=== PATIENT | male | born 1965 | race Caucasian/White ===

== ENCOUNTER 2016-08-04 16:59 | Inpatient (IN) | payer BC ==
[~2016-08-04] VITALS: Ht 188 cm; Wt 65.0 kg
[~2016-08-04 16:59] MED LIST: HYDR-3580 PO; MAGN30S PO; RANI150 TUBE
[2016-08-04 17:02] VITALS: BP 121/66; PULSE 84; RESP 16; TEMP 98; O2SAT 96
[2016-08-04] MEDS ORDERED: SODIUM CHLORIDE 0.9% FLUSH 5 ML FLUSH IVF PRN (22:15)
[2016-08-04 22:22] VITALS: BP 128/72; PULSE 74; RESP 18; O2SAT 95
[2016-08-04 23:06] LABS: AUTOMATED NEUTROPHIL # 4.4 TH/MM3 (1.8-7.7); BASOPHIL # 0.1 TH/MM3 (0-0.2); EOSINOPHIL # 0.1 TH/MM3 (0-0.4); EOSINOPHIL % 1.6 % (0.0-4.0); HEMATOCRIT 47.5 % (39.0-51.0); LYMPH % 21.1 % (9.0-44.0); LYMPHOCYTE # 1.4 TH/MM3 (1.0-4.8); MEAN CELL VOLUME 89.9 FL (80.0-100.0); MEAN CORPUSCULAR HEMOGLOBIN 30.7 PG (27.0-34.0); MEAN CORPUSCULAR HGB CONC 34.1 % (32.0-36.0); MONO % 8.6 % (0.0-8.0); NEUT % 67.7 % (16.0-70.0); PLATELET COUNT 157 TH/MM3 (150-450); RED BLOOD COUNT 5.28 MIL/MM3 (4.50-5.90); RED CELL DISTRIBUTION WIDTH 15.5 % (11.6-17.2); WHITE BLOOD COUNT 6.5 TH/MM3 (4.0-11.0)
[2016-08-04 23:08] LABS: HEMO FLAGS AUTO DIFF
[2016-08-04 23:11] LABS: BLOOD, URINE NEG (NEG); GLUCOSE,URINE NEG (NEG); HYALINE CAST, URINE 4 /lpf (RARE); KETONE, URINE NEG (NEG); MUCUS URINE MANY /lpf (OCC); NITRITE,URINE NEG (NEG); PH, URINE 5.5 (5.0-8.5); RENAL EPITHELIAL CELLS 1 /hpf; SQUAMOUS EPITHELIAL CELL URINE 1 /hpf (0-5); URINE COLOR DARK-BROWN (YELLW/STRAW)
[2016-08-04 23:12] LABS: COMMENT (UR) CULT NOT INDICATED; CULTURE IF INDICATED CULT NOT INDICATED
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
[2016-08-04 23:14] LABS: PROTHROMBIN TIME - PATIENT 10.9 SEC (9.8-11.6)
[2016-08-04] MEDS ORDERED: IOHEXOL 350 MG/ML 10 ML VIAL (for RAD DIAG) IV ONE (23:18)
[2016-08-04 23:20] VITALS: BP 115/62; PULSE 74; RESP 18; O2SAT 97
[2016-08-04 23:28] LABS: ALKALINE PHOSPHATASE 511 U/L (45-117); ALT (GPT) 539 U/L (12-78); ANION GAP 5 MEQ/L (5-15); AST (GOT) 424 U/L (15-37); BICARBONATE 33.1 MEQ/L (21.0-32.0); BLOOD UREA NITROGEN 11 MG/DL (7-18); CHLORIDE 106 MEQ/L (98-107); GLOMERULAR FILTRATION RATE 142 ML/MIN (>89); SODIUM (NA) 144 MEQ/L (136-145); TOTAL BILIRUBIN ADULT 15.1 MG/DL (0.2-1.0)
--- NOTE | 2016-08-04 23:35 | RADRPT ---
EXAM DATE/TIME: 08/04/2016 23:04 [facility] COMPARISON: CT ABDOMEN & PELVIS W CONTRAST, June 28, 2015, 2:02. INDICATIONS : Abnormal labs and jaundice for a few days. IV CONTRAST: 75 cc Omnipaque 350 (iohexol) IV ORAL CONTRAST: No oral contrast ingested. RADIATION DOSE: 9.40 CTDIvol (mGy) MEDICAL HISTORY : Cirrhosis. SURGICAL HISTORY : Cholecystectomy. ENCOUNTER: Initial ACUITY: 3 days PAIN SCALE: 4/10 LOCATION: abdomen TECHNIQUE: Volumetric scanning of the abdomen and pelvis was performed. Using automated exposure control and ad justment of the mA and/or kV according to patient size, radiation dose was kept as low as reasonably achievable to obtain optimal diagnostic quality images. FINDINGS: LOWER LUNGS: The visualized lower lungs are clear. LIVER: The patient is status post interval cholecystectomy. There is mild prominence of the intrahepatic shanthi iary system now noted as well as prominence of the common bile duct which measures up to approximatel y 11 mm. There is no focal mass. SPLEEN: Normal size without lesion. PANCREAS: Portions of the pancreatic duct are mildly prominent and measure up to 4 mm. The head of the pancreas is at the upper limits of normal in size but is unchanged and mildly inhomogeneous. The body and vilma l are otherwise unremarkable. KIDNEYS: Normal in size and shape. There is no mass, stone or hydronephrosis. ADRENAL GLANDS: Within normal limits. VASCULAR: There is no aortic aneurysm. BOWEL/MESENTERY: The stomach, small bowel, and colon demonstrate no acute abnormality. There is no free intraperitone al air or fluid. ABDOMINAL WALL: Within normal limits. RETROPERITONEUM: There is no lymphadenopathy. BLADDER: No wall thickening or mass. REPRODUCTIVE: Within normal limits. INGUINAL: There is no lymphadenopathy or hernia. MUSCULOSKELETAL: Within normal limits for patient age. CONCLUSION: 1. Status post interval cholecystectomy with no prominence of the central intrahepatic biliary system and common bile duct which measures up to approximately 11 mm. No definite mass or filling defect id entified. 2. Mild prominence of the pancreatic duct is now noted measuring up to 4 mm without distinct mass. Zeke Khanna MD on August 04, 2016 at 23:28 Board Certified Radiologist. This report was verified electronically.
[2016-08-05] VITALS (9 sets, daily range): BP systolic 108–133; BP diastolic 57–69; PULSE 70–86; RESP 16–20; TEMP 96.2–98.7; O2SAT 92–98
[2016-08-05 00:24] LABS: SCAN/DIFF AUTO DIFF CONFIRMED
[2016-08-05] MEDS ORDERED: NALOXONE HCL 0.4 MG/ML AMP IV PRN (01:00)
[2016-08-05] MEDS: SODIUM CHLORIDE 0.9% FLUSH 5 ML FLUSH FLUSH SCH ×2 (09:58→19:57)
[2016-08-05 10:48] LABS: INDIRECT BILIRUBIN 3.4 MG/DL (0.0-0.8); TOTAL BILIRUBIN ADULT 16.1 MG/DL (0.2-1.0)
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
[2016-08-05] MEDS ORDERED: ONDANSETRON HCL 4 MG/2 ML VIAL IV PUSH PRN (13:45)
--- NOTE | 2016-08-05 13:58 | RADRPT ---
EXAM DATE/TIME: 08/05/2016 13:45 [facility] COMPARISON: CT ABDOMEN & PELVIS W CONTRAST, August 04, 2016, 23:04. CHEST PA & LAT, July 01, 2015, 8:56. MRCP W/O CONTRAST, June 28, 2015, 8:31. CHEST SINGLE AP, August 15, 2014, 15:27. INDICATIONS : Cough. MEDICAL HISTORY : Cirrhosis. SURGICAL HISTORY : Cholecystectomy. ENCOUNTER: Initial ACUITY: 1 day PAIN SCORE: 0/10 LOCATION: Bilateral chest FINDINGS: Portable AP view of the chest demonstrates a normal-sized cardiac silhouette. Lungs are underinflated . There is mild bibasilar air space opacity. No pleural effusion or pneumothorax is visualized. The b ones and soft tissues demonstrate no acute finding. CONCLUSION: Stable chest x-ray with chronic bilateral lower lobe airspace consolidation versus atelectasis, left greater than right. Barber Julio MD on August 05, 2016 at 13:55 Board Certified Radiologist. This report was verified electronically.
[2016-08-05] MEDS: AZITHROMYCIN 250 MG TAB PO SCH (17:26)
[2016-08-05] MEDS: SODIUM CHLOR 0.9% 1000 ML INJ 1,000 ML IV SCH (17:27)
--- NOTE | 2016-08-05 17:28 | RADRPT ---
EXAM DATE/TIME: 08/05/2016 16:22 [facility] COMPARISON: CT ABDOMEN & PELVIS W CONTRAST, August 04, 2016, 23:04. MRCP W/O CONTRAST, June 28, 2015, 8:31 . INDICATIONS : Obstruction. MEDICAL HISTORY : None. SURGICAL HISTORY : Cholecystectomy. Rotator cuff repair, trach removal, feeding tube removed. ENCOUNTER: Initial ACUITY: 1 day PAIN SCORE: 4/10 LOCATION: Right upper quadrant TECHNIQUE: Multiplanar, multisequence magnetic resonance imaging of the abdomen was performed. High-resolution 3D dataset was utilized to reconstruct maximum-intensity projection (MIP) images. FINDINGS: There is a 4.6 x 3.8 cm mass involving the head of the pancreas. This results in dilatation of the pa ncreatic duct measures 7 mm. There is dilatation of the common bile duct which measures 13 mm. There is intrahepatic ductal dilatation as well. The gallbladder is surgically absent. The amputated cystic duct is distended. Artifact from T-fasteners relating to a prior gastrostomy tube noted. The spleen is mildly enlarged measuring 12.7 cm in greatest dimension. No splenic lesion. CONCLUSION: Pancreatic head mass measuring 4.6 x 3.8 cm with resulting intrahepatic and extrahepatic delivery obs truction with dilatation. The gallbladder is surgically absent. Philip Ralph Jr., MD on August 05, 2016 at 17:19 Board Certified Radiologist. This report was verified electronically.
[2016-08-06] VITALS (7 sets, daily range): BP systolic 101–118; BP diastolic 59–76; PULSE 70–125; RESP 16–20; TEMP 96.2–100; O2SAT 90–97
[2016-08-06] MEDS: SODIUM CHLOR 0.9% 1000 ML INJ 1,000 ML IV SCH ×3 (01:40→20:29)
[2016-08-06] MEDS ORDERED: INSULIN HUMAN REGULAR 1,000 UNITS/10 ML VIAL SQ PRN (02:00)
[2016-08-06] MEDS: LACTATED RINGER'S 1000 ML IV SCH (02:00)
[2016-08-06] MEDS: SODIUM CHLORID 0.9% 500 ML IV SCH ×2 (02:00→18:40)
[2016-08-06] MEDS ORDERED: METOPROLOL TARTRATE 25 MG TAB PO PRN (02:00)
[2016-08-06 04:31] LABS: AUTOMATED NEUTROPHIL # 2.9 TH/MM3 (1.8-7.7); BASOPHIL % 0.9 % (0.0-2.0); EOSINOPHIL # 0.1 TH/MM3 (0-0.4); EOSINOPHIL % 2.6 % (0.0-4.0); HEMATOCRIT 43.6 % (39.0-51.0); LYMPH % 30.9 % (9.0-44.0); LYMPHOCYTE # 1.6 TH/MM3 (1.0-4.8); MEAN CELL VOLUME 89.8 FL (80.0-100.0); MEAN CORPUSCULAR HEMOGLOBIN 30.1 PG (27.0-34.0); MEAN CORPUSCULAR HGB CONC 33.5 % (32.0-36.0); MONO % 10.5 % (0.0-8.0); NEUT % 55.1 % (16.0-70.0); PLATELET COUNT 94 TH/MM3 (150-450); RED BLOOD COUNT 4.86 MIL/MM3 (4.50-5.90); RED CELL DISTRIBUTION WIDTH 15.6 % (11.6-17.2); WHITE BLOOD COUNT 5.2 TH/MM3 (4.0-11.0)
[2016-08-06 04:52] LABS: ALKALINE PHOSPHATASE 507 U/L (45-117); ALT (GPT) 552 U/L (12-78); ANION GAP 8 MEQ/L (5-15); AST (GOT) 472 U/L (15-37); BICARBONATE 31.5 MEQ/L (21.0-32.0); BLOOD UREA NITROGEN 5 MG/DL (7-18); CHLORIDE 107 MEQ/L (98-107); GLOMERULAR FILTRATION RATE 171 ML/MIN (>89); SODIUM (NA) 146 MEQ/L (136-145); TOTAL BILIRUBIN ADULT 16.2 MG/DL (0.2-1.0)
[2016-08-06 04:55] LABS: POTASSIUM 2.9 MEQ/L (3.5-5.1)
[2016-08-06] MEDS ORDERED: POTASSIUM CHLORIDE 20 MEQ CONTROLLED RELEASE TAB PO ONE (05:15)
[2016-08-06] MEDS: POTASSIUM CHLOR 20 MEQ PREMIX 100 ML IV SCH ×2 (05:40→07:47)
[2016-08-06 06:22] LABS: HEMO FLAGS AUTO DIFF
[2016-08-06 06:23] LABS: PLATELET ESTIMATE SMEAR LOW (NORMAL); PLATELET MORPHOLOGY NORMAL (NORMAL); SCAN/DIFF AUTO DIFF CONFIRMED
[2016-08-06] MEDS: AZITHROMYCIN 250 MG TAB PO SCH (07:47)
[2016-08-06] MEDS: SODIUM CHLORIDE 0.9% FLUSH 5 ML FLUSH FLUSH SCH ×2 (07:48→20:28)
[2016-08-06] MEDS ORDERED: PROPOFOL 200 MG/20 ML AMP IV ONE (11:54)
[2016-08-06] MEDS ORDERED: IOHEXOL 350 MG/ML 100 ML BTL (for RAD DIAG) OTHER ONE (11:56)
[2016-08-06] MEDS ORDERED: *RESP: ALBUTEROL 2.5 MG/3 ML NEB (PRN) PERIprocedural Use ONLY NEB ONE (12:35)
[2016-08-06] MEDS ORDERED: *morphine SULFATE 8 MG/ML PERIprocedure ONLY ONE (12:43)
[2016-08-06] MEDS ORDERED: DO NOT ADM ANY ANTICOAGULANT DRUGS XX PRN (13:00)
--- NOTE | 2016-08-06 13:12 | RADRPT ---
EXAM DATE/TIME: 08/06/2016 11:59 [facility] COMPARISON: No previous studies available for comparison. INDICATIONS : Obstruction. FLUORO TIME: 2.3 minutes IMAGE COUNT: 4 CONTRAST: Instilled by Ordering Physician MEDICAL HISTORY : Cirrhosis. Jaundice. SURGICAL HISTORY : Cholecystectomy. Previous feeding tube. ENCOUNTER: Subsequent ACUITY: 1 week PAIN SCORE: Non-responsive. LOCATION: Abdomen. FINDINGS: An ERCP was performed by the ordering physician. The images demonstrates contrast in the common bile duct which appears to be dilated. At the end of the procedure there appears to be an internal biliary stent in place. CONCLUSION: ERCP as above. Luis Alberto Escamilla MD on August 06, 2016 at 13:10 Board Certified Radiologist. This report was verified electronically.
--- NOTE | 2016-08-06 13:35 | EKG ---
Date Performed: 08/06/2016 Time Performed: 05:45:46 PTAGE: 51 years EKG: Sinus rhythm Left axis deviation Left bundle branch block Compared to previous tracing, left bundle branch block is new. Abnormal ECG PREVIOUS TRACING : 07/01/2015 08.16 DOCTOR: Adryan Ye Interpretating Date/Time 08/06/2016 13:32:09
[2016-08-06 14:49] LABS: BICARBONATE 29.1 MEQ/L (21.0-32.0); MAGNESIUM 2.3 MG/DL (1.5-2.5); POTASSIUM 4.3 MEQ/L (3.5-5.1)
[2016-08-06] MEDS: SODIUM CHLORIDE 0.9% FLUSH 5 ML FLUSH FLUSH PRN (16:03)
[2016-08-06] MEDS: MORPHINE SULFATE 4 MG/ML INJ IV PUSH PRN ×2 (16:03→20:29)
--- NOTE | 2016-08-06 23:47 | HHI.PR ---
Subjective Remarks patient seen today around 2 PM, after procedure. Says he's feeling well. Denies any chest pain. Denies any nausea or vomiting. He is oriented about what GI might have found on ERCP Objective Vital Signs Date Time Temp Pulse Resp B/P Pulse Ox O2 Delivery O2 Flow Rate FiO2 08/06/16 20:00 100.0 125 18 115/68 90 08/06/16 16:08 12 08/06/16 16:00 96.2 72 17 112/73 93 08/06/16 13:40 98.1 77 17 118/66 93 08/06/16 13:14 98.3 68 18 120/75 95 Simple Mask 6 08/06/16 13:00 68 18 120/75 95 Simple Mask 6 08/06/16 12:45 77 18 127/75 95 Simple Mask 6 08/06/16 12:30 98.3 69 18 123/74 92 Simple Mask 6 08/06/16 08:00 97.5 70 16 101/59 94 08/06/16 04:00 98.2 71 20 105/76 95 08/06/16 00:00 97.6 84 18 112/68 97 I/O 08/05/16 08/05/16 08/05/16 08/06/16 08/06/16 08/06/16 07:00 15:00 23:00 07:00 15:00 23:00 Intake Total 1160 ml 0 ml 0 ml 210 ml Output Total 350 ml 675 ml 650 ml 400 ml 400 ml Balance -350 ml 485 ml -650 ml -400 ml -190 ml Intake Oral 960 ml 0 ml 0 ml 210 ml IV Total 200 ml Output Urine Total 350 ml 675 ml 650 ml 400 ml 400 ml # Voids 2 # Bowel Movements 2 0 0 Result Diagram: 08/06/16 0405 08/06/16 1408 Objective Remarks GENERAL: sitting up in bed. Alert and oriented x3. SKIN: Warm and dry. HEAD: Normocephalic. EYES: No scleral icterus. No injection or drainage. NECK: Supple, trachea midline. No JVD or lymphadenopathy. CARDIOVASCULAR: Regular rate and rhythm without murmurs, gallops, or rubs. RESPIRATORY: Breath sounds equal bilaterally. No accessory muscle use. GASTROINTESTINAL: Abdomen soft, non-tender, nondistended. MUSCULOSKELETAL: No cyanosis, or edema. BACK: Nontender without obvious deformity. No CVA tenderness. A/P Assessment and Plan 51 year old male with a past medical history of myotonic dystrophy, GERD, fatty liver disease, asthma who presented with jaundice //Obstructive jaundice: Elevated bilirubin, AST, ALT, alkaline phosphatase. CT abdomen and personally reviewed, pancreatic duct 4 mm, no signs of obstruction, no signs of liver lesions. - Hepatitis panel negative -Status post ERCP by GI on 08/06. Biopsies pending. Appreciate assistance. //Possible community-acquired pneumonia. -Cough, productive: Check chest x-ray. Acapella and incentive spirometry. Nebs as needed for history of asthma. - Azithromycin started 08/05 Myotonic dystrophy: Continue PT while admitted. DVT prophylaxis: Judd Nino MD Aug 06, 2016 23:47
[2016-08-07] VITALS: BP 102/61; PULSE 93; RESP 18; TEMP 98.9; O2SAT 94
[2016-08-07] MEDS: LACTATED RINGER'S 1000 ML IV SCH (02:00)
[2016-08-07 04:00] VITALS: BP 99/62; PULSE 83; RESP 18; TEMP 97.8; O2SAT 93
[2016-08-07] MEDS: MORPHINE SULFATE 4 MG/ML INJ IV PUSH PRN ×6 (04:16→23:50)
[2016-08-07 05:12] LABS: BASOPHIL # 0.1 TH/MM3 (0-0.2); BASOPHIL % 0.5 % (0.0-2.0); EOSINOPHIL % 0.2 % (0.0-4.0); HEMATOCRIT 46.2 % (39.0-51.0); LYMPH % 16.8 % (9.0-44.0); LYMPHOCYTE # 2.2 TH/MM3 (1.0-4.8); MEAN CELL VOLUME 90.8 FL (80.0-100.0); MEAN CORPUSCULAR HEMOGLOBIN 29.9 PG (27.0-34.0); MEAN CORPUSCULAR HGB CONC 32.9 % (32.0-36.0); MONO % 5.6 % (0.0-8.0); NEUT % 76.9 % (16.0-70.0); PLATELET COUNT 94 TH/MM3 (150-450); RED BLOOD COUNT 5.09 MIL/MM3 (4.50-5.90); RED CELL DISTRIBUTION WIDTH 15.8 % (11.6-17.2)
[2016-08-07 05:24] LABS: HEMO FLAGS AUTO DIFF
[2016-08-07 05:41] LABS: ALKALINE PHOSPHATASE 534 U/L (45-117); ALT (GPT) 494 U/L (12-78); ANION GAP 7 MEQ/L (5-15); AST (GOT) 319 U/L (15-37); BICARBONATE 29.2 MEQ/L (21.0-32.0); BLOOD UREA NITROGEN 6 MG/DL (7-18); CHLORIDE 106 MEQ/L (98-107); GLOMERULAR FILTRATION RATE 127 ML/MIN (>89); POTASSIUM 3.7 MEQ/L (3.5-5.1); SODIUM (NA) 142 MEQ/L (136-145); TOTAL BILIRUBIN ADULT 16.7 MG/DL (0.2-1.0)
[2016-08-07] MEDS: SODIUM CHLORIDE 0.9% FLUSH 5 ML FLUSH FLUSH SCH ×2 (07:59→20:34)
[2016-08-07] MEDS: AZITHROMYCIN 250 MG TAB PO SCH ×2 (07:59→16:54)
[2016-08-07] MEDS: SODIUM CHLOR 0.9% 1000 ML INJ 1,000 ML IV SCH (07:59)
[2016-08-07 08:00] VITALS: BP 99/60; PULSE 81; RESP 17; TEMP 98.5; O2SAT 93
[2016-08-07 08:57] LABS: PLATELET ESTIMATE SMEAR LOW (NORMAL); PLATELET MORPHOLOGY NORMAL (NORMAL); SCAN/DIFF AUTO DIFF CONFIRMED
--- NOTE | 2016-08-07 09:38 | HHI.GIFU ---
Subjective Remarks asymptomatic today and feeling well, diet tolerated. Objective Vitals I&O Vital Signs Date Time Temp Pulse Resp B/P Pulse Ox O2 Delivery O2 Flow Rate FiO2 08/07/16 08:00 98.5 81 17 99/60 93 08/07/16 04:22 16 08/07/16 04:00 97.8 83 18 99/62 93 08/07/16 00:00 98.9 93 18 102/61 94 08/06/16 20:30 125 08/06/16 20:00 100.0 125 18 115/68 90 08/06/16 16:08 12 08/06/16 16:00 96.2 72 17 112/73 93 08/06/16 13:40 98.1 77 17 118/66 93 08/06/16 13:14 98.3 68 18 120/75 95 Simple Mask 6 08/06/16 13:00 68 18 120/75 95 Simple Mask 6 08/06/16 12:45 77 18 127/75 95 Simple Mask 6 08/06/16 12:30 98.3 69 18 123/74 92 Simple Mask 6 I/O 08/06/16 08/06/16 08/06/16 08/07/16 08/07/16 08/07/16 07:00 15:00 23:00 07:00 15:00 23:00 Intake Total 0 ml 697 ml 1208 ml 494 ml Output Total 650 ml 400 ml 400 ml 300 ml Balance -650 ml 297 ml 808 ml 194 ml Intake Oral 0 ml 0 ml 210 ml 120 ml IV Total 697 ml 998 ml 374 ml Output Urine Total 650 ml 400 ml 400 ml 300 ml # Bowel Movements 0 0 Laboratory Laboratory Tests Test 08/06/16 08/07/16 14:08 04:28 Sodium Level 142 142 Potassium Level 4.3 3.7 Chloride Level 108 106 Carbon Dioxide Level 29.1 29.2 Anion Gap 5 7 Blood Urea Nitrogen 5 6 Creatinine 0.76 0.66 Estimat Glomerular Filtration 108 127 Rate Random Glucose 122 103 Calcium Level 9.2 9.1 Magnesium Level 2.3 White Blood Count 13.0 Red Blood Count 5.09 Hemoglobin 15.2 Hematocrit 46.2 Mean Corpuscular Volume 90.8 Mean Corpuscular Hemoglobin 29.9 Mean Corpuscular Hemoglobin 32.9 Concent Red Cell Distribution Width 15.8 Platelet Count 94 Mean Platelet Volume 9.6 Neutrophils (%) (Auto) 76.9 Lymphocytes (%) (Auto) 16.8 Monocytes (%) (Auto) 5.6 Eosinophils (%) (Auto) 0.2 Basophils (%) (Auto) 0.5 Neutrophils # (Auto) 10.0 Lymphocytes # (Auto) 2.2 Monocytes # (Auto) 0.7 Eosinophils # (Auto) 0.0 Basophils # (Auto) 0.1 CBC Comment AUTO DIFF Differential Comment AUTO DIFF CONFIRMED Platelet Estimate LOW Platelet Morphology Comment NORMAL Total Bilirubin 16.7 Aspartate Amino Transf 319 (AST/SGOT) Alanine Aminotransferase 494 (ALT/SGPT) Alkaline Phosphatase 534 Total Protein 6.5 Albumin 2.8 Physical Exam HEENT: Pupils round and reactive to light; normocephalic; atraumatic; jaundiced. Throat is clear. NECK: Neck is supple, no JVD, no lymphadenopathy. CHEST: Chest is clear to auscultation and percussion. CARDIAC: Regular rate and rhythm with no murmur gallop or rubs. ABDOMEN: Soft, nondistended, nontender; no hepatosplenomegaly; bowel sounds are present in all four quadrants. EXTREMITIES: No clubbing, cyanosis, or edema. SKIN: Normal; no rash; jaundiced. 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 Patient reports diarrhea for the past 5 days, but that has resolved, reports dark urine, denies fever, chills, nausea or vomiting. He reports mid abd pain for few days but improving, he describes this as discomfort that was constant. Denies alcohol, denies new medications or herbal supplement. Labs revealed elevated LFTs, bilirubin, lipase. Today total bili is 16, direct is 12.7, AST 492, ALT 566, AlP 523, lipase yesterday was 409. CBC wnl. CT (08/05/16) 1. Status post interval cholecystectomy with no prominence of the central intrahepatic biliary system and common bile duct which measures up to approximately 11 mm. No definite mass or filling defect identified. 2. Mild prominence of the pancreatic duct is now noted measuring up to 4 mm without distinct mass. - myotonic dystrophy- per attending Plan: - KATE - Daily LFT's - Tumor markers - IR for percutaneous biopsy of pancreatic mass - Await biopsy results from the duodenum - Supportive care David Archuleta MD Aug 07, 2016 09:38
[2016-08-07] MEDS: SODIUM CHLORIDE 0.9% FLUSH 5 ML FLUSH FLUSH PRN ×2 (11:39→16:13)
[2016-08-07 12:00] VITALS: BP 103/67; PULSE 85; RESP 18; TEMP 97.9; O2SAT 94
--- NOTE | 2016-08-07 14:28 | HHI.PR ---
Subjective Remarks Follow up for obstructive jaundice, possible community acquired pneumonia. The patient reports feeling better today. He denies any nausea/vomiting but does still have a mild intermittent pain he locates to the "middle of his stomach", relieved by morphine. Last BM yesterday. He is requesting cough medication, still with nonproductive cough. Did have low grade fever of 100.0 last night at 8pm, afebrile since. He has no other medical complaints at this time. Objective Vitals Vital Signs Date Time Temp Pulse Resp B/P Pulse Ox O2 Delivery O2 Flow Rate FiO2 08/07/16 12:00 97.9 85 18 103/67 94 08/07/16 08:00 98.5 81 17 99/60 93 08/07/16 04:22 16 08/07/16 04:00 97.8 83 18 99/62 93 08/07/16 00:00 98.9 93 18 102/61 94 08/06/16 20:30 125 08/06/16 20:00 100.0 125 18 115/68 90 08/06/16 16:08 12 08/06/16 16:00 96.2 72 17 112/73 93 I/O 08/06/16 08/06/16 08/06/16 08/07/16 08/07/16 08/07/16 07:00 15:00 23:00 07:00 15:00 23:00 Intake Total 0 ml 697 ml 1208 ml 494 ml 1029 ml Output Total 650 ml 400 ml 400 ml 300 ml 200 ml Balance -650 ml 297 ml 808 ml 194 ml 829 ml Intake Oral 0 ml 0 ml 210 ml 120 ml 120 ml IV Total 697 ml 998 ml 374 ml 909 ml Output Urine Total 650 ml 400 ml 400 ml 300 ml 200 ml # Bowel Movements 0 0 0 Result Diagram: 08/07/16 0428 08/07/16 0428 Imaging Last Impressions GI Procedure 08/06/16 1130 Signed Impressions: Service Date/Time: Saturday, August 06, 2016 11:59 - CONCLUSION: ERCP as above. Luis Alberto Escamilla MD Cholangiopancreatography MRI 08/05/16 0000 Signed Impressions: Service Date/Time: July 16:22 - CONCLUSION: Pancreatic head mass measuring 4.6 x 3.8 cm with resulting intrahepatic and extrahepatic delivery obstruction with dilatation. The gallbladder is surgically absent. Philip Ralph Jr., MD Chest X-Ray 08/05/16 0000 Signed Impressions: Service Date/Time: July 13:45 - CONCLUSION: Stable chest x-ray with chronic bilateral lower lobe airspace consolidation versus atelectasis, left greater than right. Barber Julio MD Abdomen/Pelvis CT 08/04/16 2216 Signed Impressions: Service Date/Time: Thursday, August 04, 2016 23:04 - CONCLUSION: 1. Status post interval cholecystectomy with no prominence of the central intrahepatic biliary system and common bile duct which measures up to approximately 11 mm. No definite mass or filling defect identified. 2. Mild prominence of the pancreatic duct is now noted measuring up to 4 mm without distinct mass. Zeke Khanna MD Objective Remarks GENERAL: Well-nourished, well-developed middle aged male patient in NAD. Sitting upright in bed. SKIN: Warm and dry. No rash. HEAD: Normocephalic. Atraumatic. EYES: Pupils equal and round. No scleral icterus. No injection or drainage. NECK: Supple. Trachea midline. CARDIOVASCULAR: Regular rate and rhythm. S1, S2 noted. No murmur appreciated. RESPIRATORY: No accessory muscle use. Clear to auscultation. Breath sounds equal bilaterally. GASTROINTESTINAL: Abdomen soft, non-tender, nondistended. Normoactive bowel sounds x4. MUSCULOSKELETAL: No obvious deformities. Extremities without clubbing, cyanosis , or edema. NEUROLOGICAL: Awake and alert. No obvious cranial nerve deficits. Motor grossly within normal limits. Normal speech. PSYCHIATRIC: Appropriate mood and affect; insight and judgment normal. Procedures 08/06/16 ERCP Medications and IVs Current Medications Medications (Trade) Dose Ordered Sig/Sahara Route Start Time Stop Time Status Last Admin (NS Flush) 2 ml UNSCH PRN FLUSH 08/05/16 01:00 08/07/16 11:39 (NS Flush) 2 ml BID FLUSH 08/05/16 09:00 08/07/16 07:59 (Narcan Inj) 0.4 mg UNSCH PRN IV 08/05/16 01:00 Ondansetron HCl 4 mg 4 mg Q6HR PRN IV PUSH 08/05/16 13:45 (NS 1000 ml Inj) 1,000 ml @ 84 mls/hr [id number] IV 08/05/16 13:45 08/07/16 07:59 Azithromycin 500 mg 500 mg DAILY PO 08/05/16 16:00 08/07/16 07:59 (Lr 1000 ml Inj) 1,000 ml @ 30 mls/hr Q24H IV 08/06/16 02:00 (Morphine Inj) 2 mg Q3H PRN IV PUSH 08/06/16 15:30 08/07/16 04:16 (Morphine Inj) 4 mg Q3H PRN IV PUSH 08/06/16 15:30 08/07/16 11:38 A/P Problem List: (1) Myotonic dystrophy, 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 CT abdomen and personally reviewed, pancreatic duct 4 mm, no signs of obstruction, no signs of liver lesions. - Hepatitis panel negative - GI consulted -Status post ERCP by GI on 08/06. Biopsies pending. Appreciate assistance from GI. //Possible community-acquired pneumonia. -Cough, productive: Check chest x-ray. Acapella and incentive spirometry. Nebs as needed for history of asthma. - Azithromycin started 08/05, decrease to 250mg daily x3 days (last dose 07/09) Myotonic dystrophy: Continue PT while admitted. DVT prophylaxis: SCDs Written by Kaylan Mcgregor, acting as scribe for Dr. Nielson on 08/07/16 at 12: 40. Attending Statement The documentation accurately reflects the work performed [id number] by nv, Dr. Nielson on 08/07/16 at 12:40. Kaylan Mcgregor PA-C Aug 07, 2016 14:28 Judd Nielson MD Aug 07, 2016 22:49
[2016-08-07] MEDS: BENZONATATE 100 MG CAP PO SCH ×2 (15:17→16:54)
[2016-08-07] MEDS: RESP: ALBUTEROL 2.5 MG/IPRATROPIUM 0.5 MG NEB (PRN) NEB (19:37)
[2016-08-07 19:42] VITALS: O2SAT 93
[2016-08-07 20:00] VITALS: BP 119/70; PULSE 93; RESP 18; TEMP 98.5; O2SAT 88
[2016-08-08] VITALS: BP 107/69; PULSE 93; RESP 18; TEMP 100.2; O2SAT 94
[2016-08-08] MEDS: SODIUM CHLOR 0.9% 1000 ML INJ 1,000 ML IV SCH ×2 (00:22→11:36)
[2016-08-08] MEDS: LACTATED RINGER'S 1000 ML IV SCH (00:22)
[2016-08-08] MEDS: BENZONATATE 100 MG CAP PO PRN (01:32)
[2016-08-08] MEDS: MORPHINE SULFATE 4 MG/ML INJ IV PUSH PRN ×4 (02:42→11:54)
[2016-08-08 08:00] VITALS: BP 101/58; PULSE 78; RESP 20; TEMP 98; O2SAT 92
[2016-08-08] MEDS: BENZONATATE 100 MG CAP PO SCH ×3 (08:06→15:22)
[2016-08-08] MEDS: AZITHROMYCIN 250 MG TAB PO SCH (08:06)
[2016-08-08] MEDS: SODIUM CHLORIDE 0.9% FLUSH 5 ML FLUSH FLUSH SCH ×2 (08:08→19:34)
[2016-08-08] MEDS: RESP: ALBUTEROL 2.5 MG/IPRATROPIUM 0.5 MG NEB (PRN) NEB (09:16)
[2016-08-08 10:39] LABS: AUTOMATED NEUTROPHIL # 3.8 TH/MM3 (1.8-7.7); BASOPHIL % 0.5 % (0.0-2.0); EOSINOPHIL # 0.1 TH/MM3 (0-0.4); EOSINOPHIL % 1.1 % (0.0-4.0); HEMATOCRIT 40.3 % (39.0-51.0); LYMPHOCYTE # 2.3 TH/MM3 (1.0-4.8); MEAN CELL VOLUME 92.5 FL (80.0-100.0); MEAN CORPUSCULAR HEMOGLOBIN 29.7 PG (27.0-34.0); MEAN CORPUSCULAR HGB CONC 32.1 % (32.0-36.0); MONO % 8.3 % (0.0-8.0); NEUT % 56.1 % (16.0-70.0); PLATELET COUNT 75 TH/MM3 (150-450); RED BLOOD COUNT 4.35 MIL/MM3 (4.50-5.90); RED CELL DISTRIBUTION WIDTH 15.8 % (11.6-17.2); WHITE BLOOD COUNT 6.8 TH/MM3 (4.0-11.0)
[2016-08-08 10:40] LABS: HEMO FLAGS AUTO DIFF
--- NOTE | 2016-08-08 10:55 | HHI.GIFU ---
Subjective Remarks Seen and examined, feeling better today, clear urine and tolerating diet well. Objective Vitals I&O Vital Signs Date Time Temp Pulse Resp B/P Pulse Ox O2 Delivery O2 Flow Rate FiO2 08/08/16 09:22 Nasal Cannula 2.00 08/08/16 08:00 98.0 78 20 101/58 92 08/08/16 00:00 100.2 93 18 107/69 94 08/07/16 20:00 98.5 93 18 119/70 88 08/07/16 19:42 93 Nasal Cannula 3.00 08/07/16 16:18 18 08/07/16 12:00 97.9 85 18 103/67 94 I/O 08/07/16 08/07/16 08/07/16 08/08/16 08/08/16 08/08/16 07:00 15:00 23:00 07:00 15:00 23:00 Intake Total 494 ml 1029 ml 912 ml 1392 ml Output Total 300 ml 200 ml 600 ml 725 ml Balance 194 ml 829 ml 312 ml 667 ml Intake Oral 120 ml 120 ml 240 ml 720 ml IV Total 374 ml 909 ml 672 ml 672 ml Output Urine Total 300 ml 200 ml 600 ml 725 ml # Bowel Movements 0 Laboratory Laboratory Tests Test 08/08/16 08/08/16 05:30 10:20 Carcinoembryonic Antigen 1.5 CA 19-9 Antigen 94.9 White Blood Count 6.8 Red Blood Count 4.35 Hemoglobin 13.0 Hematocrit 40.3 Mean Corpuscular Volume 92.5 Mean Corpuscular Hemoglobin 29.7 Mean Corpuscular Hemoglobin 32.1 Concent Red Cell Distribution Width 15.8 Platelet Count 75 Mean Platelet Volume 9.6 Neutrophils (%) (Auto) 56.1 Lymphocytes (%) (Auto) 34.0 Monocytes (%) (Auto) 8.3 Eosinophils (%) (Auto) 1.1 Basophils (%) (Auto) 0.5 Neutrophils # (Auto) 3.8 Lymphocytes # (Auto) 2.3 Monocytes # (Auto) 0.6 Eosinophils # (Auto) 0.1 Basophils # (Auto) 0.0 CBC Comment AUTO DIFF Physical Exam HEENT: Pupils round and reactive to light; normocephalic; atraumatic; jaundiced. Throat is clear. NECK: Neck is supple, no JVD, no lymphadenopathy. CHEST: Chest is clear to auscultation and percussion. CARDIAC: Regular rate and rhythm with no murmur gallop or rubs. ABDOMEN: Soft, nondistended, nontender; no hepatosplenomegaly; bowel sounds are present in all four quadrants. EXTREMITIES: No clubbing, cyanosis, or edema. SKIN: Normal; no rash; jaundiced. 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 Patient reports diarrhea for the past 5 days, but that has resolved, reports dark urine, denies fever, chills, nausea or vomiting. He reports mid abd pain for few days but improving, he describes this as discomfort that was constant. Denies alcohol, denies new medications or herbal supplement. Labs revealed elevated LFTs, bilirubin, lipase. Today total bili is 16, direct is 12.7, AST 492, ALT 566, AlP 523, lipase yesterday was 409. CBC wnl. CT (08/05/16) 1. Status post interval cholecystectomy with no prominence of the central intrahepatic biliary system and common bile duct which measures up to approximately 11 mm. No definite mass or filling defect identified. 2. Mild prominence of the pancreatic duct is now noted measuring up to 4 mm without distinct mass. - myotonic dystrophy- per attending Plan: - KATE - Daily LFT's - IR for percutaneous biopsy of pancreatic mass - Await biopsy results from the duodenum - Supportive care David Archuleta MD Aug 08, 2016 10:55
[2016-08-08 11:08] LABS: ALKALINE PHOSPHATASE 343 U/L (45-117); ALT (GPT) 249 U/L (12-78); ANION GAP 5 MEQ/L (5-15); AST (GOT) 88 U/L (15-37); BICARBONATE 31.1 MEQ/L (21.0-32.0); BLOOD UREA NITROGEN 6 MG/DL (7-18); CHLORIDE 104 MEQ/L (98-107); GLOMERULAR FILTRATION RATE 220 ML/MIN (>89); POTASSIUM 3.5 MEQ/L (3.5-5.1); SODIUM (NA) 140 MEQ/L (136-145); TOTAL BILIRUBIN ADULT 5.9 MG/DL (0.2-1.0)
[2016-08-08 12:00] VITALS: BP 98/54; PULSE 81; RESP 18; TEMP 98.6; O2SAT 94
--- NOTE | 2016-08-08 12:31 | RADRPT ---
EXAM DATE/TIME: 08/08/2016 12:16 [facility] COMPARISON: CHEST PA & LAT, July 01, 2015, 8:56. INDICATIONS : Cough. MEDICAL HISTORY : Cirrhosis. SURGICAL HISTORY : None. ENCOUNTER: Initial ACUITY: 2 days PAIN SCORE: 0/10 LOCATION: Bilateral chest FINDINGS: There is atelectasis and consolidation at both bases. Small effusions are suspected. Osseous structur es are intact. Cardiomegaly. Left midlung airspace disease noted. CONCLUSION: Basilar consolidation and atelectasis with small effusions and left midlung infiltrate. Darius Lai MD on August 08, 2016 at 12:29 Board Certified Radiologist. This report was verified electronically.
--- NOTE | 2016-08-08 13:36 | HHI.PR ---
Subjective Remarks Follow up for obstructive jaundice, pneumonia. The patient reports a continued cough and developed sinus congestion overnight. Tessalon Perles not helping the cough. He had a low grade fever overnight of 100.2. He otherwise denies any other medical complaints today. He agrees to stay in the hospital another day since he does not feel well today. Objective Vitals Vital Signs Date Time Temp Pulse Resp B/P Pulse Ox O2 Delivery O2 Flow Rate FiO2 08/08/16 12:00 98.6 81 18 98/54 94 08/08/16 09:22 Nasal Cannula 2.00 08/08/16 08:00 98.0 78 20 101/58 92 08/08/16 00:00 100.2 93 18 107/69 94 08/07/16 20:00 98.5 93 18 119/70 88 08/07/16 19:42 93 Nasal Cannula 3.00 08/07/16 16:18 18 I/O 08/07/16 08/07/16 08/07/16 08/08/16 08/08/16 08/08/16 07:00 15:00 23:00 07:00 15:00 23:00 Intake Total 494 ml 1029 ml 912 ml 1392 ml Output Total 300 ml 200 ml 600 ml 725 ml Balance 194 ml 829 ml 312 ml 667 ml Intake Oral 120 ml 120 ml 240 ml 720 ml IV Total 374 ml 909 ml 672 ml 672 ml Output Urine Total 300 ml 200 ml 600 ml 725 ml # Bowel Movements 0 Result Diagram: 08/08/16 1020 08/08/16 1020 Imaging Last Impressions Chest X-Ray 08/08/16 0000 Signed Impressions: Service Date/Time: Monday, August 08, 2016 12:16 - CONCLUSION: Basilar consolidation and atelectasis with small effusions and left midlung infiltrate. Darius Lai MD GI Procedure 08/06/16 1130 Signed Impressions: Service Date/Time: Saturday, August 06, 2016 11:59 - CONCLUSION: ERCP as above. Luis Alberto Escamilla MD Cholangiopancreatography MRI 08/05/16 0000 Signed Impressions: Service Date/Time: July 16:22 - CONCLUSION: Pancreatic head mass measuring 4.6 x 3.8 cm with resulting intrahepatic and extrahepatic delivery obstruction with dilatation. The gallbladder is surgically absent. Philip Ralph Jr., MD Abdomen/Pelvis CT 08/04/16 8256 Signed Impressions: Service Date/Time: Thursday, August 04, 2016 23:04 - CONCLUSION: 1. Status post interval cholecystectomy with no prominence of the central intrahepatic biliary system and common bile duct which measures up to approximately 11 mm. No definite mass or filling defect identified. 2. Mild prominence of the pancreatic duct is now noted measuring up to 4 mm without distinct mass. Zeke Khanna MD Objective Remarks GENERAL: Well-nourished, well-developed middle aged male patient in NAD. Sitting upright in bed. SKIN: Warm and dry. No rash. Jaundiced skin. HEAD: Normocephalic. Atraumatic. EYES: Pupils equal and round. No injection or drainage. NECK: Supple. Trachea midline. CARDIOVASCULAR: Regular rate and rhythm. S1, S2 noted. No murmur appreciated. RESPIRATORY: No accessory muscle use. Upper airway congestion noted with coarse breath sounds, otherwise clear to auscultation. Breath sounds equal bilaterally. GASTROINTESTINAL: Abdomen soft, non-tender, nondistended. Normoactive bowel sounds x4. MUSCULOSKELETAL: No obvious deformities. Extremities without clubbing, cyanosis , or edema. NEUROLOGICAL: Awake and alert. No obvious cranial nerve deficits. Motor grossly within normal limits. Normal speech. PSYCHIATRIC: Appropriate mood and affect; insight and judgment normal. Procedures 08/06/16 ERCP Medications and IVs Current Medications Medications (Trade) Dose Ordered Sig/Sahara Route Start Time Stop Time Status Last Admin (NS Flush) 2 ml UNSCH PRN FLUSH 08/05/16 01:00 08/07/16 16:13 (NS Flush) 2 ml BID FLUSH 08/05/16 09:00 08/07/16 07:59 (Narcan Inj) 0.4 mg UNSCH PRN IV 08/05/16 01:00 Ondansetron HCl 4 mg 4 mg Q6HR PRN IV PUSH 08/05/16 13:45 (Lr 1000 ml Inj) 1,000 ml @ 30 mls/hr Q24H IV 08/06/16 02:00 (Tessalon) 100 mg TID PO 08/07/16 14:30 08/08/16 11:53 (Zithromax) 250 mg DAILY PO 08/07/16 16:00 08/10/16 15:59 08/08/16 08:06 (Tessalon) 100 mg TID PRN PO 08/08/16 01:30 08/08/16 01:32 (Roxicodone) 5 mg Q6H PRN PO 08/08/16 13:00 Oxycodone HCl 10 mg 10 mg Q6H PRN PO 08/08/16 13:00 (Zosyn 4.5 Gm Premix) 100 ml @ 200 mls/hr Q6H IV 08/08/16 15:00 Urinary Catheter: No Vascular Central Line Catheter: No A/P Problem List: (1) Myotonic dystrophy, 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 CT abdomen and personally reviewed, pancreatic duct 4 mm, no signs of obstruction, no signs of liver lesions. - Hepatitis panel negative - GI consulted - Status post ERCP by GI on 08/06. Duodenum Biopsies pending. Appreciate assistance from GI. - Monitoring LFTs daily, improved today, trending down - GI recommending percutaneous biopsy of pancreatic mass by IR, however can be done as outpatient //Sepsis with Healthcare Associated Pneumonia: patient initially presented with cough that worsened throughout hospital stay. Now tachycardic, WBC 13K, +fever Tmax 100.2 - Initial CXR 08/05 stable with chronic b/l lower lobe airspace consolidation vs atelectasis, patient started on Azithro po - 08/08 patient still with cough, worsened, d/c fluids, repeat CXR PA/lat showed basilar consolidation with small effusions and left lung infiltrate - added IV Zosyn in addition to po Azithro - Continue Acapella and incentive spirometry. Nebs as needed for history of asthma. - Tessalon sahara for cough - pain control with oxycodone pain scale prn Myotonic dystrophy: Continue PT while admitted. DVT prophylaxis: SCDs Written by Kaylan Mcgregor, acting as scribe for Dr. Nielson on 08/08/16 at 10:50. Discharge Planning Not yet ready for discharge. Attending Statement The documentation accurately reflects the work performed [id number] by me, Dr. Nielson on 08/08/16 at 10:50. Kaylan Mcgregor PA-C Aug 08, 2016 13:36 Judd Nielson MD Aug 08, 2016 23:11
[2016-08-08] MEDS: PIPERACIL-TAZO 4.5 GM PREMIX 100 ML IV SCH ×2 (14:15→19:34)
[2016-08-08 14:54] LABS: PLATELET ESTIMATE SMEAR LOW (NORMAL); PLATELET MORPHOLOGY NORMAL (NORMAL); SCAN/DIFF AUTO DIFF CONFIRMED
[2016-08-08 16:00] VITALS: BP 105/57; PULSE 75; RESP 18; TEMP 98.7; O2SAT 94
[2016-08-08 20:00] VITALS: BP 109/64; PULSE 77; RESP 18; TEMP 97.8; O2SAT 93
[2016-08-09] VITALS: BP 107/60; PULSE 68; RESP 18; TEMP 98.6; O2SAT 93
[2016-08-09] MEDS: LACTATED RINGER'S 1000 ML IV SCH ×2 (01:01→21:43)
[2016-08-09] MEDS: PIPERACIL-TAZO 4.5 GM PREMIX 100 ML IV SCH ×4 (02:37→21:42)
[2016-08-09 05:46] LABS: BASOPHIL # 0.1 TH/MM3 (0-0.2); BASOPHIL % 0.8 % (0.0-2.0); EOSINOPHIL # 0.2 TH/MM3 (0-0.4); EOSINOPHIL % 2.8 % (0.0-4.0); HEMATOCRIT 40.6 % (39.0-51.0); LYMPH % 30.3 % (9.0-44.0); LYMPHOCYTE # 2.2 TH/MM3 (1.0-4.8); MEAN CELL VOLUME 91.3 FL (80.0-100.0); MEAN CORPUSCULAR HEMOGLOBIN 30.3 PG (27.0-34.0); MEAN CORPUSCULAR HGB CONC 33.2 % (32.0-36.0); MONO % 9.8 % (0.0-8.0); NEUT % 56.3 % (16.0-70.0); PLATELET COUNT 92 TH/MM3 (150-450); RED BLOOD COUNT 4.45 MIL/MM3 (4.50-5.90); RED CELL DISTRIBUTION WIDTH 15.1 % (11.6-17.2); WHITE BLOOD COUNT 7.2 TH/MM3 (4.0-11.0)
[2016-08-09 06:00] LABS: HEMO FLAGS AUTO DIFF
[2016-08-09 06:18] LABS: ALKALINE PHOSPHATASE 322 U/L (45-117); ALT (GPT) 220 U/L (12-78); ANION GAP 6 MEQ/L (5-15); AST (GOT) 73 U/L (15-37); BICARBONATE 34.8 MEQ/L (21.0-32.0); BLOOD UREA NITROGEN 7 MG/DL (7-18); CHLORIDE 100 MEQ/L (98-107); GLOMERULAR FILTRATION RATE 154 ML/MIN (>89); POTASSIUM 3.7 MEQ/L (3.5-5.1); SODIUM (NA) 141 MEQ/L (136-145)
[2016-08-09 06:28] LABS: TOTAL BILIRUBIN ADULT 5.2 MG/DL (0.2-1.0)
[2016-08-09 07:10] LABS: PLATELET ESTIMATE SMEAR LOW (NORMAL); PLATELET MORPHOLOGY NORMAL (NORMAL); SCAN/DIFF AUTO DIFF CONFIRMED
[2016-08-09 08:00] VITALS: BP 102/71; PULSE 79; RESP 18; TEMP 97.4; O2SAT 91
[2016-08-09] MEDS: AZITHROMYCIN 250 MG TAB PO SCH (09:27)
[2016-08-09] MEDS: BENZONATATE 100 MG CAP PO SCH ×3 (09:27→17:47)
[2016-08-09] MEDS: SODIUM CHLORIDE 0.9% FLUSH 5 ML FLUSH FLUSH SCH ×2 (09:28→21:43)
--- NOTE | 2016-08-09 10:45 | HHI.GIFU ---
Subjective Remarks Last night events noted, bronchitis vs pneumonia , but asymptomatic from GI point of view. Objective Vitals I&O Vital Signs Date Time Temp Pulse Resp B/P Pulse Ox O2 Delivery O2 Flow Rate FiO2 08/09/16 08:00 97.4 79 18 102/71 91 08/09/16 06:36 20 08/09/16 00:00 98.6 68 18 107/60 93 08/08/16 22:17 18 08/08/16 20:00 97.8 77 18 109/64 93 08/08/16 16:00 98.7 75 18 105/57 94 08/08/16 12:00 98.6 81 18 98/54 94 I/O 08/08/16 08/08/16 08/08/16 08/09/16 08/09/16 08/09/16 06:59 14:59 22:59 06:59 14:59 22:59 Intake Total 1392 ml 240 ml 240 ml 260 ml Output Total 725 ml 1000 ml 150 ml 550 ml Balance 667 ml -760 ml 90 ml -290 ml Intake Oral 720 ml 240 ml 240 ml 60 ml IV Total 672 ml 200 ml Output Urine Total 725 ml 1000 ml 150 ml 550 ml # Voids 1 # Bowel Movements 0 0 Laboratory Laboratory Tests Test 08/09/16 04:49 White Blood Count 7.2 Red Blood Count 4.45 Hemoglobin 13.5 Hematocrit 40.6 Mean Corpuscular Volume 91.3 Mean Corpuscular Hemoglobin 30.3 Mean Corpuscular Hemoglobin 33.2 Concent Red Cell Distribution Width 15.1 Platelet Count 92 Mean Platelet Volume 10.0 Neutrophils (%) (Auto) 56.3 Lymphocytes (%) (Auto) 30.3 Monocytes (%) (Auto) 9.8 Eosinophils (%) (Auto) 2.8 Basophils (%) (Auto) 0.8 Neutrophils # (Auto) 4.0 Lymphocytes # (Auto) 2.2 Monocytes # (Auto) 0.7 Eosinophils # (Auto) 0.2 Basophils # (Auto) 0.1 CBC Comment AUTO DIFF Differential Comment AUTO DIFF CONFIRMED Platelet Estimate LOW Platelet Morphology Comment NORMAL Stomatocytes Sodium Level 141 Potassium Level 3.7 Chloride Level 100 Carbon Dioxide Level 34.8 Anion Gap 6 Blood Urea Nitrogen 7 Creatinine 0.56 Estimat Glomerular Filtration 154 Rate Random Glucose 92 Calcium Level 8.9 Total Bilirubin 5.2 Aspartate Amino Transf 73 (AST/SGOT) Alanine Aminotransferase 220 (ALT/SGPT) Alkaline Phosphatase 322 Total Protein 6.8 Albumin 2.5 Physical Exam HEENT: Pupils round and reactive to light; normocephalic; atraumatic; jaundiced. Throat is clear. NECK: Neck is supple, no JVD, no lymphadenopathy. CHEST: Chest is clear to auscultation and percussion. CARDIAC: Regular rate and rhythm with no murmur gallop or rubs. ABDOMEN: Soft, nondistended, nontender; no hepatosplenomegaly; bowel sounds are present in all four quadrants. EXTREMITIES: No clubbing, cyanosis, or edema. SKIN: Normal; no rash; jaundiced. 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 Patient reports diarrhea for the past 5 days, but that has resolved, reports dark urine, denies fever, chills, nausea or vomiting. He reports mid abd pain for few days but improving, he describes this as discomfort that was constant. Denies alcohol, denies new medications or herbal supplement. - myotonic dystrophy- per attending Plan: - KATE - Daily LFT's - IR for percutaneous biopsy of pancreatic mass - Await biopsy results from the duodenum - Supportive care David Archuleta MD Aug 09, 2016 10:45
[2016-08-09 12:00] VITALS: BP 94/65; PULSE 74; RESP 18; TEMP 97.5; O2SAT 92
[2016-08-09 16:00] VITALS: BP 107/69; PULSE 84; RESP 20; TEMP 97.6; O2SAT 91
--- NOTE | 2016-08-09 16:27 | RADRPT ---
EXAM DATE/TIME: 08/09/2016 15:34 [facility] COMPARISON: CHEST PA & LAT, August 08, 2016, 12:16. INDICATIONS : Cough. MEDICAL HISTORY : pneumonia 8x, muscular dystrophy SURGICAL HISTORY : None. ENCOUNTER: Initial ACUITY: 4 - 6 days PAIN SCORE: 0/10 LOCATION: Bilateral chest FINDINGS: Mild bibasilar consolidation again noted. There is a small left pleural effusion. These findings are unchanged. No pneumothorax. Heart size stable, upper limits of normal. CONCLUSION: Mild bibasilar consolidation and small left pleural effusion not significantly changed. Barber Garcia MD on August 09, 2016 at 16:25 Board Certified Radiologist. This report was verified electronically.
[2016-08-09] MEDS: VANCOMYCIN INJ 1,000 MG in SODIUM CHLOR 0.9% 250 ML INJ 250 ML IV SCH (16:32)
--- NOTE | 2016-08-09 18:12 | HHI.PR ---
Subjective Remarks Patient seen today around noon. He says that he feels all right. Coughing is better today, however he does report that he had an episode of hemoptysis last night, with bright red bloody sputumx1 . He says he flushed this down the toilet, and did not Show the nurse. He is very concerned about this. He denies any nausea or vomiting. Denies any epistaxis. He does report a 2 day history of mild, sharp right lower chest/right upper quadrant pain, worse with deep breathing. He denies any shortness of breath. Off oxygen. Objective Vital Signs Date Time Temp Pulse Resp B/P Pulse Ox O2 Delivery O2 Flow Rate FiO2 08/09/16 16:00 97.6 84 20 107/69 91 08/09/16 12:00 97.5 74 18 94/65 92 08/09/16 08:00 97.4 79 18 102/71 91 08/09/16 06:36 20 08/09/16 00:00 98.6 68 18 107/60 93 08/08/16 22:17 18 08/08/16 20:00 97.8 77 18 109/64 93 I/O 08/08/16 08/08/16 08/08/16 08/09/16 08/09/16 08/09/16 06:59 14:59 22:59 06:59 14:59 22:59 Intake Total 1392 ml 240 ml 240 ml 260 ml 240 ml Output Total 725 ml 1000 ml 150 ml 550 ml 500 ml Balance 667 ml -760 ml 90 ml -290 ml -260 ml Intake Oral 720 ml 240 ml 240 ml 60 ml 240 ml IV Total 672 ml 200 ml Output Urine Total 725 ml 1000 ml 150 ml 550 ml 500 ml # Voids 1 # Bowel Movements 0 0 0 Result Diagram: 08/09/16 0449 08/09/16 0449 Objective Remarks GENERAL: sitting up in bed. Alert and oriented x3. SKIN: Warm and dry. HEAD: Normocephalic. EYES: Patient's scleral icterus which was present on all previous examinations is much improved today, however still present. No injection or drainage. NECK: Supple, trachea midline. No JVD. CARDIOVASCULAR: Regular rate and rhythm without murmurs, gallops, or rubs. RESPIRATORY: Breath sounds equal bilaterally. No accessory muscle use. GASTROINTESTINAL: Abdomen soft, non-tender, nondistended. MUSCULOSKELETAL: No cyanosis, or edema. BACK: Nontender without obvious deformity. No CVA tenderness. A/P Assessment and Plan 51 year old male with a past medical history of myotonic dystrophy, GERD, fatty liver disease, asthma who presented with jaundice //Obstructive jaundice: Elevated bilirubin, AST, ALT, alkaline phosphatase. CT abdomen and personally reviewed, pancreatic duct 4 mm, no signs of obstruction, no signs of liver lesions. - Hepatitis panel negative - GI consulted - Status post ERCP by GI on 08/06. Duodenum Biopsies pending. Appreciate assistance from GI. - Monitoring LFTs daily, improved, stable today., Overall trending down - GI recommending percutaneous biopsy of pancreatic mass by IR, however can be done as outpatient //Postprocedural pain. Following stent placement. Right upper quadrant/right lower chest. Continue narcotics as necessary. //Sepsis with Healthcare Associated Pneumonia: patient initially presented with cough that worsened throughout hospital stay. //Possible aspiration/hospital acquired pneumonia -Consulted by history of myotonic dystrophy -On 08/07 tachycardic, WBC 13K, +fever Tmax 100.2. Most recent low-grade fever 100.2 on 08/08. - Initial CXR 08/05 stable with chronic b/l lower lobe airspace consolidation vs atelectasis, patient started on Azithro po - 08/08 patient still with cough, worsened, d/c fluids, repeat CXR PA/lat showed basilar consolidation with small effusions and left lung infiltrate - 08/08 added IV Zosyn in addition to po Azithro -08/09. Hemoptysis overnight. Patient concerned. Not active. Off oxygen however, breathing comfortably. Due to concern for hospital acquired pneumonia , Add IV vancomycin. Chest x-ray stable. Consult pulmonology. - Continue Acapella and incentive spirometry. Nebs as needed for history of asthma. - Continue Tessalon tiffany for cough Myotonic dystrophy: Continue PT while admitted. DVT prophylaxis: SCDs. We'll hold off on anticoagulation secondary to hemoptysis. Discharge Planning Patient would be ideal candidate for inpatient rehabilitation. History of myotonic dystrophy. Occupational therapy consult ordered. Appreciate case has been assistance. If cough continues to improve, expect discharge to inpatient rehabilitation within 2-3 days. Judd Nielson MD Aug 09, 2016 18:12
[2016-08-09 20:00] VITALS: BP 105/64; PULSE 83; RESP 20; TEMP 98; O2SAT 94
--- NOTE | 2016-08-09 20:31 | RADRPT ---
EXAM DATE/TIME: 08/09/2016 20:08 [facility] COMPARISON: No previous studies available for comparison. INDICATIONS : Substernal pain today. RADIATION DOSE: 9.46 CTDIvol (mGy) MEDICAL HISTORY : Hepatitis C. SURGICAL HISTORY : None. ENCOUNTER: Initial ACUITY: 1 day PAIN SCALE: 3/10 LOCATION: chest TECHNIQUE: Volumetric scanning of the chest was performed. Using automated exposure control and adjustment of t he mA and/or kV according to patient size, radiation dose was kept as low as reasonably achievable to obtain optimal diagnostic quality images. FINDINGS: Consolidation seen of both lungs, densest in the lower lobes, patchy of the left upper lobe, relative ly sparing the right upper and middle lobes. No pleural effusion or pneumothorax seen. Heart size within normal limits. No adenopathy seen. CONCLUSION: Bilateral pneumonia. Barber Garcia MD on August 09, 2016 at 20:28 Board Certified Radiologist. This report was verified electronically.
[2016-08-10] VITALS: BP 100/65; PULSE 77; RESP 20; TEMP 98.5; O2SAT 93
[2016-08-10] MEDS: PIPERACIL-TAZO 4.5 GM PREMIX 100 ML IV SCH ×4 (03:36→20:36)
[2016-08-10] MEDS: VANCOMYCIN INJ 1,000 MG in SODIUM CHLOR 0.9% 250 ML INJ 250 ML IV SCH ×2 (04:47→16:09)
[2016-08-10] MEDS: BENZONATATE 100 MG CAP PO PRN (04:47)
[2016-08-10 08:00] VITALS: BP 96/57; PULSE 68; RESP 16; TEMP 97.8; O2SAT 93
[2016-08-10] MEDS: SODIUM CHLORIDE 0.9% FLUSH 5 ML FLUSH FLUSH SCH ×2 (08:42→20:36)
[2016-08-10] MEDS: BENZONATATE 100 MG CAP PO SCH ×3 (08:42→18:06)
[2016-08-10] MEDS: AZITHROMYCIN 250 MG TAB PO SCH (08:43)
[2016-08-10] MEDS ORDERED: MAGNESIUM HYDROXIDE SUSP 30 ML CUP PO ONE (11:15)
[2016-08-10] MEDS ORDERED: DOCUSATE SODIUM 50 MG/SENNA 8.6 MG TAB PO ONE (11:15)
[2016-08-10 12:00] VITALS: BP 106/62; PULSE 66; RESP 18; TEMP 97.8; O2SAT 93
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
[2016-08-10] MEDS ORDERED: SOD PHOSPHATE/SOD BIPHOSPHATE (ADULT) ENEMA 133ML PR ONE (13:00)
[2016-08-10 16:00] VITALS: BP 99/65; PULSE 73; RESP 20; TEMP 98.5; O2SAT 95
--- NOTE | 2016-08-10 19:53 | HHI.PR ---
Subjective Remarks Has no hemoptysis now . CT chest shows basal pneumonia and Left upper lobe. Coughing still. Objective Vital Signs Date Time Temp Pulse Resp B/P Pulse Ox O2 Delivery O2 Flow Rate FiO2 08/10/16 16:00 98.5 73 20 99/65 95 08/10/16 12:00 97.8 66 18 106/62 93 08/10/16 08:00 97.8 68 16 96/57 93 08/10/16 00:00 98.5 77 20 100/65 93 08/09/16 20:00 98.0 83 20 105/64 94 08/09/16 19:55 18 I/O 08/09/16 08/09/16 08/09/16 08/10/16 08/10/16 08/10/16 07:00 15:00 23:00 07:00 15:00 23:00 Intake Total 260 ml 240 ml 422 ml 470 ml 400 ml Output Total 550 ml 500 ml 150 ml 575 ml 500 ml Balance -290 ml -260 ml 272 ml -105 ml -100 ml Intake Oral 60 ml 240 ml 120 ml 400 ml IV Total 200 ml 422 ml 350 ml Output Urine Total 550 ml 500 ml 150 ml 575 ml 500 ml # Bowel Movements 0 0 0 1 Result Diagram: 08/09/169 08/09/16448 Objective Remarks General: This thinly built middle-aged white male is alert, oriented, mild pallor. No cyanosis or icterus. No lymphadenopathy. HEENT: Head normocephalic. Pupils are reactive. Icterus noted. Throat was clear. Ears - No inflammation. Neck: Supple. No bruits, no thyroid enlargement or lymphadenopathy. Chest: Distant breath sounds with occasional crackles at the lung bases.Wheeze heard. Heart: The heart sounds are regular S1-S2. No murmur. Abdomen: Soft, protuberant, without masses. No organomegaly or tenderness. Bowel sounds are active. Extremities: No lesions. There is muscle wasting of the extremities with some weakness of the right extremities. Skin: No lesions observed. . Assessment and Plan Assessment and Plan IMPRESSION 1. History of hemoptysis and bibasilar atelectasis. Basal pneumonia. 1. History of fatty liver and jaundice. 1. Myotonic dystrophy chronic. 2. Probable obstructive airways disease. Plan : 1. Continue antibiotics.Zosyn ,Vanco. 2. Nebs qid , duoneb. 3. Swallow evaluation. 4. O2 2 l PRN. 5. Cont Solumedrol 40 mg q8h. 6. CBc,BMP in am Eric Gallegos MD Aug 10, 2016 19:52
[2016-08-10 20:00] VITALS: BP 95/60; PULSE 78; RESP 18; TEMP 97.6; O2SAT 94
[2016-08-10] MEDS: LACTATED RINGER'S 1000 ML IV SCH (20:36)
[2016-08-10] MEDS: methylPREDNISolone SOD SUCC 40 MG/1 ML VIAL IV SCH (20:36)
--- NOTE | 2016-08-10 20:54 | HHI.PR ---
Subjective Remarks patient seen today around 11:30 AM patient says he is feeling better. Cough is improved. No more hemoptysis. Concerned about constipation with no bowel movement in 5 days. Denies any nausea or vomiting. He requests an enema for constipation. Objective Vital Signs Date Time Temp Pulse Resp B/P Pulse Ox O2 Delivery O2 Flow Rate FiO2 08/10/16 16:00 98.5 73 20 99/65 95 08/10/16 12:00 97.8 66 18 106/62 93 08/10/16 08:00 97.8 68 16 96/57 93 08/10/16 00:00 98.5 77 20 100/65 93 I/O 08/09/16 08/09/16 08/09/16 08/10/16 08/10/16 08/10/16 07:00 15:00 23:00 07:00 15:00 23:00 Intake Total 260 ml 240 ml 422 ml 470 ml 400 ml Output Total 550 ml 500 ml 150 ml 575 ml 500 ml Balance -290 ml -260 ml 272 ml -105 ml -100 ml Intake Oral 60 ml 240 ml 120 ml 400 ml IV Total 200 ml 422 ml 350 ml Output Urine Total 550 ml 500 ml 150 ml 575 ml 500 ml # Bowel Movements 0 0 0 1 Result Diagram: 08/09/1644808/09/16448 Objective Remarks GENERAL: sitting up in bed. Alert and oriented x3. SKIN: Warm and dry. HEAD: Normocephalic. EYES: mild scleral icterus compared to admission. Still present. Stable from yesterday. No injection or drainage. NECK: Supple, trachea midline. No JVD. CARDIOVASCULAR: Regular rate and rhythm without murmurs, gallops, or rubs. RESPIRATORY: Breath sounds equal bilaterally. No accessory muscle use. GASTROINTESTINAL: Abdomen soft, non-tender, nondistended. MUSCULOSKELETAL: No cyanosis, or edema. BACK: Nontender without obvious deformity. No CVA tenderness. A/P Assessment and Plan 51 year old male with a past medical history of myotonic dystrophy, GERD, fatty liver disease, asthma who presented with jaundice. CT shows pancreatic head mass. He underwent ERCP with stent placement, improvement of bilirubin and jaundice. He will need outpatient IR referral for biopsy of pancreatic head mass. Postprocedural course complicated by cough and hemoptysis with pneumonia. Pulmonology following. //Obstructive jaundice: Elevated bilirubin, AST, ALT, alkaline phosphatase. CT abdomen and personally reviewed, pancreatic duct 4 mm, no signs of obstruction, no signs of liver lesions. - Hepatitis panel negative - GI consulted - Status post ERCP by GI on 08/06. Duodenum Biopsies pending. Appreciate assistance from GI. - Monitoring LFTs daily, improved, stable today., Overall trending down - GI recommending percutaneous biopsy of pancreatic mass by IR, however can be done as outpatient - Pathology report reviewed. This is a mucosal biopsy, and negative for malignancy. = GI has cleared for discharge //Postprocedural pain. Following stent placement. Right upper quadrant/right lower chest. Continue narcotics as necessary. //Sepsis with Healthcare Associated Pneumonia: patient initially presented with cough that worsened throughout hospital stay. //Possible aspiration/hospital acquired pneumonia -Consulted by history of myotonic dystrophy -On 08/07 tachycardic, WBC 13K, +fever Tmax 100.2. Most recent low-grade fever 100.2 on 08/08. - Initial CXR 08/05 stable with chronic b/l lower lobe airspace consolidation vs atelectasis, patient started on Azithro po - 08/08 patient still with cough, worsened, d/c fluids, repeat CXR PA/lat showed basilar consolidation with small effusions and left lung infiltrate - 08/08 added IV Zosyn in addition to po Azithro -08/09. Hemoptysis overnight. Patient concerned. Not active. Off oxygen however, breathing comfortably. Due to concern for hospital acquired pneumonia , Add IV vancomycin. Chest x-ray stable. Consult pulmonology. - Continue Acapella and incentive spirometry. Nebs as needed for history of asthma. - Continue Tessalon tiffany for cough 08/10. Appreciate pulmonology assistance. Hemoptysis has resolved. CT chest with pneumonia as above. Continue vancomycin and Zosyn. Swallow evaluation pending. //Thrombocytopenia. Platelets decreased from 150s on admission to 75 on 08/08. 50% decrease. Increase to 08/09. Did have hemoptysis. Hit panel pending. //Constipation. Enema ordered. Myotonic dystrophy: Continue PT while admitted. DVT prophylaxis: SCDs. We'll hold off on anticoagulation secondary to hemoptysis. Discharge Planning =patient cleared by GI. Will need outpatient encourage cardiology referral for biopsy of pancreatic mass. remains in hospital do to pneumonia, IV antibiotics. Patient would be ideal candidate for inpatient rehabilitation. History of myotonic dystrophy. Occupational therapy consult ordered. Appreciate case has been assistance. If cough continues to improve, expect discharge to inpatient rehabilitation within 2-3 days. Judd Nielson MD Aug 10, 2016 20:54
[2016-08-10 23:47] VITALS: BP 96/61; PULSE 80; RESP 18; TEMP 98.6; O2SAT 94
[2016-08-11] VITALS: BP 100/60; PULSE 66; RESP 18; TEMP 98.4; O2SAT 95
[2016-08-11] MEDS: BENZONATATE 100 MG CAP PO PRN ×2 (00:27→23:49)
[2016-08-11] MEDS: PIPERACIL-TAZO 4.5 GM PREMIX 100 ML IV SCH ×4 (03:49→19:42)
[2016-08-11] MEDS: methylPREDNISolone SOD SUCC 40 MG/1 ML VIAL IV SCH ×3 (04:32→19:42)
[2016-08-11] MEDS: VANCOMYCIN INJ 1,000 MG in SODIUM CHLOR 0.9% 250 ML INJ 250 ML IV SCH ×2 (04:32→16:56)
[2016-08-11 06:35] LABS: AUTOMATED NEUTROPHIL # 4.2 TH/MM3 (1.8-7.7); BASOPHIL % 0.7 % (0.0-2.0); EOSINOPHIL % 0.2 % (0.0-4.0); HEMO FLAGS DIFF FINAL; LYMPH % 15.3 % (9.0-44.0); LYMPHOCYTE # 0.8 TH/MM3 (1.0-4.8); MEAN CORPUSCULAR HEMOGLOBIN 30.4 PG (27.0-34.0); MEAN CORPUSCULAR HGB CONC 33.4 % (32.0-36.0); MONO % 1.8 % (0.0-8.0); PLATELET COUNT 140 TH/MM3 (150-450); RED CELL DISTRIBUTION WIDTH 14.3 % (11.6-17.2); WHITE BLOOD COUNT 5.2 TH/MM3 (4.0-11.0)
[2016-08-11 07:00] LABS: ALT (GPT) 251 U/L (12-78); ANION GAP 8 MEQ/L (5-15); AST (GOT) 140 U/L (15-37); BICARBONATE 28.1 MEQ/L (21.0-32.0); BLOOD UREA NITROGEN 11 MG/DL (7-18); CHLORIDE 105 MEQ/L (98-107); GLOMERULAR FILTRATION RATE 130 ML/MIN (>89); POTASSIUM 4.3 MEQ/L (3.5-5.1); SODIUM (NA) 141 MEQ/L (136-145)
[2016-08-11 07:02] LABS: ALKALINE PHOSPHATASE 263 U/L (45-117); TOTAL BILIRUBIN ADULT 4.6 MG/DL (0.2-1.0)
[2016-08-11 08:00] VITALS: BP 97/56; PULSE 69; RESP 17; TEMP 95.4; O2SAT 93
[2016-08-11] MEDS: BENZONATATE 100 MG CAP PO SCH ×3 (09:21→16:53)
[2016-08-11] MEDS: SODIUM CHLORIDE 0.9% FLUSH 5 ML FLUSH FLUSH SCH ×2 (09:28→19:42)
[2016-08-11 12:00] VITALS: BP 93/58; PULSE 70; RESP 18; TEMP 96.5; O2SAT 94
[2016-08-11] MEDS: SODIUM CHLORIDE 0.9% FLUSH 5 ML FLUSH FLUSH PRN (12:34)
[2016-08-11 16:00] VITALS: BP 105/61; PULSE 68; RESP 17; TEMP 96.9; O2SAT 94
[2016-08-11 17:32] LABS: HEPARIN INDUCED PLATELET AB Weak Positive (NEGATIVE)
[2016-08-11 17:33] LABS: HEPARIN AB OD 0.452 O.D. (0.000-0.300)
--- NOTE | 2016-08-11 19:58 | HHI.PR ---
Subjective Remarks patient seen today around 11 AM. Says he is feeling better.he denies any chest pain or shortness of breath. Cough is better. Abdominal pain improved. Objective Vital Signs Date Time Temp Pulse Resp B/P Pulse Ox O2 Delivery O2 Flow Rate FiO2 08/11/16 16:00 96.9 68 17 105/61 94 08/11/16 12:00 96.5 70 18 93/58 94 08/11/16 08:00 95.4 69 17 97/56 93 08/10/16 23:47 98.6 80 18 96/61 94 08/10/16 20:00 97.6 78 18 95/60 94 I/O 08/10/16 08/10/16 08/10/16 08/11/16 08/11/16 08/11/16 07:00 15:00 23:00 07:00 15:00 23:00 Intake Total 470 ml 400 ml 240 ml 1054 ml 585 ml Output Total 575 ml 500 ml 1150 ml 475 ml Balance -105 ml -100 ml 240 ml -96 ml 110 ml Intake Oral 120 ml 400 ml 240 ml 240 ml 585 ml IV Total 350 ml 814 ml Output Urine Total 575 ml 500 ml 1150 ml 475 ml # Voids 2 # Bowel Movements 0 1 0 0 0 Result Diagram: 08/11/1652808/11/16528 Objective Remarks GENERAL: sitting up in bed. Alert and oriented x3. exam unchanged SKIN: Warm and dry. HEAD: Normocephalic. EYES: mild scleral icterus compared to admission. Still present. slightly improved from yesterday.. No injection or drainage. NECK: Supple, trachea midline. No JVD. CARDIOVASCULAR: Regular rate and rhythm without murmurs, gallops, or rubs. RESPIRATORY: Breath sounds equal bilaterally. No accessory muscle use. GASTROINTESTINAL: Abdomen soft, non-tender, nondistended. MUSCULOSKELETAL: No cyanosis, or edema. BACK: Nontender without obvious deformity. No CVA tenderness. 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 CT shows pancreatic head mass. He underwent ERCP with stent placement, improvement of bilirubin and jaundice. He will need outpatient IR referral for biopsy of pancreatic head mass. Postprocedural course complicated by cough and hemoptysis with pneumonia. Pulmonology following. //Obstructive jaundice: Elevated bilirubin, AST, ALT, alkaline phosphatase. CT abdomen and personally reviewed, pancreatic duct 4 mm, no signs of obstruction, no signs of liver lesions. - Hepatitis panel negative - GI consulted - Status post ERCP by GI on 08/06. Duodenum Biopsies pending. Appreciate assistance from GI. - Monitoring LFTs daily, improved, stable today., Overall trending down - GI recommending percutaneous biopsy of pancreatic mass by IR, however can be done as outpatient - Pathology report reviewed. This is a mucosal biopsy, and negative for malignancy. = GI has cleared for discharge //Postprocedural pain. Following stent placement. Right upper quadrant/right lower chest. improving.Continue narcotics as necessary. //Sepsis with Healthcare Associated Pneumonia: patient initially presented with cough that worsened throughout hospital stay. //Possible aspiration/hospital acquired pneumonia -improving. -complicated by history of myotonic dystrophy -On 08/07 tachycardic, WBC 13K, +fever Tmax 100.2. Most recent low-grade fever 100.2 on 08/08. - Initial CXR 08/05 stable with chronic b/l lower lobe airspace consolidation vs atelectasis, patient started on Azithro po - 08/08 patient still with cough, worsened, d/c fluids, repeat CXR PA/lat showed basilar consolidation with small effusions and left lung infiltrate - 08/08 added IV Zosyn in addition to po Azithro -08/09. Hemoptysis overnight. Patient concerned. Not active. Off oxygen however, breathing comfortably. Due to concern for hospital acquired pneumonia , Add IV vancomycin. Chest x-ray stable. Consult pulmonology. - Continue Acapella and incentive spirometry. Nebs as needed for history of asthma. - Continue Tessalon tiffany for cough 08/10. Appreciate pulmonology assistance. Hemoptysis has resolved. CT chest with pneumonia as above. Continue vancomycin and Zosyn. Swallow evaluation pending. =patient past swallow evaluation. Continues on steroids, IV vancomycin and Zosyn. recommend transition to Augmentin at time of discharge. //Thrombocytopenia. //heparin-induced thrombocytopenia. - Platelets decreased from 150s on admission to 75 on 08/08. 50% decrease. Did have hemoptysis. -Hit panel week positive. Avoid heparin or low molecular weight heparin. =platelets improving off heparin. //Constipation. resolved after enema. Myotonic dystrophy: Continue PT while admitted.Transfer to inpatient rehabilitation. DVT prophylaxis: SCDs. We'll hold off on anticoagulation secondary to hemoptysis. Discharge Planning =patient cleared by GI. -Will need outpatient interventional radiology referral for biopsy of pancreatic mass. -remains in hospital due to pneumonia, IV antibiotics.- can transition to Augmentin at discharge -history of myotonic dystrophy. patient will be accepted [facility]. Discussed with keycase assembler on 08/11. No openings at [facility] at this time. Also awaiting insurance approval. Judd Nielson MD Aug 11, 2016 19:58
[2016-08-11 20:00] VITALS: BP 104/62; PULSE 68; RESP 19; TEMP 97.6; O2SAT 94
--- NOTE | 2016-08-11 20:39 | HHI.PR ---
Subjective Remarks Has no hemoptysis now . CT chest shows basal pneumonia and Left upper lobe. Coughing still. Vomited once . Passed swallow evaluation Objective Vital Signs Date Time Temp Pulse Resp B/P Pulse Ox O2 Delivery O2 Flow Rate FiO2 08/11/16 20:00 97.6 68 19 104/62 94 08/11/16 16:00 96.9 68 17 105/61 94 08/11/16 12:00 96.5 70 18 93/58 94 08/11/16 08:00 95.4 69 17 97/56 93 08/10/16 23:47 98.6 80 18 96/61 94 I/O 08/10/16 08/10/16 08/10/16 08/11/16 08/11/16 08/11/16 07:00 15:00 23:00 07:00 15:00 23:00 Intake Total 470 ml 400 ml 240 ml 1054 ml 585 ml Output Total 575 ml 500 ml 1150 ml 475 ml Balance -105 ml -100 ml 240 ml -96 ml 110 ml Intake Oral 120 ml 400 ml 240 ml 240 ml 585 ml IV Total 350 ml 814 ml Output Urine Total 575 ml 500 ml 1150 ml 475 ml # Voids 2 # Bowel Movements 0 1 0 0 0 Result Diagram: 08/11/1652808/11/16528 Objective Remarks General: This thinly built middle-aged white male is alert, oriented, mild pallor. No cyanosis or icterus. No lymphadenopathy. HEENT: Head normocephalic. Pupils are reactive. Icterus noted. Throat was clear. Ears - No inflammation. Neck: Supple. No bruits, no thyroid enlargement or lymphadenopathy. Chest: Distant breath sounds with occasional crackles at the lung bases.Occ Wheeze heard. Heart: The heart sounds are regular S1-S2. No murmur. Abdomen: Soft, protuberant, without masses. No organomegaly or tenderness. Bowel sounds are active. Extremities: No lesions. There is muscle wasting of the extremities with some weakness of the right extremities. Skin: No lesions observed. . Assessment and Plan Assessment and Plan IMPRESSION 1. History of hemoptysis and bibasilar atelectasis. Basal pneumonia. 1. History of fatty liver and jaundice. 1. Myotonic dystrophy chronic. 2. Probable obstructive airways disease. Plan : 1. Continue antibiotics.Zosyn ,and D/C Vanco. 2. Nebs qid , duoneb. 3. Swallow evaluation. 4. O2 2 l PRN. 5. Cont Solumedrol 40 mg q12h. 6. Add Flagyl 500 mg tid. 7. To rehab soon. Eric Gallegos MD Aug 11, 2016 20:39
[2016-08-11] MEDS: metroNIDAZOLE 500 MG TAB PO SCH (21:17)
[2016-08-11] MEDS: LACTATED RINGER'S 1000 ML IV SCH (23:51)
[2016-08-12] VITALS (7 sets, daily range): BP systolic 85–127; BP diastolic 53–87; PULSE 59–78; RESP 16–19; TEMP 96.1–97.4; O2SAT 91–97
[2016-08-12] MEDS: PIPERACIL-TAZO 4.5 GM PREMIX 100 ML IV SCH ×4 (03:10→19:17)
[2016-08-12] MEDS: BENZONATATE 100 MG CAP PO PRN ×2 (03:46→23:27)
[2016-08-12] MEDS: VANCOMYCIN INJ 1,000 MG in SODIUM CHLOR 0.9% 250 ML INJ 250 ML IV SCH ×2 (04:16→15:40)
[2016-08-12] MEDS: metroNIDAZOLE 500 MG TAB PO SCH ×3 (06:05→21:03)
[2016-08-12] MEDS: methylPREDNISolone SOD SUCC 40 MG/1 ML VIAL IV SCH ×2 (08:01→19:16)
[2016-08-12] MEDS: SODIUM CHLORIDE 0.9% FLUSH 5 ML FLUSH FLUSH SCH ×2 (08:01→19:14)
[2016-08-12] MEDS: BENZONATATE 100 MG CAP PO SCH ×3 (08:02→17:06)
[2016-08-12] MEDS: SODIUM CHLORIDE 0.9% FLUSH 5 ML FLUSH FLUSH PRN (14:25)
--- NOTE | 2016-08-12 17:43 | HHI.PR ---
Subjective Remarks Coughin much better. No complaint of shortness of breath or chest pain. Objective Vitals Vital Signs Date Time Temp Pulse Resp B/P Pulse Ox O2 Delivery O2 Flow Rate FiO2 08/12/16 16:00 96.7 64 17 85/54 95 92/62 08/12/16 13:16 18 08/12/16 12:00 96.3 64 17 90/59 91 08/12/16 08:07 95/62 08/12/16 08:00 96.1 59 16 89/53 95 96/62 08/11/16 20:00 97.6 68 19 104/62 94 I/O 08/11/16 08/11/16 08/11/16 08/12/16 08/12/16 08/12/16 07:00 15:00 23:00 07:00 15:00 23:00 Intake Total 1054 ml 585 ml 240 ml 690 ml 344 ml Output Total 1150 ml 475 ml 400 ml 600 ml 450 ml Balance -96 ml 110 ml -160 ml 90 ml -106 ml Intake Oral 240 ml 585 ml 240 ml 240 ml 240 ml IV Total 814 ml 450 ml 104 ml Output Urine Total 1150 ml 475 ml 400 ml 600 ml 450 ml # Bowel Movements 0 0 0 0 1 Result Diagram: 08/11/1652808/11/16528 Objective Remarks GENERAL: This is a well-nourished, well-developed patient, in no apparent distress. CARDIOVASCULAR: Regular rate and rhythm RESPIRATORY: Bibasilar crackles GASTROINTESTINAL: Abdomen soft, non-tender, nondistended. Normal active bowel sounds MUSCULOSKELETAL: Extremities without clubbing, cyanosis, or edema. NEURO: Alert & Oriented x4 to person, place, time, situation. 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 CT shows pancreatic head mass. He underwent ERCP with stent placement, improvement of bilirubin and jaundice. He will need outpatient IR referral for biopsy of pancreatic head mass. His postprocedural course complicated by cough and hemoptysis with bibasilar likely healthcare acquired pneumonia pneumonia. Pulmonology following. Obstructive jaundice: Elevated bilirubin, AST, ALT, alkaline phosphatase. CT abdomen and personally reviewed, pancreatic duct 4 mm, no signs of obstruction, no signs of liver lesions. Hepatitis panel negative - GI consulted - Status post ERCP by GI on 08/06. Duodenum Biopsies pending. Appreciate assistance from GI. - Monitoring LFTs; last check on 08/11 shows trend is going down. - GI recommending percutaneous biopsy of pancreatic mass by IR, however can be done as outpatient - Pathology report reviewed. This is a mucosal biopsy, and negative for malignancy. GI has cleared for discharge Postprocedural pain. Following stent placement. Right upper quadrant/right lower chest. - Pain has improved. Sepsis with Healthcare Associated Pneumonia: patient initially presented with cough that worsened throughout hospital stay. Likely due to bibasilar healthcare associate pneumonia- clinically improving -complicated by history of myotonic dystrophy Summary of the course includes the following -On 08/07 tachycardic, WBC 13K, +fever Tmax 100.2. Most recent low-grade fever 100.2 on 08/08. - Initial CXR 08/05 stable with chronic lower lobe airspace consolidation vs atelectasis, patient started on Azithro po - on 08/08 patient still with cough, worsened, d/c fluids, repeat CXR PA/lat showed basilar consolidation with small effusions and left lung infiltrate and IV Zosyn was added to by mouth Zithromax and - on 08/09. Hemoptysis overnight. Due to concern for hospital acquired pneumonia, at that time added IV vancomycin. Chest x-ray stable. Consulted pulmonology service. - Continued Acapella and incentive spirometry. Nebs as needed for history of asthma. on 08/10. Appreciate pulmonology assistance. Hemoptysis has resolved. CT chest with pneumonia as above. Continue vancomycin and Zosyn. Swallow evaluation pending. Patient passed swallow evaluation. Continues on steroids, IV vancomycin and Zosyn. Will attempt to transition to Augmentin on discharge to rehabilitation. heparin-induced thrombocytopenia. - Platelets decreased from 150s on admission to 75 on 08/08. 50% decrease. Did have hemoptysis. -Hit panel week positive. Avoid heparin or low molecular weight heparin. Patient has has improved off of heparin. Constipation. resolved after enema. Myotonic dystrophy: Continue PT while admitted.Transfer to inpatient rehabilitation when bed available. DVT prophylaxis: SCDs. No heparin due to HIT Discharge Planning Discharge to inpatient rehabilitation hopefully in the morning await bed and authorization. Annabella Miller MD Aug 12, 2016 17:43
[2016-08-12] MEDS: SODIUM CHLOR 0.9% 1000 ML INJ 1,000 ML IV SCH (17:56)
--- NOTE | 2016-08-12 19:10 | HHI.PR ---
Subjective Remarks Has no hemoptysis now . CT chest shows basal pneumonia and Left upper lobe. Coughing still. Not able to raise sputum.Passed swallow evaluation Objective Vital Signs Date Time Temp Pulse Resp B/P Pulse Ox O2 Delivery O2 Flow Rate FiO2 08/12/16 16:00 96.7 64 17 85/54 95 92/62 08/12/16 13:16 18 08/12/16 12:00 96.3 64 17 90/59 91 08/12/16 08:07 95/62 08/12/16 08:00 96.1 59 16 89/53 95 96/62 08/11/16 20:00 97.6 68 19 104/62 94 I/O 08/11/16 08/11/16 08/11/16 08/12/16 08/12/16 08/12/16 07:00 15:00 23:00 07:00 15:00 23:00 Intake Total 1054 ml 585 ml 240 ml 690 ml 344 ml Output Total 1150 ml 475 ml 400 ml 600 ml 450 ml Balance -96 ml 110 ml -160 ml 90 ml -106 ml Intake Oral 240 ml 585 ml 240 ml 240 ml 240 ml IV Total 814 ml 450 ml 104 ml Output Urine Total 1150 ml 475 ml 400 ml 600 ml 450 ml # Bowel Movements 0 0 0 0 1 Result Diagram: 08/11/1652808/11/16528 Objective Remarks General: This thinly built middle-aged white male is alert, oriented, mild pallor. No cyanosis or icterus. No lymphadenopathy. HEENT: Head normocephalic. Pupils are reactive. Icterus noted. Throat was clear. Ears - No inflammation. Neck: Supple. No bruits, no thyroid enlargement or lymphadenopathy. Chest: Distant breath sounds with occasional crackles at the lung bases.Scattered Wheeze heard. Heart: The heart sounds are regular S1-S2. No murmur. Abdomen: Soft, protuberant, without masses. No organomegaly or tenderness. Bowel sounds are active. Extremities: No lesions. There is muscle wasting of the extremities with some weakness of the right extremities. Skin: No lesions observed. . Assessment and Plan Assessment and Plan IMPRESSION 1. History of hemoptysis and bibasilar atelectasis. Basal pneumonia. 1. History of fatty liver and jaundice. 1. Myotonic dystrophy chronic. 2. Probable obstructive airways disease. Plan : 1. Continue antibiotics.Zosyn, Zithro. 2. Nebs qid , duoneb. 3. Use IPPB qid with nebs. 4. O2 2 l PRN. 5. D/C Solumedrol and add prednisone 20 mg bid 6. CBC in am 7. To rehab soon. Eric Gallegos MD Aug 12, 2016 19:10
[2016-08-13] MEDS: RESP: ALBUTEROL 2.5 MG/IPRATROPIUM 0.5 MG NEB (PRN) NEB ×3 (00:42→16:27)
[2016-08-13] MEDS: LACTATED RINGER'S 1000 ML IV SCH (01:53)
[2016-08-13] MEDS: PIPERACIL-TAZO 4.5 GM PREMIX 100 ML IV SCH ×2 (02:01→07:59)
[2016-08-13] MEDS: SODIUM CHLOR 0.9% 1000 ML INJ 1,000 ML IV SCH ×2 (03:07→13:01)
[2016-08-13] MEDS: VANCOMYCIN INJ 1,000 MG in SODIUM CHLOR 0.9% 250 ML INJ 250 ML IV SCH (03:08)
[2016-08-13] MEDS: metroNIDAZOLE 500 MG TAB PO SCH ×2 (05:03→13:01)
[2016-08-13 08:00] VITALS: BP_SYST 90; BP_SYST 93; BP_DIAS 57; BP_DIAS 60; PULSE 56; RESP 17; TEMP 96.3; O2SAT 95
[2016-08-13] MEDS: SODIUM CHLORIDE 0.9% FLUSH 5 ML FLUSH FLUSH SCH (08:00)
[2016-08-13] MEDS: BENZONATATE 100 MG CAP PO SCH ×2 (08:00→13:01)
[2016-08-13] MEDS: methylPREDNISolone SOD SUCC 40 MG/1 ML VIAL IV SCH (08:00)
[2016-08-13] MEDS: RESP: ACETYLCYSTEINE 10% 30 ML NEB NEB SCH ×3 (09:04→16:27)
[2016-08-13 09:05] VITALS: O2SAT 93
[2016-08-13 11:52] VITALS: BP_SYST 102; BP_SYST 97; BP_DIAS 59; BP_DIAS 66; PULSE 78; RESP 16; TEMP 95.9; O2SAT 95
--- NOTE | 2016-08-13 14:04 | HHI.PR ---
Subjective Remarks Patient doing okay. No shortness of breath or coughing. Wants to go to inpatient rehabilitation today. Objective Vitals Vital Signs Date Time Temp Pulse Resp B/P Pulse Ox O2 Delivery O2 Flow Rate FiO2 08/13/16 11:52 95.9 78 16 97/59 95 102/66 08/13/16 09:05 93 21 08/13/16 08:59 18 08/13/16 08:00 96.3 56 17 93/57 95 90/60 08/12/16 23:53 97.1 69 18 100/60 94 08/12/16 20:00 96.3 68 16 92/59 97 08/12/16 16:00 96.7 64 17 85/54 95 92/62 I/O 08/12/16 08/12/16 08/12/16 08/13/16 08/13/16 08/13/16 07:00 15:00 23:00 07:00 15:00 23:00 Intake Total 690 ml 344 ml 372 ml 1185 ml Output Total 600 ml 450 ml 100 ml 250 ml Balance 90 ml -106 ml 272 ml 935 ml Intake Oral 240 ml 240 ml 240 ml 120 ml IV Total 450 ml 104 ml 132 ml 1065 ml Output Urine Total 600 ml 450 ml 100 ml 250 ml # Bowel Movements 0 1 0 0 Result Diagram: 08/11/1629 08/11/16528 Other Results Microbiology Date/Time Procedure Status Source Growth 08/13/16 01:26 Gram Stain - Final Resulted Sputum Expectorated Sputum 08/13/16 01:26 Sputum Culture Resulted Sputum Expectorated Sputum Pending 08/13/16 01:26 Acid Fast Stain Received Sputum Expectorated Sputum Pending 08/13/16 01:26 Mycobacterial Culture Received Sputum Expectorated Sputum Pending Imaging Objective Remarks GENERAL: This is a well-nourished, well-developed patient, in no apparent distress. CARDIOVASCULAR: Regular rate and rhythm RESPIRATORY: Relatively clear to auscultation bilaterally. GASTROINTESTINAL: Abdomen soft, non-tender, nondistended. Normal active bowel sounds MUSCULOSKELETAL: Extremities without clubbing, cyanosis, or edema. NEURO: Alert & Oriented x4 to person, place, time, situation. 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 CT shows pancreatic head mass. He underwent ERCP with stent placement, improvement of bilirubin and jaundice. He will need outpatient IR referral for biopsy of pancreatic head mass. His postprocedural course complicated by cough and hemoptysis with bibasilar likely healthcare acquired pneumonia pneumonia. Pulmonology following. Obstructive jaundice: Elevated bilirubin, AST, ALT, alkaline phosphatase. CT abdomen showed pancreatic duct 4 mm, no signs of obstruction, no signs of liver lesions. Hepatitis panel negative - GI consulted - Status post ERCP by GI on 08/06. Duodenum Biopsies pending. Appreciate assistance from GI. - Monitoring LFTs; last check on 08/11 shows trend is going down. - GI recommending percutaneous biopsy of pancreatic mass by IR, this can be done as an outpatient. - Pathology report reviewed. This is a mucosal biopsy, and negative for malignancy. GI has cleared for discharge Postprocedural pain. Following stent placement. Right upper quadrant/right lower chest. - Pain has improved. Sepsis with Healthcare Associated/aspiration Pneumonia: patient initially presented with cough that worsened throughout hospital stay. Likely due to bilateral lower lobe healthcare associate pneumonia- clinically improving -complicated by history of myotonic dystrophy Summary of the hospital course includes the following -On 08/07 tachycardic, WBC 13K, +fever Tmax 100.2. Most recent low-grade fever 100.2 on 08/08. - Initial CXR 08/05 stable with chronic lower lobe airspace consolidation vs atelectasis, patient started on Azithro po - on 08/08 patient still with cough, worsened, d/c fluids, repeat CXR PA/lat showed basilar consolidation with small effusions and left lung infiltrate and IV Zosyn was added to by mouth Zithromax and - on 08/09. Hemoptysis overnight. Due to concern for hospital acquired pneumonia, at that time added IV vancomycin. Chest x-ray stable. Consulted pulmonology service. - Continued Acapella and incentive spirometry. Nebs as needed for history of asthma. on 08/10. Appreciate pulmonology assistance. Hemoptysis has resolved. CT chest with pneumonia as above. Continue vancomycin and Zosyn. Swallow evaluation pending. Patient passed swallow evaluation. Continues on steroids, IV vancomycin and Zosyn. Will attempt to transition to Augmentin upon discharge planning to inpatient rehabilitation today. heparin-induced thrombocytopenia. - Platelets decreased from 150s on admission to 75 on 08/08. 50% decrease. Did have hemoptysis. -Hit panel week positive. Avoid heparin or low molecular weight heparin. Patient has has improved off of heparin. Constipation. resolved after enema. Myotonic dystrophy: Continue PT .Transfer to inpatient rehabilitation DVT prophylaxis: SCDs. 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 Problem Qualifiers (1) Aspiration pneumonia: Annabella Miller MD Aug 13, 2016 14:04
[2016-08-13] MEDS ORDERED: BENZ100 PO (14:14)
[2016-08-13] MEDS ORDERED: PRED20 PO (14:14)
[2016-08-13] MEDS ORDERED: OXYC-392 PO (14:14)
--- NOTE | 2016-08-13 14:15 | HHI.DCPOC ---
Discharge Care Plan Diagnosis: (1) Myotonic dystrophy, type 1 (2) Aspiration pneumonia (3) Impaired mobility and activities of daily living Your Health Problems Are: Difficulty with ADL Goals to Promote Your Health * To prevent worsening of your condition and complications * To maintain your health at the optimal level Directions to Meet Your Goals Take your medications as prescribed Follow your dietary instruction Follow activity as directed Keep your appointments as scheduled Take your immunizations and boosters as scheduled If your symptoms worsen call your PCP, if no PCP go to Urgent Care Center or Emergency Room Smoking is Dangerous to Your Health. Avoid second hand smoke Call the 24-hour hour crisis hotline for domestic abuse at Annabella Miller MD Aug 13, 2016 14:15
--- NOTE | 2016-08-13 14:23 | HHI.DS ---
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 51 year old male with a past medical history of myotonic dystrophy, GERD, fatty liver disease, asthma who presented with jaundice. The patient states approximately 7 days ago he had abdominal pain and diarrhea, which has improved some. He states about 5 days ago he noticed that his skin was becoming more yellow. He followed up with his PCP who performed some lab tests and ordered an abdominal CT. Prior to having the outpatient abdominal CT done, the patient was called by his PCP and told to come to the hospital for increased liver values. Patient continues to have intermittent abdominal pain 13 times daily, currently improved, last episode this morning. He denies any nausea or vomiting at this time. He denies any fevers or chills. He denies any dark or bloody stools. He has had a cough, productive with mucus. Denies any chest pain or shortness breath. He does have myotonic dystrophy and chronic weakness from that, worse on the right side. He had a cholecystectomy done 1 year ago. CBC/BMP: 08/11/16 0529 08/11/16 0529 Significant Findings Laboratory Tests Test 08/10/16 08/11/16 21:42 05:29 HIPA Patient Optical Density 0.452 O.D. (0.000-0.300) Platelet Count 140 TH/MM3 (150-450) Neutrophils (%) (Auto) 82.0 % (16.0-70.0) Lymphocytes # (Auto) 0.8 TH/MM3 (1.0-4.8) Random Glucose 159 MG/DL (74-106) Total Bilirubin 4.6 MG/DL (0.2-1.0) Aspartate Amino Transf 140 U/L (15-37) (AST/SGOT) Alanine Aminotransferase 251 U/L (12-78) (ALT/SGPT) Alkaline Phosphatase 263 U/L (45-117) Albumin 2.6 GM/DL (3.4-5.0) Imaging Last Impressions Chest CT 08/09/16 1904 Signed Impressions: Service Date/Time: Tuesday, August 09, 2016 20:08 - CONCLUSION: Bilateral pneumonia. Barber Garcia MD Chest X-Ray 08/09/16 0000 Signed Impressions: Service Date/Time: Tuesday, August 09, 2016 15:34 - CONCLUSION: Mild bibasilar consolidation and small left pleural effusion not significantly changed. Barber Garcia MD GI Procedure 08/06/16 1130 Signed Impressions: Service Date/Time: Saturday, August 06, 2016 11:59 - CONCLUSION: ERCP as above. Luis Alberto Escamilla MD Cholangiopancreatography MRI 08/05/16 0000 Signed Impressions: Service Date/Time: July 16:22 - CONCLUSION: Pancreatic head mass measuring 4.6 x 3.8 cm with resulting intrahepatic and extrahepatic delivery obstruction with dilatation. The gallbladder is surgically absent. Philip Ralph Jr., MD Abdomen/Pelvis CT 08/04/16 2216 Signed Impressions: Service Date/Time: Thursday, August 04, 2016 23:04 - CONCLUSION: 1. Status post interval cholecystectomy with no prominence of the central intrahepatic biliary system and common bile duct which measures up to approximately 11 mm. No definite mass or filling defect identified. 2. Mild prominence of the pancreatic duct is now noted measuring up to 4 mm without distinct mass. Zeke Khanna MD PE at Discharge GENERAL: This is a well-nourished, well-developed patient, in no apparent distress. CARDIOVASCULAR: Regular rate and rhythm RESPIRATORY: Relatively clear to auscultation bilaterally. GASTROINTESTINAL: Abdomen soft, non-tender, nondistended. Normal active bowel sounds MUSCULOSKELETAL: Extremities without clubbing, cyanosis, or edema. NEURO: Alert & Oriented x4 to person, place, time, situation. Hospital Course These are the medical issues addressed during this hospitalization: 51 year old male with a past medical history of myotonic dystrophy, GERD, fatty liver disease, asthma who presented with jaundice. CT shows pancreatic head mass. He underwent ERCP with stent placement, improvement of bilirubin and jaundice. He will need outpatient IR referral for biopsy of pancreatic head mass. His postprocedural course complicated by cough and hemoptysis with bibasilar likely healthcare acquired pneumonia pneumonia. Pulmonary service Dr. Eller was consulted to assist with management of his aspiration pneumonia. Presenting Obstructive jaundice: Elevated bilirubin, AST, ALT, alkaline phosphatase. CT abdomen showed pancreatic duct 4 mm, no signs of obstruction, no signs of liver lesions. Hepatitis panel negative - GI service were consulted during this hospitalization. A ERCP was performed which shows pancreatic mass with recommendations to obtain percutaneous biopsy of the pancreatic mass which will be scheduled as an outpatient with interventional radiology - Status post ERCP by GI on 08/06. Duodenum Biopsies showed duodenitis. - Monitoring adductive function tests revealed levels trending down. - GI recommending percutaneous biopsy of pancreatic mass by IR, this can be done as an outpatient. Follow-up with the GI service as an outpatient. Sepsis with Healthcare Associated/aspiration Pneumonia: patient initially presented with cough that worsened throughout hospital stay. Likely due to bilateral lower lobe healthcare associate pneumonia- clinically improving -complicated by history of myotonic dystrophy Summary of the hospital course includes the following -On 08/07 tachycardic, WBC 13K, +fever Tmax 100.2. Most recent low-grade fever 100.2 on 08/08. - Initial CXR 08/05 stable with chronic lower lobe airspace consolidation vs atelectasis, patient started on Azithro po - on 08/08 patient still with cough, worsened, d/c fluids, repeat CXR PA/lat showed basilar consolidation with small effusions and left lung infiltrate and IV Zosyn was added to by mouth Zithromax and - on 08/09. Hemoptysis overnight. Due to concern for hospital acquired pneumonia, at that time added IV vancomycin. Chest x-ray stable. Consulted pulmonology service. - Continued Acapella and incentive spirometry. Nebs as needed for history of asthma. on 08/10. Appreciate pulmonology assistance. Hemoptysis has resolved. CT chest with pneumonia as above. Continue vancomycin and Zosyn. Swallow evaluation pending. Patient passed swallow evaluation. Continues on steroids, IV vancomycin and Zosyn and Flagyl. Transition to Augmentin upon discharge planning to inpatient rehabilitation today. heparin-induced thrombocytopenia. - Platelets decreased from 150s on admission to 75 on 08/08. 50% decrease. Did have hemoptysis. -Hit panel week positive. Avoid heparin or low molecular weight heparin. Patient's platelets has has improved off of heparin. Constipation. resolved after enema. Pt Condition on Discharge: Good Discharge Disposition: Rehab Inpatient Discharge Time: <= 30 minutes Discharge Instructions DIET: Follow Instructions for: Heart Healthy Diet Activities you can perform: Regular-No Restrictions New Medications: Prednisone (Prednisone) 20 Mg Tab 20 MG PO DIRECTED 20 MG twice a day x 3 days, then 20 MG daily x 3 days, then 10 MG daily x 3 days Inflammation #11 Ref 0 TAB Benzonatate (Tessalon Perles) 100 Mg Cap 100 MG PO TID PRN cough #10 CAP Oxycodone (Oxycodone) 5 Mg Tab 5 MG PO Q6H PRN pain 1-5 #10 TAB Oxycodone (Oxycodone) 5 Mg Tab 10 MG PO Q6H PRN pain 6-10 #10 TAB Annabella Miller MD Aug 13, 2016 14:23
[2016-08-13 16:00] VITALS: BP 107/61; PULSE 66; RESP 17; TEMP 96.6; O2SAT 95
[2016-08-13 16:27] VITALS: O2SAT 95
--- NOTE | 2016-08-13 19:05 | HHI.PR ---
Subjective Remarks Has no hemoptysis . CT chest shows basal pneumonia and Left upper lobe. Breathing better..Passed swallow evaluation. On a diet . Using IPPB with nebs. Objective Vital Signs Date Time Temp Pulse Resp B/P Pulse Ox O2 Delivery O2 Flow Rate FiO2 08/13/16 16:27 95 21 08/13/16 16:00 96.6 66 17 107/61 95 08/13/16 11:52 95.9 78 16 97/59 95 102/66 08/13/16 09:05 93 21 08/13/16 08:59 18 08/13/16 08:00 96.3 56 17 93/57 95 90/60 08/12/16 23:53 97.1 69 18 100/60 94 08/12/16 20:00 96.3 68 16 92/59 97 I/O 08/12/16 08/12/16 08/12/16 08/13/16 08/13/16 08/13/16 07:00 15:00 23:00 07:00 15:00 23:00 Intake Total 690 ml 344 ml 372 ml 1185 ml 1381 ml Output Total 600 ml 450 ml 100 ml 250 ml 475 ml Balance 90 ml -106 ml 272 ml 935 ml 906 ml Intake Oral 240 ml 240 ml 240 ml 120 ml 342 ml IV Total 450 ml 104 ml 132 ml 1065 ml 1039 ml Output Urine Total 600 ml 450 ml 100 ml 250 ml 475 ml # Bowel Movements 0 1 0 0 1 Result Diagram: 08/11/1629 08/11/16528 Objective Remarks General: This thinly built middle-aged white male is alert, oriented, mild pallor. No cyanosis or icterus. No lymphadenopathy. HEENT: Head normocephalic. Pupils are reactive. Throat was clear. Ears - No inflammation. Neck: Supple. No bruits, no thyroid enlargement or lymphadenopathy. Chest: Distant breath sounds with occasional crackles at the lung bases. Heart: The heart sounds are regular S1-S2. No murmur. Abdomen: Soft, protuberant, without masses. No organomegaly or tenderness. Bowel sounds are active. Extremities: No lesions. There is muscle wasting of the extremities with some weakness of the right extremities. Skin: No lesions observed. . Assessment and Plan Assessment and Plan IMPRESSION 1. History of hemoptysis and bibasilar atelectasis. Basal pneumonia. 1. History of fatty liver and jaundice. 1. Myotonic dystrophy chronic. 2. Probable obstructive airways disease. Plan : 1. Continue antibiotics.and switch to PO. 2. Nebs qid , duoneb. 3. Use IPPB qid with nebs. 4. O2 2 l PRN. 5. prednisone 20 mg bid and taper over 3 weeks 6. IS qid 7. To rehab today. Eric Gallegos MD Aug 13, 2016 19:05
[2016-08-13] MEDS ORDERED: AMOXICILLIN/CLAVULANATE K 875 MG TAB PO SCH (21:00)
[2016-08-14] MEDS ORDERED: predniSONE 20 MG TAB PO SCH (09:00)
--- NOTE | 2016-08-17 10:03 | RSPPFT ---
DATE OF PROCEDURE: 08/10/16 COMMENTS: The spirometry demonstrates an FEV1 of 1.0 at 22% of predicted, FVC of 1.2 at 21%, FEF 25-75 at 23% of predicted. The post-bronchodilator study demonstrated no significant change. Flow volume loops are suggestive of a restrictive pattern. Lung volumes were not completed. IMPRESSION: 1. Severe restrictive disease. 2. Additional mild to moderate obstructive disease. 3. No significant change following use of bronchodilator.
[2016-08-19] MEDS ORDERED: MILKSUS PO (10:44)
[2016-08-19] MEDS ORDERED: IPRASOL NEB (10:44)
[2016-08-19] MEDS ORDERED: PRED10 PO (10:44)
[2016-08-19] MEDS ORDERED: BENZ100 PO (10:44)
[2016-08-19] MEDS ORDERED: AMOX875T2 PO (10:44)
[2016-08-19] MEDS ORDERED: OXYC-392 PO (10:44)
[2016-08-19] MEDS ORDERED: DOCU1CAP39 PO (10:44)
== END 2016-08-13 18:12 | DRG 444 ==
LOC: NEPE 16:59 → INTOOBSV 08-05 00:50 → NEDA 08-05 00:50 → NEPHCDU 08-05 02:57 → OBSVTOIN 08-05 13:38 → N07B 08-05 20:10
PROVIDERS: ADMIT Internal Medicine; ATTEND Internal Medicine
PROC: 0DB98ZX Excision of Duodenum, Via Natural or Artificial Opening Endoscopic, Diagnostic (ICD-10-PCS; 2016-08-06)
PROC: 0F798DZ Dilation of Common Bile Duct with Intraluminal Device, Via Natural or Artificial Opening Endoscopic (ICD-10-PCS; principal; 2016-08-06 11:20)
DX: K83.1 Obstruction of bile duct (principal); J18.9 Pneumonia, unspecified organism; J69.0 Pneumonitis due to inhalation of food and vomit; A41.9 Sepsis, unspecified organism; R04.2 Hemoptysis; G71.11 Myotonic muscular dystrophy; K21.9 Gastro-esophageal reflux disease without esophagitis; J45.909 Unspecified asthma, uncomplicated; D75.82 Heparin induced thrombocytopenia (HIT); K59.00 Constipation, unspecified; K29.80 Duodenitis without bleeding; K76.0 Fatty (change of) liver, not elsewhere classified; K86.9 Disease of pancreas, unspecified
CPT/HCPCS: 71010; 71020; 71250; 74177; 74181; 74330; 76377; 80048; 80053; 80074; 80076; 81001; 82378; 83690; 83735; 83880; 85025; 85610; 85730; 86022; 86301; 86403; 87015; 87070; 87116; 87186; 87205; 87206; 88305; 93005; 94060; 94150; 94640; 94664; 94667; 94668; C1769; C2625; G8987-GP; G8988-GP; J2270; J2543; J2920; J3370; J3480; J7030; J7050; J7608; J7613; Q9967

== ENCOUNTER 2016-08-19 10:47 | Inpatient (IN) | payer BC ==
[~2016-08-19] VITALS: Ht 190.5 cm; Wt 64.5 kg
[~2016-08-19 10:47] MED LIST changes: +AMOX875T2 PO; +BENZ100 PO; +DOCU1CAP39 PO; -HYDR-3580 PO; +IPRASOL NEB; -MAGN30S PO; +MILKSUS PO; +OXYC-392 PO; +PRED10 PO; +PRED20 PO; -RANI150 TUBE
[2016-08-19 16:00] VITALS: BP 96/60; PULSE 80; RESP 20; TEMP 97.2; O2SAT 92
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
[2016-08-19] MEDS ORDERED: MAGNESIUM HYDROXIDE SUSP 30 ML CUP PO PRN (16:30)
[2016-08-19] MEDS ORDERED: SODIUM CHLORIDE 0.9% FLUSH 5 ML FLUSH FLUSH PRN (16:30)
[2016-08-19] MEDS ORDERED: RESP: ALBUTEROL 2.5 MG/IPRATROPIUM 0.5 MG NEB (PRN) NEB (16:45)
[2016-08-19] MEDS ORDERED: ACETAMINOPHEN 325 MG TAB PO PRN (17:00)
[2016-08-19 18:00] VITALS: BP 98/58; PULSE 77; RESP 20; TEMP 98.1; O2SAT 96
[2016-08-19 20:00] VITALS: BP 144/79; PULSE 89; RESP 18; TEMP 97.3; O2SAT 93
[2016-08-19] MEDS: BENZONATATE 100 MG CAP PO PRN (20:53)
[2016-08-19] MEDS: AMOXICILLIN/CLAVULANATE K 875 MG TAB PO SCH (20:53)
[2016-08-19] MEDS: SODIUM CHLORIDE 0.9% FLUSH 5 ML FLUSH FLUSH SCH (20:53)
[2016-08-19] MEDS: DOCUSATE SODIUM 100 MG CAP PO SCH (20:54)
--- NOTE | 2016-08-19 23:16 | PD.ONC.PN ---
Subjective Subjective Remarks plans for CT guided biopsy of pancreatic mass case discussed with Dr. Monroe and Transfer to acute care for biopsy patient doing okay. was doing well with rehab discussed with patient's in detail Objective Data Date Time Temp Pulse Resp B/P Pulse Ox O2 Delivery O2 Flow Rate FiO2 08/19/16 18:00 98.1 77 20 98/58 96 08/19/16 16:00 97.2 80 20 96/60 92 Administered Medications Medications (Trade) Dose Ordered Sig/Sahara Route PRN Reason Start Time Stop Time Status Last Admin Dose Admin IV Flush (NS Flush) 2 ml BID FLUSH 08/19/16 21:00 08/19/16 20:53 Amoxicillin/ Clavulanate Potassium (Augmentin) 875 mg Q12HR PO 08/19/16 21:00 08/19/16 20:53 Benzonatate (Tessalon) 100 mg TID PRN PO cough 08/19/16 16:30 08/19/16 20:53 Oxycodone HCl (Roxicodone) 10 mg Q6H PRN PO pain 6-10 08/19/16 16:30 08/19/16 20:54 Objective Remarks GENERAL: thin/nad SKIN: Warm and dry. NECK: Supple, trachea midline. No JVD or lymphadenopathy. LYMPHATIC: No adenopathy. CARDIOVASCULAR: Regular rate and rhythm without murmurs. RESPIRATORY: Breath sounds equal bilaterally. No accessory muscle use. GASTROINTESTINAL: Abdomen soft, non-tender, nondistended. EXTREMITIES: No cyanosis, or edema. Assessment/Plan Problem List: (1) Myotonic dystrophy, type 1 Status: Chronic (2) Pancreatic mass Status: Acute (3) Transaminitis Status: Acute (4) Obstructive jaundice Status: Acute (5) Thrombocytopenia Status: Acute (6) Liver enzyme elevation Status: Acute Assessment 51-year-old male with a past medical history of myotonic dystrophy, history of pancreatitis who presented with jaundice and was found to have a pancreatic mass. 1. Pancreatic mass suspicious for malignancy - discussed case with IR. Patient being transferred to acute care. Biopsy rescheduled for tomorrow AM - Ct guided biopsy in AM - NPO after midnight - Further recommendations will be made after biopsy results are available. 2. History of myotonic dystrophy. 3. Deconditioning. PT 4. 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 - Serotonin release assay pending, since probability of false positive HIT Ab results is high. His platelets have recovered. RUSSELL confirmation will be useful for the future - avoid heparin and heparin products. Long discussion with patient and is . case discussed with GI and Rehab physicians 30 minutes spent in coordination of care and speaking with patient and his . Dipesh Luz MD Aug 19, 2016 23:16
[2016-08-20 00:46] VITALS: BP 119/63; PULSE 76; RESP 16; TEMP 98; O2SAT 93
[2016-08-20 04:32] VITALS: BP 101/67; PULSE 80; RESP 18; TEMP 98.1; O2SAT 96
[2016-08-20 07:13] LABS: AUTOMATED NEUTROPHIL # 5.4 TH/MM3 (1.8-7.7); BASOPHIL % 0.4 % (0.0-2.0); EOSINOPHIL # 0.1 TH/MM3 (0-0.4); EOSINOPHIL % 0.9 % (0.0-4.0); HEMATOCRIT 43.9 % (39.0-51.0); HEMO FLAGS DIFF FINAL; LYMPH % 38.7 % (9.0-44.0); MEAN CORPUSCULAR HEMOGLOBIN 30.7 PG (27.0-34.0); PLATELET COUNT 168 TH/MM3 (150-450); RED BLOOD COUNT 4.88 MIL/MM3 (4.50-5.90); RED CELL DISTRIBUTION WIDTH 14.5 % (11.6-17.2); WHITE BLOOD COUNT 10.3 TH/MM3 (4.0-11.0)
[2016-08-20 07:22] LABS: ALT (GPT) 457 U/L (12-78); ANION GAP 7 MEQ/L (5-15); AST (GOT) 154 U/L (15-37); BICARBONATE 29.6 MEQ/L (21.0-32.0); BLOOD UREA NITROGEN 15 MG/DL (7-18); CHLORIDE 105 MEQ/L (98-107); GLOMERULAR FILTRATION RATE 164 ML/MIN (>89); POTASSIUM 3.8 MEQ/L (3.5-5.1); SODIUM (NA) 142 MEQ/L (136-145)
[2016-08-20 07:24] LABS: ALKALINE PHOSPHATASE 198 U/L (45-117); TOTAL BILIRUBIN ADULT 1.9 MG/DL (0.2-1.0)
[2016-08-20 08:00] VITALS: BP 100/58; PULSE 65; RESP 18; TEMP 97.4; O2SAT 97
[2016-08-20] MEDS: SODIUM CHLORIDE 0.9% FLUSH 5 ML FLUSH FLUSH SCH ×2 (08:25→21:28)
[2016-08-20] MEDS: AMOXICILLIN/CLAVULANATE K 875 MG TAB PO SCH ×2 (08:25→21:27)
[2016-08-20] MEDS: predniSONE 10 MG TAB PO SCH (08:26)
[2016-08-20] MEDS: DOCUSATE SODIUM 100 MG CAP PO SCH ×2 (08:26→21:00)
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
[2016-08-20 12:00] VITALS: BP 99/69; PULSE 72; RESP 18; TEMP 97.1; O2SAT 96
[2016-08-20] MEDS: BENZONATATE 100 MG CAP PO PRN ×2 (14:51→21:27)
[2016-08-20 16:00] VITALS: BP 96/63; PULSE 81; RESP 18; TEMP 97.4; O2SAT 94
[2016-08-20 21:46] VITALS: BP 115/61; PULSE 73; RESP 16; TEMP 97.4; O2SAT 95
--- NOTE | 2016-08-20 22:46 | HHI.PR ---
Subjective Remarks patient seen around 2 PM. Patient says he is feeling much better than last admission. Still has intermittent epigastric abdominal pain, however again this has improved. He says he'll not be able to go home. His will not accept him home. Per discussion with therapeutic case manager, patient will not be accepted at [facility] Objective Vital Signs Date Time Temp Pulse Resp B/P Pulse Ox O2 Delivery O2 Flow Rate FiO2 08/20/16 21:46 97.4 73 16 115/61 95 08/20/16 16:00 97.4 81 18 96/63 94 08/20/16 15:00 16 08/20/16 12:00 97.1 72 18 99/69 96 08/20/16 08:00 97.4 65 18 100/58 97 08/20/16 04:32 98.1 80 18 101/67 96 08/20/16 00:46 98.0 76 16 119/63 93 I/O 08/19/16 08/19/16 08/19/16 08/20/16 08/20/16 08/20/16 07:00 15:00 23:00 07:00 15:00 23:00 Intake Total 240 ml 240 ml Output Total 550 ml 100 ml Balance 240 ml -310 ml -100 ml Intake Oral 240 ml 240 ml Output Urine Total 550 ml 100 ml # Voids 1 4 # Bowel Movements 0 0 Result Diagram: 08/20/1636 08/20/1636 Objective Remarks GENERAL: patient sitting up in bed. Appears comfortable. Alert and oriented 3. SKIN: Warm and dry. HEAD: Normocephalic. EYES: No scleral icterus. No injection or drainage. NECK: Supple, trachea midline. No JVD or lymphadenopathy. CARDIOVASCULAR: Regular rate and rhythm without murmurs, gallops, or rubs. RESPIRATORY: Breath sounds equal bilaterally. No accessory muscle use. GASTROINTESTINAL: Abdomen soft, non-tender, nondistended. no rebound or guarding. Positive bowel sounds. MUSCULOSKELETAL: No cyanosis, or edema. BACK: Nontender without obvious deformity. No CVA tenderness. A/P Assessment and Plan Pancreatic mass. Acute Appreciate gastroenterology and hematology assistance Patient unable to undergo CT-guided biopsy as per radiology. We do not have US here 08/20. Discussed with gastroenterology. Possibility of follow-up EUS as outpatient versus transfer to [facility]. Patient will not be accepted at home by his , and per discussion with therapeutic case manager will not be accepted at [facility] either. Myotonic dystrophy. Continue physical therapy. Appreciate assistance. Transaminitis. Better than baseline. Appreciate gastroenterology assistance. Prophylaxis. 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 Hold off on medical hydration for now. Pending serotonin release assay. Discharge Planning per discussion with therapeutic case manager, patient will not be accepted at [facility]. Apparently is refusing to take patient home as well. Physical therapy recommends rehabilitation. -Per hematology, patient will need endoscopic ultrasound with biopsy of pancreatic mass. This cannot be done at [facility]. May be done at [facility] possibly on Tuesday. Judd Nielson MD Aug 20, 2016 22:46
[2016-08-21 01:12] VITALS: BP 98/63; PULSE 70; RESP 18; TEMP 97.7; O2SAT 94
[2016-08-21 04:00] VITALS: BP 97/58; PULSE 79; RESP 18; TEMP 97.7; O2SAT 96
[2016-08-21] MEDS: BENZONATATE 100 MG CAP PO PRN ×3 (05:40→23:07)
[2016-08-21 08:00] VITALS: BP 103/61; PULSE 69; RESP 16; TEMP 97.6; O2SAT 96
[2016-08-21] MEDS: DOCUSATE SODIUM 100 MG CAP PO SCH ×2 (09:00→21:00)
[2016-08-21] MEDS: predniSONE 10 MG TAB PO SCH (09:04)
[2016-08-21] MEDS: AMOXICILLIN/CLAVULANATE K 875 MG TAB PO SCH ×2 (09:04→21:14)
[2016-08-21] MEDS: SODIUM CHLORIDE 0.9% FLUSH 5 ML FLUSH FLUSH SCH ×2 (09:08→21:14)
[2016-08-21 12:00] VITALS: BP 104/62; PULSE 77; RESP 16; TEMP 97.9; O2SAT 93
--- NOTE | 2016-08-21 13:40 | HHI.GIFU ---
Subjective Remarks Patient is resting in bed denies abdominal pain, nausea, or vomiting. He had a lot of questions in regards to the mass and very anxious about the findings. ( Lam Nolasco) Objective Vitals I&O Vital Signs Date Time Temp Pulse Resp B/P Pulse Ox O2 Delivery O2 Flow Rate FiO2 08/21/16 08:00 97.6 69 16 103/61 96 08/21/16 04:00 97.7 79 18 97/58 96 08/21/16 01:12 97.7 70 18 98/63 94 08/20/16 21:46 97.4 73 16 115/61 95 08/20/16 16:00 97.4 81 18 96/63 94 08/20/16 15:00 16 I/O 08/20/16 08/20/16 08/20/16 08/21/16 08/21/16 08/21/16 07:00 15:00 23:00 07:00 15:00 23:00 Intake Total 240 ml Output Total 550 ml 100 ml Balance -310 ml -100 ml Intake Oral 240 ml Output Urine Total 550 ml 100 ml # Voids 4 # Bowel Movements 0 0 Physical Exam HEENT: normocephalic; atraumatic; no jaundice. Throat is clear. NECK: Neck is supple, no JVD, no lymphadenopathy. CHEST: Chest is clear to auscultation and percussion. CARDIAC: Regular rate and rhythm with no murmur gallop or rubs. ABDOMEN: Soft, nondistended, nontender; no hepatosplenomegaly; bowel sounds are present in all four quadrants. EXTREMITIES: No clubbing, cyanosis, or edema. SKIN: Normal; no rash; no jaundice. FINANCIAL INVESTMENT ADVISER: No focal deficits; alert and oriented times three. Generalized weakness ( Lam Nolasco) Assessment and Plan Plan ASSESSMENT: - Pancreatic head mass, suspicious for malignancy. CEA was 1.5. CA-19-9 was 24.9. Oncology following, spoke to radiology, who recommended CT guided bx of pancreatic head mass. However, according to Dr. Patel in CT, he did not feel that the pancreatic head mass was amenable to CT-guided liver biopsy due to the location of the abnormality and the fact that there is edema and fullness in the pancreatic head causing duct obstruction of the pancreatic and common bile duct and recommended an endoscopic ultrasound and alternatively a pancreas protocol MRI with and without contrast could help better evaluate for pancreatic head mass. GI was consulted for endoscopic ultrasound with FNA Bx. Pt was under the impression that this would be done today and became very agitated once he was told that this facility does not have the equipment to perform EUS. Tried to explain to patient that we would arrange this [facility] as outpatient so that it could be done once he was discharged. Pt still upset and now stating that if it is not done today, then he just won't have it done. - Biliary obstruction secondary to above/Elevated LFTs. S/P ERCP with stent placement (08/06/16)----> ampullary stenosis, duodenal mass. Pathology of the duodenal mass revealed duodenal mucosa with Sheryl's gland hyperplasia and features suggesting peptic duodenitis. LFTs improving. T. Bili 1.9, AST 154, ALFT 457, Alk Phosph 198. - GERD. PPI - Myotonic Dystrophy, Asthma per primary 08/21/16 denies abdominal pain, nausea, or vomiting. He had a lot of questions in regards to the mass and very anxious about the findings. All his questions were answered to his satisfactions. PLAN: - [facility] - Monitor labs - EUS with FNA as outpatient- This facility does not have an EUS machine. - All his questions were answered to his sanctification - Okay to Dc home from GI stand point - Supportive care - Further recommendations to follow based on results of above - Pt seen and examined by Dr. Kerr and myself and this note is written on his behalf (Lam Nolasco) Physician Comments Patient seen and examined Agree with above Continue with current supportive care Monitor labs EUS as outpatient (Rafiq Kerr MD) Lam Nolasco Aug 21, 2016 13:40 Rafiq Kerr MD Aug 21, 2016 20:04
[2016-08-21 16:00] VITALS: BP 102/58; PULSE 81; RESP 16; TEMP 98; O2SAT 94
[2016-08-21 20:00] VITALS: BP 97/67; PULSE 78; RESP 18; TEMP 97.3; O2SAT 94
[2016-08-21] MEDS ORDERED: OXYC-392 PO (21:43)
[2016-08-21] MEDS ORDERED: AMOX875T2 PO (21:43)
--- NOTE | 2016-08-21 21:44 | HHI.FF ---
Face to Face Verification Diagnosis: (1) Myotonic dystrophy, type 1 (2) Impaired mobility and activities of daily living Physical Therapy Order: Evaluate and Treat Occupational Therapy Order: Evaluate and Treat Home Health Nursing Order: Nursing assessment with vital signs I have seen patient Zeke Jones on 08/21/16. My clinical findings support the need for the requested home health care services because: Deconditioned w/ increased weakness I certify that my clinical findings support that this patient is homebound because: Unsafe to leave home unassisted Judd Nielson MD Aug 21, 2016 21:44
--- NOTE | 2016-08-21 21:50 | HHI.PR ---
Subjective Remarks patient seen this afternoon around 4 PM. Patient says he is feeling well. Pain is controlled. Denies any nausea or vomiting. Says he is talked with his , and he feels comfortable going home tomorrow. He will follow-up as outpatient for EUS at [facility] on Tuesday. Objective Vital Signs Date Time Temp Pulse Resp B/P Pulse Ox O2 Delivery O2 Flow Rate FiO2 08/21/16 16:00 98.0 81 16 102/58 94 08/21/16 12:00 97.9 77 16 104/62 93 08/21/16 08:00 97.6 69 16 103/61 96 08/21/16 04:00 97.7 79 18 97/58 96 08/21/16 01:12 97.7 70 18 98/63 94 I/O 08/20/16 08/20/16 08/20/16 08/21/16 08/21/16 08/21/16 07:00 15:00 23:00 07:00 15:00 23:00 Intake Total 240 ml 480 ml Output Total 550 ml 100 ml 400 ml Balance -310 ml -100 ml 80 ml Intake Oral 240 ml 480 ml Output Urine Total 550 ml 100 ml 400 ml # Voids 4 # Bowel Movements 0 0 Result Diagram: 08/20/1636 08/20/16635 Objective Remarks GENERAL: patient sitting up in bed. Appears comfortable. Alert and oriented 3.exam unchanged. SKIN: Warm and dry. HEAD: Normocephalic. EYES: No scleral icterus. No injection or drainage. NECK: Supple, trachea midline. No JVD. CARDIOVASCULAR: Regular rate and rhythm without murmurs, gallops, or rubs. RESPIRATORY: Breath sounds equal bilaterally. No accessory muscle use. GASTROINTESTINAL: Abdomen soft, non-tender, nondistended. no rebound or guarding. Positive bowel sounds. MUSCULOSKELETAL: No cyanosis, or edema. BACK: Nontender without obvious deformity. No CVA tenderness. A/P Assessment and Plan //Pancreatic mass. Acute Appreciate gastroenterology and hematology assistance Patient unable to undergo CT-guided biopsy as per radiology. We do not have EUS here 08/20. Discussed with gastroenterology. Possibility of follow-up EUS as outpatient versus transfer to [facility]. Patient will not be accepted at home by his , and per discussion with case picker will not be accepted at [facility] either. -08/21. Discussed with gastroenterology. Patient will follow-up with gastroenterology at [facility] for EUS with biopsy on Tuesday. Patient has discussed with , and she'll be home to take care of him this week. -Patient will also need to follow up with hematology as outpatient //Myotonic dystrophy. Continue physical therapy. Appreciate assistance. //Transaminitis. Better than baseline. Appreciate gastroenterology assistance. 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 Serotonin release assay for confirmation still pending. We'll need to follow-up with hematology as outpatient. //Prophylaxis. 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 Hold off on medical hydration for now. Pending serotonin release assay. Discharge Planning per discussion with case picker, patient will not be accepted at [facility]. - will take patient home on 08/22. -Patient will follow-up for EUS at [facility] on Tuesday. --follow-up hematology, primary care, gastroenterology as outpatient. Judd Nielson MD Aug 21, 2016 21:50
[2016-08-22] VITALS: BP 95/63; PULSE 69; RESP 18; TEMP 97.7; O2SAT 95
[2016-08-22 04:00] VITALS: BP 105/70; PULSE 65; RESP 17; TEMP 97.4; O2SAT 94
[2016-08-22] MEDS: BENZONATATE 100 MG CAP PO PRN (05:14)
[2016-08-22 08:00] VITALS: BP 96/65; PULSE 66; RESP 18; TEMP 97.3; O2SAT 98
[2016-08-22] MEDS: DOCUSATE SODIUM 100 MG CAP PO SCH ×2 (09:00→09:23)
[2016-08-22] MEDS: SODIUM CHLORIDE 0.9% FLUSH 5 ML FLUSH FLUSH SCH (09:00)
[2016-08-22] MEDS: predniSONE 10 MG TAB PO SCH (09:23)
[2016-08-22] MEDS: AMOXICILLIN/CLAVULANATE K 875 MG TAB PO SCH (09:23)
--- NOTE | 2016-09-01 08:46 | HHI.PR ---
Subjective Remarks date of service 08/22/16. Patient seen the morning of 08/22/16. patient says he feels well. Reports pain is minimal. Denies any chest pain or shortness of breath. Denies any nausea or vomiting. Objective Objective Remarks GENERAL: patient sitting up in bed. Appears comfortable. Alert and oriented 3.exam again unchanged. SKIN: Warm and dry. HEAD: Normocephalic. EYES: No scleral icterus. No injection or drainage. NECK: Supple, trachea midline. No JVD. CARDIOVASCULAR: Regular rate and rhythm without murmurs, gallops, or rubs. RESPIRATORY: Breath sounds equal bilaterally. No accessory muscle use. GASTROINTESTINAL: Abdomen soft, non-tender, nondistended. no rebound or guarding. Positive bowel sounds. MUSCULOSKELETAL: No cyanosis, or edema. BACK: Nontender without obvious deformity. No CVA tenderness. A/P Assessment and Plan //Pancreatic mass. Acute Appreciate gastroenterology and hematology assistance Patient unable to undergo CT-guided biopsy as per radiology. We do not have EUS here 08/20. Discussed with gastroenterology. Possibility of follow-up EUS as outpatient versus transfer to [facility]. Patient will not be accepted at home by his , and per discussion with case specialist will not be accepted at [facility] either. -08/21. Discussed with gastroenterology. Patient will follow-up with gastroenterology at [facility] for EUS with biopsy on Tuesday. Patient has discussed with , and she'll be home to take care of him this week. =Patient will also need to follow up with hematology as outpatient //Myotonic dystrophy. Continue physical therapy. Appreciate assistance. //Transaminitis. Better than baseline. Appreciate gastroenterology assistance. 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 Serotonin release assay for confirmation still pending. We'll need to follow-up with hematology as outpatient. //Prophylaxis. 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 Hold off on medical hydration for now. Pending serotonin release assay. Discharge Planning per discussion with case specialist, patient will not be accepted at [facility]. -discharge home with . -Patient will follow-up for EUS at [facility] on Tuesday. --follow-up hematology, primary care, gastroenterology as outpatient. Judd Nielson MD Sep 01, 2016 08:46
--- NOTE | 2016-09-01 08:49 | HHI.DS ---
Discharge Summary Admission Date Aug 19, 2016 at 10:47 Discharge Date: Aug 22, 2016 Admitting Diagnosis pancreatic mass. 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 The patient underwent several diagnostic studies include an MRCP which showed a headache mass of 4.6 and 3.8 cm with resulting intrahepatic and extrahepatic delivery obstruction with dilatation. The gallbladder is surgically absent area the patient then underwent ERCP with a stent placement and subsequent improvement of bilirubin and jaundice. The patient was then discharged to [facility] for compressive rehabilitation. I was consulted to follow-up with Mr Edge. Given that the patient have the pancreatic mass, oncology was consulted for further recommendations. An IR guided biopsy was ordered, however the pancreatic head was not amenable to image guided percutaneous biopsy due to the location of the abnormality. Additionally, there was edema and fullness in the pancreatic head with this abnormality causing Obstruction of the pancreatic and common bile duct. It was questioned if this was a true mass versus edema by the interventional radiologist. Cardiology recommended endoscopic ultrasound with percutaneous biopsy due to the mass location. Her oncology recommendations the patient was then discharged to this [facility] hospital to obtain a GI consultation and a possible endoscopic ultrasound done his biopsy which would lead to the diagnosis. The patient currently denies any chest pain, shortness of breath, denies abdominal pain, states that his jaundice is going away, denies nausea, denies vomiting. Hospital Course Patient was admitted as per recommendation from hematology for CT-guided biopsy of pancreatic mass. Unfortunately this procedure could not be performed. We are unable to do EUS at [facility]. Gastroneurology was consult. Patient will follow-up on Tuesday at [facility] for EUS. //Pancreatic mass. Acute Appreciate gastroenterology and hematology assistance Patient unable to undergo CT-guided biopsy as per radiology. We do not have EUS here 08/20. Discussed with gastroenterology. Possibility of follow-up EUS as outpatient versus transfer to [facility]. Patient will not be accepted at home by his , and per discussion with pillowcase sewer will not be accepted at [facility] either. -08/21. Discussed with gastroenterology. Patient will follow-up with gastroenterology at [facility] for EUS with biopsy on Tuesday. Patient has discussed with , and she'll be home to take care of him this week. =Patient will also need to follow up with hematology as outpatient //Myotonic dystrophy. Continue physical therapy. Appreciate assistance. //Transaminitis. Better than baseline. Appreciate gastroenterology assistance. 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 Serotonin release assay for confirmation still pending. We'll need to follow-up with hematology as outpatient. //Prophylaxis. 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 Hold off on medical hydration for now. Pending serotonin release assay. Discharge Planning per discussion with pillowcase sewer, patient will not be accepted at [facility]. -discharge home with . -Patient will follow-up for EUS at [facility] on Tuesday. --follow-up hematology, primary care, gastroenterology as outpatient. Pt Condition on Discharge: Good Discharge Disposition: Disch w/ Home Health Serv Discharge Time: <= 30 minutes Discharge Instructions DIET: Follow Instructions for: Heart Healthy Diet Activities you can perform: Regular-No Restrictions Follow up Referrals: Gastroenterology - Next Day with Rafiq Kerr MD Oncology - 1 Week with Dipesh Luz MD PCP Follow-up - 1 Week with Rhoda Valencia MD Changed Medications: Oxycodone (Oxycodone) 5 Mg Tab 1-2 TAB PO Q6H PRN PAIN SCALE 1 TO 10 #20 TAB (Changed from: 5 MG; 10) Additional Information please see patient visit summary for medication list Judd Nielson MD Sep 01, 2016 08:49
== END 2016-08-22 11:48 | disposition home or self-care (01) | DRG 438 ==
LOC: N04A 10:47
PROVIDERS: ADMIT Internal Medicine; ATTEND Internal Medicine
DX: K86.9 Disease of pancreas, unspecified (principal); K83.1 Obstruction of bile duct; D69.6 Thrombocytopenia, unspecified; G71.11 Myotonic muscular dystrophy; K76.0 Fatty (change of) liver, not elsewhere classified; Z87.820 Personal history of traumatic brain injury; J45.909 Unspecified asthma, uncomplicated; K21.9 Gastro-esophageal reflux disease without esophagitis; R19.7 Diarrhea, unspecified; R74.0 Nonspecific elevation of levels of transaminase and lactic acid dehydrogenase [LDH]; D75.9 Disease of blood and blood-forming organs, unspecified; R79.89 Other specified abnormal findings of blood chemistry
CPT/HCPCS: 80053; 85025; J7512

== ENCOUNTER 2016-08-31 17:37 | Emergency (ER) | payer BC ==
[~2016-08-31] VITALS: Ht 188 cm; Wt 68.0 kg
[2016-08-31 17:41] VITALS: BP 100/62; PULSE 77; RESP 12; TEMP 98.4; O2SAT 93
--- NOTE | 2016-08-31 19:17 | PD ---
HPI Chief Complaint: GI Complaint Time Seen by Provider: 19:17 Travel History International Travel<30 days: No Contact w/Intl Traveler<30days: No Traveled to known affect area: No History of Present Illness HPI 51-year-old male with primary medical history of myotonic dystrophy, GERD, fatty liver disease, and asthma presents to emergency department for evaluation of severe abdominal pain. Patient was recently diagnosed with a pancreatic mass. 5 days ago on , he underwent an endoscopic ultrasound and biopsy of the mass by Dr. Kerr at [facility]. He is uncertain of biopsy results. He states the day after that he developed diarrhea. He has developed worsening pain since that procedure. His accompanies with him and states that he has been intermittently febrile. He has had no appetite and has been unable to keep anything down. No chest tightness. No difficulty breathing. No other symptoms to report. PFSH Past Medical History Arthritis: No Asthma: No Autoimmune Disease: No Anxiety: Yes Depression: Yes Heart Rhythm Problems: No Cancer: No Cardiovascular Problems: Yes High Cholesterol: Yes (in the past ) Chemotherapy: No Chest Pain: No Congestive Heart Failure: No COPD: No Cerebrovascular Accident: No Diabetes: No Diminished Hearing: No Endocrine: No Gastrointestinal Disorders: Yes (Hepatic steatosis) GERD: No Genitourinary: No Hepatitis: Yes (FATTY LIVER) Hiatal Hernia: No Immune Disorder: No Kidney Stones: No Musculoskeletal: Yes (MYOTONIC DYSTROPHY) Neurologic: Yes (MYOTONIC DYSTROPHY, tramatic brain injury) Psychiatric: Yes Reproductive: No Respiratory: No Migraines: No Radiation Therapy: No Renal Failure: No Seizures: No Sickle Cell Disease: No Sleep Apnea: No Thyroid Disease: No Ulcer: No Past Surgical History Abdominal Surgery: Yes (Gallbladder 2015, pancratic stent) AICD: No Arteriovenous Shunt: No Cardiac Surgery: No Cholecystectomy: Yes Ear Surgery: No Endocrine Surgery: No Eye Surgery: No Genitourinary Surgery: No Gynecologic Surgery: No Insulin Pump: No Joint Replacement: No Oral Surgery: No Pacemaker: No Thoracic Surgery: No Tonsillectomy: Yes Other Surgery: Yes (FEEDING TUBE PLACEMENT TAKEN OUT 07/21/TRACH TALEN OUT ) Social History Alcohol Use: Yes (occasional ETOH) Tobacco Use: No Substance Use: No Allergies-Medications (Allergen,Severity, Reaction): Coded Allergies: *MDRO Multi-Drug Resistant Organism (Verified Adverse Reaction, Unknown, ) MRSA (sputum)-08/13/16 MRSA (sputum & blood) 07/2014 MRSA PCR Screen positive 07/02/15. MRSA eye culture 07/2015 Reported Meds & Prescriptions Reported Meds & Active Scripts Active Oxycodone (Oxycodone HCl) 5 Mg Tab 10 Mg PO Q6H PRN Oxycodone (Oxycodone HCl) 5 Mg Tab 1-2 Tab PO Q6H PRN Review of Systems Except as stated in HPI: all other systems reviewed are Neg Physical Exam Narrative GENERAL: Thin, chronically ill-appearing male patient, sitting in wheelchair, in no acute distress SKIN: Warm and dry. HEAD: Atraumatic. Normocephalic. EYES: Pupils equal and round. No scleral icterus. No injection or drainage. ENT: No nasal bleeding or discharge. Mucous membranes pink and moist. NECK: Trachea midline. No JVD. CARDIOVASCULAR: Regular rate and rhythm. No murmur appreciated. RESPIRATORY: No accessory muscle use. Clear to auscultation. Breath sounds equal bilaterally. GASTROINTESTINAL: Abdomen soft, nondistended. Tenderness elicited to palpation superior to the umbilicus. MUSCULOSKELETAL: No obvious deformities. No clubbing. No cyanosis. No edema. NEUROLOGICAL: Awake and alert. No obvious cranial nerve deficits. Normal speech. PSYCHIATRIC: Appropriate mood and affect; insight and judgment normal. Data Data Last Documented VS Vital Signs Date Time Temp Pulse Resp B/P Pulse Ox O2 Delivery O2 Flow Rate FiO2 09/01/16 00:48 98.1 82 18 99/68 100 Room Air Orders Complete Blood Count With Diff (08/31/16 19:24) Comprehensive Metabolic Panel (08/31/16 19:24) Lipase (08/31/16 19:24) Lactic Acid (08/31/16 19:24) Prothrombin Time / Inr (Pt) (08/31/16 19:24) Act Partial Throm Time (Ptt) (08/31/16 19:24) Urinalysis - C+S If Indicated (08/31/16 19:24) Abdomen, Flat & Upright (08/31/16 ) Chest, Single Ap (08/31/16 19:24) Oxycodone-Acetamin 5-325 Mg (Percocet (09/01/16 00:30) Labs Laboratory Tests Test 08/31/16 08/31/16 20:05 23:05 White Blood Count 9.5 TH/MM3 Red Blood Count 5.21 MIL/MM3 Hemoglobin 16.0 GM/DL Hematocrit 46.6 % Mean Corpuscular Volume 89.3 FL Mean Corpuscular Hemoglobin 30.7 PG Mean Corpuscular Hemoglobin 34.4 % Concent Red Cell Distribution Width 15.5 % Platelet Count 106 TH/MM3 Mean Platelet Volume 9.5 FL Neutrophils (%) (Auto) 59.5 % Lymphocytes (%) (Auto) 30.5 % Monocytes (%) (Auto) 7.8 % Eosinophils (%) (Auto) 1.4 % Basophils (%) (Auto) 0.8 % Neutrophils # (Auto) 5.7 TH/MM3 Lymphocytes # (Auto) 2.9 TH/MM3 Monocytes # (Auto) 0.7 TH/MM3 Eosinophils # (Auto) 0.1 TH/MM3 Basophils # (Auto) 0.1 TH/MM3 CBC Comment DIFF FINAL Differential Comment Prothrombin Time 10.9 SEC Prothromb Time International 1.0 RATIO Ratio Activated Partial 28.6 SEC Thromboplast Time Sodium Level 146 MEQ/L Potassium Level 3.8 MEQ/L Chloride Level 110 MEQ/L Carbon Dioxide Level 29.7 MEQ/L Anion Gap 6 MEQ/L Blood Urea Nitrogen 10 MG/DL Creatinine 0.44 MG/DL Estimat Glomerular Filtration 203 ML/MIN Rate Random Glucose 75 MG/DL Lactic Acid Level 1.1 mmol/L Calcium Level 9.3 MG/DL Total Bilirubin 1.7 MG/DL Aspartate Amino Transf 52 U/L (AST/SGOT) Alanine Aminotransferase 112 U/L (ALT/SGPT) Alkaline Phosphatase 166 U/L Total Protein 7.0 GM/DL Albumin 3.4 GM/DL Lipase 185 U/L Urine Color YELLOW Urine Turbidity HAZY Urine pH 5.0 Urine Specific [place] 1.023 Urine Protein NEG mg/dL Urine Glucose (UA) NEG mg/dL Urine Ketones TRACE mg/dL Urine Occult Blood NEG Urine Nitrite NEG Urine Bilirubin SMALL Urine Urobilinogen LESS THAN 2.0 MG/DL Urine Leukocyte Esterase NEG Urine RBC 2 /hpf Urine WBC 2 /hpf Urine Squamous Epithelial 1 /hpf Cells Urine Renal Epithelial Cells <1 /hpf Urine Bacteria RARE /hpf Urine Mucus MANY /lpf Microscopic Urinalysis Comment CULT NOT INDICATED MDM Medical Decision Making Medical Screen Exam Complete: Yes Emergency Medical Condition: Yes Medical Record Reviewed: Yes Differential Diagnosis Metastatic disease versus pancreatitis versus gastroenteritis versus postprocedure infection Narrative Course 51-year-old male presents to emergency department for evaluation. Workup was initiated in triage. Once a medical bed becomes available, patient will be transferred and care assumed by the provider. Scripts Oxycodone 5 Mg Tab10 Mg PO Q6H PRN (pain 6-10) #10 TAB Prov:Duy Baxter MD 09/01/16 Condition: Stable Olive Irving Aug 31, 2016 19:17
[2016-08-31 20:41] LABS: AUTOMATED NEUTROPHIL # 5.7 TH/MM3 (1.8-7.7); BASOPHIL # 0.1 TH/MM3 (0-0.2); BASOPHIL % 0.8 % (0.0-2.0); EOSINOPHIL # 0.1 TH/MM3 (0-0.4); EOSINOPHIL % 1.4 % (0.0-4.0); HEMATOCRIT 46.6 % (39.0-51.0); HEMO FLAGS DIFF FINAL; LYMPH % 30.5 % (9.0-44.0); LYMPHOCYTE # 2.9 TH/MM3 (1.0-4.8); MEAN CELL VOLUME 89.3 FL (80.0-100.0); MEAN CORPUSCULAR HEMOGLOBIN 30.7 PG (27.0-34.0); MEAN CORPUSCULAR HGB CONC 34.4 % (32.0-36.0); MONO % 7.8 % (0.0-8.0); NEUT % 59.5 % (16.0-70.0); PLATELET COUNT 106 TH/MM3 (150-450); RED BLOOD COUNT 5.21 MIL/MM3 (4.50-5.90); RED CELL DISTRIBUTION WIDTH 15.5 % (11.6-17.2); WHITE BLOOD COUNT 9.5 TH/MM3 (4.0-11.0)
[2016-08-31 20:58] LABS: APTT (PATIENT) 28.6 SEC (24.3-30.1); PROTHROMBIN TIME - PATIENT 10.9 SEC (9.8-11.6)
[2016-08-31 21:03] LABS: ALT (GPT) 112 U/L (12-78); ANION GAP 6 MEQ/L (5-15); AST (GOT) 52 U/L (15-37); BICARBONATE 29.7 MEQ/L (21.0-32.0); BLOOD UREA NITROGEN 10 MG/DL (7-18); CHLORIDE 110 MEQ/L (98-107); GLOMERULAR FILTRATION RATE 203 ML/MIN (>89); POTASSIUM 3.8 MEQ/L (3.5-5.1); SODIUM (NA) 146 MEQ/L (136-145)
[2016-08-31 21:05] LABS: ALKALINE PHOSPHATASE 166 U/L (45-117); TOTAL BILIRUBIN ADULT 1.7 MG/DL (0.2-1.0)
--- NOTE | 2016-08-31 21:05 | RADRPT ---
EXAM DATE/TIME: 08/31/2016 20:25 [facility] COMPARISON: CHEST SINGLE AP, August 05, 2016, 13:45. INDICATIONS : Shortness of breath. MEDICAL HISTORY : Hypercholesterolemia. Myotonic dystrophy, Traumatic brain injury, Hepatic stenosis, Depression, Anxiety, MRSA SURGICAL HISTORY : Tonsillectomy. Cholecystectomy. Gallbladder stent, Pancreatic stent, Right rotator cuff ENCOUNTER: Initial ACUITY: 1 day PAIN SCORE: 6/10 LOCATION: Bilateral chest FINDINGS: A single view of the chest demonstrates the lungs to be symmetrically aerated without evidence of mas s, infiltrate or effusion. Pleural scarring blunts the left costophrenic angle. This is stable. The cardiomediastinal contours are unremarkable. Osseous structures are intact. CONCLUSION: No acute disease. Pleural scarring blunts the left costophrenic angle. Philip Ralph Jr., MD on August 31, 2016 at 21:03 Board Certified Radiologist. This report was verified electronically.
--- NOTE | 2016-08-31 21:05 | RADRPT ---
EXAM DATE/TIME: 08/31/2016 20:26 [facility] COMPARISON: No previous studies available for comparison. INDICATIONS : Abdominal pain and diarrhea. MEDICAL HISTORY : Hypercholesterolemia. Myotonic dystrophy, Traumatic brain injury, Hepatic stenosis, Depression, Anxiety, MRSA SURGICAL HISTORY : Tonsillectomy. Cholecystectomy. Gallbladder stent, Pancreatic stent, Pancreatic biopsy, Right rotato r cuff surgery ENCOUNTER: Initial ACUITY: 1 day PAIN SCORE: 7/10 LOCATION: Bilateral abdomen FINDINGS: Supine and upright views of the abdomen were performed. The abdominal bowel gas pattern is normal. No air fluid levels are seen. No abnormal masses, calcifications, or organomegaly is seen. A Silasti c stent overlies the common bile duct region. Cholecystectomy clips noted. The visualized lower lungs are clear. No evidence of free intraperitoneal gas. The osseous structures are unremarkable. CONCLUSION: No acute disease. Common bile duct stent. Philip Ralph Jr., MD on August 31, 2016 at 21:03 Board Certified Radiologist. This report was verified electronically.
[2016-08-31 22:58] VITALS: BP 98/71; PULSE 80; RESP 18; O2SAT 98
[2016-08-31 23:42] LABS: BACTERIA, URINE RARE /hpf; BLOOD, URINE NEG (NEG); COMMENT (UR) CULT NOT INDICATED; CULTURE IF INDICATED CULT NOT INDICATED; GLUCOSE,URINE NEG (NEG); KETONE, URINE TRACE mg/dL (NEG); MUCUS URINE MANY /lpf (OCC); NITRITE,URINE NEG (NEG); RENAL EPITHELIAL CELLS <1 /hpf; SQUAMOUS EPITHELIAL CELL URINE 1 /hpf (0-5); URINE COLOR YELLOW (YELLW/STRAW)
[2016-09-01] MEDS ORDERED: OXYC-392 PO (00:04)
--- NOTE | 2016-09-01 00:05 | PD ---
Data Data Last Documented VS Vital Signs Date Time Temp Pulse Resp B/P Pulse Ox O2 Delivery O2 Flow Rate FiO2 09/01/16 00:48 98.1 82 18 99/68 100 Room Air Orders Complete Blood Count With Diff (08/31/16 19:24) Comprehensive Metabolic Panel (08/31/16 19:24) Lipase (08/31/16 19:24) Lactic Acid (08/31/16 19:24) Prothrombin Time / Inr (Pt) (08/31/16 19:24) Act Partial Throm Time (Ptt) (08/31/16 19:24) Urinalysis - C+S If Indicated (08/31/16 19:24) Abdomen, Flat & Upright (08/31/16 ) Electrocardiogram (08/31/16 19:24) Chest, Single Ap (08/31/16 19:24) Oxycodone-Acetamin 5-325 Mg (Percocet (09/01/16 00:30) Labs Laboratory Tests Test 08/31/16 08/31/16 20:05 23:05 White Blood Count 9.5 TH/MM3 Red Blood Count 5.21 MIL/MM3 Hemoglobin 16.0 GM/DL Hematocrit 46.6 % Mean Corpuscular Volume 89.3 FL Mean Corpuscular Hemoglobin 30.7 PG Mean Corpuscular Hemoglobin 34.4 % Concent Red Cell Distribution Width 15.5 % Platelet Count 106 TH/MM3 Mean Platelet Volume 9.5 FL Neutrophils (%) (Auto) 59.5 % Lymphocytes (%) (Auto) 30.5 % Monocytes (%) (Auto) 7.8 % Eosinophils (%) (Auto) 1.4 % Basophils (%) (Auto) 0.8 % Neutrophils # (Auto) 5.7 TH/MM3 Lymphocytes # (Auto) 2.9 TH/MM3 Monocytes # (Auto) 0.7 TH/MM3 Eosinophils # (Auto) 0.1 TH/MM3 Basophils # (Auto) 0.1 TH/MM3 CBC Comment DIFF FINAL Differential Comment Prothrombin Time 10.9 SEC Prothromb Time International 1.0 RATIO Ratio Activated Partial 28.6 SEC Thromboplast Time Sodium Level 146 MEQ/L Potassium Level 3.8 MEQ/L Chloride Level 110 MEQ/L Carbon Dioxide Level 29.7 MEQ/L Anion Gap 6 MEQ/L Blood Urea Nitrogen 10 MG/DL Creatinine 0.44 MG/DL Estimat Glomerular Filtration 203 ML/MIN Rate Random Glucose 75 MG/DL Lactic Acid Level 1.1 mmol/L Calcium Level 9.3 MG/DL Total Bilirubin 1.7 MG/DL Aspartate Amino Transf 52 U/L (AST/SGOT) Alanine Aminotransferase 112 U/L (ALT/SGPT) Alkaline Phosphatase 166 U/L Total Protein 7.0 GM/DL Albumin 3.4 GM/DL Lipase 185 U/L Urine Color YELLOW Urine Turbidity HAZY Urine pH 5.0 Urine Specific [place] 1.023 Urine Protein NEG mg/dL Urine Glucose (UA) NEG mg/dL Urine Ketones TRACE mg/dL Urine Occult Blood NEG Urine Nitrite NEG Urine Bilirubin SMALL Urine Urobilinogen LESS THAN 2.0 MG/DL Urine Leukocyte Esterase NEG Urine RBC 2 /hpf Urine WBC 2 /hpf Urine Squamous Epithelial 1 /hpf Cells Urine Renal Epithelial Cells <1 /hpf Urine Bacteria RARE /hpf Urine Mucus MANY /lpf Microscopic Urinalysis Comment CULT NOT INDICATED MDM Medical Record Reviewed: Yes Supervised Visit with DE: Yes Narrative Course I, Dr. Baxter, have reviewed the advance practice practitioner's documentation and am in agreement, met with the patient face to face, made the diagnosis, and the medical decision making was done by me. *My assessment and Findings: CBC & BMP Diagram 08/31/16 20:05 Total bilirubin 1.7 AST 52 ALT 112 alkaline phosphatase 166 Lipase 25 Lactic acid 1.1 Urinalysis bacteria, no UTI INR 1.0 Last 24 hours Impressions Chest X-Ray 08/31/16 1924 Signed Impressions: Service Date/Time: Wednesday, August 31, 2016 20:25 - CONCLUSION: No acute disease. Pleural scarring blunts the left costophrenic angle. Philip Ralph Jr., MD Abdomen X-Ray 08/31/16 0000 Signed Impressions: Service Date/Time: Wednesday, August 31, 2016 20:26 - CONCLUSION: No acute disease. Common bile duct stent. Philip Ralph Jr., MD Blood work as well as an acceptable range for patient. He has had 2 CTs of the abdomen and pelvis within the last couple months. He's also had an MRCP and gallbladder ultrasound. He also has a pancreas biopsy pending. His blood work today is improved in comparison to that obtained within the last couple weeks. He also complains of severe abdominal pain. Fortunately his lactic acid is 1.1 and we can manage his symptoms here prior to discharge. He also states his had a cough occasionally productive past few days, worse at night. Intermittent fever is also reported. Pneumonia at this time is considered less likely. Pt has good outside follow up. He is ready for discharge. Return precautions discussed. Diagnosis Primary Impression: Abdominal pain Qualified Code: R10.9 - Abdominal pain, unspecified location Additional Impressions: Cough Abnormal liver enzymes Referrals: DR PARADA 2 days Rafiq Kerr MD 2 days Additional Instruction: You have a choice when it comes to health care, and we are glad that you chose [facility]. Hopefully, we have met your expectations on today's visit. You are welcome to return to [facility] at any time, as we are committed to meeting the health care needs of our community. Med/Other Pt SpecificInfo: Prescription(s) given Scripts Oxycodone 5 Mg Tab10 Mg PO Q6H PRN (pain 6-10) #10 TAB Prov:Duy Baxter MD 09/01/16 Disposition: DISCHARGE HOME Condition: Stable Duy Baxter MD Sep 01, 2016 00:05
[2016-09-01] MEDS ORDERED: oxyCODONE/ACETAMINOPHEN 5 MG/325 MG TAB PO ONE (00:30)
[2016-09-01 00:48] VITALS: BP 99/68; PULSE 82; RESP 18; TEMP 98.1; O2SAT 100
== END 2016-09-01 02:08 | disposition home or self-care (01) ==
LOC: NEPC 17:37
DX: R10.9 Unspecified abdominal pain (principal); R05 Cough; R50.9 Fever, unspecified; R74.8 Abnormal levels of other serum enzymes; R19.7 Diarrhea, unspecified; R11.2 Nausea with vomiting, unspecified; Z98.890 Other specified postprocedural states; Z86.59 Personal history of other mental and behavioral disorders; Z86.79 Personal history of other diseases of the circulatory system; Z87.19 Personal history of other diseases of the digestive system; Z87.39 Personal history of other diseases of the musculoskeletal system and connective tissue; Z86.69 Personal history of other diseases of the nervous system and sense organs; Z87.09 Personal history of other diseases of the respiratory system
CPT/HCPCS: 71010; 74020; 80053; 81001; 83605; 83690; 85025; 85610; 85730; 99284

== ENCOUNTER → 2016-12-08 | Outpatient (CLI) | payer MEDICARE, BC ==
[~2016-12-08] VITALS: Ht 185.4 cm; Wt 66.5 kg
[~2016-12-08] MED LIST changes: +ACETAMINOPHEN 1000 MG/100 ML VIAL IV ONE; -AMOX875T2 PO; -BENZ100 PO; +DO NOT ADM ANY ANTICOAGULANT DRUGS PRN; -DOCU1CAP39 PO; +FLUMAZENIL 0.5 MG/5 ML VIAL IV PRN; -IPRASOL NEB; +LACTATED RINGER'S 1000 ML INJ 1,000 ML ONE; -MILKSUS PO; +NALOXONE HCL 0.4 MG/ML AMP IV PRN; -PRED10 PO; -PRED20 PO; +PROPOFOL 200 MG/20 ML AMP IV ONE
[2016-12-08 12:54] VITALS: BP 109/70; PULSE 74; RESP 20; TEMP 97.1; O2SAT 97
--- NOTE | 2016-12-08 16:26 | PD.PROCEDR ---
GI Procedure PROCEDURE PERFORMED EGD with biliary stent removal followed by an attempted ERCP INDICATION FOR PROCEDURE Dilated common bile duct status post prior ERCP and stent placement patient needing stent removal PROCEDURE: The procedure, risks and benefits were discussed with Mr. Jones and informed consent was obtained. Anesthesia sedated him with Diprivan. He was placed in the left lateral decubitus position. EGD: The Pentax videoscope was introduced through the oropharynx and advanced to the second portion of the duodenum under direct visualization. Retroflexion was performed in the stomach. FINDINGS: Esophagus this was normal Stomach there was some antral gastritis but otherwise unremarkable The duodenum there was quite a bit of erythema and some edema in the duodenal sweep of unclear significance I was able to pass the upper scope with some difficulty into the second portion of the duodenum where the ampulla was noted to be normal with a stent sticking through it and so this was removed using a snare ERCP: Patient was placed in a prone position. The Pentax videoscope was introduced through the oropharynx and advanced to the first portion of the duodenum and I was unable to advance it into the second portion of the duodenum done even after multiple attempts and after placing the patient on his side and after passing a wire into the duodenum still I was unable to pass the scope due to an inflammatory stricture in the duodenal sweep and so the procedure was then terminated ESTIMATED BLOOD LOSS: None SPECIMENS REMOVED: None COMPLICATIONS: None IMPRESSION: Biliary stent removed Failed ERCP attempt PLAN: Patient follow-up in clinic in 2 weeks CBC and CMP prior office visit Consider repeat ERCP under general anesthesia with possible duodenal dilation versus repeat MRCP or CT of the abdomen this step will be determined on follow up Rafiq Kerr MD December 08, 2016 16:26
[2016-12-08 17:20] VITALS: BP 95/63; PULSE 76; RESP 20; TEMP 96.9; O2SAT 97
== END ==
LOC: HSDC 11:50
PROVIDERS: ATTEND Internal Medicine Gastroenterology
DX: K83.8 Other specified diseases of biliary tract (principal); K31.5 Obstruction of duodenum; K83.1 Obstruction of bile duct; K83.0 Cholangitis; K29.50 Unspecified chronic gastritis without bleeding; K21.9 Gastro-esophageal reflux disease without esophagitis; D69.59 Other secondary thrombocytopenia; E78.5 Hyperlipidemia, unspecified; J45.909 Unspecified asthma, uncomplicated; G71.11 Myotonic muscular dystrophy; Z87.820 Personal history of traumatic brain injury
CPT/HCPCS: 43247; 43260; 76000; C1769; J0131; J7120

== ENCOUNTER 2016-12-09 15:29 | Inpatient (IN) | payer BC, MEDICARE ==
[2016-12-09] VITALS (7 sets, daily range): BP systolic 100–152; BP diastolic 68–84; PULSE 77–100; RESP 16–20; TEMP 97.9–98.7; O2SAT 95–98
[~2016-12-09] VITALS: Ht 185.4 cm; Wt 67.9 kg
[~2016-12-09 15:29] MED LIST changes: -ACETAMINOPHEN 1000 MG/100 ML VIAL IV ONE; -DO NOT ADM ANY ANTICOAGULANT DRUGS PRN; -FLUMAZENIL 0.5 MG/5 ML VIAL IV PRN; -LACTATED RINGER'S 1000 ML INJ 1,000 ML ONE; -NALOXONE HCL 0.4 MG/ML AMP IV PRN; -PROPOFOL 200 MG/20 ML AMP IV ONE
[2016-12-09] MEDS ORDERED: SODIUM CHLOR 0.9% 1000 ML INJ 1,000 ML IV SCH (15:50)
[2016-12-09] MEDS ORDERED: MORPHINE SULFATE 4 MG/ML INJ IV PUSH ONE ×3 (16:00→18:45)
[2016-12-09] MEDS ORDERED: ONDANSETRON HCL 4 MG/2 ML VIAL IVP ONE (16:00)
--- NOTE | 2016-12-09 16:01 | PD ---
HPI Chief Complaint: Chest Pain Time Seen by Provider: 15:38 Travel History International Travel<30 days: No Contact w/Intl Traveler<30days: No Traveled to known affect area: No History of Present Illness HPI The patient is a 51-year-old male who presents emergency department for epigastric abdominal pain and lower chest pain. The patient states he has a history of pancreatic mass with obstructive symptoms in the past, had a biliary stent that was placed. The patient had a stent removed yesterday by his machine gunner, Dr. Kerr, who also attempted to perform an ERCP afterwards, but was unable to perform an ERCP. The patient was sent home, developed epigastric abdominal pain and lower chest pain last night. The patient also complains of nausea without vomiting. The patient's last bowel movement was yesterday, he denies any difficulty with passing flatus or change in bowel habits. The patient states he has a history of intermittent alcohol use, but denies any history of chronic pancreatitis. The patient states he had a biopsy performed for the mass on the small intestine and pancreas, was advised it was not cancerous. The patient's primary physician is Dr. Yanez. He reports subjective fever at home, was afebrile in the emergency department. He denies any shortness of breath. He does complain of mild pain is worse with inspiration in the epigastrium. 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, tramatic brain injury) Psychiatric: Yes Reproductive: No Respiratory: No Migraines: No Radiation Therapy: No Renal Failure: No Seizures: No Sickle Cell Disease: No Sleep Apnea: No Thyroid Disease: No Ulcer: No Past Surgical History Abdominal Surgery: Yes (Gallbladder 2015, pancratic stent) AICD: No Arteriovenous Shunt: No Cardiac Surgery: No Cholecystectomy: Yes Ear Surgery: No Endocrine Surgery: No Eye Surgery: No Genitourinary Surgery: No Gynecologic Surgery: No Insulin Pump: No Joint Replacement: No Oral Surgery: No Pacemaker: No Thoracic Surgery: No Tonsillectomy: Yes Other Surgery: Yes (FEEDING TUBE PLACEMENT TAKEN OUT 07/21/TRACH TALEN OUT ) Social History Alcohol Use: Yes (occasional ETOH) Tobacco Use: No Substance Use: No Allergies-Medications (Allergen,Severity, Reaction): Coded Allergies: *MDRO Multi-Drug Resistant Organism (Verified Adverse Reaction, Unknown, ) MRSA (sputum)-08/13/16 MRSA (sputum & blood) 07/2014 MRSA PCR Screen positive 07/02/15. MRSA eye culture 07/2015 Reported Meds & Prescriptions Reported Meds & Active Scripts Active No Active Prescriptions or Reported Medications Review of Systems Except as stated in HPI: all other systems reviewed are Neg General / Constitutional: Positive: Fever (subjective fever at home), Weight Loss (weight loss over the last 5 months) HENT: No: Lightheadedness Cardiovascular: Positive: Chest Pain or Discomfort Respiratory: No: Shortness of Breath Gastrointestinal: Positive: Nausea, Abdominal Pain, No: Vomiting, Diarrhea Musculoskeletal: No: Weakness Skin: Positive Other (jaundice) Neurologic: No: Dizziness Physical Exam Narrative GENERAL: Awake, alert, pleasant 51-year-old male appears stated age and is in no acute respiratory distress. Appears mildly cachectic. SKIN: Focused skin assessment warm/dry. HEAD: Atraumatic. Normocephalic. EYES: Pupils equal and round. Mild injection bilateral. Minimal icterus. ENT: No nasal bleeding or discharge. Dry mucous membranes. NECK: Trachea midline. No JVD. CARDIOVASCULAR: Regular rate and rhythm. No murmur appreciated. RESPIRATORY: No accessory muscle use. Clear to auscultation. Breath sounds equal bilaterally. GASTROINTESTINAL: Abdomen soft, tender palpation epigastrium. No rebound tenderness. MUSCULOSKELETAL: Atrophy of the extremities. NEUROLOGICAL: Awake and alert. No obvious cranial nerve deficits. Motor grossly within normal limits. Normal speech. PSYCHIATRIC: Appropriate mood and affect; insight and judgment normal. Data Data Last Documented VS Vital Signs Date Time Temp Pulse Resp B/P Pulse Ox O2 Delivery O2 Flow Rate FiO2 12/09/16 17:00 78 16 Room Air 12/09/16 16:30 136/78 98 12/09/16 15:43 97.9 Orders Complete Blood Count With Diff (12/09/16 15:50) Comprehensive Metabolic Panel (12/09/16 15:50) Lipase (12/09/16 15:50) Lactic Acid (12/09/16 15:50) Prothrombin Time / Inr (Pt) (12/09/16 15:50) Act Partial Throm Time (Ptt) (12/09/16 15:50) Iv Access Insert/Monitor (12/09/16 15:50) Ecg Monitoring (12/09/16 15:50) Oximetry (12/09/16 15:50) Morphine Inj (Morphine Inj) (12/09/16 16:00) Ondansetron Inj (Zofran Inj) (12/09/16 16:00) Sodium Chlor 0.9% 1000 Ml Inj (Ns 1000 M (12/09/16 15:50) Sodium Chloride 0.9% Flush (Ns Flush) (12/09/16 16:00) Creatine Kinase (Cpk) (12/09/16 15:50) Troponin I (12/09/16 15:50) Morphine Inj (Morphine Inj) (12/09/16 16:30) Mri Mrcp W & W/O Contrast (12/09/16 ) Admit To Inpatient (12/09/16 ) Vital Signs (Adult) Q4H (12/09/16 17:02) Activity Oob With Assistance (12/09/16 17:02) Bedside Glucose PRINCE.AC&HS (12/09/16 17:02) Intake + Output PRINCE.QSHIFT (12/09/16 17:02) Diet Npo (12/09/16 Dinner) Sodium Chloride 0.9% Flush (Ns Flush) (12/09/16 17:15) Sodium Chloride 0.9% Flush (Ns Flush) (12/09/16 21:00) Acetaminophen (Tylenol) (12/09/16 17:15) Ondansetron Inj (Zofran Inj) (12/09/16 17:15) Docusate Sodium (Colace) (12/09/16 21:00) Sennosides (Senokot) (12/09/16 17:15) Blood Culture (12/09/16 17:02) Scd Bilateral/Knee High PRINCE.BID (12/09/16 17:02) Omega Bilateral/Knee High PRINCE.QSHIFT (12/09/16 17:02) Acetaminophen (Tylenol) (12/09/16 17:15) Morphine Inj (Morphine Inj) (12/09/16 17:15) Morphine Inj (Morphine Inj) (12/09/16 17:15) Naloxone Inj (Narcan Inj) (12/09/16 17:15) Inpatient Certification (12/09/16 ) Dext 5%-Nacl 0.45% 1000 Ml Inj (D5w-1/2 (12/09/16 17:15) Admit Order (Ed Use Only) (12/09/16 17:05) Consult Gastroenterology (12/09/16 ) Pantoprazole Inj (Protonix Inj) (12/09/16 18:00) Labs Laboratory Tests Test 12/09/16 16:15 White Blood Count 10.2 TH/MM3 Red Blood Count 5.00 MIL/MM3 Hemoglobin 14.9 GM/DL Hematocrit 43.9 % Mean Corpuscular Volume 87.8 FL Mean Corpuscular Hemoglobin 29.9 PG Mean Corpuscular Hemoglobin 34.0 % Concent Red Cell Distribution Width 13.9 % Platelet Count 148 TH/MM3 Mean Platelet Volume 9.5 FL Neutrophils (%) (Auto) 79.0 % Lymphocytes (%) (Auto) 13.7 % Monocytes (%) (Auto) 6.4 % Eosinophils (%) (Auto) 0.3 % Basophils (%) (Auto) 0.6 % Neutrophils # (Auto) 8.0 TH/MM3 Lymphocytes # (Auto) 1.4 TH/MM3 Monocytes # (Auto) 0.7 TH/MM3 Eosinophils # (Auto) 0.0 TH/MM3 Basophils # (Auto) 0.1 TH/MM3 CBC Comment DIFF FINAL Differential Comment Prothrombin Time 11.6 SEC Prothromb Time International 1.0 RATIO Ratio Activated Partial 28.0 SEC Thromboplast Time Sodium Level 143 MEQ/L Potassium Level 3.9 MEQ/L Chloride Level 105 MEQ/L Carbon Dioxide Level 31.9 MEQ/L Anion Gap 6 MEQ/L Blood Urea Nitrogen 7 MG/DL Creatinine 0.51 MG/DL Estimat Glomerular Filtration 171 ML/MIN Rate Random Glucose 99 MG/DL Lactic Acid Level 2.2 mmol/L Calcium Level 9.5 MG/DL Total Bilirubin 11.8 MG/DL Aspartate Amino Transf 223 U/L (AST/SGOT) Alanine Aminotransferase 272 U/L (ALT/SGPT) Alkaline Phosphatase 504 U/L Total Creatine Kinase 105 U/L Troponin I LESS THAN 0.02 NG/ML Total Protein 8.2 GM/DL Albumin 3.1 GM/DL Lipase 304 U/L MDM Medical Decision Making Medical Screen Exam Complete: Yes Emergency Medical Condition: Yes Medical Record Reviewed: Yes Interpretation(s) EKG reveals normal sinus rhythm with a rate 83. Left bundle-branch block. No significant changes compared to EKG performed August 06, 2016. Differential Diagnosis Differential diagnosis includes perforated viscus, cholangitis, pancreatitis, obstructive jaundice, hyperbilirubinemia, pancreatic mass, PUD, gastritis. Narrative Course IV was established, labs are drawn and sent, and the patient was placed on cardiac telemetry monitoring and continuous pulse oximetry monitoring. EKG was ordered and interpreted. The patient was administered morphine, Zofran, and IV fluids. I discussed the patient with his machine gunner, Dr. Kerr, at 3 :55 PM who recommends laboratory evaluation and then a direct call at to assess whether the patient needs a CT of the abdomen and pelvis versus MRCP. The patient was signed out to Dr. Buenrostro at 4 PM laboratory evaluation and repeat conversation with his machine gunner pending. Scripts No Active Prescriptions or Reported Meds Condition: Guero Tang MD December 09, 2016 16:01
[2016-12-09] MEDS: SODIUM CHLORIDE 0.9% FLUSH 10 ML FLUSH IV FLUSH PRN ×2 (16:24→17:13)
[2016-12-09 16:29] LABS: BASOPHIL # 0.1 TH/MM3 (0-0.2); BASOPHIL % 0.6 % (0.0-2.0); EOSINOPHIL % 0.3 % (0.0-4.0); HEMATOCRIT 43.9 % (39.0-51.0); HEMO FLAGS DIFF FINAL; LYMPH % 13.7 % (9.0-44.0); LYMPHOCYTE # 1.4 TH/MM3 (1.0-4.8); MEAN CELL VOLUME 87.8 FL (80.0-100.0); MEAN CORPUSCULAR HEMOGLOBIN 29.9 PG (27.0-34.0); MONO % 6.4 % (0.0-8.0); PLATELET COUNT 148 TH/MM3 (150-450); RED CELL DISTRIBUTION WIDTH 13.9 % (11.6-17.2); WHITE BLOOD COUNT 10.2 TH/MM3 (4.0-11.0)
--- NOTE | 2016-12-09 16:35 | PD ---
Physical Exam Date Seen by Provider: December 09, 2016 Time Seen by Provider: 16:30 Narrative This 51-year-old male had presented with complaint of epigastric pain. He's been evaluated for jaundice for the past few months. He had a biopsy apparently showed duodenitis. He had a stent placed and is jaundiced improved. Recently he has become jaundiced again. He is followed by Dr. Kerr. Yesterday he attempted to remove the stent and replace it but he was unable to get into the duodenum with endoscopy. The patient was released home. He says that today he is having severe epigastric pain which is worse than it has ever been. He has had ongoing epigastric pain. 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 Exam he is a chronically ill-appearing male. He has diffuse weakness. He is intensely jaundiced. Data Data Last Documented VS Vital Signs Date Time Temp Pulse Resp B/P Pulse Ox O2 Delivery O2 Flow Rate FiO2 12/09/16 15:43 97.9 88 16 135/74 98 Orders Complete Blood Count With Diff (12/09/16 15:50) Comprehensive Metabolic Panel (12/09/16 15:50) Lipase (12/09/16 15:50) Lactic Acid (12/09/16 15:50) Prothrombin Time / Inr (Pt) (12/09/16 15:50) Act Partial Throm Time (Ptt) (12/09/16 15:50) Iv Access Insert/Monitor (12/09/16 15:50) Ecg Monitoring (12/09/16 15:50) Oximetry (12/09/16 15:50) Morphine Inj (Morphine Inj) (12/09/16 16:00) Ondansetron Inj (Zofran Inj) (12/09/16 16:00) Sodium Chlor 0.9% 1000 Ml Inj (Ns 1000 M (12/09/16 15:50) Sodium Chloride 0.9% Flush (Ns Flush) (12/09/16 16:00) Creatine Kinase (Cpk) (12/09/16 15:50) Troponin I (12/09/16 15:50) Morphine Inj (Morphine Inj) (12/09/16 16:30) Mri Mrcp W & W/O Contrast (12/09/16 ) Labs Laboratory Tests Test 12/09/16 16:15 White Blood Count 10.2 TH/MM3 Red Blood Count 5.00 MIL/MM3 Hemoglobin 14.9 GM/DL Hematocrit 43.9 % Mean Corpuscular Volume 87.8 FL Mean Corpuscular Hemoglobin 29.9 PG Mean Corpuscular Hemoglobin 34.0 % Concent Red Cell Distribution Width 13.9 % Platelet Count 148 TH/MM3 Mean Platelet Volume 9.5 FL Neutrophils (%) (Auto) 79.0 % Lymphocytes (%) (Auto) 13.7 % Monocytes (%) (Auto) 6.4 % Eosinophils (%) (Auto) 0.3 % Basophils (%) (Auto) 0.6 % Neutrophils # (Auto) 8.0 TH/MM3 Lymphocytes # (Auto) 1.4 TH/MM3 Monocytes # (Auto) 0.7 TH/MM3 Eosinophils # (Auto) 0.0 TH/MM3 Basophils # (Auto) 0.1 TH/MM3 CBC Comment DIFF FINAL Differential Comment Prothrombin Time 11.6 SEC Prothromb Time International 1.0 RATIO Ratio Activated Partial 28.0 SEC Thromboplast Time Sodium Level 143 MEQ/L Potassium Level 3.9 MEQ/L Chloride Level 105 MEQ/L Carbon Dioxide Level 31.9 MEQ/L Anion Gap 6 MEQ/L Blood Urea Nitrogen 7 MG/DL Creatinine 0.51 MG/DL Estimat Glomerular Filtration 171 ML/MIN Rate Random Glucose 99 MG/DL Lactic Acid Level 2.2 mmol/L Calcium Level 9.5 MG/DL Total Bilirubin 11.8 MG/DL Aspartate Amino Transf 223 U/L (AST/SGOT) Alanine Aminotransferase 272 U/L (ALT/SGPT) Alkaline Phosphatase 504 U/L Total Creatine Kinase 105 U/L Troponin I LESS THAN 0.02 NG/ML Total Protein 8.2 GM/DL Albumin 3.1 GM/DL Lipase 304 U/L [facility] Medical Record Reviewed: Yes Supervised Visit with DE: No Differential Diagnosis Differential includes obstructive jaundice, cholangitis, pancreatitis Narrative Course His bilirubin is 11.8 with AST of 223 and lipase of 304. Hemoglobin is 14.9 with a white count of 10.2. Case has been discussed with Dr. Kerr. He recommends MRCP and transferred to [place]. Nothing by mouth. Diagnosis Primary Impression: Obstructive jaundice Admitting Information Admitting Physician Requests: Admit Scripts No Active Prescriptions or Reported Meds Condition: Stable Jeison Ahmadi MD December 09, 2016 16:35
[2016-12-09 16:37] LABS: CHLORIDE 105 MEQ/L (98-107); POTASSIUM 3.9 MEQ/L (3.5-5.1); SODIUM (NA) 143 MEQ/L (136-145)
[2016-12-09 16:41] LABS: ANION GAP 6 MEQ/L (5-15); BICARBONATE 31.9 MEQ/L (21.0-32.0)
[2016-12-09 16:42] LABS: BLOOD UREA NITROGEN 7 MG/DL (7-18)
[2016-12-09 16:43] LABS: PROTHROMBIN TIME - PATIENT 11.6 SEC (9.8-11.6)
[2016-12-09 16:44] LABS: ALT (GPT) 272 U/L (12-78); AST (GOT) 223 U/L (15-37); GLOMERULAR FILTRATION RATE 171 ML/MIN (>89)
[2016-12-09 16:46] LABS: TOTAL BILIRUBIN ADULT 11.8 MG/DL (0.2-1.0)
[2016-12-09 16:47] LABS: ALKALINE PHOSPHATASE 504 U/L (45-117); CREATINE KINASE 105 U/L (39-308)
[2016-12-09] MEDS ORDERED: ONDANSETRON HCL 4 MG/2 ML VIAL IVP PRN (17:15)
[2016-12-09] MEDS ORDERED: NALOXONE HCL 0.4 MG/ML AMP IV PRN (17:15)
[2016-12-09] MEDS ORDERED: DEXT 5%-NACL 0.45% 1000 ML INJ 1,000 ML IV SCH (17:15)
[2016-12-09] MEDS ORDERED: SENNOSIDES 8.6 MG TAB PO PRN (17:15)
[2016-12-09] MEDS ORDERED: SODIUM CHLORIDE 0.9% FLUSH 10 ML FLUSH IV FLUSH PRN (17:15)
[2016-12-09] MEDS: PANTOPRAZOLE SODIUM 40 MG VIAL IV PUSH SCH (19:00)
[2016-12-09] MEDS: DOCUSATE SODIUM 100 MG CAP PO SCH (21:57)
[2016-12-09] MEDS: MORPHINE SULFATE 4 MG/ML INJ IV PRN (21:57)
--- NOTE | 2016-12-09 23:13 | HHI.HP ---
HPI Service [facility] Hospitalists Primary Care Physician Tl Yanez MD Admission Diagnosis OBSTRUCTIVE JAUNDICE Diagnoses: (1) Abdominal pain (2) Obstructive jaundice (3) Lactic acidosis (4) Myotonic dystrophy, type 1 Chief Complaint: At the time of my visit, patient does not know why he's in the hospital; ER records indicate that the patient is here for abdominal pain and lower chest pain. Travel History International Travel<30 Days: No Contact w/Intl Traveler <30 Da: No Traveled to Known Affected Are: No History of Present Illness Patient is a 51-year-old male with primary medical history of myotonic dystrophy , GERD, fatty liver disease, and asthma who presented to the emergency department at [facility] in [place] complaining of epigastric abdominal pain and lower chest pain. Patient has a history of pancreatic mass with obstructive symptoms and placement of biliary stent. Per patient biopsy of mass was done and patient was told it was noncancerous. Apparently, the biliary stent was removed yesterday by chief media officer Dr. Medrano. An ERCP was attempted afterwards but could not be completed. The epigastric pain has been present since 12/08/2016 and is accompanied by nausea. LFTs are elevated with AST 223, ALT 272, and alkaline phosphatase 504. Initial lactic acid was 2.2 but repeat went down to 1.3. Total bilirubin is significantly elevated 11.8. Patient is seen in his hospital room and he recently received morphine 4 mg IV. He tells me the year is 1986. He denies having any abdominal pain and denies that this is the reason that he is in the hospital - no abdominal pain noted upon exam - he is quite jaundiced. He frequently falls asleep during visit and seems confused by why I'm visiting with him even though I explained my role and purpose. I spoke with his nurse after my visit and she indicates that the patient was alert and oriented and had insight into his medical conditions prior to receiving the morphine. I have asked her to let me know if his confusion does not resolve once the morphine wears off. History taken from medical record as a result of what is most likely medication-related confusion. Review of Systems ROS Limitations: Clinical Condition (see HPI) Past Family Social History Past Medical History Unable to obtain from patient due to medication-related confusion, taken from EMR Myotonic dystrophy Anxiety Hyperlipidemia Hepatic stay a ptosis Heparin-induced thrombocytopenia Pancreatic mass with obstructive jaundice Asthma GERD Past Surgical History Unable to obtain from patient due to medication-related confusion, taken from EMR Cholecystectomy 2014 Pancreatic stent 2017 Tonsillectomy Feeding tube and tracheostomy which were removed in July 2014 Reported Medications Patient tells me he takes no medications - he does have medication-related confusion though Reported Meds & Active Scripts Active No Active Prescriptions or Reported Medications . Allergies: Coded Allergies: *MDRO Multi-Drug Resistant Organism (Verified Adverse Reaction, Unknown, ) MRSA (sputum)-08/13/16 MRSA (sputum & blood) 07/2014 MRSA PCR Screen positive 07/02/15. MRSA eye culture 07/2015 Active Ordered Medications Current Medications Morphine Sulfate (Morphine Inj) 4 mg ONCE ONCE IV PUSH Last administered on 16:24; Start 12/09/16 at 16:00; Stop 12/09/16 at 16:01; Status DC Ondansetron HCl 4 mg 4 mg ONCE ONCE IVP Last administered on 12/09/16 16:24; Start 12/09/16 at 16:00; Stop 12/09/16 at 16:01; Status DC Sodium Chloride (NS 1000 ml Inj) 1,000 ml @ 1,000 mls/hr Q1H IV Last administered on 12/09/16 16:24; Start 12/09/16 at 15:50; Stop 12/09/16 at 16:49; Status DC Sodium Chloride (NS Flush) 2 ml UNSCH PRN IV FLUSH FLUSH AFTER USING IV ACCESS Last administered on 12/09/16 17:13; Start 12/09/16 at 16:00; Stop 12/09/16 at 17: 17; Status DC Morphine Sulfate (Morphine Inj) 4 mg ONCE ONCE IV PUSH Last administered on 17:13; Start 12/09/16 at 16:30; Stop 12/09/16 at 16:31; Status DC Sodium Chloride (NS Flush) 2 ml UNSCH PRN IV FLUSH FLUSH AFTER USING IV ACCESS Last administered on 12/09/16 19:00; Start 12/09/16 at 17:15 Sodium Chloride (NS Flush) 2 ml BID IV FLUSH ; Start 12/09/16 at 21:00 Acetaminophen (Tylenol) 650 mg Q4H PRN PO TEMP > 100.4; Start 12/09/16 at 17:15 Ondansetron HCl (Zofran Inj) 4 mg Q6H PRN IVP NAUSEA OR VOMITING; Start at 17:15 Docusate Sodium (Colace) 100 mg Q12HR PO Last administered on 12/09/16 21:57; Start 12/09/16 at 21:00 Sennosides (Senokot) 17.2 mg Q12H PRN PO CONSTIPATION; Start 12/09/16 at 17:15 Acetaminophen (Tylenol) 650 mg Q6H PRN PO PAIN SCALE 1 TO 2; Start 12/09/16 at 17:15 Morphine Sulfate (Morphine Inj) 2 mg Q3H PRN IV Pain 3-5; if unable to take PO ; Start 12/09/16 at 17:15 Morphine Sulfate (Morphine Inj) 4 mg Q3H PRN IV Pain 6-10;if unable to take PO Last administered on 12/09/16 21:57; Start 12/09/16 at 17:15 Naloxone HCl 0.4 mg 0.4 mg UNSCH PRN IV SEE LABEL COMMENTS; Start 12/09/16 at 17 :15 Dextrose/Sodium Chloride (D5W-1/2 NS 1000 ml Inj) 1,000 ml @ 75 mls/hr [id number] IV Last administered on 12/09/16 19:11; Start 12/09/16 at 17:15; Stop 12/11/16 at 09:14 Pantoprazole Sodium (Protonix Inj) 40 mg Q24H IV PUSH Last administered on 19:00; Start 12/09/16 at 18:00 Morphine Sulfate (Morphine Inj) 4 mg ONCE ONCE IV PUSH Last administered on 19:01; Start 12/09/16 at 18:45; Stop 12/09/16 at 18:46; Status DC . Family History Unable to obtain from patient due to medication-related confusion, taken from EMR Father and mother had gallbladders removed Mother from heart disease Family history of myotonic dystrophy . Social History Unable to obtain from patient due to medication-related confusion, taken from EMR Tobacco: denied, quit six years ago Alcohol: occasional Illicit Drugs: denied . Physical Exam Vital Signs Vital Signs Date Time Temp Pulse Resp B/P Pulse Ox O2 Delivery O2 Flow Rate FiO2 12/09/16 20:16 92 16 97 12/09/16 20:15 90 16 97 Room Air 12/09/16 19:24 97 Room Air 12/09/16 19:21 96 16 152/84 97 Room Air 12/09/16 17:45 16 12/09/16 17:30 81 16 140/76 98 Room Air 12/09/16 17:07 16 12/09/16 17:00 78 16 Room Air 12/09/16 16:30 77 16 136/78 98 Room Air 12/09/16 15:50 16 98 Room Air 12/09/16 15:50 85 16 98 Room Air 12/09/16 15:43 97.9 88 16 135/74 98 Physical Exam GENERAL: This is a cachectic and jaundiced male patient, confused but in no apparent distress. SKIN: Jaundiced. Cool and dry. HEAD: Atraumatic. Normocephalic. EYES: +scleral icterus. No injection or drainage. ENT: Nose without bleeding, purulent drainage. NECK: Trachea midline. No JVD or lymphadenopathy. CARDIOVASCULAR: Regular rate and rhythm without murmurs, gallops, or rubs. RESPIRATORY: Clear to auscultation. Breath sounds equal bilaterally. No wheezes , rales, or rhonchi. GASTROINTESTINAL: Abdomen soft, non-tender, nondistended. No guarding. MUSCULOSKELETAL: Extremities without clubbing, cyanosis, or edema. No calf tenderness. NEUROLOGICAL: Asleep and awakened for examination. Confused to time. Unable to provide much history consistent with emergency room report. . Laboratory Laboratory Tests Test 12/09/16 12/09/16 16:15 20:00 White Blood Count 10.2 Red Blood Count 5.00 Hemoglobin 14.9 Hematocrit 43.9 Mean Corpuscular Volume 87.8 Mean Corpuscular Hemoglobin 29.9 Mean Corpuscular Hemoglobin 34.0 Concent Red Cell Distribution Width 13.9 Platelet Count 148 Mean Platelet Volume 9.5 Neutrophils (%) (Auto) 79.0 Lymphocytes (%) (Auto) 13.7 Monocytes (%) (Auto) 6.4 Eosinophils (%) (Auto) 0.3 Basophils (%) (Auto) 0.6 Neutrophils # (Auto) 8.0 Lymphocytes # (Auto) 1.4 Monocytes # (Auto) 0.7 Eosinophils # (Auto) 0.0 Basophils # (Auto) 0.1 CBC Comment DIFF FINAL Differential Comment Prothrombin Time 11.6 Prothromb Time International 1.0 Ratio Activated Partial 28.0 Thromboplast Time Sodium Level 143 Potassium Level 3.9 Chloride Level 105 Carbon Dioxide Level 31.9 Anion Gap 6 Blood Urea Nitrogen 7 Creatinine 0.51 Estimat Glomerular Filtration 171 Rate Random Glucose 99 Lactic Acid Level 2.2 1.3 Calcium Level 9.5 Total Bilirubin 11.8 Aspartate Amino Transf 223 (AST/SGOT) Alanine Aminotransferase 272 (ALT/SGPT) Alkaline Phosphatase 504 Total Creatine Kinase 105 Troponin I LESS THAN 0.02 Total Protein 8.2 Albumin 3.1 Lipase 304 Date/Time Procedure Status Source Growth 12/09/16 18:50 Aerobic Blood Culture Received Blood Peripheral Pending 12/09/16 18:50 Anaerobic Blood Culture Received Blood Peripheral Pending Result Diagram: 12/09/16 1615 12/09/16 1615 Assessment and Plan Problem List: (1) Abdominal pain ICD Code: R10.9 Status: Acute (2) Obstructive jaundice ICD Code: K83.8 Status: Acute (3) Myotonic dystrophy, 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 Kerr consulted and is aware of the patient is here - recommended MRCP - Protonix 40 mg IV every 24 hours - Nothing by mouth Lactic acidosis improved - Initial lactic acid was 2.2, 1.3 on recheck - Awaiting results of blood cultures - Patient is afebrile - CBC was normal though neutrophilia was noted - will recheck CBC in a.m. and follow results Myotonic dystrophy, generalized weakness, deconditioning secondary to hospitalization - Consult physical therapy to prevent further debility. History of Heparin-induced thrombocytopenia - Avoid heparin or low molecular weight heparin use DVT prophylaxis - SCDs Discussed Condition With RN . Physician Certification 2 Midnight Certification Type: Admission for Inpatient Services Order for Inpatient Services The services are ordered in accordance with Medicare regulations or non- Medicare payer requirements, as applicable. In the case of services not specified as inpatient-only, they are appropriately provided as inpatient services in accordance with the 2-midnight benchmark. Estimated LOS (days): 3 days is the estimated time the patient will need to remain in the hospital, assuming treatment plan goals are met and no additional complications. Post-Hospital Plan: Not yet determined Marianna Reese December 09, 2016 23:13
[2016-12-10] VITALS (16 sets, daily range): BP systolic 80–109; BP diastolic 51–79; PULSE 74–111; RESP 10–18; TEMP 95.6–100.2; O2SAT 50–100
[2016-12-10] MEDS ORDERED: ALBUMIN HUMAN 5% 12.5 GM/250 ML BOTTLE IV ONE ×2 (05:00→05:01)
[2016-12-10] MEDS: SODIUM CHLOR 0.9% 1000 ML INJ 1,000 ML IV SCH ×3 (05:00→07:00)
[2016-12-10] MEDS ORDERED: NOREPINEPHRINE-DEXTROSE DRIP 250 ML IV ONE ×2 (05:03→05:42)
[2016-12-10 05:47] LABS: AUTOMATED NEUTROPHIL # 15.8 TH/MM3 (1.8-7.7); BASOPHIL # 0.1 TH/MM3 (0-0.2); BASOPHIL % 0.3 % (0.0-2.0); HEMATOCRIT 33.9 % (39.0-51.0); HEMO FLAGS DIFF FINAL; LYMPHOCYTE # 1.3 TH/MM3 (1.0-4.8); MEAN CELL VOLUME 93.6 FL (80.0-100.0); MONO % 5.5 % (0.0-8.0); NEUT % 87.2 % (16.0-70.0); PLATELET COUNT 125 TH/MM3 (150-450); RED BLOOD COUNT 3.62 MIL/MM3 (4.50-5.90); WHITE BLOOD COUNT 18.2 TH/MM3 (4.0-11.0)
[2016-12-10 06:16] LABS: BICARBONATE 17.7 MEQ/L (21.0-32.0); CALCIUM-PROTEIN CORRECTED 8.1 MG/DL (8.5-10.1); TOTAL BILIRUBIN ADULT 6.8 MG/DL (0.2-1.0)
--- NOTE | 2016-12-10 06:19 | RADRPT ---
EXAM DATE/TIME: 12/10/2016 05:19 [place] COMPARISON: CT THORAX W/O CONTRAST, August 09, 2016, 20:08. CHEST SINGLE AP, August 31, 2016, 20:25. INDICATIONS : Post intubation. MEDICAL HISTORY : Hepatitis C. SURGICAL HISTORY : None. ENCOUNTER: Initial ACUITY: 1 day PAIN SCORE: Non-responsive. LOCATION: Bilateral chest FINDINGS: A single view of the chest demonstrates cardiomegaly bibasilar densities greater left lower lobe. Lef t jugular central line with tip in the right atrium. Nasogastric tube with tip 6.5 cm above the [place] a.. Osseous structures are intact. CONCLUSION: 1. Bibasilar densities greater left lower lobe. 2. Endotracheal tube tip 6.5 cm above jade. Messi Hayden MD on December 10, 2016 at 6:15 Board Certified Radiologist. This report was verified electronically.
--- NOTE | 2016-12-10 06:20 | PD.CONS ---
[facility] Service Critical Care Medicine Consult Requested By [facility] Reason for Consult Septic Shock Primary Care Physician Tl Yanez MD History of Present Illness 51 y/o man had stent removed yesterday following insertion for benign pancreatic mass. Now hypotensive and acts septic. Past Family Social History Allergies: Coded Allergies: *MDRO Multi-Drug Resistant Organism (Verified Adverse Reaction, Unknown, ) MRSA (sputum)-08/13/16 MRSA (sputum & blood) 07/2014 MRSA PCR Screen positive 07/02/15. MRSA eye culture 07/2015 Past Medical History Past Medical History Unable to obtain from patient due to medication-related confusion, taken from EMR Myotonic dystrophy Anxiety Hyperlipidemia Hepatic stay a ptosis Heparin-induced thrombocytopenia Pancreatic mass with obstructive jaundice Asthma GERD Past Surgical History Unable to obtain from patient due to medication-related confusion, taken from EMR Cholecystectomy 2014 Pancreatic stent 2017 Tonsillectomy Feeding tube and tracheostomy which were removed in July 2014 Reported Medications Patient tells me he takes no medications - he does have medication-related confusion though Reported Meds & Active Scripts Active No Active Prescriptions or Reported Medications . Allergies: Coded Allergies: *MDRO Multi-Drug Resistant Organism (Verified Adverse Reaction, Unknown, ) MRSA (sputum)-08/13/16 MRSA (sputum & blood) 07/2014 MRSA PCR Screen positive 07/02/15. MRSA eye culture 07/2015 Active Ordered Medications Physical Exam Vital Signs Vital Signs Date Time Temp Pulse Resp B/P Pulse Ox O2 Delivery O2 Flow Rate FiO2 12/10/16 04:40 15.00 100 12/10/16 04:02 98 100 12/09/16 23:25 98.7 100 20 100/68 95 12/09/16 20:16 92 16 97 12/09/16 20:15 90 16 97 Room Air 12/09/16 19:24 97 Room Air 12/09/16 19:21 96 16 152/84 97 Room Air 12/09/16 17:45 16 12/09/16 17:30 81 16 140/76 98 Room Air 12/09/16 17:07 16 12/09/16 17:00 78 16 Room Air 12/09/16 16:30 77 16 136/78 98 Room Air 12/09/16 15:50 16 98 Room Air 12/09/16 15:50 85 16 98 Room Air 12/09/16 15:43 97.9 88 16 135/74 98 Physical Exam Gen: Ill-apperaing. Neck: Supple, orally intubated. Lungs: Clear, good shanthi air entry. Heart: NL S1S2, tachycardia, no JVD. Abdomen: No involuntary guarding, BS present. ND, NT. Extremities: Tepid, poorly perfused. Neuro: Obtunded, unresponsive. Laboratory Laboratory Tests Test 12/09/16 12/09/16 12/10/16 16:15 20:00 05:35 White Blood Count 10.2 18.2 Red Blood Count 5.00 3.62 Hemoglobin 14.9 10.5 Hematocrit 43.9 33.9 Mean Corpuscular Volume 87.8 93.6 Mean Corpuscular Hemoglobin 29.9 29.0 Mean Corpuscular Hemoglobin 34.0 31.0 Concent Red Cell Distribution Width 13.9 15.0 Platelet Count 148 125 Mean Platelet Volume 9.5 9.8 Neutrophils (%) (Auto) 79.0 87.2 Lymphocytes (%) (Auto) 13.7 7.0 Monocytes (%) (Auto) 6.4 5.5 Eosinophils (%) (Auto) 0.3 0.0 Basophils (%) (Auto) 0.6 0.3 Neutrophils # (Auto) 8.0 15.8 Lymphocytes # (Auto) 1.4 1.3 Monocytes # (Auto) 0.7 1.0 Eosinophils # (Auto) 0.0 0.0 Basophils # (Auto) 0.1 0.1 CBC Comment DIFF FINAL DIFF FINAL Differential Comment Prothrombin Time 11.6 Prothromb Time International 1.0 Ratio Activated Partial 28.0 Thromboplast Time Sodium Level 143 Potassium Level 3.9 Chloride Level 105 Carbon Dioxide Level 31.9 Anion Gap 6 Blood Urea Nitrogen 7 Creatinine 0.51 Estimat Glomerular Filtration 171 Rate Random Glucose 99 Lactic Acid Level 2.2 1.3 Calcium Level 9.5 Total Bilirubin 11.8 Aspartate Amino Transf 223 (AST/SGOT) Alanine Aminotransferase 272 (ALT/SGPT) Alkaline Phosphatase 504 Total Creatine Kinase 105 Troponin I LESS THAN 0.02 Total Protein 8.2 Albumin 3.1 Lipase 304 Ammonia 61 Date/Time Procedure Status Source Growth 12/09/16 18:50 Aerobic Blood Culture Received Blood Peripheral Pending 12/09/16 18:50 Anaerobic Blood Culture Received Blood Peripheral Pending Result Diagram: 12/10/16 0535 12/09/16 1615 Assessment and Plan Assessment and Plan Assessment: 1. Circulatory Shock. 2. Hypoxemic Respiratory Failure. 3. Metabolic Acidosis Plan: 1. PRVC vent mode. 2. Vasopressin and levophed support. 3. Aggressive hydration. 4. Broad ABX coverage. 5. Serial lactic acid. 6. Bicarb GTT. 7. Serial ABG. 8. Culture blood. Overall impression: Circulatory shock, etiology unclear. He is critically ill and deteriorating. Critical Care 43 mins Frank Holt MD December 10, 2016 06:20
[2016-12-10 06:24] LABS: BLOOD GAS BASE EXCESS -13.3 mmol/L (-2-2); BLOOD GAS CARBOXYHEMOGLOBIN 0.9 % (0-4); BLOOD GAS HCO3 13 mmol/L (22-26); BLOOD GAS METHEMOGLOBIN 0.8 % (0-2); BLOOD GAS O2 HGB SATURATION 98 % (90-100); BLOOD GAS OXYGEN CONTENT 17.3 Vol % (12.0-20.0); BLOOD GAS PCO2 32 mmHg (38-42); BLOOD GAS PO2 211 mmHg (61-120); BLOOD GAS TOTAL HGB 12.3 G/DL (12.0-16.0); CRITICAL VALUE YES; OXYGEN DEVICE VENTILATOR; TEMP CORR TO 98.6
[2016-12-10 06:26] LABS: DRAW SITE ART LINE; FIO2 100 %; STAT YES; VENT SETTINGS PRVC/AC
[2016-12-10 06:27] LABS: POTASSIUM 2.8 MEQ/L (3.5-5.1)
[2016-12-10] MEDS ORDERED: VASOPRESSIN INJ 20 UNITS/ML VIAL ONE (06:27)
[2016-12-10] MEDS ORDERED: MISCELLANEOUS NURSING INFORMATION XX SCH (06:30)
[2016-12-10] MEDS ORDERED: SODIUM CHLOR 0.9% 1000 ML INJ 1,000 ML IV ONE (06:30)
[2016-12-10] MEDS ORDERED: ONDANSETRON HCL 4 MG/2 ML VIAL IV PRN (06:30)
[2016-12-10] MEDS ORDERED: CHLORHEXIDINE GLUCONATE 2 % 1 PACK (2 CLOTHS) TOP PRN (06:30)
[2016-12-10] MEDS ORDERED: fentaNYL DRIP 250 ML IV SCH (06:30)
[2016-12-10] MEDS ORDERED: SODIUM BICARBONATE 8.4% INJ 50 MEQ/50 ML SYR IV PUSH ONE (06:30)
[2016-12-10] MEDS: NOREPINEPHRINE 4 MG/D5W 250 ML IV SCH ×3 (07:21→20:53)
[2016-12-10] MEDS: CEFEPIME INJ 2,000 MG in SODIUM CHLORIDE 0.9% INJ 100 ML IV SCH ×2 (07:22→20:53)
[2016-12-10] MEDS: metroNIDAZOLE 500 MG INJ 100 ML IV SCH ×3 (07:23→20:53)
[2016-12-10] MEDS: VASOPRESSIN INJ 40 UNITS in DEXTROSE 5% IN WATER 100ML INJ 98 ML IV SCH ×2 (07:23)
[2016-12-10] MEDS: SODIUM CHLORIDE 0.9% FLUSH 10 ML FLUSH IV FLUSH SCH ×2 (07:30→20:59)
[2016-12-10] MEDS: SODIUM BICARBONATE 8.4% INJ 150 MEQ in WATER STERILE FOR INJ 850 ML IV SCH ×3 (07:32→23:49)
[2016-12-10] MEDS: DOCUSATE SODIUM 100 MG CAP PO SCH ×2 (07:40→20:59)
[2016-12-10] MEDS ORDERED: DOBUTamine PREMIX DRIP 250 ML ONE (08:21)
--- NOTE | 2016-12-10 08:28 | PD.CONS ---
HPI History of Present Illness This is a 51 year old male with a hx of a pancreatic mass. We saw the patient in July of 2016, when he was found to have a pancreatic head mass, measuring 4.63.8 cm with resulting intrahepatic and extrahepatic delivery obstruction with dilatation on MRCP. Tumor markers were unremarkable. He underwent ERCP with stent placement and biopsy (08/06/16) and this revealed ampullary stenosis, duodenal mass. Pathology of the duodenal mass revealed duodenal mucosa with Sheryl's gland hyperplasia and features suggesting peptic duodenitis. He was then admitted to [facility] for intensive rehabilitation. There was some concern that this could be malignant and therefore he was evaluated by oncology. The mass was not amenable to CT guided biopsy and therefore he was discharged with the plan to have EUS as outpatient. EUS with FNA (08/26/16)-----> inhomogenous pancrease with lobularity in the body and mild hypoechogenicity in the head, FNA of the head done, no distinct mass seen, CBD with stent in place, PD mildly dilated to 2.7 mm, no lymphadenopathy, no vascular infiltration. Benign cytology with ductal cells with reactive changes. He then underwent unsuccessful ERCP (12/08/16)-----> biliary stent removed, failed ERCP attempt as outpatient. He came to the ER yesterday for severe abdominal pain and was admitted for further evaluation and treatment. He was admitted to the floor, but a Halicat was called last night after he was found unresponsive and hypotensive. He was intubated and placed on mechanical ventilation. He had a significant rise in his WBC overnight to 18.2. His LFTs are T. Bili 6.8, AST 205, ALT 187, ALk PHopsh 286. He is on Cefepime and Metronidazole. He is unable to provide any history and therefore the history has been obtained from the EMR and nursing staff. He is currently hypotensive, on vasopressin, levophed, and was just started on dobutamine. (Shira Rees) PFSH Past Medical History Myotonic dystrophy Anxiety Hyperlipidemia Heparin-induced thrombocytopenia Pancreatic mass with obstructive jaundice Asthma GERD Fatty liver disease Hx TBI Past Surgical History Cholecystectomy ERCP with stent placement Endoscopic ultrasound with FNA Tonsillectomy Feeding tube and tracheostomy which were removed in July 2014 Rotator cuff surgery. (Shira Rees) Coded Allergies: *MDRO Multi-Drug Resistant Organism (Verified Adverse Reaction, Unknown, ) MRSA (sputum)-08/13/16 MRSA (sputum & blood) 07/2014 MRSA PCR Screen POSITIVE - 07/02/15 & 12/10/16 MRSA (eye culture) - 07/2015 Medications Allergies Coded Allergies Type Severity Reaction Last Updated Verified *MDRO Multi-Drug Resistant Organism Adverse Reaction Unknown 12/10/16 Yes Active Scripts Medications Dose Route/Sig Days Date Category No Active Prescriptions or Reported Medications Rx Family History Father and mother had gallbladder is removed, denies any other family history of liver disease. Mother of heart disease Some family members are known to have myotonic dystrophy. Social History Occasional ETOH use Former tobacco use, quit 6 years ago Denies illicit drug use (Shira Rees) Review of Systems ROS Unable to obtain (Shira Rees) GI Exam Vitals I&O Vital Signs Date Time Temp Pulse Resp B/P Pulse Ox O2 Delivery O2 Flow Rate FiO2 12/10/16 06:00 100 12/10/16 05:05 97.5 111 16 88/51 95 12/10/16 04:40 15.00 100 12/10/16 04:02 98 100 12/09/16 23:25 98.7 100 20 100/68 95 12/09/16 20:16 92 16 97 12/09/16 20:15 90 16 97 Room Air 12/09/16 19:24 97 Room Air 12/09/16 19:21 96 16 152/84 97 Room Air 12/09/16 17:45 16 12/09/16 17:30 81 16 140/76 98 Room Air 12/09/16 17:07 16 12/09/16 17:00 78 16 Room Air 12/09/16 16:30 77 16 136/78 98 Room Air 12/09/16 15:50 16 98 Room Air 12/09/16 15:50 85 16 98 Room Air 12/09/16 15:43 97.9 88 16 135/74 98 I/O 12/09/16 12/09/16 12/09/16 12/10/16 12/10/16 12/10/16 07:00 15:00 23:00 07:00 15:00 23:00 Intake Total 1000 ml 780 ml Balance 1000 ml 780 ml Intake IV Total 1000 ml 780 ml Imaging Last Impressions Chest X-Ray 12/10/16 0000 Signed Impressions: Service Date/Time: Saturday, December 10, 2016 05:19 - CONCLUSION: 1. Bibasilar densities greater left lower lobe. 2. Endotracheal tube tip 6.5 cm above jade. Messi Hayden MD Laboratory Test 12/09/16 12/09/16 12/10/16 12/10/16 16:15 20:00 05:35 06:10 White Blood Count 10.2 TH/MM3 18.2 TH/MM3 Red Blood Count 5.00 MIL/MM3 3.62 MIL/MM3 Hemoglobin 14.9 GM/DL 10.5 GM/DL Hematocrit 43.9 % 33.9 % Mean Corpuscular Volume 87.8 FL 93.6 FL Mean Corpuscular Hemoglobin 29.9 PG 29.0 PG Mean Corpuscular Hemoglobin 34.0 % 31.0 % Concent Red Cell Distribution Width 13.9 % 15.0 % Platelet Count 148 TH/MM3 125 TH/MM3 Mean Platelet Volume 9.5 FL 9.8 FL Neutrophils (%) (Auto) 79.0 % 87.2 % Lymphocytes (%) (Auto) 13.7 % 7.0 % Monocytes (%) (Auto) 6.4 % 5.5 % Eosinophils (%) (Auto) 0.3 % 0.0 % Basophils (%) (Auto) 0.6 % 0.3 % Neutrophils # (Auto) 8.0 TH/MM3 15.8 TH/MM3 Lymphocytes # (Auto) 1.4 TH/MM3 1.3 TH/MM3 Monocytes # (Auto) 0.7 TH/MM3 1.0 TH/MM3 Eosinophils # (Auto) 0.0 TH/MM3 0.0 TH/MM3 Basophils # (Auto) 0.1 TH/MM3 0.1 TH/MM3 CBC Comment DIFF FINAL DIFF FINAL Differential Comment Prothrombin Time 11.6 SEC Prothromb Time International 1.0 RATIO Ratio Activated Partial 28.0 SEC Thromboplast Time Sodium Level 143 MEQ/L 148 MEQ/L Potassium Level 3.9 MEQ/L 2.8 MEQ/L Chloride Level 105 MEQ/L 113 MEQ/L Carbon Dioxide Level 31.9 MEQ/L 17.7 MEQ/L Anion Gap 6 MEQ/L 17 MEQ/L Blood Urea Nitrogen 7 MG/DL 6 MG/DL Creatinine 0.51 MG/DL 1.01 MG/DL Estimat Glomerular Filtration 171 ML/MIN 78 ML/MIN Rate Random Glucose 99 MG/DL 205 MG/DL Lactic Acid Level 2.2 mmol/L 1.3 mmol/L 8.7 mmol/L Calcium Level 9.5 MG/DL 6.8 MG/DL Total Bilirubin 11.8 MG/DL 6.8 MG/DL Aspartate Amino Transf 223 U/L 205 U/L (AST/SGOT) Alanine Aminotransferase 272 U/L 187 U/L (ALT/SGPT) Alkaline Phosphatase 504 U/L 286 U/L Total Creatine Kinase 105 U/L Troponin I LESS THAN 0.02 1.37 NG/ML NG/ML Total Protein 8.2 GM/DL 4.6 GM/DL Albumin 3.1 GM/DL 2.0 GM/DL Lipase 304 U/L 187 U/L Protein Corrected Calcium 8.1 MG/DL Ammonia 61 MCMOL/L Blood Gas Puncture Site ART LINE Blood Gas Patient Temperature 98.6 Blood Gas HCO3 13 mmol/L Blood Gas Base Excess -13.3 mmol/L Blood Gas Oxygen Saturation 98 % Arterial Blood pH 7.23 Arterial Blood Partial 32 mmHg Pressure CO2 Arterial Blood Partial 211 mmHg Pressure O2 Arterial Blood Oxygen Content 17.3 Vol % Arterial Blood 0.9 % Carboxyhemoglobin Arterial Blood Methemoglobin 0.8 % Blood Gas Hemoglobin 12.3 G/DL Oxygen Delivery Device VENTILATOR Blood Gas Ventilator Setting PRVC/AC Blood Gas Inspired Oxygen 100 % Date/Time Procedure Status Source Growth 12/10/16 07:30 Urine Culture Received Urine Catheterized Urine Pending 12/09/16 18:50 Aerobic Blood Culture Received Blood Peripheral Pending 12/09/16 18:50 Anaerobic Blood Culture Received Blood Peripheral Pending Physical Examination HEENT: Normocephalic; atraumatic; + jaundice. CHEST: CTA, OETT to vent. CARDIAC: ST, Hypotensive on multiple vasopressors. ABDOMEN: Soft, nondistended,mild diffuse tenderness; no hepatosplenomegaly; bowel sounds are present in all four quadrants. EXTREMITIES: No clubbing, cyanosis, or edema. SKIN: + jaundice. MANUFACTURER AGENT: Lethargic, somnolent (Shira Rees) Assessment and Plan Plan ASSESSMENT: - Obstructive jaundice secondary to pancreatic head mass. S/P Unsuccessful ERCP (12/08/16)-----> biliary stent removed, failed ERCP attempt as outpatient. Plan is for repeat imaging with ERCP under general anesthesia vs. PTHC. - Pancreatic head mass. Found to have pancreatic head mass, measuring 4.63.8 cm with resulting intrahepatic and extrahepatic delivery obstruction with dilatation on MRCP. Tumor markers were unremarkable. He underwent ERCP with stent placement and biopsy (08/06/16) and this revealed ampullary stenosis, duodenal mass. Pathology of the duodenal mass revealed duodenal mucosa with Sheryl's gland hyperplasia and features suggesting peptic duodenitis. He was then admitted to [facility] for intensive rehabilitation. There was some concern that this could be malignant and therefore he was evaluated by oncology. The mass was not amenable to CT guided biopsy and therefore he was discharged with the plan to have EUS as outpatient. EUS with FNA (08/26/16)-----> inhomogenous pancrease with lobularity in the body and mild hypoechogenicity in the head, FNA of the head done, no distinct mass seen, CBD with stent in place, PD mildly dilated to 2.7 mm, no lymphadenopathy, no vascular infiltration. Benign cytology with ductal cells with reactive changes. - Hepatic encephalopathy. Ammonia 61. Will start Lactulose. - Sepsis with lactic acidosis, hypotension, tachycardia, lethargy. On multiple pressors per [facility], Abx with cefepime and flagyl. Was unable to have stent placed, ? possible cholangitis vs. post procedure pancreatitis, although lipase was only 187. - Leukocytosis. WBC 18.2. Cefepime and Flagyl. - Respiratory failure. On vent per CCM. - Elevated troponin, Troponin I 1.37. - Multiple electrolyte abnormalities with hypokalemia, hypernatremia, hypocalcemia. per ccm - Anemia. 10.5/33.9. - Myotonic dystrophy, Anxiety, Hyperlipidemia, Asthma, Fatty liver disease, Hx HIT per primary PLAN: - NPO - Plan for MRCP as soon as pt is able to leave floor - Await blood cultures - Cont. Abx- Cefepime, Flagyl - Add Lactulose - Cont. PPI - Will likely need repeat ERCP with stent placement under anesthesia vs. PTHC by IR once stable and imaging obtained - Supportive care - Further recommendations to follow based on results of above - Pt seen and examined by Dr. Montilla and myself and this note is written on his behalf (Shira Rees) Physician Comments Seen ansd examined with END USER CONSULTANT, sepsis, cholangitis. Discussed case with DR. Ralph and Dr. Nicolás Moran in IR. Needs urgent decompression of his biliary tract. Recent ERCP unsuccessful. PTC ordered emergently. Broad spectrum antibiotics. Discussed with the nurse at the bedside. Will follow , thank you (Colette Montilla MD) Shira Rees December 10, 2016 08:28 Colette Montilla MD December 10, 2016 13:48
[2016-12-10] MEDS: DOBUTamine 250 MG/D5W 250 ML PREMIX DRIP IV SCH (08:45)
[2016-12-10] MEDS ORDERED: ICU - MAGNESIUM SULFATE 2 GM/NS 100 ML IV PRN ×2 (08:45)
[2016-12-10] MEDS ORDERED: ICU - MAGNESIUM OXIDE 400 MG TAB PO PRN (08:45)
[2016-12-10] MEDS ORDERED: ICU - MAGNESIUM SULFATE 4 GM/NS 100 ML IV PRN ×2 (08:45)
[2016-12-10] MEDS ORDERED: ICU - CALL ORDERING PHYSICIAN PRN (08:45)
[2016-12-10] MEDS ORDERED: ICU - D/C ICU ELECTROLYTE ORDERS PRN (08:45)
[2016-12-10] MEDS: ICU - POTASSIUM CHLORIDE/AQUEOUS SOLN 40 MEQ/100 ML IVPB IV PRN ×2 (09:05→10:31)
[2016-12-10 11:13] LABS: BLOOD GAS CARBOXYHEMOGLOBIN 0.8 % (0-4); BLOOD GAS HCO3 19 mmol/L (22-26); BLOOD GAS METHEMOGLOBIN 0.7 % (0-2); BLOOD GAS O2 HGB SATURATION 98 % (90-100); BLOOD GAS OXYGEN CONTENT 21.8 Vol % (12.0-20.0); BLOOD GAS PCO2 25 mmHg (38-42); BLOOD GAS PO2 126 mmHg (61-120); BLOOD GAS TOTAL HGB 15.8 G/DL (12.0-16.0); CRITICAL VALUE NO; OXYGEN DEVICE VENTILATOR; TEMP CORR TO 98.6
[2016-12-10 11:14] LABS: DRAW SITE ART LINE; FIO2 80 %; STAT NO
[2016-12-10 13:12] LABS: LACTIC ACID GHOST NOT REPORTABLE
[2016-12-10] MEDS ORDERED: GADODIAMIDE PF 287 MG/ML 20 ML VIAL (for RAD MRI) IV ONE (13:15)
[2016-12-10] MEDS ORDERED: IODIXANOL 320 MG/ML 100 ML VIAL (for Cath Lab) OTHER ONE (15:00)
--- NOTE | 2016-12-10 15:17 | PD.RAD ---
Post Procedure Progress Note Pre Procedure Diagnosis: (1) Biliary sepsis Post Procedure Diagnosis: (1) Biliary sepsis Procedure Date: December 10, 2016 Supervising Radiologist: Duy Moran Anesthesia: Local, Other Plan of Activity Patient to Unit: Critical Care Additional Comments: Post PTHD without difficulty 8 Greenlandic internal/external biliary drain placed. Immediate return of bile. No injection preformed due to biliary sepsis See PACS Report for procedural detail/treatment Duy Moran MD December 10, 2016 15:17
--- NOTE | 2016-12-10 15:23 | RADRPT ---
EXAM DATE/TIME: 12/10/2016 12:44 [facility] COMPARISON: MRCP W/O CONTRAST, August 05, 2016, 16:22. INDICATIONS : Obstruction. CONTRAST: 13 cc Omniscan (gadodiamide) IV MEDICAL HISTORY : Myotonic dystrophy. Traumatic brain injury. SURGICAL HISTORY : Cholecystectomy. ENCOUNTER: Subsequent ACUITY: 4-6 days PAIN SCORE: Nonresponsive. LOCATION: abdomen TECHNIQUE: Multiplanar, multisequence magnetic resonance imaging of the abdomen was performed. High-resolution 3D dataset was utilized to reconstruct maximum-intensity projection (MIP) images. FINDINGS: There is pronounced intra-extra hepatic biliary ductal dilatation. The common duct diameter is 2 cm. The duct tapers abruptly in the pancreatic head region where a slightly greater than 3 cm transverse dimension mass is present. The remainder the pancreas is atrophic with mild ductal dilatation. There are consolidative changes and fluid is present in the lung bases bilaterally. There is ascites noted. The spleen, adrenals and kidneys are benign in appearance. Tiny right renal cyst incidentally noted. No evidence of upper bowel lymphadenopathy. CONCLUSION: Pronounced biliary ductal dilatation with distal obstruction of the CBD by pancreatic mass which appe ars grossly stable. Barber Richardson MD on December 10, 2016 at 15:12 Board Certified Radiologist. This report was verified electronically.
--- NOTE | 2016-12-10 15:42 | EKG ---
Date Performed: 12/09/2016 Time Performed: 15:30:26 PTAGE: 51 years EKG: Sinus rhythm Left axis deviation Left bundle branch block Abnormal ECG PREVIOUS TRACING : 08/06/2016 05.45 DOCTOR: Joon Parker Interpretating Date/Time 12/10/2016 15:35:39
[2016-12-10] MEDS ORDERED: MIDAZOLAM HCL 2 MG/2 ML VIAL ONE (15:48)
[2016-12-10] MEDS ORDERED: fentaNYL CITRATE 250 MCG/5 ML AMP ONE (15:48)
--- NOTE | 2016-12-10 15:59 | RADRPT ---
EXAM DATE/TIME: 12/10/2016 15:33 [facility] COMPARISON: CHOLANGIOGRAM, PERCUTANEOUS, December 10, 2016, 0:00. INDICATIONS : Patient with sepsis in need of biliary drain placement. MEDICAL HISTORY : Myotonic dystrophy Anxiety Hyperlipidemia Hepatic stay a ptosis Heparin-induced thrombocytopenia Pancreatic mass with obstructive jaundice Asthma GERD SURGICAL HISTORY : Cholecystectomy 2014 Pancreatic stent 2016 Tonsillectomy Feeding tube and tracheostomy which were removed in July 2014 ENCOUNTER: Initial ACUITY: 2 days PAIN SCORE: 0/10 FLUORO TIME: 4.8 minutes IMAGE SERIES: 1 CONTRAST: 7 cc Visipaque (iodixanol) DEVICE(S): 1.) 8 Somali biliary drain Anesthesia and pain control was provided by the Anesthesia department. PROCEDURE : 1. Ultrasound guided puncture of the biliary tree. 2. Percutaneous antegrade cholangiogram. 3. Biliary stent placement. 4. Conscious sedation with continuous EKG and oximetry monitoring. The patient is a 51-year-old with a biliary stricture and pancreatic mass. The patient's pillar stent was removed. There unable to place another one. The patient is currently hypotensive with biliary se psis. The risks, benefits and alternatives to the procedure were explained to the patient's via teleph one. Verbal consent was obtained. The site was prepped in sterile fashion. Full sterile technique w as used, including cap, mask, sterile gloves and gown and a large sterile sheet. Hand hygiene and 2% chlorhexidine and/or betadine/alcohol prep was utilized per protocol for cutaneous antisepsis. The skin and subcutaneous tissues were infiltrated with local anesthetic solution. A suitable position was selected. The skin of the right midaxillary line was incised with 10 cc 1% li docaine. A 22 gauge needle was advanced to the skin into the hepatic parenchyma. A small injection of contrast demonstrated a biliary duct. A 0.018 wire was advanced through the needle and positioned in the common bile duct. The 0.018 wire was exchanged for a 0.035 wire and the Berenstein catheter. Thi s combination was eventually manipulated across patient's biliary stricture. An 8 Somali internal/external biliary drain was advanced over the wire. There was immediate return of copious amounts of dark green bile. The tube was not injected due to the risk of worsening the patie nt's biliary sepsis. The procedure was performed under general anesthesia. The patient tolerated the procedure well and there were no complications. The patient was sent to pos t anesthesia recovery in stable condition. CONCLUSION: Uncomplicated internal/external biliary drain placement as above. Duy Moran MD on December 10, 2016 at 15:53 Board Certified Radiologist. This report was verified electronically.
[2016-12-10] MEDS: PANTOPRAZOLE SODIUM 40 MG VIAL IV PUSH SCH (17:05)
[2016-12-10] MEDS: PROPOFOL 1000 MG/100 ML INJ 100 ML IV SCH (20:58)
[2016-12-10] MEDS ORDERED: ALBUMIN HUMAN 5% 25 GM/500 ML BOTTLE IV ONE (22:45)
[2016-12-11] VITALS (14 sets, daily range): BP systolic 88–114; BP diastolic 63–78; PULSE 66–111; RESP 12–18; TEMP 98.4–100; O2SAT 98–100
[2016-12-11] MEDS: NOREPINEPHRINE 4 MG/D5W 250 ML IV SCH ×7 (00:24→22:36)
[2016-12-11] MEDS: PROPOFOL 1000 MG/100 ML INJ 100 ML IV SCH ×5 (00:28→20:26)
[2016-12-11] MEDS: metroNIDAZOLE 500 MG INJ 100 ML IV SCH ×4 (00:29→18:32)
[2016-12-11] MEDS: CHLORHEXIDINE GLUCONATE 2 % 1 PACK (2 CLOTHS) TOP SCH (04:00)
[2016-12-11 05:59] LABS: AUTOMATED NEUTROPHIL # 11.7 TH/MM3 (1.8-7.7); BASOPHIL % 0.2 % (0.0-2.0); HEMATOCRIT 38.2 % (39.0-51.0); LYMPH % 12.5 % (9.0-44.0); LYMPHOCYTE # 1.8 TH/MM3 (1.0-4.8); MEAN CELL VOLUME 85.7 FL (80.0-100.0); MEAN CORPUSCULAR HEMOGLOBIN 30.1 PG (27.0-34.0); MEAN CORPUSCULAR HGB CONC 35.1 % (32.0-36.0); MONO % 4.2 % (0.0-8.0); NEUT % 83.1 % (16.0-70.0); PLATELET COUNT 93 TH/MM3 (150-450); RED BLOOD COUNT 4.46 MIL/MM3 (4.50-5.90); RED CELL DISTRIBUTION WIDTH 13.8 % (11.6-17.2)
[2016-12-11 06:16] LABS: BICARBONATE 29.5 MEQ/L (21.0-32.0); CALCIUM-PROTEIN CORRECTED 7.5 MG/DL (8.5-10.1); MAGNESIUM 1.2 MG/DL (1.5-2.5); TOTAL BILIRUBIN ADULT 8.1 MG/DL (0.2-1.0)
[2016-12-11 06:20] LABS: HEMO FLAGS AUTO DIFF
[2016-12-11 06:25] LABS: POTASSIUM 2.7 MEQ/L (3.5-5.1)
[2016-12-11] MEDS: SODIUM BICARBONATE 8.4% INJ 150 MEQ in WATER STERILE FOR INJ 850 ML IV SCH ×3 (06:43→15:50)
[2016-12-11] MEDS: ICU - POTASSIUM CHLORIDE/AQUEOUS SOLN 40 MEQ/100 ML IVPB IV PRN ×2 (06:43→08:24)
[2016-12-11] MEDS: CEFEPIME INJ 2,000 MG in SODIUM CHLORIDE 0.9% INJ 100 ML IV SCH ×2 (06:44→18:32)
[2016-12-11] MEDS: DOBUTamine 250 MG/D5W 250 ML PREMIX DRIP IV SCH (06:45)
[2016-12-11 08:14] LABS: PLATELET ESTIMATE SMEAR LOW (NORMAL); PLATELET MORPHOLOGY ENLARGED (NORMAL)
[2016-12-11 08:15] LABS: SCAN/DIFF AUTO DIFF CONFIRMED
[2016-12-11] MEDS: DOCUSATE SODIUM 100 MG CAP PO SCH ×2 (08:24→21:00)
[2016-12-11] MEDS: SODIUM CHLORIDE 0.9% FLUSH 10 ML FLUSH IV FLUSH SCH ×2 (08:24→22:36)
[2016-12-11] MEDS: ICU - SODIUM PHOSPHATE 30 MMOL/NS 250 ML IV PRN ×2 (08:27)
--- NOTE | 2016-12-11 09:01 | HHI.CCPN ---
Subjective Remarks/Hospital Course 51 y/o man had stent removed yesterday following insertion for benign pancreatic mass. Now hypotensive and acts septic. 12/11: Biliary drain placed 12/10 for drainage of GB and common duct due because of distal CD obstruction from pancreatic mass. Seizure this morning. Objective Vital Signs Date Time Temp Pulse Resp B/P Pulse Ox O2 Delivery O2 Flow Rate FiO2 12/11/16 08:00 99.1 84 18 94/67 100 12/11/16 08:00 50 12/10/16 19:00 Mechanical Ventilator 12/10/16 04:40 15.00 Intake and Output 12/10/16 12/10/16 12/11/16 08:00 16:00 00:00 Intake Total 780 ml 6365 ml 1976 ml Output Total 3300 ml 2255 ml Balance 780 ml 3065 ml -279 ml Result Diagram: 12/11/16 0515 12/11/16 0515 Other Results Laboratory Tests Test 12/10/16 11:00 Blood Gas Puncture Site ART LINE Blood Gas Patient Temperature 98.6 Blood Gas HCO3 19 mmol/L (22-26) Blood Gas Base Excess -4.0 mmol/L (-2-2) Blood Gas Oxygen Saturation 98 % (90-100) Arterial Blood pH 7.49 (7.380-7.420) Arterial Blood Partial 25 mmHg (38-42) Pressure CO2 Arterial Blood Partial 126 mmHg Pressure O2 (61-120) Arterial Blood Oxygen Content 21.8 Vol % (12.0-20.0) Arterial Blood 0.8 % (0-4) Carboxyhemoglobin Arterial Blood Methemoglobin 0.7 % (0-2) Blood Gas Hemoglobin 15.8 G/DL (12.0-16.0) Oxygen Delivery Device VENTILATOR Blood Gas Ventilator Setting Blood Gas Inspired Oxygen 80 % Objective Remarks Gen: Ill-apperaing. Neck: Supple, orally intubated. Lungs: Clear, good shanthi air entry. Heart: NL S1S2, tachycardia, no JVD. Abdomen: No involuntary guarding, BS present. ND, NT. Extremities: Tepid, well perfused. Neuro: Obtunded, unresponsive. Tonic-clonic seizure today. A/P Assessment and Plan Assessment: 1. Circulatory Shock. 2. Hypoxemic Respiratory Failure. 3. Metabolic Acidosis. 4. Tonic-clonic seizure Plan: 1. PRVC vent mode. 2. Vasopressin and levophed support. 3. Aggressive hydration. 4. Broad ABX coverage. 5. Serial lactic acid. 6. Bicarb GTT. 7. Serial ABG. 8. Culture blood. 9. Cerebyx Overall impression: Septic shock persists, etiology unclear. He remains critically ill but will hopefully stabilize now that biliary drainage has been obtained. Critical Care 38 mins Frank Holt MD December 11, 2016 09:01
[2016-12-11] MEDS ORDERED: FOSPHENYTOIN INJ 1,000 MGPE in SODIUM CHLORIDE 0.9% INJ 50 ML IV ONE (09:15)
[2016-12-11] MEDS ORDERED: PHENYLEPHRINE HCL 10 MG/ML VIAL ONE (10:16)
[2016-12-11 10:29] LABS: BLOOD GAS BASE EXCESS 3.1 mmol/L (-2-2); BLOOD GAS HCO3 25 mmol/L (22-26); BLOOD GAS METHEMOGLOBIN 0.7 % (0-2); BLOOD GAS O2 HGB SATURATION 94 % (90-100); BLOOD GAS PCO2 26 mmHg (38-42); BLOOD GAS PO2 66 mmHg (61-120); BLOOD GAS TOTAL HGB 13.6 G/DL (12.0-16.0); CRITICAL VALUE YES; OXYGEN DEVICE VENT; TEMP CORR TO 98.6
[2016-12-11 10:30] LABS: DRAW SITE ALINE; FIO2 50 %; VENT SETTINGS PRVC/12/550/5PEEP/.7
[2016-12-11] MEDS ORDERED: TERBUTALINE INJ 1 MG/ML AMP SQ PRN (10:30)
[2016-12-11] MEDS ORDERED: PHENYLEPHRINE INJ 160 MG in DEXTROSE 5% IN WATE 500 ML INJ 484 ML IV SCH ×2 (10:30)
[2016-12-11] MEDS ORDERED: SODIUM CHLOR 0.9% 1000 ML INJ 1,000 ML IV ONE (10:30)
[2016-12-11 10:31] LABS: STAT NO; ULNAR PULSE PRESENT
[2016-12-11] MEDS ORDERED: CALCIUM CHLORIDE INJ 2 GM in SODIUM CHLORIDE 0.9% INJ 100 ML IV ONE (11:00)
[2016-12-11] MEDS: VASOPRESSIN INJ 40 UNITS in DEXTROSE 5% IN WATER 100ML INJ 98 ML IV SCH ×2 (11:31)
[2016-12-11] MEDS: HYDROCORTISONE SOD SUCCINATE 100 MG VIAL IV PUSH SCH ×3 (11:41→23:43)
--- NOTE | 2016-12-11 16:13 | HHI.GIFU ---
Subjective Remarks patient is sedated on a vent, per nurse he had seizures today, he is s/p clary tube with green drainage (Lam Nolasco) Objective Vitals I&O Vital Signs Date Time Temp Pulse Resp B/P Pulse Ox O2 Delivery O2 Flow Rate FiO2 12/11/16 12:00 98.8 66 15 114/73 100 12/11/16 12:00 66 12/11/16 11:25 100 50 12/11/16 08:00 99.1 84 18 94/67 100 12/11/16 08:00 50 12/11/16 08:00 84 12/11/16 07:49 100 50 12/11/16 06:00 84 12/11/16 04:00 84 12/11/16 04:00 100.0 111 18 102/64 100 12/11/16 04:00 50 12/11/16 03:10 99 50 12/11/16 02:00 84 12/11/16 00:58 100 55 12/11/16 00:00 55 12/11/16 00:00 84 12/11/16 00:00 100.0 84 18 110/78 100 12/10/16 22:00 89 12/10/16 20:00 55 12/10/16 20:00 74 12/10/16 20:00 100.2 74 18 94/70 97 12/10/16 19:51 99 55 12/10/16 19:00 97 Mechanical Ventilator 55 12/10/16 16:25 97 60 12/10/16 16:00 99.3 82 18 109/79 98 12/10/16 16:00 80 I/O 12/10/16 12/10/16 12/10/16 12/11/16 12/11/16 12/11/16 07:00 15:00 23:00 07:00 15:00 23:00 Intake Total 780 ml 6365 ml 1976 ml 2378 ml 3843 ml Output Total 3300 ml 2255 ml 2160 ml 855 ml Balance 780 ml 3065 ml -279 ml 218 ml 2988 ml Intake IV Total 780 ml 6365 ml 1976 ml 2378 ml 3843 ml Output Urine Total 3250 ml 2125 ml 2100 ml 775 ml Gastric Drainage Total 50 ml 90 ml 50 ml 50 ml Drainage Total 40 ml 10 ml 30 ml # Bowel Movements 0 0 0 Laboratory Laboratory Tests Test 12/10/16 12/11/16 12/11/16 18:13 05:15 10:20 Lactic Acid Level 6.0 3.5 White Blood Count 14.0 Red Blood Count 4.46 Hemoglobin 13.4 Hematocrit 38.2 Mean Corpuscular Volume 85.7 Mean Corpuscular Hemoglobin 30.1 Mean Corpuscular Hemoglobin 35.1 Concent Red Cell Distribution Width 13.8 Platelet Count 93 Mean Platelet Volume 11.2 Neutrophils (%) (Auto) 83.1 Lymphocytes (%) (Auto) 12.5 Monocytes (%) (Auto) 4.2 Eosinophils (%) (Auto) 0.0 Basophils (%) (Auto) 0.2 Neutrophils # (Auto) 11.7 Lymphocytes # (Auto) 1.8 Monocytes # (Auto) 0.6 Eosinophils # (Auto) 0.0 Basophils # (Auto) 0.0 CBC Comment AUTO DIFF Differential Comment AUTO DIFF CONFIRMED Platelet Estimate LOW Platelet Morphology Comment ENLARGED Sodium Level 125 Potassium Level 2.7 Chloride Level 85 Carbon Dioxide Level 29.5 Anion Gap 11 Blood Urea Nitrogen 4 Creatinine 0.72 Estimat Glomerular Filtration 115 Rate Random Glucose 184 Calcium Level 6.6 Protein Corrected Calcium 7.5 Phosphorus Level 0.1 Magnesium Level 1.2 Total Bilirubin 8.1 Aspartate Amino Transf 780 (AST/SGOT) Alanine Aminotransferase 826 (ALT/SGPT) Alkaline Phosphatase 222 Total Protein 5.3 Albumin 2.6 Lipase 47 Blood Gas Puncture Site NIKITA Blood Gas Patient Temperature 98.6 Blood Gas HCO3 25 Blood Gas Base Excess 3.1 Blood Gas Oxygen Saturation 94 Arterial Blood pH 7.59 Arterial Blood Partial 26 Pressure CO2 Arterial Blood Partial 66 Pressure O2 Arterial Blood Oxygen Content 18.0 Arterial Blood 1.0 Carboxyhemoglobin Arterial Blood Methemoglobin 0.7 Blood Gas Hemoglobin 13.6 Oxygen Delivery Device VENT Blood Gas Ventilator Setting PRVC/12/550/5PEEP/.7 Blood Gas Inspired Oxygen 50 Date/Time Procedure Status Source Growth 12/10/16 08:35 Aerobic Blood Culture - Preliminary Resulted Blood Peripheral NO GROWTH IN 1 DAY 12/10/16 08:35 Anaerobic Blood Culture - Preliminary Resulted Blood Peripheral NO GROWTH IN 1 DAY 12/10/16 07:30 Urine Culture - Preliminary Resulted Urine Catheterized Urine NO GROWTH IN 24 HOURS. Imaging Last Impressions Cholangiopancreatography MRI 12/10/16 0000 Signed Impressions: Service Date/Time: Saturday, December 10, 2016 12:44 - CONCLUSION: Pronounced biliary ductal dilatation with distal obstruction of the CBD by pancreatic mass which appears grossly stable. Barber Richardson MD Chest X-Ray 12/10/16 0000 Signed Impressions: Service Date/Time: Saturday, December 10, 2016 05:19 - CONCLUSION: 1. Bibasilar densities greater left lower lobe. 2. Endotracheal tube tip 6.5 cm above jade. Messi Hayden MD Bile Duct Drainage 12/10/16 0000 Signed Impressions: Service Date/Time: Saturday, December 10, 2016 15:33 - CONCLUSION: Uncomplicated internal/external biliary drain placement as above. Duy Moran MD Physical Exam HEENT: normocephalic; atraumatic; + jaundice. CHEST: Chest is clear to auscultation and percussion. OETT to vent CARDIAC: tachycardiac ABDOMEN: Soft, nondistended, nontender; no hepatosplenomegaly; bowel sounds are present in all four quadrants. EXTREMITIES: No clubbing, cyanosis, or edema. SKIN: Normal; ,+ jaundice. 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 S/P Unsuccessful ERCP (12/08/16)-----> biliary stent removed, failed ERCP attempt as outpatient. S/P PTHC on (12/10/16) with green drainage - Pancreatic head mass. Found to have pancreatic head mass, measuring 4.63.8 cm with resulting intrahepatic and extrahepatic delivery obstruction with dilatation on MRCP. Tumor markers were unremarkable. He underwent ERCP with stent placement and biopsy (08/06/16) and this revealed ampullary stenosis, duodenal mass. Pathology of the duodenal mass revealed duodenal mucosa with Sheryl's gland hyperplasia and features suggesting peptic duodenitis. He was then admitted to [place] for intensive rehabilitation. There was some concern that this could be malignant and therefore he was evaluated by oncology. The mass was not amenable to CT guided biopsy and therefore he was discharged with the plan to have EUS as outpatient. EUS with FNA (08/26/16)-----> inhomogeneous Pancrease with lobularity in the body and mild hypoechogenicity in the head, FNA of the head done, no distinct mass seen, CBD with stent in place, PD mildly dilated to 2.7 mm, no lymphadenopathy, no vascular infiltration. Benign cytology with ductal cells with reactive changes. - Severe abdomen pain- ? cholangitis vs post ERCP pancreatitis, Lipase normal - Elevated LFTs- secondary to above - Hepatic encephalopathy. Ammonia 61. - Sepsis with lactic acidosis, hypotension, tachycardia, On multiple pressors per CCM, Abx with cefepime and flagyl. blood cx no growth so far - Leukocytosis. WBC improving. Cefepime and Flagyl. - Respiratory failure. On vent per CCM. - Elevated troponin, - Multiple electrolyte abnormalities with hypokalemia, hypernatremia, hypocalcemia. per ccm - Anemia. today hgb is 13.4 - Seizures per CCM - Myotonic dystrophy, Anxiety, Hyperlipidemia, Asthma, Fatty liver disease, Hx HIT per primary PLAN: - NPO - Will likely need an internal stent whether through ERCP or IR - Ct vs MRCP once able to leave the floor - LFTs in am - Cont. Abx- Cefepime, Flagyl - Cont. PPI - Supportive care - Further recommendations to follow based on results of above - Pt seen and examined by Dr. Montilla and myself and this note is written on his behalf (Lam Nolasco) Physician Comments Seen and examined, s/p PTC with drainage. Still sedated and requiring pressors. Leave biliary drain to drainage for now. Seizure this morning, lopez per lettuce trimmer.Discussed with . Repeat labs (Colette Montilla MD) Lam Nolasco December 11, 2016 16:13 Colette Montilla MD December 11, 2016 16:33
[2016-12-11] MEDS: PANTOPRAZOLE SODIUM 40 MG VIAL IV PUSH SCH (18:32)
[2016-12-11] MEDS: MUPIROCIN 2% OINT 1 APPLIC/GM SYR NASAL SCH (20:26)
[2016-12-11 21:15] LABS: BICARBONATE 24.4 MEQ/L (21.0-32.0)
[2016-12-11 22:00] LABS: CALCIUM-PROTEIN CORRECTED 8.3 MG/DL (8.5-10.1)
[2016-12-11] MEDS: FOSPHENYTOIN SODIUM 100 MG PE/2 ML VIAL IV SCH (22:35)
[2016-12-11] MEDS: 3% SALINE INJ 500 ML IV SCH (22:36)
[2016-12-12] VITALS (15 sets, daily range): BP systolic 86–102; BP diastolic 56–68; PULSE 62–86; RESP 12–20; TEMP 96.3–98.2; O2SAT 93–98
[2016-12-12] MEDS: ICU - SODIUM PHOSPHATE 30 MMOL/NS 250 ML IV PRN ×4 (00:04→23:45)
[2016-12-12] MEDS: DOCUSATE SODIUM 100 MG/10 ML UDC OG-TUBE SCH ×3 (00:04→21:08)
[2016-12-12] MEDS: metroNIDAZOLE 500 MG INJ 100 ML IV SCH ×4 (00:05→18:42)
[2016-12-12] MEDS: CHLORHEXIDINE GLUCONATE 2 % 1 PACK (2 CLOTHS) TOP SCH (04:00)
[2016-12-12 04:37] LABS: AUTOMATED NEUTROPHIL # 17.1 TH/MM3 (1.8-7.7); HEMATOCRIT 42.2 % (39.0-51.0); LYMPH % 8.3 % (9.0-44.0); LYMPHOCYTE # 1.6 TH/MM3 (1.0-4.8); MEAN CELL VOLUME 85.1 FL (80.0-100.0); MEAN CORPUSCULAR HEMOGLOBIN 28.9 PG (27.0-34.0); MONO % 5.4 % (0.0-8.0); NEUT % 86.3 % (16.0-70.0); PLATELET COUNT 140 TH/MM3 (150-450); RED BLOOD COUNT 4.96 MIL/MM3 (4.50-5.90); RED CELL DISTRIBUTION WIDTH 13.8 % (11.6-17.2); WHITE BLOOD COUNT 19.8 TH/MM3 (4.0-11.0)
[2016-12-12 04:53] LABS: HEMO FLAGS AUTO DIFF
[2016-12-12 05:15] LABS: BICARBONATE 24.1 MEQ/L (21.0-32.0); CALCIUM-PROTEIN CORRECTED 8.4 MG/DL (8.5-10.1); POTASSIUM 3.4 MEQ/L (3.5-5.1)
[2016-12-12] MEDS: FOSPHENYTOIN SODIUM 100 MG PE/2 ML VIAL IV SCH ×3 (05:31→21:08)
[2016-12-12] MEDS: NOREPINEPHRINE 4 MG/D5W 250 ML IV SCH ×3 (05:31→21:10)
[2016-12-12] MEDS: PROPOFOL 1000 MG/100 ML INJ 100 ML IV SCH ×3 (05:31→21:09)
[2016-12-12] MEDS: HYDROCORTISONE SOD SUCCINATE 100 MG VIAL IV PUSH SCH ×3 (05:31→17:36)
[2016-12-12] MEDS: VASOPRESSIN INJ 40 UNITS in DEXTROSE 5% IN WATER 100ML INJ 98 ML IV SCH ×4 (06:20→09:32)
[2016-12-12] MEDS: CEFEPIME INJ 2,000 MG in SODIUM CHLORIDE 0.9% INJ 100 ML IV SCH ×2 (07:29→18:19)
[2016-12-12 07:49] LABS: BANDS 3 % (0-6); NEUTROPHIL # MANUAL DIFF 18.6 TH/MM3 (1.8-7.7); POLYS (SEG NEUTROPHILS) 91 % (16-70); WBC DIFF SAMPLE 100
[2016-12-12 07:51] LABS: PLATELET ESTIMATE SMEAR LOW (NORMAL); PLATELET MORPHOLOGY ENLARGED (NORMAL); SCAN/DIFF FINAL DIFF MANUAL
--- NOTE | 2016-12-12 08:56 | HHI.CCPN ---
Subjective Remarks/Hospital Course 51 y/o man had stent removed yesterday following insertion for benign pancreatic mass. Now hypotensive and acts septic. 12/11: Biliary drain placed 12/10 for drainage of GB and common duct due because of distal CD obstruction from pancreatic mass. Seizure this morning. 12/12: Remains septic and requiring vasopressor support. Hyponatremia new, likely free water excess. Objective Vital Signs Date Time Temp Pulse Resp B/P Pulse Ox O2 Delivery O2 Flow Rate FiO2 12/12/16 08:00 96.6 62 14 94/56 95 12/12/16 08:00 40 12/11/16 20:00 Mechanical Ventilator 12/10/16 04:40 15.00 Intake and Output 12/11/16 12/11/16 12/12/16 08:00 16:00 00:00 Intake Total 2378 ml 3843 ml 1307 ml Output Total 2160 ml 855 ml 435 ml Balance 218 ml 2988 ml 872 ml Result Diagram: 12/12/16 0405 12/12/16 0405 Other Results Laboratory Tests Test 12/11/16 10:20 Blood Gas Puncture Site NIKITA Blood Gas Patient Temperature 98.6 Blood Gas HCO3 25 mmol/L (22-26) Blood Gas Base Excess 3.1 mmol/L (-2-2) Blood Gas Oxygen Saturation 94 % (90-100) Arterial Blood pH 7.59 (7.380-7.420) Arterial Blood Partial 26 mmHg (38-42) Pressure CO2 Arterial Blood Partial 66 mmHg Pressure O2 (61-120) Arterial Blood Oxygen Content 18.0 Vol % (12.0-20.0) Arterial Blood 1.0 % (0-4) Carboxyhemoglobin Arterial Blood Methemoglobin 0.7 % (0-2) Blood Gas Hemoglobin 13.6 G/DL (12.0-16.0) Oxygen Delivery Device VENT Blood Gas Ventilator Setting PRVC/12/550/5PEEP/.7 Blood Gas Inspired Oxygen 50 % Objective Remarks Gen: Ill-appearing. Neck: Supple, orally intubated. Lungs: Clear, good shanthi air entry. No wheezes. Heart: NL S1S2, tachycardia, no JVD. Abdomen: No involuntary guarding, BS present. ND, NT. Extremities: warm, well perfused. Neuro: Obtunded, unresponsive. Tonic-clonic seizure once 12/11. A/P Assessment and Plan Assessment: 1. Circulatory Shock. 2. Hypoxemic Respiratory Failure. 3. Metabolic Acidosis. 4. Tonic-clonic seizure, new. 5. Hyponatremia. Plan: 1. PRVC vent mode. 2. Vasopressin and levophed support. 3. 3% saline. 4. Broad ABX coverage. 5. Serial lactic acid. 6. Bicarb GTT. 7. Serial ABG. 8. Culture blood. 9. Cerebyx 10. Lasix daily. Overall impression: Septic shock persists, etiology unclear. He remains critically ill but will hopefully stabilize now that biliary drainage has been obtained. Critical Care 39 mins Frank Holt MD December 12, 2016 08:56
[2016-12-12] MEDS: FUROSEMIDE 20 MG/2 ML VIAL IV PUSH SCH (08:59)
[2016-12-12] MEDS: MUPIROCIN 2% OINT 1 APPLIC/GM SYR NASAL SCH ×2 (08:59→21:09)
[2016-12-12] MEDS: SODIUM CHLORIDE 0.9% FLUSH 10 ML FLUSH IV FLUSH SCH ×2 (09:00→21:09)
[2016-12-12] MEDS: ICU - POTASSIUM CHLORIDE/AQUEOUS SOLN 40 MEQ/100 ML IVPB IV PRN ×2 (09:17→15:52)
[2016-12-12] MEDS: POTASSIUM CHLORIDE 25 MEQ EFFERVESCENT TAB PO PRN ×2 (09:17→15:52)
[2016-12-12] MEDS: ICU - POTASSIUM PHOSPHATE MONOBASIC 500 MG TAB PO PRN ×2 (09:37→14:40)
[2016-12-12] MEDS: INSULIN ASPART SUPPLEMENTAL SCALE SQ SCH ×2 (12:15→17:36)
[2016-12-12] MEDS ORDERED: GLUCAGON 1 MG/ML VIAL OTHER PRN (12:15)
[2016-12-12] MEDS: DOBUTamine 250 MG/D5W 250 ML PREMIX DRIP IV SCH (12:38)
--- NOTE | 2016-12-12 15:08 | HHI.GIFU ---
Subjective Remarks Pt ventilated, off sedation. (Zaria Lee) Objective Vitals I&O Vital Signs Date Time Temp Pulse Resp B/P Pulse Ox O2 Delivery O2 Flow Rate FiO2 12/12/16 12:00 97.7 79 16 102/59 96 12/12/16 12:00 79 12/12/16 11:40 95 45 12/12/16 09:30 96.3 12/12/16 08:00 96.6 62 14 94/56 95 12/12/16 08:00 62 12/12/16 08:00 40 12/12/16 07:48 96 50 12/12/16 06:00 64 12/12/16 04:00 67 12/12/16 04:00 50 12/12/16 04:00 97.5 67 12 102/68 97 12/12/16 03:40 96 50 12/12/16 02:00 68 12/12/16 00:00 50 12/12/16 00:00 98.1 71 12 102/68 98 12/12/16 00:00 71 12/11/16 22:00 98 50 12/11/16 22:00 71 12/11/16 20:00 74 12/11/16 20:00 98.4 74 12 98/68 99 12/11/16 20:00 50 12/11/16 20:00 99 Mechanical Ventilator 50 12/11/16 16:08 100 50 12/11/16 16:00 76 12/11/16 16:00 98.8 76 12 88/63 100 I/O 12/11/16 12/11/16 12/11/16 12/12/16 12/12/16 12/12/16 07:00 15:00 23:00 07:00 15:00 23:00 Intake Total 2378 ml 3843 ml 1307 ml 1363 ml 1515 ml Output Total 2160 ml 855 ml 435 ml 470 ml 1690.0 ml Balance 218 ml 2988 ml 872 ml 893 ml -175.0 ml Intake IV Total 2378 ml 3843 ml 1307 ml 1093 ml 1248 ml Tube Feeding 210 ml 267 ml Other 60 ml Output Urine Total 2100 ml 775 ml 400 ml 375 ml 1150 ml Gastric Drainage Total 50 ml 50 ml 0 ml 240 ml Tube Feeding Residual Discard 0 ml 240.0 ml Drainage Total 10 ml 30 ml 35 ml 95 ml 60 ml # Bowel Movements 0 0 0 0 0 Laboratory Laboratory Tests Test 12/11/16 12/11/16 12/12/16 12/12/16 19:45 20:28 04:05 08:19 Sodium Level 121 122 123 Potassium Level 4.0 3.4 Chloride Level 84 85 Carbon Dioxide Level 24.4 24.1 Anion Gap 13 13 Blood Urea Nitrogen 5 4 Creatinine 0.75 0.68 Estimat Glomerular Filtration 110 123 Rate Random Glucose 235 211 Calcium Level 7.2 7.3 Protein Corrected Calcium 8.3 8.4 Total Protein 5.0 5.1 Phosphorus Level 0.9 1.3 White Blood Count 19.8 Red Blood Count 4.96 Hemoglobin 14.4 Hematocrit 42.2 Mean Corpuscular Volume 85.1 Mean Corpuscular Hemoglobin 28.9 Mean Corpuscular Hemoglobin 34.0 Concent Red Cell Distribution Width 13.8 Platelet Count 140 Mean Platelet Volume 11.4 Neutrophils (%) (Auto) 86.3 Lymphocytes (%) (Auto) 8.3 Monocytes (%) (Auto) 5.4 Eosinophils (%) (Auto) 0.0 Basophils (%) (Auto) 0.0 Neutrophils # (Auto) 17.1 Lymphocytes # (Auto) 1.6 Monocytes # (Auto) 1.1 Eosinophils # (Auto) 0.0 Basophils # (Auto) 0.0 CBC Comment AUTO DIFF Differential Total Cells 100 Counted Neutrophils % (Manual) 91 Band Neutrophils % 3 Lymphocytes % 4 Monocytes % 2 Neutrophils # (Manual) 18.6 Differential Comment FINAL DIFF MANUAL Platelet Estimate LOW Platelet Morphology Comment ENLARGED Red Cell Morphology Comment NORMAL Total Bilirubin 8.0 Aspartate Amino Transf 599 (AST/SGOT) Alanine Aminotransferase 1055 (ALT/SGPT) Alkaline Phosphatase 227 Albumin 2.1 Date/Time Procedure Status Source Growth 12/10/16 08:35 Aerobic Blood Culture - Preliminary Resulted Blood Peripheral NO GROWTH IN 2 DAYS 12/10/16 08:35 Anaerobic Blood Culture - Preliminary Resulted Blood Peripheral NO GROWTH IN 2 DAYS 12/10/16 07:30 Urine Culture - Final Complete Urine Catheterized Urine NO GROWTH IN 48 HOURS. Imaging Last Impressions Cholangiopancreatography MRI 12/10/16 0000 Signed Impressions: Service Date/Time: Saturday, December 10, 2016 12:44 - CONCLUSION: Pronounced biliary ductal dilatation with distal obstruction of the CBD by pancreatic mass which appears grossly stable. Barber Richardson MD Chest X-Ray 12/10/16 0000 Signed Impressions: Service Date/Time: Saturday, December 10, 2016 05:19 - CONCLUSION: 1. Bibasilar densities greater left lower lobe. 2. Endotracheal tube tip 6.5 cm above jade. Messi Hayden MD Bile Duct Drainage 12/10/16 0000 Signed Impressions: Service Date/Time: Saturday, December 10, 2016 15:33 - CONCLUSION: Uncomplicated internal/external biliary drain placement as above. Duy Moran MD Physical Exam HEENT: normocephalic; atraumatic; + jaundice. CHEST: Chest is clear to auscultation and percussion. OETT to vent CARDIAC: RRR ABDOMEN: Soft, nondistended, nontender; no hepatosplenomegaly; bowel sounds are present in all four quadrants. EXTREMITIES: No clubbing, cyanosis, or edema. SKIN: Normal; ,+ jaundice. 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 S/P Unsuccessful ERCP (12/08/16)-----> biliary stent removed, failed ERCP attempt as outpatient. S/P PTHC on (12/10/16) with green drainage - Pancreatic head mass. Found to have pancreatic head mass, measuring 4.63.8 cm with resulting intrahepatic and extrahepatic delivery obstruction with dilatation on MRCP. Tumor markers were unremarkable. He underwent ERCP with stent placement and biopsy (08/06/16) and this revealed ampullary stenosis, duodenal mass. Pathology of the duodenal mass revealed duodenal mucosa with Sheryl's gland hyperplasia and features suggesting peptic duodenitis. He was then admitted to [place] for intensive rehabilitation. There was some concern that this could be malignant and therefore he was evaluated by oncology. The mass was not amenable to CT guided biopsy and therefore he was discharged with the plan to have EUS as outpatient. EUS with FNA (08/26/16)-----> inhomogeneous Pancrease with lobularity in the body and mild hypoechogenicity in the head, FNA of the head done, no distinct mass seen, CBD with stent in place, PD mildly dilated to 2.7 mm, no lymphadenopathy, no vascular infiltration. Benign cytology with ductal cells with reactive changes. - Severe abdomen pain- ? cholangitis vs post ERCP pancreatitis, Lipase normal - Elevated LFTs- secondary to above - Hepatic encephalopathy. Ammonia 61. - Sepsis with lactic acidosis, hypotension, tachycardia, On multiple pressors per CCM, Abx with cefepime and flagyl. blood cx no growth so far - Leukocytosis. WBC improving. Cefepime and Flagyl. - Respiratory failure. On vent per CCM. - Elevated troponin, - Multiple electrolyte abnormalities with hypokalemia, hypernatremia, hypocalcemia. per ccm - Anemia. improved today hgb is 14.4 - Seizures per CCM - Myotonic dystrophy, Anxiety, Hyperlipidemia, Asthma, Fatty liver disease, Hx HIT per primary PLAN: - NPO - Will likely need an internal stent whether through ERCP or IR - Ct vs MRCP once able to leave the floor - LFTs in am - Cont. Abx- Cefepime, Flagyl - Cont. PPI - Supportive care - Further recommendations to follow based on results of above - Pt seen and examined by Dr. 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 PTC drain working well. If no improvement in labs tomorrow will have IR adjust the drain or upsize it. Continue antibiotics. (Colette Montilla MD) Zaria Lee December 12, 2016 15:08 Colette Montilla MD December 12, 2016 16:42
[2016-12-12 15:49] LABS: POTASSIUM 3.4 MEQ/L (3.5-5.1)
[2016-12-12] MEDS: PANTOPRAZOLE SODIUM 40 MG VIAL IV PUSH SCH (17:36)
[2016-12-12] MEDS: 3% SALINE INJ 500 ML IV SCH (21:09)
[2016-12-12 21:51] LABS: POTASSIUM 4.3 MEQ/L (3.5-5.1)
[2016-12-13] VITALS (14 sets, daily range): BP systolic 92–122; BP diastolic 54–84; PULSE 70–96; RESP 12–19; TEMP 97.3–99.1; O2SAT 95–98
[2016-12-13] MEDS: metroNIDAZOLE 500 MG INJ 100 ML IV SCH ×4 (00:45→18:38)
[2016-12-13] MEDS: HYDROCORTISONE SOD SUCCINATE 100 MG VIAL IV PUSH SCH ×4 (00:45→17:17)
[2016-12-13 05:11] LABS: AUTOMATED NEUTROPHIL # 17.6 TH/MM3 (1.8-7.7); BASOPHIL % 0.1 % (0.0-2.0); HEMATOCRIT 36.8 % (39.0-51.0); HEMO FLAGS DIFF FINAL; MEAN CELL VOLUME 84.2 FL (80.0-100.0); MEAN CORPUSCULAR HEMOGLOBIN 29.6 PG (27.0-34.0); MEAN CORPUSCULAR HGB CONC 35.1 % (32.0-36.0); MONO % 5.4 % (0.0-8.0); NEUT % 89.5 % (16.0-70.0); PLATELET COUNT 127 TH/MM3 (150-450); RED BLOOD COUNT 4.37 MIL/MM3 (4.50-5.90); RED CELL DISTRIBUTION WIDTH 14.3 % (11.6-17.2); WHITE BLOOD COUNT 19.7 TH/MM3 (4.0-11.0)
[2016-12-13 05:32] LABS: BICARBONATE 25.3 MEQ/L (21.0-32.0); CALCIUM-PROTEIN CORRECTED 7.7 MG/DL (8.5-10.1); POTASSIUM 3.6 MEQ/L (3.5-5.1); TOTAL BILIRUBIN ADULT 5.1 MG/DL (0.2-1.0)
[2016-12-13] MEDS: CHLORHEXIDINE GLUCONATE 2 % 1 PACK (2 CLOTHS) TOP SCH (05:37)
[2016-12-13] MEDS: NOREPINEPHRINE 4 MG/D5W 250 ML IV SCH ×2 (05:38→08:20)
[2016-12-13] MEDS: FOSPHENYTOIN SODIUM 100 MG PE/2 ML VIAL IV SCH ×3 (06:31→22:01)
[2016-12-13] MEDS: CEFEPIME INJ 2,000 MG in SODIUM CHLORIDE 0.9% INJ 100 ML IV SCH ×2 (06:31→20:51)
[2016-12-13] MEDS: INSULIN ASPART SUPPLEMENTAL SCALE SQ SCH ×4 (06:31→17:17)
[2016-12-13] MEDS: DOBUTamine 250 MG/D5W 250 ML PREMIX DRIP IV SCH (08:19)
[2016-12-13] MEDS: PROPOFOL 1000 MG/100 ML INJ 100 ML IV SCH (08:20)
[2016-12-13] MEDS: DOCUSATE SODIUM 100 MG/10 ML UDC OG-TUBE SCH ×2 (08:20→20:51)
[2016-12-13] MEDS: MUPIROCIN 2% OINT 1 APPLIC/GM SYR NASAL SCH ×2 (08:20→20:51)
[2016-12-13] MEDS: SODIUM CHLORIDE 0.9% FLUSH 10 ML FLUSH IV FLUSH SCH ×2 (08:21→20:51)
[2016-12-13] MEDS: FUROSEMIDE 20 MG/2 ML VIAL IV PUSH SCH (08:21)
--- NOTE | 2016-12-13 12:03 | HHI.CCPN ---
Subjective Remarks/Hospital Course 51 y/o man had stent removed yesterday following insertion for benign pancreatic mass. Now hypotensive and acts septic. 12/11: Biliary drain placed 12/10 for drainage of GB and common duct due because of distal CD obstruction from pancreatic mass. Seizure this morning. 12/12: Remains septic and requiring vasopressor support. Hyponatremia new, likely free water excess. 12/13: Remains on 10 mics of Levophed, vasopressin 0.04 international units, dobutamine 2.5 g per KG per min. Remains on propofol but moves extremities. Sodium 125, potassium 2.7. GI not planning any other interventions at this time. Biliary drain with 160 mL in 24 hours Objective Vital Signs Date Time Temp Pulse Resp B/P Pulse Ox O2 Delivery O2 Flow Rate FiO2 12/13/16 11:39 96 40 12/13/16 08:00 97.7 82 18 122/64 12/13/16 07:00 Mechanical Ventilator 12/10/16 04:40 15.00 Intake and Output 12/12/16 12/12/16 12/12/16 07:59 15:59 23:59 Intake Total 1363 ml 1515 ml 1130 ml Output Total 470 ml 1690.0 ml 875.0 ml Balance 893 ml -175.0 ml 255.0 ml Result Diagram: 12/13/16 0500 12/13/16 0500 Objective Remarks Gen: Ill-appearing. Neck: Supple, orally intubated. Lungs: Clear, good shanthi air entry. No wheezes. Heart: NL S1S2, tachycardia, no JVD. Abdomen: No involuntary guarding, BS present. ND, NT. R biliary drain with 160 ml in 245 hours Extremities: warm, well perfused. Neuro: Sedated on the vent. Moves all extremities. (Tonic-clonic seizure once 12/11) A/P Assessment and Plan ASSESSMENT 1. Septic/circulatory Shock. 2. Hypoxemic Respiratory Failure. 3. Metabolic Acidosis. 4. Tonic-clonic seizure, new. 5. Hyponatremia. Plan: NEURO: -Propofol for sedation and vent synchrony -Daily sedation vacation -EEG report pending. Continue Cerebyx -IV Ativan when necessary for seizures. Correct hyponatremia due to seizures RESP: -PRVC vent mode. Vent bundle -DuoNeb every 6 hours when necessary -Daily CPAP trial without extubation due to septic shock CVS: -Dobutamine, Vasopressin and levophed support. -2% saline to correct hyponatremia -Bicarb gtt -IV lasix 20 mg daily-hold due to pressor use GI: -Obstructive jaundice and possible cholangitis -S/P PTHC on (12/10/16) with green drainage by IR : -Hold IV Lasix. 2% saline to correct hyponatremia (Keep >135 due to sz) ID -Septic shock, most likely cholangitis -Continue broad-spectrum antibiotics cefepime and Flagyl Endo: -Hyponatremia and hypokalemia, correction per protocol DVT/GI prophylaxis Overall impression: Septic shock persists, etiology most likely septic. He remains critically ill Critical Care 34 mins Denise Blandon MD December 13, 2016 12:03
[2016-12-13] MEDS: LACTULOSE SYRUP 20 GM/30 ML CUP PO SCH ×3 (12:40→20:51)
[2016-12-13] MEDS: SODIUM CHLORIDE 23.4% INJ 188 MEQ in SODIUM CHLOR 0.9% 1000 ML INJ 1,000 ML IV SCH (13:18)
--- NOTE | 2016-12-13 15:40 | MG ---
cc: BIANCA SCHOFIELD M.D. Lab No: [id number] Date: 12/13/2016 Age: 51 Sex: M Race: DATE OF : [address] Whalen. Room 1307, intubated. Photic done, Diprivan turned off 2 minutes into the study, withdrawing four extremities, not following any commands. History of seizure yesterday after sedation turned off, admitted with epigastric pain, chest pain, cirrhosis, jaundice, history of pancreatic mass with obstruction, history of myotonic dystrophy, hepatic steatosis, on Cerebyx, Diprivan, norepinephrine, cefepime. DESCRIPTION OF RECORD The patient does exhibit background slowing predominately at 3 Hz. Head moving consistent with what appears to be artifact, eye opening. Diprivan is turned off by epoch 11 documented. There is overall slowing still consistent with what looks like delta frequency. A lot of leg movement as well. No discernible epileptic activity just a lot of background artifact and slowing. Photic stimulation with minimal driving response. There are some higher amplitude spike and slow waves seen bilaterally during the photic stimulation portion, there is some movement in the shoulder as well, may be concerning for epileptic activity. The patient was asked to squeeze and wiggle with toes, squeeze hands, did not do it. IMPRESSION Abnormal EEG due to moderate severe slowing of background as well as some spike and wave discharges seen, concerning for epileptic activity in this patient. Patient is already on antiepileptic medicines, level should be drawn and I would put him back on Diprivan with a repeat EEG likely, clinical correlation. MD JOB Johnson/MARIA ESTHER /12:32 PM /3:24 PM
--- NOTE | 2016-12-13 15:55 | HHI.GIFU ---
Subjective Remarks Resting in bed. Sedated on vent. No distress. (Shira Rees) Objective Vitals I&O Vital Signs Date Time Temp Pulse Resp B/P Pulse Ox O2 Delivery O2 Flow Rate FiO2 12/13/16 12:00 35 12/13/16 11:39 96 40 12/13/16 08:26 95 40 12/13/16 08:00 45 12/13/16 08:00 97.7 82 18 122/64 96 12/13/16 07:00 98 Mechanical Ventilator 45 12/13/16 06:00 78 12/13/16 04:00 98.2 73 12 118/67 98 12/13/16 04:00 73 12/13/16 04:00 45 12/13/16 02:00 88 12/13/16 00:00 45 12/13/16 00:00 97.3 78 13 92/54 98 12/13/16 00:00 78 12/12/16 22:00 67 12/12/16 20:45 98 45 12/12/16 20:00 86 12/12/16 20:00 45 12/12/16 20:00 97.4 86 20 86/64 97 12/12/16 19:00 97 Mechanical Ventilator 45 12/12/16 16:00 98.2 84 20 102/61 96 12/12/16 16:00 84 I/O 12/12/16 12/12/16 12/12/16 12/13/16 12/13/16 12/13/16 07:00 15:00 23:00 07:00 15:00 23:00 Intake Total 1363 ml 1515 ml 1130 ml 1191 ml Output Total 470 ml 1690.0 ml 875.0 ml 475 ml 0 ml Balance 893 ml -175.0 ml 255.0 ml 716 ml 0 ml Intake IV Total 1093 ml 1248 ml 818 ml 1111 ml Tube Feeding 210 ml 267 ml 212 ml 80 ml Tube Irrigant 100 ml 0 ml Other 60 ml Output Urine Total 375 ml 1150 ml 325 ml 425 ml Gastric Drainage Total 240 ml 250 ml 0 ml Tube Feeding Residual Discard 240.0 ml 250.0 ml 0 ml Drainage Total 95 ml 60 ml 50 ml 50 ml # Bowel Movements 0 0 0 0 Laboratory Laboratory Tests Test 12/12/16 12/13/16 12/13/16 20:29 05:00 12:50 Sodium Level 126 128 126 Potassium Level 4.3 3.6 Phosphorus Level 0.8 1.4 White Blood Count 19.7 Red Blood Count 4.37 Hemoglobin 12.9 Hematocrit 36.8 Mean Corpuscular Volume 84.2 Mean Corpuscular Hemoglobin 29.6 Mean Corpuscular Hemoglobin 35.1 Concent Red Cell Distribution Width 14.3 Platelet Count 127 Mean Platelet Volume 11.2 Neutrophils (%) (Auto) 89.5 Lymphocytes (%) (Auto) 5.0 Monocytes (%) (Auto) 5.4 Eosinophils (%) (Auto) 0.0 Basophils (%) (Auto) 0.1 Neutrophils # (Auto) 17.6 Lymphocytes # (Auto) 1.0 Monocytes # (Auto) 1.1 Eosinophils # (Auto) 0.0 Basophils # (Auto) 0.0 CBC Comment DIFF FINAL Differential Comment Chloride Level 90 Carbon Dioxide Level 25.3 Anion Gap 13 Blood Urea Nitrogen 5 Creatinine 0.55 Estimat Glomerular Filtration 157 Rate Random Glucose 164 Calcium Level 6.7 Protein Corrected Calcium 7.7 Total Bilirubin 5.1 Aspartate Amino Transf 263 (AST/SGOT) Alanine Aminotransferase 750 (ALT/SGPT) Alkaline Phosphatase 209 Total Protein 5.2 Albumin 2.2 Date/Time Procedure Status Source Growth 12/10/16 08:35 Aerobic Blood Culture - Preliminary Resulted Blood Peripheral NO GROWTH IN 3 DAYS 12/10/16 08:35 Anaerobic Blood Culture - Preliminary Resulted Blood Peripheral NO GROWTH IN 3 DAYS 12/10/16 07:30 Urine Culture - Final Complete Urine Catheterized Urine NO GROWTH IN 48 HOURS. Imaging Last Impressions Cholangiopancreatography MRI 12/10/16 0000 Signed Impressions: Service Date/Time: Saturday, December 10, 2016 12:44 - CONCLUSION: Pronounced biliary ductal dilatation with distal obstruction of the CBD by pancreatic mass which appears grossly stable. Barber Richardson MD Chest X-Ray 12/10/16 0000 Signed Impressions: Service Date/Time: Saturday, December 10, 2016 05:19 - CONCLUSION: 1. Bibasilar densities greater left lower lobe. 2. Endotracheal tube tip 6.5 cm above jade. Messi Hayden MD Bile Duct Drainage 12/10/16 0000 Signed Impressions: Service Date/Time: Saturday, December 10, 2016 15:33 - CONCLUSION: Uncomplicated internal/external biliary drain placement as above. Duy Moran MD Physical Exam HEENT: Normocephalic; atraumatic; + jaundice. CHEST: CTA. OETT to vent CARDIAC: RRR ABDOMEN: Soft, nondistended,no hepatosplenomegaly; bowel sounds are present in all four quadrants. Biliary drain patent EXTREMITIES: No clubbing, cyanosis, or edema. SKIN: Normal; ,+ jaundice. SITE INSPECTOR: Sedated on a vent (Shira Rees) Assessment and Plan Plan ASSESSMENT: - Obstructive jaundice secondary to pancreatic head mass (previous w/u negative for malignancy). S/P Unsuccessful ERCP (12/08/16)-----> biliary stent removed, failed ERCP attempt as outpatient. Pt developed pain and returned to hospital. S/P MRCP (12/10/16)---> Pronounced biliary ductal dilatation with distal obstruction of the CBD by pancreatic mass which appears grossly stable. S/P PTHC on (12/10/16). Biliary drain patent. LFTs are trending down. T. Bili 5.1, AST 263, ALT 750, Alk Phosph 209. Still with elevated WBC 19.7. Flagyl, Cefepime. - Cholangitis secondary to above. S/P PTHC. Flagyl, Cefepime. - Pancreatic head mass. Found to have pancreatic head mass, measuring 4.63.8 cm with resulting intrahepatic and extrahepatic delivery obstruction with dilatation on MRCP. Tumor markers were unremarkable. He underwent ERCP with stent placement and biopsy (08/06/16) and this revealed ampullary stenosis, duodenal mass. Pathology of the duodenal mass revealed duodenal mucosa with Sheryl's gland hyperplasia and features suggesting peptic duodenitis. He was then admitted to [place] for intensive rehabilitation. There was some concern that this could be malignant and therefore he was evaluated by oncology. The mass was not amenable to CT guided biopsy and therefore he was discharged with the plan to have EUS as outpatient. EUS with FNA (08/26/16)-----> inhomogeneous Pancrease with lobularity in the body and mild hypoechogenicity in the head, FNA of the head done, no distinct mass seen, CBD with stent in place, PD mildly dilated to 2.7 mm, no lymphadenopathy, no vascular infiltration. Benign cytology with ductal cells with reactive changes. - Severe abdomen pain, likely secondary to biliary obstruction and cholangitis vs post ERCP pancreatitis, Lipase normal - Elevated LFTs, secondary to above. Improving. - Hepatic encephalopathy. Lactulose - Sepsis with lactic acidosis, hypotension, tachycardia, Abx with cefepime and flagyl. blood cx no growth x 3/4 days - Leukocytosis. WBC19.7 . Cefepime and Flagyl. - Respiratory failure. On vent per CCM. - Elevated troponin, per CCM - Multiple electrolyte abnormalities with hypokalemia, hypernatremia, hypocalcemia. per ccm - Anemia. improved today hgb is 12.9/36.8. 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 Abx - Cont. PPI - Monitor labs - Plan would be to have IR internalize drain with stent later in week, will d/w IR re: timing. - Supportive care - Further recommendations to follow based on results of above - Pt seen and examined by Dr. Kennedy and myself and this note is written on her behalf (Shira Rees) Physician Comments agree with above (Shari Kennedy MD) Shira Rees December 13, 2016 15:55 Shari Kennedy MD December 13, 2016 21:18
[2016-12-13] MEDS: ICU - SODIUM PHOSPHATE 30 MMOL/NS 250 ML IV PRN ×4 (16:53→17:17)
[2016-12-13] MEDS: PANTOPRAZOLE SODIUM 40 MG VIAL IV PUSH SCH (17:17)
[2016-12-13] MEDS: VASOPRESSIN INJ 40 UNITS in DEXTROSE 5% IN WATER 100ML INJ 98 ML IV SCH ×2 (20:20)
[2016-12-14] VITALS (18 sets, daily range): BP systolic 97–142; BP diastolic 53–66; PULSE 63–91; RESP 14–26; TEMP 97–99; O2SAT 93–97
[2016-12-14] MEDS: HYDROCORTISONE SOD SUCCINATE 100 MG VIAL IV PUSH SCH ×4 (01:22→17:39)
[2016-12-14] MEDS: CHLORHEXIDINE GLUCONATE 2 % 1 PACK (2 CLOTHS) TOP SCH (01:22)
[2016-12-14] MEDS: metroNIDAZOLE 500 MG INJ 100 ML IV SCH ×4 (01:22→17:42)
[2016-12-14] MEDS: NOREPINEPHRINE 4 MG/D5W 250 ML IV SCH (03:21)
[2016-12-14 04:29] LABS: AUTOMATED NEUTROPHIL # 10.8 TH/MM3 (1.8-7.7); BASOPHIL % 0.2 % (0.0-2.0); HEMATOCRIT 33.4 % (39.0-51.0); LYMPH % 7.9 % (9.0-44.0); MEAN CELL VOLUME 84.9 FL (80.0-100.0); MEAN CORPUSCULAR HEMOGLOBIN 28.4 PG (27.0-34.0); MEAN CORPUSCULAR HGB CONC 33.4 % (32.0-36.0); MONO % 6.7 % (0.0-8.0); NEUT % 85.2 % (16.0-70.0); RED BLOOD COUNT 3.93 MIL/MM3 (4.50-5.90); RED CELL DISTRIBUTION WIDTH 14.1 % (11.6-17.2); WHITE BLOOD COUNT 12.7 TH/MM3 (4.0-11.0)
[2016-12-14 04:32] LABS: HEMO FLAGS AUTO DIFF
[2016-12-14 05:03] LABS: BICARBONATE 27.1 MEQ/L (21.0-32.0); CALCIUM-PROTEIN CORRECTED 7.8 MG/DL (8.5-10.1); MAGNESIUM 1.4 MG/DL (1.5-2.5); TOTAL BILIRUBIN ADULT 4.7 MG/DL (0.2-1.0)
[2016-12-14 05:22] LABS: POTASSIUM 2.9 MEQ/L (3.5-5.1)
[2016-12-14] MEDS: INSULIN ASPART SUPPLEMENTAL SCALE SQ SCH ×4 (06:00→18:19)
[2016-12-14] MEDS: FOSPHENYTOIN SODIUM 100 MG PE/2 ML VIAL IV SCH ×3 (06:03→22:25)
[2016-12-14] MEDS: CEFEPIME INJ 2,000 MG in SODIUM CHLORIDE 0.9% INJ 100 ML IV SCH ×2 (06:04→17:41)
--- NOTE | 2016-12-14 06:15 | RADRPT ---
EXAM DATE/TIME: 12/14/2016 04:38 [facility] COMPARISON: CHEST SINGLE AP, December 10, 2016, 5:19. INDICATIONS : Shortness of breath. MEDICAL HISTORY : Hepatitis C. SURGICAL HISTORY : None. ENCOUNTER: Subsequent ACUITY: 4 - 6 days PAIN SCORE: Non-responsive. LOCATION: Bilateral chest FINDINGS: A single portable frontal view the chest shows the tip of the endotracheal tube 5 cm from the jade. Nasogastric tube coiled within the fundus. Left-sided central line. Bilateral basilar infiltrates ar e worse from the prior study. Heart is normal in size. CONCLUSION: Progression in bibasilar infiltrates. Philip Ralph Jr., MD on December 14, 2016 at 6:13 Board Certified Radiologist. This report was verified electronically.
[2016-12-14 06:58] LABS: PLATELET ESTIMATE SMEAR LOW (NORMAL); PLATELET MORPHOLOGY ENLARGED (NORMAL); SCAN/DIFF AUTO DIFF CONFIRMED
[2016-12-14] MEDS: ICU - POTASSIUM CHLORIDE/AQUEOUS SOLN 40 MEQ/100 ML IVPB IV PRN ×2 (07:01→07:02)
[2016-12-14] MEDS: DOCUSATE SODIUM 100 MG/10 ML UDC OG-TUBE SCH ×2 (08:50→20:11)
[2016-12-14] MEDS: LACTULOSE SYRUP 20 GM/30 ML CUP PO SCH ×4 (08:51→20:12)
--- NOTE | 2016-12-14 09:33 | PD.CONS ---
History of Present Illness Service Neurology Consult Requested By [facility] Reason for Consult seizures Primary Care Physician Tl Yanez MD History of Present Illness 51 y/o man with hx of myotonic dystrophy had stent removed yesterday following insertion for benign pancreatic mass then became septic. apparently had a sz. on iv dilantin. no further events. pt unable to give any hx. d/w ccm. Past Family Social History Allergies: Coded Allergies: *MDRO Multi-Drug Resistant Organism (Verified Adverse Reaction, Unknown, ) MRSA (sputum)-08/13/16 MRSA (sputum & blood) 07/2014 MRSA PCR Screen positive 07/02/15. MRSA eye culture 07/2015 Past Medical History Past Medical History Unable to obtain from patient due to medication-related confusion, taken from EMR Myotonic dystrophy Anxiety Hyperlipidemia Hepatic stay a ptosis Heparin-induced thrombocytopenia Pancreatic mass with obstructive jaundice Asthma GERD Past Surgical History Unable to obtain from patient due to medication-related confusion, taken from EMR Cholecystectomy 2014 Pancreatic stent 2017 Tonsillectomy Feeding tube and tracheostomy which were removed in July 2014 Reported Medications Patient tells me he takes no medications - he does have medication-related confusion though Reported Meds & Active Scripts Active No Active Prescriptions or Reported Medications . Allergies: Coded Allergies: *MDRO Multi-Drug Resistant Organism (Verified Adverse Reaction, Unknown, ) MRSA (sputum)-08/13/16 MRSA (sputum & blood) 07/2014 MRSA PCR Screen positive 07/02/15. MRSA eye culture 07/2015 Review of Systems All other ROS: Unable to obtain Past Family Social History Allergies: Coded Allergies: *MDRO Multi-Drug Resistant Organism (Verified Adverse Reaction, Unknown, ) MRSA (sputum)-08/13/16 MRSA (sputum & blood) 07/2014 MRSA PCR Screen POSITIVE - 07/02/15 & 12/10/16 MRSA (eye culture) - 07/2015 Active Ordered Medications Current Medications Medications (Trade) Dose Ordered Sig/[place] Route Start Time Stop Time Status Last Admin (NS Flush) 2 ml UNSCH PRN IV FLUSH 12/09/16 17:15 12/09/16 19:00 (NS Flush) 2 ml BID IV FLUSH 12/09/16 21:00 12/13/16 20:51 (Tylenol) 650 mg Q4H PRN PO 12/09/16 17:15 (Senokot) 17.2 mg Q12H PRN PO 12/09/16 17:15 (Tylenol) 650 mg Q6H PRN PO 12/09/16 17:15 (Morphine Inj) 2 mg Q3H PRN IV 12/09/16 17:15 (Morphine Inj) 4 mg Q3H PRN IV 12/09/16 17:15 12/09/16 21:57 (Narcan Inj) 0.4 mg UNSCH PRN IV 12/09/16 17:15 Pantoprazole Sodium 40 mg 40 mg Q24H IV PUSH 12/09/16 18:00 12/13/16 17:17 Norepinephrine Bitartrate 250 ml @ 0 mls/hr TITRATE IV 12/10/16 06:00 12/14/16 03:21 (Pitressin Inj/ D5W 100 ml Inj) 100 ml @ 1.5 mls/hr Q24H IV 12/10/16 06:20 12/13/16 20:20 (Zofran Inj) 4 mg Q6H PRN IV 12/10/16 06:30 Miscellaneous Information 1 Q361D XX 12/10/16 06:30 (Chlorhexidine 2% Cloth) 3 pack Taper DAILY@04 TOP 12/11/16 04:00 12/07/17 03:59 12/14/16 01:22 Chlorhexidine Gluconate 3 pack 3 pack UNSCH PRN TOP 12/10/16 06:30 Fentanyl Citrate 250 ml @ 0 mls/hr TITRATE IV 12/10/16 06:30 Propofol 100 ml @ 0 mls/hr TITRATE IV 12/10/16 06:30 12/13/16 08:20 Cefepime HCl 2000 mg/Sodium Chloride 100 ml @ 200 mls/hr Q12H IV 12/10/16 07:00 12/14/16 06:04 Metronidazole 100 ml @ 100 mls/hr Q6H IV 12/10/16 07:00 12/14/16 06:04 (DOBUTamine PREMIX DRIP) 250 ml @ 9.21 mls/hr Q24H IV 12/10/16 08:45 12/13/16 08:19 Miscellaneous Information D/C ICU ELECTROLYTE ORDERS... UNSCH PRN .XX 12/10/16 08:45 Miscellaneous Information ICU - CALL ORDERING PHYSIC... UNSCH PRN .XX 12/10/16 08:45 (KCl 40 Meq Premix Inj) 100 ml @ 25 mls/hr UNSCH PRN IV 12/10/16 08:45 12/14/16 07:02 Potassium Bicarb/ Potassium Chloride 50 meq 50 meq UNSCH PRN PO 12/10/16 08:45 12/12/16 15:52 Potassium Chloride 100 ml @ 50 mls/hr UNSCH PRN IV 12/10/16 08:45 Magnesium Sulfate 4 gm/Sodium Chloride 108 ml @ 54 mls/hr UNSCH PRN IV 12/10/16 08:45 (Magnesium Sulfate Inj/NS Inj) 104 ml @ 52 mls/hr UNSCH PRN IV 12/10/16 08:45 Magnesium Oxide 800 mg 800 mg UNSCH PRN PO 12/10/16 08:45 (Sodium Phosphate Inj/NS 250 ml Inj) 260 ml @ 43.333 mls/ hr UNSCH PRN IV 12/10/16 08:45 12/13/16 17:17 (K-Phos) 2,000 mg UNSCH PRN PO 12/10/16 08:45 12/12/16 14:40 (Cerebyx Inj) 100 mgpe Q8HR IV 12/11/16 22:00 12/14/16 06:03 (Brethine Inj) 1 mg UNSCH PRN SQ 12/11/16 10:30 (SoluCORTEF INJ) 50 mg Q6HR IV PUSH 12/11/16 12:00 12/14/16 06:03 (Bactroban Nasal 2% Oint) 1 applic BID NASAL 12/11/16 21:00 12/13/16 20:51 (Colace Liq) 100 mg BID OG-TUBE 12/11/16 23:32 12/13/16 08:20 (D50w (Vial) Inj) 25 ml UNSCH PRN IV PUSH 12/12/16 12:15 (Glucagon Inj) 1 mg UNSCH PRN OTHER 12/12/16 12:15 (NovoLOG SUPPLEMENTAL SCALE) 1 Q6HR SQ 12/12/16 12:15 12/13/16 17:17 Lactulose 30 ml 30 ml QID PO 12/13/16 13:00 12/13/16 17:17 (Sodium Chloride 23.4% Inj/NS 1000 ml Inj) 1,047 ml @ 40 mls/hr Q24H IV 12/13/16 13:00 12/13/16 13:18 Exam I&O / VS 12/13/16 12/13/16 12/14/16 15:00 23:00 07:00 Intake Total 875 ml 934 ml 727 ml Output Total 2020 ml 1040 ml 425 ml Balance -1145 ml -106 ml 302 ml Intake IV Total 875 ml 934 ml 727 ml Output Urine Total 2000 ml 1000 ml 425 ml Tube Feeding Residual Discard 0 ml 0 ml 0 ml Drainage Total 20 ml 40 ml 0 ml # Bowel Movements 1 2 1 Vital Signs Date Time Temp Pulse Resp B/P Pulse Ox O2 Delivery O2 Flow Rate FiO2 12/14/16 08:00 40 12/14/16 08:00 99.0 68 23 118/53 94 12/14/16 08:00 91 12/14/16 07:24 96 40 12/14/16 07:00 94 Mechanical Ventilator 40 12/14/16 06:00 83 12/14/16 04:02 94 40 12/14/16 04:00 97.0 79 18 125/58 93 12/14/16 04:00 40 12/14/16 04:00 79 12/14/16 02:00 79 12/14/16 01:05 94 40 12/14/16 00:00 98.9 78 26 142/66 95 12/14/16 00:00 40 12/14/16 00:00 78 12/13/16 22:04 97 40 12/13/16 22:00 88 12/13/16 20:00 72 12/13/16 20:00 40 12/13/16 20:00 98.6 72 19 94/84 96 12/13/16 19:10 98 40 12/13/16 19:00 93 Mechanical Ventilator 40 12/13/16 16:17 96 40 12/13/16 16:00 45 12/13/16 16:00 99.1 96 16 120/68 96 12/13/16 12:00 35 12/13/16 12:00 45 12/13/16 12:00 98.7 70 13 112/68 96 12/13/16 11:39 96 40 Respiratory: Non-labored respirations Cardiology: Normal rate Exam Comments intubated, able to follow simple commands, temporal wasting, ou 3-2mm, severe weakness generalized in 4 ext, mild distal wasting Review/Management Diagnosis/Plan: (1) Encephalopathy, metabolic Plan: sz- likely 2/2 metabolic/electrolyte changes recs continue iv dilantin on lactulose correct lytes ct brain p.t. as tolerated d/w ccm d/w spouse on phone follow exam (2) Myotonic dystrophy, type 1 (3) Aspiration pneumonia (4) Biliary sepsis Problem Qualifiers (1) Aspiration pneumonia: Chris Manuel MD December 14, 2016 09:33
[2016-12-14] MEDS: ICU - SODIUM PHOSPHATE 30 MMOL/NS 250 ML IV PRN ×2 (09:44)
[2016-12-14] MEDS: VASOPRESSIN INJ 40 UNITS in DEXTROSE 5% IN WATER 100ML INJ 98 ML IV SCH ×2 (09:44)
[2016-12-14] MEDS: DOBUTamine 250 MG/D5W 250 ML PREMIX DRIP IV SCH (09:45)
[2016-12-14] MEDS: MUPIROCIN 2% OINT 1 APPLIC/GM SYR NASAL SCH ×2 (09:45→20:11)
[2016-12-14] MEDS: SODIUM CHLORIDE 0.9% FLUSH 10 ML FLUSH IV FLUSH SCH ×2 (09:45→20:11)
[2016-12-14 09:47] LABS: BLOOD GAS CARBOXYHEMOGLOBIN 1.1 % (0-4); BLOOD GAS HCO3 20 mmol/L (22-26); BLOOD GAS METHEMOGLOBIN 0.8 % (0-2); BLOOD GAS O2 HGB SATURATION 94 % (90-100); BLOOD GAS OXYGEN CONTENT 12.4 Vol % (12.0-20.0); BLOOD GAS PCO2 28 mmHg (38-42); BLOOD GAS PO2 70 mmHg (61-120); BLOOD GAS TOTAL HGB 9.4 G/DL (12.0-16.0); CRITICAL VALUE NO; DRAW SITE ART LINE; FIO2 35 %; NUMBER OF ARTERIAL PUNCTURES 0; OXYGEN DEVICE VENTILATOR; STAT NO; TEMP CORR TO 98.6; ULNAR PULSE PRESENT
--- NOTE | 2016-12-14 10:00 | HHI.CCPN ---
Subjective Remarks/Hospital Course 51 y/o man had stent removed yesterday following insertion for benign pancreatic mass. Now hypotensive and acts septic. 12/11: Biliary drain placed 12/10 for drainage of GB and common duct due because of distal CD obstruction from pancreatic mass. Seizure this morning. 12/12: Remains septic and requiring vasopressor support. Hyponatremia new, likely free water excess. 12/13: Remains on 10 mics of Levophed, vasopressin 0.04 international units, dobutamine 2.5 g per KG per min. Remains on propofol but moves extremities. Sodium 125, potassium 2.7. GI not planning any other interventions at this time. Biliary drain with 160 mL in 24 hours 12/14: Levophed had been weaned off. Remains on vasopressin 0.04, dobutamine 2.5 g per KG per minute. Urine output excellent. Potassium phosphorus remains low. Tolerating CPAP but lethargic. Plt count 77 today Objective Vital Signs Date Time Temp Pulse Resp B/P Pulse Ox O2 Delivery O2 Flow Rate FiO2 12/14/16 08:00 40 12/14/16 08:00 99.0 68 23 118/53 94 12/14/16 07:00 Mechanical Ventilator Intake and Output 12/13/16 12/13/16 12/14/16 08:00 16:00 00:00 Intake Total 1191 ml 875 ml 934 ml Output Total 475.0 ml 2020 ml 1040 ml Balance 716.0 ml -1145 ml -106 ml Result Diagram: 12/14/16 0405 12/14/16 0405 Other Results Laboratory Tests Test 12/14/16 09:35 Blood Gas Puncture Site ART LINE Blood Gas Patient Temperature 98.6 Blood Gas HCO3 20 mmol/L (22-26) Blood Gas Base Excess -3.0 mmol/L (-2-2) Blood Gas Oxygen Saturation 94 % (90-100) Arterial Blood pH 7.47 (7.380-7.420) Arterial Blood Partial 28 mmHg (38-42) Pressure CO2 Arterial Blood Partial 70 mmHg Pressure O2 (61-120) Arterial Blood Oxygen Content 12.4 Vol % (12.0-20.0) Arterial Blood 1.1 % (0-4) Carboxyhemoglobin Arterial Blood Methemoglobin 0.8 % (0-2) Blood Gas Hemoglobin 9.4 G/DL (12.0-16.0) Oxygen Delivery Device VENTILATOR Blood Gas Ventilator Setting CPAP,5PEEP,5PS Blood Gas Inspired Oxygen 35 % Objective Remarks Gen: Ill-appearing. Lethargic not on any sedation Neck: Supple, orally intubated. Lungs: Clear, good shanthi air entry. No wheezes. Heart: NL S1S2, tachycardia, no JVD. Abdomen: No involuntary guarding, BS present. R biliary drain with 60 ml in 24 hours Extremities: warm, well perfused. Neuro: Off all sedation. lethargic,weakly follows commands. Moves all extremities. (Tonic-clonic seizure once 12/11) Urinary Catheter: Yes Assessment to: Continue A/P Assessment and Plan ASSESSMENT Septic/circulatory Shock. Cholangitis S/P PTHC. Obstructive jaundice secondary to pancreatic head mass (previous w/u negative for malignancy). Hypoxemic Respiratory Failure. Metabolic Acidosis Metabolic encephalopathy Tonic-clonic seizure, new. Hyponatremia, hypokalemia and hypophosphatemia History of Myotonic dystrophy Plan: NEURO: -Propofol for sedation and vent synchrony, off all sedation for 24 hours -Daily sedation vacation -EEG report pending. Continue Cerebyx. Dilantin 11.7 today -IV Ativan when necessary for seizures. Correct hyponatremia due to seizures -Neurology Dr. Manuel RESP: -PRVC vent mode. Vent bundle -DuoNeb every 6 hours when necessary -SBT with parameters, possible extubation CVS: -Dobutamine, Vasopressin-wean to DC both. Off Levophed support -2% saline to correct hyponatremia, continue at 40 ml per hour -Off Bicarb gtt -IV lasix 20 mg daily-hold due to pressor use GI: -Obstructive jaundice and possible cholangitis -S/P PTHC on (12/10/16) by IR : -Hold IV Lasix. 2% saline to correct hyponatremia (Keep >135 due to sz) ID -Septic shock, most likely cholangitis -Continue broad-spectrum antibiotics cefepime and Flagyl -All cultures negative to date Endo: -Hyponatremia and hypokalemia, correction with 2% saline, Electrolyte replacement per protocol HEME: -Thrombocytopenia most likely from sepsis, prev HIT weakly positive -Consult hematology, avoid heparin products DVT/GI prophylaxis -Avoid heparin products due to previous thrombocytopenia, ? HIT -IV Protonix Overall impression: Septic shock persists, etiology most likely septic. He remains critically ill Critical Care 30 mins Denise Blandon MD December 14, 2016 10:00
--- NOTE | 2016-12-14 10:58 | HHI.GIFU ---
Subjective Remarks Resting in bed. Lethargic on ventilator. Does awaken and follow simple commands. Still on vasopressors. (Shira Rees) Objective Vitals I&O Vital Signs Date Time Temp Pulse Resp B/P Pulse Ox O2 Delivery O2 Flow Rate FiO2 12/14/16 10:00 91 12/14/16 08:00 40 12/14/16 08:00 99.0 68 23 118/53 94 12/14/16 08:00 91 12/14/16 07:24 96 40 12/14/16 07:00 94 Mechanical Ventilator 40 12/14/16 06:00 83 12/14/16 04:02 94 40 12/14/16 04:00 97.0 79 18 125/58 93 12/14/16 04:00 40 12/14/16 04:00 79 12/14/16 02:00 79 12/14/16 01:05 94 40 12/14/16 00:00 98.9 78 26 142/66 95 12/14/16 00:00 40 12/14/16 00:00 78 12/13/16 22:04 97 40 12/13/16 22:00 88 12/13/16 20:00 72 12/13/16 20:00 40 12/13/16 20:00 98.6 72 19 94/84 96 12/13/16 19:10 98 40 12/13/16 19:00 93 Mechanical Ventilator 40 12/13/16 16:17 96 40 12/13/16 16:00 45 12/13/16 16:00 99.1 96 16 120/68 96 12/13/16 12:00 35 12/13/16 12:00 45 12/13/16 12:00 98.7 70 13 112/68 96 12/13/16 11:39 96 40 I/O 12/13/16 12/13/16 12/13/16 12/14/16 12/14/16 12/14/16 07:00 15:00 23:00 07:00 15:00 23:00 Intake Total 1191 ml 875 ml 934 ml 727 ml Output Total 475 ml 2020 ml 1040 ml 425 ml 0 ml Balance 716 ml -1145 ml -106 ml 302 ml 0 ml Intake IV Total 1111 ml 875 ml 934 ml 727 ml Tube Feeding 80 ml Tube Irrigant 0 ml Output Urine Total 425 ml 2000 ml 1000 ml 425 ml Gastric Drainage Total 0 ml Tube Feeding Residual Discard 0 ml 0 ml 0 ml 0 ml Drainage Total 50 ml 20 ml 40 ml 0 ml # Bowel Movements 0 1 2 1 Laboratory Laboratory Tests Test 12/13/16 12/13/16 12/14/16 12/14/16 12:50 15:45 04:05 09:35 Sodium Level 126 143 128 Phosphorus Level 1.4 1.1 White Blood Count 12.7 Red Blood Count 3.93 Hemoglobin 11.2 Hematocrit 33.4 Mean Corpuscular Volume 84.9 Mean Corpuscular Hemoglobin 28.4 Mean Corpuscular Hemoglobin 33.4 Concent Red Cell Distribution Width 14.1 Platelet Count 77 Mean Platelet Volume 10.7 Neutrophils (%) (Auto) 85.2 Lymphocytes (%) (Auto) 7.9 Monocytes (%) (Auto) 6.7 Eosinophils (%) (Auto) 0.0 Basophils (%) (Auto) 0.2 Neutrophils # (Auto) 10.8 Lymphocytes # (Auto) 1.0 Monocytes # (Auto) 0.9 Eosinophils # (Auto) 0.0 Basophils # (Auto) 0.0 CBC Comment AUTO DIFF Differential Comment AUTO DIFF CONFIRMED Platelet Estimate LOW Platelet Morphology Comment ENLARGED Potassium Level 2.9 Chloride Level 91 Carbon Dioxide Level 27.1 Anion Gap 10 Blood Urea Nitrogen 5 Creatinine 0.44 Estimat Glomerular Filtration 203 Rate Random Glucose 144 Calcium Level 6.8 Protein Corrected Calcium 7.8 Magnesium Level 1.4 Total Bilirubin 4.7 Aspartate Amino Transf 127 (AST/SGOT) Alanine Aminotransferase 492 (ALT/SGPT) Alkaline Phosphatase 175 Total Protein 5.1 Albumin 2.1 Phenytoin (Dilantin) Level 11.7 Blood Gas Puncture Site ART LINE Blood Gas Patient Temperature 98.6 Blood Gas HCO3 20 Blood Gas Base Excess -3.0 Blood Gas Oxygen Saturation 94 Arterial Blood pH 7.47 Arterial Blood Partial 28 Pressure CO2 Arterial Blood Partial 70 Pressure O2 Arterial Blood Oxygen Content 12.4 Arterial Blood 1.1 Carboxyhemoglobin Arterial Blood Methemoglobin 0.8 Blood Gas Hemoglobin 9.4 Oxygen Delivery Device VENTILATOR Blood Gas Ventilator Setting CPAP,5PEEP,5PS Blood Gas Inspired Oxygen 35 Date/Time Procedure Status Source Growth 12/10/16 08:35 Aerobic Blood Culture - Preliminary Resulted Blood Peripheral NO GROWTH IN 3 DAYS 12/10/16 08:35 Anaerobic Blood Culture - Preliminary Resulted Blood Peripheral NO GROWTH IN 3 DAYS 12/10/16 07:30 Urine Culture - Final Complete Urine Catheterized Urine NO GROWTH IN 48 HOURS. Imaging Last Impressions Chest X-Ray 12/14/16 0600 Signed Impressions: Service Date/Time: Wednesday, December 14, 2016 04:38 - CONCLUSION: Progression in bibasilar infiltrates. Philip Ralph Jr., MD Cholangiopancreatography MRI 12/10/16 0000 Signed Impressions: Service Date/Time: Saturday, December 10, 2016 12:44 - CONCLUSION: Pronounced biliary ductal dilatation with distal obstruction of the CBD by pancreatic mass which appears grossly stable. Barber Richardson MD Bile Duct Drainage 12/10/16 0000 Signed Impressions: Service Date/Time: Saturday, December 10, 2016 15:33 - CONCLUSION: Uncomplicated internal/external biliary drain placement as above. Duy Moran MD Physical Exam HEENT: Normocephalic; atraumatic; + jaundice. CHEST: CTA. OETT to vent CARDIAC: RRR ABDOMEN: Soft, nondistended,no hepatosplenomegaly; bowel sounds are present in all four quadrants. Biliary drain patent EXTREMITIES: No clubbing, cyanosis, or edema. SKIN: Normal; ,+ jaundice. CONTACT LENS TECHNICIAN: Lethargic, does follow simple commands (Shira Rees) Assessment and Plan Plan ASSESSMENT: - Obstructive jaundice secondary to pancreatic head mass (previous w/u negative for malignancy). S/P Unsuccessful ERCP (12/08/16)-----> biliary stent removed, failed ERCP attempt as outpatient. Pt developed pain and returned to hospital. S/P MRCP (12/10/16)---> Pronounced biliary ductal dilatation with distal obstruction of the CBD by pancreatic mass which appears grossly stable. S/P PTHC on (12/10/16). Biliary drain patent. LFTs are slowly trending down. T. Bili 4.7, AST 127, ALT 492, Alk Phosph 175. WBC improving, down to 12.7. Flagyl, Cefepime. D/W Dr. Esquivel in IR, plan will be to schedule [facility] ERCP with both IR/GI later this week. Will plan to keep intubated until procedure done- d/w Dr. Blandon. - Cholangitis secondary to above. S/P PTHC. Flagyl, Cefepime. - Pancreatic head mass. Found to have pancreatic head mass, measuring 4.63.8 cm with resulting intrahepatic and extrahepatic delivery obstruction with dilatation on MRCP. Tumor markers were unremarkable. He underwent ERCP with stent placement and biopsy (08/06/16) and this revealed ampullary stenosis, duodenal mass. Pathology of the duodenal mass revealed duodenal mucosa with Sheryl's gland hyperplasia and features suggesting peptic duodenitis. He was then admitted to [facility] for intensive rehabilitation. There was some concern that this could be malignant and therefore he was evaluated by oncology. The mass was not amenable to CT guided biopsy and therefore he was discharged with the plan to have EUS as outpatient. EUS with FNA (08/26/16)-----> inhomogeneous Pancrease with lobularity in the body and mild hypoechogenicity in the head, FNA of the head done, no distinct mass seen, CBD with stent in place, PD mildly dilated to 2.7 mm, no lymphadenopathy, no vascular infiltration. Benign cytology with ductal cells with reactive changes. - Severe abdomen pain, likely secondary to biliary obstruction and cholangitis vs post ERCP pancreatitis, Lipase normal. Seems to be much improved - Elevated LFTs, secondary to above. Improving. - Hepatic encephalopathy. Lactulose - Sepsis with lactic acidosis, hypotension, tachycardia, Abx with cefepime and flagyl. blood cx no growth x 3/4 days. Still on vasopressors - Leukocytosis. WBC 12.7 . Cefepime and Flagyl. - Respiratory failure. On vent per CCM. - Elevated troponin, per CCM - Multiple electrolyte abnormalities with hypokalemia, hypernatremia, hypocalcemia. per ccm - Anemia. 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 Abx - Cont. PPI - Monitor labs - Supportive care - Plan is for [facility] Procedure/ERCP with IR/GI later in week, will plan on keeping intubated until after procedure - D/W Dr. Esquivel - D/W Dr. Blandon - Further recommendations to follow based on results of above - Pt seen and examined by Dr. Kennedy and myself and this note is written on her behalf (Shira Rees) Physician Comments agree with above (Shari Kennedy MD) Shira Rees December 14, 2016 10:58 Shari Kennedy MD December 14, 2016 19:33
[2016-12-14] MEDS: BUMETANIDE INJ 1 MG/4 ML VIAL IV PUSH SCH ×3 (11:52→18:12)
[2016-12-14] MEDS: POTASSIUM CHLORIDE 25 MEQ EFFERVESCENT TAB PO SCH ×2 (11:53→20:12)
[2016-12-14] MEDS: SODIUM CHLORIDE 23.4% INJ 188 MEQ in SODIUM CHLOR 0.9% 1000 ML INJ 1,000 ML IV SCH (13:28)
[2016-12-14 15:34] LABS: POTASSIUM 3.6 MEQ/L (3.5-5.1)
--- NOTE | 2016-12-14 16:36 | MG ---
cc: BIANCA SCHOFIELD M.D. 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 PROCEDURE: Awake, drowsy, asleep. No sedation, left also right leg. Hyperventilation omitted, intubated. Photic done following simple commands. EEG yesterday showed moderate slowing as well as some spiking and waves. Apparently this a 51-year-old man with a seizure the day before yesterday, sedation was turned off. He had also epigastric pain lower chest pain, cirrhosis and jaundice current medicines are Cerebyx, metronidazole, norepinephrine, Protonix, Solu-Cortef. DESCRIPTION OF RECORD: The patient is drowsy. There is some moderate slowing between 5-6 Hz from movement of his legs. There is no correlation. There with any epileptiform features. Photic stimulation did elicit a minimal driving response. IMPRESSION Abnormal EEG due to mild moderate slowing consistent with encephalopathic process. No evidence of any epileptic activity on this one EEG. Clinical correlation. MD JOB Johnson/prince /4:10 PM /4:22 PM
[2016-12-14] MEDS: THIAMINE INJ 100 MG in SODIUM CHLORIDE 0.9% INJ 100 ML IV SCH (17:39)
[2016-12-14] MEDS: PANTOPRAZOLE SODIUM 40 MG VIAL IV PUSH SCH (17:40)
[2016-12-15] VITALS (19 sets, daily range): BP systolic 104–128; BP diastolic 49–59; PULSE 53–94; RESP 16–18; TEMP 97.5–98.3; O2SAT 96–100
[2016-12-15] MEDS: HYDROCORTISONE SOD SUCCINATE 100 MG VIAL IV PUSH SCH ×5 (00:58→23:01)
[2016-12-15] MEDS: INSULIN ASPART SUPPLEMENTAL SCALE SQ SCH ×5 (01:04→23:11)
[2016-12-15] MEDS: metroNIDAZOLE 500 MG INJ 100 ML IV SCH ×4 (01:04→17:04)
[2016-12-15] MEDS: ACETAMINOPHEN 325 MG TAB PO PRN ×3 (03:10→17:57)
[2016-12-15 04:05] LABS: AUTOMATED NEUTROPHIL # 16.7 TH/MM3 (1.8-7.7); LYMPH % 5.9 % (9.0-44.0); LYMPHOCYTE # 1.2 TH/MM3 (1.0-4.8); MEAN CELL VOLUME 86.1 FL (80.0-100.0); MEAN CORPUSCULAR HGB CONC 34.9 % (32.0-36.0); MONO % 9.3 % (0.0-8.0); NEUT % 84.8 % (16.0-70.0); PLATELET COUNT 192 TH/MM3 (150-450); RED BLOOD COUNT 4.41 MIL/MM3 (4.50-5.90); RED CELL DISTRIBUTION WIDTH 14.7 % (11.6-17.2); WHITE BLOOD COUNT 19.7 TH/MM3 (4.0-11.0)
[2016-12-15] MEDS: NOREPINEPHRINE 4 MG/D5W 250 ML IV SCH ×3 (04:07→20:45)
[2016-12-15] MEDS: CHLORHEXIDINE GLUCONATE 2 % 1 PACK (2 CLOTHS) TOP SCH (04:07)
[2016-12-15 04:08] LABS: HEMO FLAGS AUTO DIFF
[2016-12-15 04:28] LABS: TOTAL BILIRUBIN ADULT 3.9 MG/DL (0.2-1.0)
--- NOTE | 2016-12-15 05:49 | RADRPT ---
EXAM DATE/TIME: 12/15/2016 04:43 [facility] COMPARISON: CT BRAIN W/O CONTRAST, June 15, 2014, 4:29. INDICATIONS : Altered mental status. RADIATION DOSE: 64.19 CTDIvol (mGy) MEDICAL HISTORY : Cardiovascular disease. Hepatitis B. SURGICAL HISTORY : Cholecystectomy. ENCOUNTER: Initial ACUITY: 1 day PAIN SCALE: Non-responsive LOCATION: cranial TECHNIQUE: Multiple contiguous axial images were obtained of the head. Using automated exposure control and adj ustment of the mA and/or kV according to patient size, radiation dose was kept as low as reasonably a chievable to obtain optimal diagnostic quality images. FINDINGS: CEREBRUM: A small chronic lacunar infarction involving the right basal ganglia. The ventricles are normal for a ge. No evidence of midline shift, mass lesion, hemorrhage or acute infarction. No extra-axial fluid collections are seen. POSTERIOR FOSSA: The cerebellum and brainstem are intact. The 4th ventricle is midline. The cerebellopontine angle i s unremarkable. EXTRACRANIAL: The visualized portion of the orbits is intact. SKULL: The calvaria is intact. No evidence of skull fracture. CONCLUSION: 1. No acute intracranial abnormality. 2. Small chronic lacunar infarction involving the right basal ganglia. Philip Ralph Jr., MD on December 15, 2016 at 5:46 Board Certified Radiologist. This report was verified electronically.
[2016-12-15] MEDS: FOSPHENYTOIN SODIUM 100 MG PE/2 ML VIAL IV SCH ×3 (06:53→21:24)
[2016-12-15] MEDS: CEFEPIME INJ 2,000 MG in SODIUM CHLORIDE 0.9% INJ 100 ML IV SCH ×2 (06:53→17:03)
--- NOTE | 2016-12-15 06:56 | MB ---
cc: ERNST YOUNG DATE OF 1965. DATE OF CONSULTATION The patient was seen on December 14, 2016. REASON FOR CONSULTATION Patient with thrombocytopenia who is currently septic and is on ventilator. HISTORY OF PRESENT ILLNESS This is a 55-year-old male who has a past medical history of myotonic dystrophy, gastroesophageal reflux disease, fatty liver disease and pancreatic mass. The patient was most recently admitted to the [facility] in July of 2016 with abdominal pain, diarrhea and jaundice. He underwent extensive workup including an MRCP which showed a pancreatic head mass of 4.6 x 3.8 cm which was causing intrahepatic and extrahepatic biliary obstruction with dilatation. The gallbladder was surgically absent. The patient underwent ERCP with stent placement with improvement in his bilirubin and jaundice. CT-guided biopsy was ordered, however, the pancreatic head mass was not amenable to image-guided percutaneous biopsy due to the location of the mass. It was also difficult to ascertain whether this was pure edema and fullness in the pancreatic head caused by obstruction of the pancreatic and common bile duct versus an actual mass. The patient was subsequently discharged from the hospital to have a rehab facility. An outpatient GI consultation evaluation was recommended including an endoscopic ultrasound with biopsy. However, it is unclear whether this was completed outpatient. Per the patient's , the patient followed up with a ham doctor at [facility]. The patient was now brought to the emergency department with abdominal pain, nausea and he was found to be in septic shock. The biliary stent was removed by the ham doctor. He subsequently developed acute mental status changes and possibly had a seizure. He also became hypotensive. The patient was intubated and he is on vasopressor support. On admission the patient's platelet count was 125,000 which has precipitously dropped to 77,000. On prior admission he also developed acute thrombocytopenia. He had HIT antibody testing which showed a weak positive HIT antibody test. A serotonin release assay was obtained which was negative, thus confirming that this was not HIT. It was thought that his thrombocytopenia was due to acute illness. I have been consulted to make further recommendations on this admission due to decline in the platelet counts again. The patient has not had any bleeding. He does not have any lower extremity edema or swelling. No large bruises or petechiae. He currently remains intubated. His is at bedside. REVIEW OF SYSTEMS Unable to be obtained due to the patient's mental status. PAST MEDICAL HISTORY Obtained from the EMR - 1. History of myotonic dystrophy. 2. Anxiety. 3. Hyperlipidemia. 4. Hepatic stenosis. 5. Pancreatic mass with obstructive jaundice status post stent placement. 6. Asthma. 7. Gastroesophageal reflux disease. PAST SURGICAL HISTORY 1. Cholecystectomy in 2014. 2. Pancreatic stent placement in 2017. 3. Tonsillectomy. 4. Feeding tube . 5. History of tracheostomy which was removed in July 2014. FAMILY HISTORY Reviewed from the EMR and is noncontributory to this admission. SOCIAL HISTORY He does not smoke cigarettes. No alcohol abuse. No illicit drug use. He is . MEDICATIONS Reviewed in the EMR. ALLERGIES No known drug allergies. PHYSICAL EXAMINATION VITAL SIGNS: Blood pressure is 124/64, pulse is in the 60s, temperature is 98.8, O2 sats are 94% on 40% FIO2. He is on mechanical ventilation. GENERAL: Acute on chronic illness. The patient is currently intubated. He responds to verbal stimuli and opens his eyes. HEENT: Pupils are somewhat sluggish. EOMI. No oral lesions. No oral thrush. NECK: Supple. No JVD. No bruits. No lymphadenopathy. CHEST: Clear to auscultation bilaterally. CARDIAC: S1, S2. Regular rate and rhythm. ABDOMEN: Soft. Bowel sounds are absent. No hepatosplenomegaly. EXTREMITIES: No edema, erythema or cyanosis. Peripheral wasting is noted. NEURO: Currently on ventilator. No apparent focal deficits. Unable to complete neuro exam. He is arousable with verbal commands. PSYCHIATRIC: Unable to be assessed LABORATORY DATA WBC 12.7, hemoglobin 11.2, platelet count 77. Serum chemistries show a sodium of 128, potassium 2.9, chloride 91, CO2 27.1, BUN 5, creatinine 0.44, calcium 6.8, phosphorus 1.1, magnesium 1.4, total bilirubin 4.7, AST is 127, ALT 492, alk phos is 175, total protein 5.1, albumin is 2.1. Urinalysis shows trace ketones, a small amount of bilirubin, leukocyte esterase negative, urine RBCs 2, rare urine bacteria. IMAGING STUDIES Chest x-ray shows bilateral basilar infiltrates. Cholangiopancreatography MRI - Pronounced biliary ductal dilatation and distal obstruction of the common bile duct by the pancreatic mass which appears grossly stable. ASSESSMENT AND PLAN This is a 51-year-old male who has myotonic dystrophy. He is bedridden, has a history of gastroesophageal liver disease, fatty liver and a pancreatic mass with biliary obstruction who had a biliary stent placement. He now presents to the hospital with abdominal pain, nausea and jaundice. He became septic and had a seizure and was hypotensive. He is currently on vasopressors. He is intubated. The patient developed acute thrombocytopenia. 1. Acute thrombocytopenia. He has chronic thrombocytopenia dating back to many years. I believe that the drop in the thrombocytopenia is likely due to his acute illness. We need to make sure that he does not have DIC. We will check fibrinogen levels and is well as D-dimers. Check coags. We will rule out any underlying or microangiopathic hemolysis. We will check a peripheral smear. I do not believe this is heparin-induced thrombocytopenia. In the past he had developed thrombocytopenia and HIT panel was obtained which was weakly positive with a confirmatory test consisting of serotonin release assay was negative. I would not recommend starting this patient on argatroban at this time. If anticoagulation is needed, I would prefer giving this patient fundaparinux. His platelet count is adequate at this time to be anticoagulated. If his platelet count does drop below 50,000, we will have to hold anticoagulation. The patient may require an interventional procedure, thus I will hold off any anticoagulation for the time being. 2. Sepsis with hypotension. The likely source of infection is the biliary tract. Blood cultures have been negative thus far. I agree with IV antibiotics. 3. Seizures and respiratory failure, currently intubated. Management per critical care. Thank you for allowing me to participate in the care of this patient. I will continue to follow this patient along. MD JANETT Jolly/CHAU /1:31 AM /6:23 AM
--- NOTE | 2016-12-15 07:51 | HHI.PR ---
Review/Management Diagnosis/Plan: (1) Encephalopathy, metabolic Plan: sz- likely 2/2 metabolic/electrolyte changes corrected dil 22 recs eeg- no sz ct brain- old infarct; no antiplatelets with thrombocytopenia check mri/mra with old stroke and r/o any occipital lobe ischemia with poor tracking, although likely related to encephalopathy reduce dil dose d/w spouse on phone yesterday follow exam (2) Myotonic dystrophy, type 1 Plan: genetic (3) Aspiration pneumonia (4) Biliary sepsis Subjective Subjective Comments No acute events reported Active Medications Current Medications Medications (Trade) Dose Ordered Sig/[place] Route Start Time Stop Time Status Last Admin (NS Flush) 2 ml UNSCH PRN IV FLUSH 12/09/16 17:15 12/09/16 19:00 (NS Flush) 2 ml BID IV FLUSH 12/09/16 21:00 12/14/16 20:11 (Tylenol) 650 mg Q4H PRN PO 12/09/16 17:15 (Senokot) 17.2 mg Q12H PRN PO 12/09/16 17:15 (Tylenol) 650 mg Q6H PRN PO 12/09/16 17:15 12/15/16 03:10 (Morphine Inj) 2 mg Q3H PRN IV 12/09/16 17:15 (Morphine Inj) 4 mg Q3H PRN IV 12/09/16 17:15 12/09/16 21:57 (Narcan Inj) 0.4 mg UNSCH PRN IV 12/09/16 17:15 Pantoprazole Sodium 40 mg 40 mg Q24H IV PUSH 12/09/16 18:00 12/14/16 17:40 (Levophed-Dextrose Drip) 250 ml @ 0 mls/hr TITRATE IV 12/10/16 06:00 12/15/16 04:07 (Zofran Inj) 4 mg Q6H PRN IV 12/10/16 06:30 Miscellaneous Information 1 Q361D XX 12/10/16 06:30 (Chlorhexidine 2% Cloth) 3 pack Taper DAILY@04 TOP 12/11/16 04:00 12/07/17 03:59 12/15/16 04:07 Chlorhexidine Gluconate 3 pack 3 pack UNSCH PRN TOP 12/10/16 06:30 Fentanyl Citrate 250 ml @ 0 mls/hr TITRATE IV 12/10/16 06:30 Cefepime HCl 2000 mg/Sodium Chloride 100 ml @ 200 mls/hr Q12H IV 12/10/16 07:00 12/15/16 06:53 (Flagyl 500 Mg Inj) 100 ml @ 100 mls/hr Q6H IV 12/10/16 07:00 12/15/16 01:04 Miscellaneous Information D/C ICU ELECTROLYTE ORDERS... UNSCH PRN .XX 12/10/16 08:45 Miscellaneous Information ICU - CALL ORDERING PHYSIC... UNSCH PRN .XX 12/10/16 08:45 (KCl 40 Meq Premix Inj) 100 ml @ 25 mls/hr UNSCH PRN IV 12/10/16 08:45 12/14/16 07:02 Potassium Bicarb/ Potassium Chloride 50 meq 50 meq UNSCH PRN PO 12/10/16 08:45 12/12/16 15:52 Potassium Chloride 100 ml @ 50 mls/hr UNSCH PRN IV 12/10/16 08:45 Magnesium Sulfate 4 gm/Sodium Chloride 108 ml @ 54 mls/hr UNSCH PRN IV 12/10/16 08:45 (Magnesium Sulfate Inj/NS Inj) 104 ml @ 52 mls/hr UNSCH PRN IV 12/10/16 08:45 12/14/16 10:19 Magnesium Oxide 800 mg 800 mg UNSCH PRN PO 12/10/16 08:45 (Sodium Phosphate Inj/NS 250 ml Inj) 260 ml @ 43.333 mls/ hr UNSCH PRN IV 12/10/16 08:45 12/14/16 09:44 (K-Phos) 2,000 mg UNSCH PRN PO 12/10/16 08:45 12/12/16 14:40 (Cerebyx Inj) 100 mgpe Q8HR IV 12/11/16 22:00 12/15/16 06:53 (Brethine Inj) 1 mg UNSCH PRN SQ 12/11/16 10:30 (SoluCORTEF INJ) 50 mg Q6HR IV PUSH 12/11/16 12:00 12/15/16 06:53 (Bactroban Nasal 2% Oint) 1 applic BID NASAL 12/11/16 21:00 12/14/16 20:11 (Colace Liq) 100 mg BID OG-TUBE 12/11/16 23:32 12/13/16 08:20 (D50w (Vial) Inj) 25 ml UNSCH PRN IV PUSH 12/12/16 12:15 (Glucagon Inj) 1 mg UNSCH PRN OTHER 12/12/16 12:15 (NovoLOG SUPPLEMENTAL SCALE) 1 Q6HR SQ 12/12/16 12:15 12/15/16 01:04 Lactulose 30 ml 30 ml QID PO 12/13/16 13:00 12/13/16 17:17 (Sodium Chloride 23.4% Inj/NS 1000 ml Inj) 1,047 ml @ 40 mls/hr Q24H IV 12/13/16 13:00 12/14/16 13:28 (Bumex Inj) 1 mg BID@,18 IV PUSH 12/14/16 11:00 12/16/16 17:59 12/14/16 11:52 Potassium Bicarb/ Potassium Chloride 25 meq 25 meq Q12HR PO 12/14/16 10:45 12/14/16 20:12 (Thiamine Inj/NS Inj) 101 ml @ 101 mls/hr Q24H IV 12/14/16 17:00 12/14/16 17:39 Allergies Allergies Coded Allergies *MDRO Multi-Drug Resistant Organism (Verified Adverse Reaction, Unknown, ) Review of Systems All other ROS: Unable to obtain Exam I&O / VS 12/14/16 12/14/16 12/15/16 15:00 23:00 07:00 Intake Total 1500 ml 1431 ml 1089 ml Output Total 2400 ml 1850 ml 1375 ml Balance -900 ml -419 ml -286 ml Intake IV Total 1118 ml 1090 ml 803 ml Tube Feeding 282 ml 241 ml 186 ml Tube Irrigant 100 ml 100 ml Other 100 ml Output Urine Total 2400 ml 1850 ml 1375 ml Tube Feeding Residual Discard 0 ml Drainage Total 0 ml 0 ml 0 ml # Bowel Movements 2 1 5 Vital Signs Date Time Temp Pulse Resp B/P Pulse Ox O2 Delivery O2 Flow Rate FiO2 12/15/16 06:00 71 12/15/16 05:25 97 40 12/15/16 05:06 100 100 12/15/16 04:00 68 12/15/16 04:00 98.2 68 18 104/59 98 12/15/16 04:00 40 12/15/16 02:00 61 12/15/16 01:03 97 40 12/15/16 00:00 40 12/15/16 00:00 63 12/15/16 00:00 98.0 63 17 110/49 97 12/14/16 22:00 63 12/14/16 21:12 97 40 12/14/16 20:00 40 12/14/16 20:00 63 12/14/16 20:00 97.1 63 14 97/59 96 12/14/16 19:00 96 Mechanical Ventilator 40 12/14/16 18:00 65 12/14/16 17:20 96 40 12/14/16 16:00 69 12/14/16 16:00 40 12/14/16 16:00 98.2 76 20 124/64 94 12/14/16 14:00 69 12/14/16 12:00 40 12/14/16 12:00 97.9 87 20 116/57 94 12/14/16 12:00 87 12/14/16 11:22 97 40 12/14/16 10:00 91 12/14/16 08:00 40 12/14/16 08:00 99.0 68 23 118/53 94 12/14/16 08:00 91 Respiratory: Non-labored respirations Cardiology: Normal rate Exam Comments intubated, able to follow simple commands, temporal wasting, ou 3-2mm, blinks, poor tracking, severe weakness generalized in 4 ext, mild distal wasting Objective Micro and Labs Laboratory Tests Test 12/14/16 12/14/16 12/14/16 12/15/16 09:35 10:28 14:48 03:43 Blood Gas Puncture Site ART LINE Blood Gas Patient Temperature 98.6 Blood Gas HCO3 20 Blood Gas Base Excess -3.0 Blood Gas Oxygen Saturation 94 Arterial Blood pH 7.47 Arterial Blood Partial 28 Pressure CO2 Arterial Blood Partial 70 Pressure O2 Arterial Blood Oxygen Content 12.4 Arterial Blood 1.1 Carboxyhemoglobin Arterial Blood Methemoglobin 0.8 Blood Gas Hemoglobin 9.4 Oxygen Delivery Device VENTILATOR Blood Gas Ventilator Setting CPAP,5PEEP,5PS Blood Gas Inspired Oxygen 35 Sodium Level 131 Potassium Level 3.6 Phosphorus Level 2.0 White Blood Count 19.7 Red Blood Count 4.41 Hemoglobin 13.3 Hematocrit 38.0 Mean Corpuscular Volume 86.1 Mean Corpuscular Hemoglobin 30.0 Mean Corpuscular Hemoglobin 34.9 Concent Red Cell Distribution Width 14.7 Platelet Count 192 Mean Platelet Volume 9.7 Neutrophils (%) (Auto) 84.8 Lymphocytes (%) (Auto) 5.9 Monocytes (%) (Auto) 9.3 Eosinophils (%) (Auto) 0.0 Basophils (%) (Auto) 0.0 Neutrophils # (Auto) 16.7 Lymphocytes # (Auto) 1.2 Monocytes # (Auto) 1.8 Eosinophils # (Auto) 0.0 Basophils # (Auto) 0.0 CBC Comment AUTO DIFF Total Bilirubin 3.9 Direct Bilirubin 2.9 Indirect Bilirubin 1.0 Aspartate Amino Transf 80 (AST/SGOT) Alanine Aminotransferase 366 (ALT/SGPT) Alkaline Phosphatase 181 Lactate Dehydrogenase 247 Total Protein 5.5 Albumin 2.2 Phenytoin (Dilantin) Level 12.0 Test 12/15/16 06:00 Blood Smear Pathologist Review Date/Time Procedure Status Source Growth 12/10/16 08:35 Aerobic Blood Culture - Preliminary Resulted Blood Peripheral NO GROWTH IN 4 DAYS 12/10/16 08:35 Anaerobic Blood Culture - Preliminary Resulted Blood Peripheral NO GROWTH IN 4 DAYS Problem Qualifiers (1) Aspiration pneumonia: Chris Manuel MD December 15, 2016 07:51
--- NOTE | 2016-12-15 08:17 | RADRPT ---
EXAM DATE/TIME: 12/15/2016 06:54 [facility] COMPARISON: CHEST SINGLE AP, December 14, 2016, 4:38. INDICATIONS : Respiratory disease. MEDICAL HISTORY : Cardiovascular disease. Hepatitis B. SURGICAL HISTORY : Cholecystectomy. ENCOUNTER: Subsequent ACUITY: 2 days PAIN SCORE: Non-responsive. LOCATION: Bilateral chest FINDINGS: An endotracheal tube has its tip 4 cm above the jade. A nasogastric tube has its tip in the proxim al stomach. A left internal jugular vas cath has its tip in the superior vena cava. There is no pne umothorax. The heart is moderately prominent. Small bilateral pleural effusions are noted. Mild pu lmonary vascular congestion is noted. CONCLUSION: 1. Mild pulmonary vascular congestion. 2. Small bilateral pleural effusions. 3. Moderate cardiomegaly. 4. Multiple tubes and lines are in good positions. Pascual Lindsey MD on December 15, 2016 at 7:36 Board Certified Radiologist. This report was verified electronically.
[2016-12-15 08:37] LABS: BICARBONATE 30.5 MEQ/L (21.0-32.0); MAGNESIUM 2.4 MG/DL (1.5-2.5); POTASSIUM 3.2 MEQ/L (3.5-5.1)
--- NOTE | 2016-12-15 08:48 | HHI.CCPN ---
Subjective Remarks/Hospital Course 51 y/o man had stent removed yesterday following insertion for benign pancreatic mass. Now hypotensive and acts septic. 12/11: Biliary drain placed 12/10 for drainage of GB and common duct due because of distal CD obstruction from pancreatic mass. Seizure this morning. 12/12: Remains septic and requiring vasopressor support. Hyponatremia new, likely free water excess. 12/13: Remains on 10 mics of Levophed, vasopressin 0.04 international units, dobutamine 2.5 g per KG per min. Remains on propofol but moves extremities. Sodium 125, potassium 2.7. GI not planning any other interventions at this time. Biliary drain with 160 mL in 24 hours 12/14: Levophed had been weaned off. Remains on vasopressin 0.04, dobutamine 2.5 g per KG per minute. Urine output excellent. Potassium phosphorus remains low. Tolerating CPAP but lethargic. Plt count 77 today 12/15: Remains on Levophed at 6 mcg/min. Lethargic but follows commands. Plan is for Rendezvous Procedure/ERCP with IR and GI ? possible today. labs are pending at this time Objective Vital Signs Date Time Temp Pulse Resp B/P Pulse Ox O2 Delivery O2 Flow Rate FiO2 12/15/16 07:49 96 40 12/15/16 07:00 Mechanical Ventilator 12/15/16 06:00 71 12/15/16 04:00 98.2 18 104/59 Intake and Output 12/14/16 12/14/16 12/14/16 07:59 15:59 23:59 Intake Total 727 ml 1500 ml 1431 ml Output Total 425 ml 2400 ml 1850 ml Balance 302 ml -900 ml -419 ml Result Diagram: 12/15/16 0750 12/14/16 1448 Other Results Laboratory Tests Test 12/14/16 09:35 Blood Gas Puncture Site ART LINE Blood Gas Patient Temperature 98.6 Blood Gas HCO3 20 mmol/L (22-26) Blood Gas Base Excess -3.0 mmol/L (-2-2) Blood Gas Oxygen Saturation 94 % (90-100) Arterial Blood pH 7.47 (7.380-7.420) Arterial Blood Partial 28 mmHg (38-42) Pressure CO2 Arterial Blood Partial 70 mmHg Pressure O2 (61-120) Arterial Blood Oxygen Content 12.4 Vol % (12.0-20.0) Arterial Blood 1.1 % (0-4) Carboxyhemoglobin Arterial Blood Methemoglobin 0.8 % (0-2) Blood Gas Hemoglobin 9.4 G/DL (12.0-16.0) Oxygen Delivery Device VENTILATOR Blood Gas Ventilator Setting CPAP,5PEEP,5PS Blood Gas Inspired Oxygen 35 % Objective Remarks Gen: Ill-appearing. Lethargic not on any sedation Neck: Supple, orally intubated. Lungs: Clear, good shanthi air entry. No wheezes. Heart: NL S1S2, tachycardia, no JVD. Abdomen: No involuntary guarding, BS present. R biliary drain with minimal drainage Extremities: warm, well perfused. Neuro: Off all sedation. lethargic,weakly follows commands. Moves all extremities. A/P Assessment and Plan ASSESSMENT: Septic/circulatory shock Cholangitis S/P PTHC Obstructive jaundice secondary to pancreatic head mass (previous w/u negative for malignancy). Hypoxemic Respiratory Failure Metabolic Acidosis Metabolic encephalopathy Tonic-clonic seizure, new Hyponatremia, hypokalemia and hypophosphatemia History of Myotonic dystrophy PLAN: NEURO: -Off all sedation for 48 hours. EEG report pending. -Continue Cerebyx. Dilantin 12 today -IV Ativan when necessary for seizures. Correct hyponatremia due to seizures Keep >140 -Neurology Dr. Manuel -Keep Phos normalized given history of myotonic dystrophy RESP: -Continue OSV mode of ventilation -DuoNeb every 6 hours when necessary -SBT with parameters, possible extubation CVS: -Dobutamine, Vasopressin-wean to DC both. Levophed at 6 mcg/min -2% saline to correct hyponatremia, DC today as Na is 153 -Off Bicarb gtt -IV lasix 20 mg on hold due to pressor use GI: -Obstructive jaundice and possible cholangitis -S/P PTHC on (12/10/16) by IR -Plan is for Rendezvous Procedure/ERCP with IR and GI , : -Hold IV Lasix. 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 He remains critically ill Critical Care 30 mins Denise Blandon MD December 15, 2016 08:48
[2016-12-15] MEDS: DOCUSATE SODIUM 100 MG/10 ML UDC OG-TUBE SCH ×2 (09:00→21:00)
[2016-12-15] MEDS: SODIUM CHLORIDE 0.9% FLUSH 10 ML FLUSH IV FLUSH SCH ×2 (10:00→21:24)
[2016-12-15] MEDS: MUPIROCIN 2% OINT 1 APPLIC/GM SYR NASAL SCH ×2 (10:00→21:23)
[2016-12-15] MEDS: POTASSIUM CHLORIDE 25 MEQ EFFERVESCENT TAB PO SCH ×2 (10:01→21:00)
[2016-12-15] MEDS: LACTULOSE SYRUP 20 GM/30 ML CUP PO SCH ×4 (10:01→21:00)
[2016-12-15] MEDS: ICU - POTASSIUM CHLORIDE/AQUEOUS SOLN 40 MEQ/100 ML IVPB IV PRN ×2 (10:04→12:14)
[2016-12-15 10:09] LABS: PLATELET COUNT 77 TH/MM3 (150-450)
[2016-12-15 10:41] LABS: SCAN/DIFF AUTO DIFF CONFIRMED
--- NOTE | 2016-12-15 12:58 | HHI.GIFU ---
Subjective Remarks Resting in bed with eyes closed. No distress. Daughter at bedside. Biliary drain patent. Afebrile. (Shira Rees) Objective Vitals I&O Vital Signs Date Time Temp Pulse Resp B/P Pulse Ox O2 Delivery O2 Flow Rate FiO2 12/15/16 12:00 97.9 60 17 106/50 97 12/15/16 12:00 60 12/15/16 12:00 40 12/15/16 11:26 96 40 12/15/16 10:00 94 12/15/16 08:00 98.3 64 18 128/56 98 12/15/16 08:00 94 12/15/16 08:00 40 12/15/16 07:49 96 40 12/15/16 07:00 95 Mechanical Ventilator 40 12/15/16 06:00 71 12/15/16 05:25 97 40 12/15/16 05:06 100 100 12/15/16 04:00 68 12/15/16 04:00 98.2 68 18 104/59 98 12/15/16 04:00 40 12/15/16 02:00 61 12/15/16 01:03 97 40 12/15/16 00:00 40 12/15/16 00:00 63 12/15/16 00:00 98.0 63 17 110/49 97 12/14/16 22:00 63 12/14/16 21:12 97 40 12/14/16 20:00 40 12/14/16 20:00 63 12/14/16 20:00 97.1 63 14 97/59 96 12/14/16 19:00 96 Mechanical Ventilator 40 12/14/16 18:00 65 12/14/16 17:20 96 40 12/14/16 16:00 69 12/14/16 16:00 40 12/14/16 16:00 98.2 76 20 124/64 94 12/14/16 14:00 69 I/O 12/14/16 12/14/16 12/14/16 12/15/16 12/15/16 12/15/16 07:00 15:00 23:00 07:00 15:00 23:00 Intake Total 727 ml 1500 ml 1431 ml 1089 ml Output Total 425 ml 2400 ml 1850 ml 1375 ml Balance 302 ml -900 ml -419 ml -286 ml Intake IV Total 727 ml 1118 ml 1090 ml 803 ml Tube Feeding 282 ml 241 ml 186 ml Tube Irrigant 100 ml 100 ml Other 100 ml Output Urine Total 425 ml 2400 ml 1850 ml 1375 ml Tube Feeding Residual Discard 0 ml 0 ml Drainage Total 0 ml 0 ml 0 ml 0 ml # Bowel Movements 1 2 1 5 Laboratory Laboratory Tests Test 12/14/16 12/15/16 12/15/16 12/15/16 14:48 03:43 06:00 07:50 Potassium Level 3.6 3.2 Phosphorus Level 2.0 1.1 Total Bilirubin 3.9 Direct Bilirubin 2.9 Indirect Bilirubin 1.0 Aspartate Amino Transf 80 (AST/SGOT) Alanine Aminotransferase 366 (ALT/SGPT) Alkaline Phosphatase 181 Lactate Dehydrogenase 247 Total Protein 5.5 Albumin 2.2 Phenytoin (Dilantin) Level 12.0 12.8 Blood Smear Pathologist Review White Blood Count 19.7 Red Blood Count 4.41 Hemoglobin 13.3 Hematocrit 38.0 Mean Corpuscular Volume 86.1 Mean Corpuscular Hemoglobin 30.0 Mean Corpuscular Hemoglobin 34.9 Concent Red Cell Distribution Width 14.7 Platelet Count 192 Mean Platelet Volume 9.7 Neutrophils (%) (Auto) 84.8 Lymphocytes (%) (Auto) 5.9 Monocytes (%) (Auto) 9.3 Eosinophils (%) (Auto) 0.0 Basophils (%) (Auto) 0.0 Neutrophils # (Auto) 16.7 Lymphocytes # (Auto) 1.2 Monocytes # (Auto) 1.8 Eosinophils # (Auto) 0.0 Basophils # (Auto) 0.0 CBC Comment AUTO DIFF Differential Comment AUTO DIFF CONFIRMED Haptoglobin 166 Fibrinogen 185 D-Dimer Quantitative (PE/DVT) 6.22 Sodium Level 153 Chloride Level 117 Carbon Dioxide Level 30.5 Anion Gap 6 Blood Urea Nitrogen 5 Creatinine 0.49 Estimat Glomerular Filtration 179 Rate Random Glucose 105 Calcium Level 7.9 Magnesium Level 2.4 Imaging Last Impressions Chest X-Ray 12/15/16 0000 Signed Impressions: Service Date/Time: Thursday, December 15, 2016 06:54 - CONCLUSION: 1. Mild pulmonary vascular congestion. 2. Small bilateral pleural effusions. 3. Moderate cardiomegaly. 4. Multiple tubes and lines are in good positions. Pascual Lindsey MD Head CT 12/14/16 0000 Signed Impressions: Service Date/Time: Thursday, December 15, 2016 04:43 - CONCLUSION: 1. No acute intracranial abnormality. 2. Small chronic lacunar infarction involving the right basal ganglia. Philip Ralph Jr., MD Cholangiopancreatography MRI 12/10/16 0000 Signed Impressions: Service Date/Time: Saturday, December 10, 2016 12:44 - CONCLUSION: Pronounced biliary ductal dilatation with distal obstruction of the CBD by pancreatic mass which appears grossly stable. Barber Richardson MD Bile Duct Drainage 12/10/16 0000 Signed Impressions: Service Date/Time: Saturday, December 10, 2016 15:33 - CONCLUSION: Uncomplicated internal/external biliary drain placement as above. Duy Moran MD Physical Exam HEENT: Normocephalic; atraumatic; + jaundice. CHEST: CTA. OETT to vent CARDIAC: RRR, on Levophed, off vasopressin and dobutamine ABDOMEN: Soft, nondistended,no hepatosplenomegaly; bowel sounds are present in all four quadrants. Biliary drain patent EXTREMITIES: No clubbing, cyanosis, or edema. SKIN: Normal; ,+ jaundice. 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 (Shira Rees [facility]) Assessment and Plan Plan ASSESSMENT: - Obstructive jaundice secondary to pancreatic head mass (previous w/u negative for malignancy). S/P Unsuccessful ERCP (12/08/16)-----> biliary stent removed, failed ERCP attempt as outpatient. Pt developed pain and returned to hospital. S/P MRCP (12/10/16)---> Pronounced biliary ductal dilatation with distal obstruction of the CBD by pancreatic mass which appears grossly stable. S/P PTHC on (12/10/16). Biliary drain patent. WBC went up today to 19.7, although LFTs continue to slowly improve, T. Bili 3.9, AST 80, ALT 366, Alk Phosph 181. Flagyl, Cefepime. Plan is for ERCP with rendezvous technique this week, tomorrow vs. Tuesday. Will keep intubated until after procedure. Of note, there was some leakage from around the drain and they were going to try to upsize this initially, but since the ultimate plan is for ERCP with stent placement this week, they will hold on this for now. D/W , Henrietta Jones. - Cholangitis secondary to above. WBC up today, but lfts continue to improve. S/P PTHC. Flagyl, Cefepime. - Pancreatic head mass. Found to have pancreatic head mass, measuring 4.63.8 cm with resulting intrahepatic and extrahepatic delivery obstruction with dilatation on MRCP. Tumor markers were unremarkable. He underwent ERCP with stent placement and biopsy (08/06/16) and this revealed ampullary stenosis, duodenal mass. Pathology of the duodenal mass revealed duodenal mucosa with Sheryl's gland hyperplasia and features suggesting peptic duodenitis. He was then admitted to [place] for intensive rehabilitation. There was some concern that this could be malignant and therefore he was evaluated by oncology. The mass was not amenable to CT guided biopsy and therefore he was discharged with the plan to have EUS as outpatient. EUS with FNA (08/26/16)-----> inhomogeneous Pancrease with lobularity in the body and mild hypoechogenicity in the head, FNA of the head done, no distinct mass seen, CBD with stent in place, PD mildly dilated to 2.7 mm, no lymphadenopathy, no vascular infiltration. Benign cytology with ductal cells with reactive changes. - Severe abdomen pain, likely secondary to biliary obstruction and cholangitis vs post ERCP pancreatitis, Lipase normal. Seems to be much improved - Elevated LFTs, secondary to above. Improving. T. Bili 3.9, AST 80, ALT 366, Alk Phosph 181 - Hepatic encephalopathy. Lactulose - Sepsis with lactic acidosis, Leukocytosis, hypotension, tachycardia, Abx with cefepime and flagyl. blood cx no growth negative. Urine cx negative. WBC did go up today to 19.7, although LFTs continue to improve. Down to just Levophed for vasopressors. - Respiratory failure. On vent per CCM. - Elevated troponin, per CCM - Multiple electrolyte abnormalities with hypokalemia, hypernatremia, hypocalcemia. per ccm - Anemia. improved today hgb is 13.3/38.0 - Seizures per CCM - Myotonic dystrophy, Anxiety, Hyperlipidemia, Asthma, Fatty liver disease, Hx HIT per primary PLAN: - Plan for ERCP with rendezvous technique this week, tomorrow vs. Tuesday. - Obtain consents- called and spoke to (Henrietta Jones, [phone]) - NPO after MN - Cont. Abx - Cont. PPI - Monitor labs - Supportive care - Plan is for Rendezvous Procedure/ERCP with IR/GI tomorrow vs. Tuesday - Further recommendations to follow based on results of above - Pt seen and examined by Dr. Kennedy and myself and this note is written on her behalf (Shira Rees) Physician Comments seen, examined agree with above drainage decreased form biliary drain, a call placed to IR earlier today , possible tube needs to be flushed internalization / upsizing by IR in am unless indicated otherwise discussed with , does not think combined procedure will benefit in this case, we will schedule patient in am for internalization vs upsizing of tube for now recommended flushing tube with 15 cc sterile NS discussed with nurse and denitrator operator (Shari Kennedy MD) Shira Rees December 15, 2016 12:58 Shari Kennedy MD December 15, 2016 19:34 Shari Kennedy MD December 15, 2016 19:34
--- NOTE | 2016-12-15 16:32 | RADRPT ---
EXAM DATE/TIME: 12/15/2016 16:00 [facility] COMPARISON: No previous studies available for comparison. INDICATIONS : Altered mental status. MEDICAL HISTORY : Traumatic brain injury. SURGICAL HISTORY : Cholecystectomy. Inguinal hernia repair. ENCOUNTER: Subsequent ACUITY: 1 week PAIN SCORE: Nonresponsive. LOCATION: Head Please note a normal MRA of the brain does not entirely exclude the possibility of a small aneurysm, nor the possibility of distal intracranial vessel disease. TECHNIQUE: 3D time of flight MRA was performed. Source images, multiplanar STS MIP, and 3D volume MIP reconstru ctions were reviewed. FINDINGS: There is excellent visualization of the major intracranial arteries out to the second-order branch ve ssels. There is no evidence for aneurysm, vessel truncation or stenosis, and no evidence for vascula r malformation. CONCLUSION: Negative for major branch vessel occlusion.. Matt Moran MD FACR on December 15, 2016 at 16:29 Board Certified Radiologist. This report was verified electronically.
--- NOTE | 2016-12-15 16:45 | RADRPT ---
EXAM DATE/TIME: 12/15/2016 16:00 [facility] COMPARISON: No previous studies available for comparison. INDICATIONS : Altered mental status. MEDICAL HISTORY : Traumatic brain injury. SURGICAL HISTORY : Cholecystectomy. ENCOUNTER: Subsequent ACUITY: 1 week PAIN SCORE: Nonresponsive. LOCATION: Head TECHNIQUE: Multiplanar, multisequence MRI of the brain was performed without contrast. FINDINGS: There are patchy areas of restricted diffusion in the basal ganglia bilaterally and in the left occipital region. There is moderate central and cortical atrophy with dilatation of the trevor tricular and sulcal spaces. There are no extra-axial fluid collections appreciated. Midline structu res are intact. There is no parenchymal hemorrhage or extra-axial fluid collections appreciated. CONCLUSION: 1. Scattered areas of restricted diffusion in the basal ganglia bilaterally and in the left occipital region. 2. Marked central and cortical atrophy. 3. Moderate periventricular white matter changes. Matt Moran MD FACR on December 15, 2016 at 16:26 Board Certified Radiologist. This report was verified electronically.
[2016-12-15] MEDS: BUMETANIDE INJ 1 MG/4 ML VIAL IV PUSH SCH (17:02)
[2016-12-15] MEDS: PANTOPRAZOLE SODIUM 40 MG VIAL IV PUSH SCH (17:03)
--- NOTE | 2016-12-15 17:06 | RADRPT ---
EXAM DATE/TIME: 12/15/2016 16:00 [facility] COMPARISON: No previous studies available for comparison. INDICATIONS : Stroke. CONTRAST: 20 cc Omniscan (gadodiamide) IV MEDICAL HISTORY : Traumatic brain injury. SURGICAL HISTORY : Cholecystectomy. Inguinal hernia repair. ENCOUNTER: Subsequent ACUITY: 1 week PAIN SCORE: Nonresponsive. LOCATION: neck Percent stenosis is calculated using the diameter of the stenotic region over the diameter of the nor mal distal internal carotid artery. TECHNIQUE: Bolus infused MRA of the extracranial circulation was performed using a neurovascular coil. Post pro cessing was performed including rotating subvolume maximum intensity projections of each carotid paige ry, rotating full volume maximum intensity projections of both carotid arteries, sagittal and coronal sliding thin slab reformations of each carotid artery, and left oblique sliding thin slab reformatio n through the aortic arch to include the origin of the arch branch vessels. FINDINGS: AORTIC ARCH: There is a three vessel origin of the great vessels from the aorta. No evidence of ostial narrowing. RIGHT CAROTID: The common carotid artery is intact. The carotid bulb has a normal configuration without ulceration or narrowing. The internal carotid artery lumen is smooth without stenosis. The external carotid ar wilmer is intact. LEFT CAROTID: The common carotid artery is intact. The carotid bulb has a normal configuration without ulceration or narrowing. The internal carotid artery lumen is smooth without stenosis. The external carotid ar wilmer is intact. VERTEBRALS: The vertebral arteries have a symmetric diameter. No stenotic lesions are seen. CONCLUSION: Normal examination. Azael Young MD on December 15, 2016 at 17:02 Board Certified Radiologist. This report was verified electronically.
[2016-12-15] MEDS: THIAMINE INJ 100 MG in SODIUM CHLORIDE 0.9% INJ 100 ML IV SCH (17:12)
[2016-12-15] MEDS ORDERED: GADODIAMIDE PF 287 MG/ML 20 ML VIAL (for RAD MRI) IV ONE (17:34)
[2016-12-15 18:20] LABS: POTASSIUM 4.4 MEQ/L (3.5-5.1)
[2016-12-15] MEDS: ICU - POTASSIUM PHOSPHATE MONOBASIC 500 MG TAB PO PRN ×2 (18:48→23:01)
[2016-12-15 19:40] LABS: BICARBONATE 29.6 MEQ/L (21.0-32.0)
[2016-12-15 21:11] LABS: CREATINE KINASE 162 U/L (39-308)
[2016-12-15 21:28] LABS: CKMB 1.5 NG/ML (0.5-3.6)
--- NOTE | 2016-12-15 23:36 | PD.ONC.PN ---
Subjective Subjective Remarks critically ill platelet count improved no bleeding d/w rn Objective Data Date Time Temp Pulse Resp B/P Pulse Ox O2 Delivery O2 Flow Rate FiO2 12/15/16 20:01 100 40 12/15/16 18:00 56 12/15/16 16:46 100 100 12/15/16 16:46 100 40 12/15/16 16:00 40 12/15/16 16:00 40 12/15/16 16:00 97.5 57 17 106/50 97 12/15/16 16:00 56 12/15/16 14:00 60 12/15/16 12:00 97.9 60 17 106/50 97 12/15/16 12:00 60 12/15/16 12:00 40 12/15/16 11:26 96 40 12/15/16 10:00 94 12/15/16 08:00 98.3 64 18 128/56 98 12/15/16 08:00 94 12/15/16 08:00 40 12/15/16 07:49 96 40 12/15/16 07:00 95 Mechanical Ventilator 40 12/15/16 06:00 71 12/15/16 05:25 97 40 12/15/16 05:06 100 100 12/15/16 04:00 68 12/15/16 04:00 98.2 68 18 104/59 98 12/15/16 04:00 40 12/15/16 02:00 61 12/15/16 01:03 97 40 12/15/16 00:00 40 12/15/16 00:00 63 12/15/16 00:00 98.0 63 17 110/49 97 12/15/16 12/15/16 12/15/16 07:00 15:00 23:00 Intake Total 1089 ml 1795 ml Output Total 1375 ml 1900 ml Balance -286 ml -105 ml Result Diagram: 12/15/16 0750 12/15/16 1720 Laboratory Results Laboratory Tests Test 12/15/16 12/15/16 12/15/16 12/15/16 03:43 06:00 07:50 17:20 Total Bilirubin 3.9 MG/DL Direct Bilirubin 2.9 MG/DL Indirect Bilirubin 1.0 MG/DL Aspartate Amino Transf 80 U/L (AST/SGOT) Alanine Aminotransferase 366 U/L (ALT/SGPT) Alkaline Phosphatase 181 U/L Lactate Dehydrogenase 247 U/L Total Protein 5.5 GM/DL Albumin 2.2 GM/DL Phenytoin (Dilantin) Level 12.0 MCG/ML 12.8 MCG/ML Blood Smear Pathologist Review White Blood Count 19.7 TH/MM3 Red Blood Count 4.41 MIL/MM3 Hemoglobin 13.3 GM/DL Hematocrit 38.0 % Mean Corpuscular Volume 86.1 FL Mean Corpuscular Hemoglobin 30.0 PG Mean Corpuscular Hemoglobin 34.9 % Concent Red Cell Distribution Width 14.7 % Platelet Count 192 TH/MM3 Mean Platelet Volume 9.7 FL Neutrophils (%) (Auto) 84.8 % Lymphocytes (%) (Auto) 5.9 % Monocytes (%) (Auto) 9.3 % Eosinophils (%) (Auto) 0.0 % Basophils (%) (Auto) 0.0 % Neutrophils # (Auto) 16.7 TH/MM3 Lymphocytes # (Auto) 1.2 TH/MM3 Monocytes # (Auto) 1.8 TH/MM3 Eosinophils # (Auto) 0.0 TH/MM3 Basophils # (Auto) 0.0 TH/MM3 CBC Comment AUTO DIFF Differential Comment AUTO DIFF CONFIRMED Haptoglobin 166 MG/DL Fibrinogen 185 mg/dL D-Dimer Quantitative (PE/DVT) 6.22 MG/L FEU Sodium Level 153 MEQ/L 149 MEQ/L Potassium Level 3.2 MEQ/L 4.4 MEQ/L Chloride Level 117 MEQ/L 114 MEQ/L Carbon Dioxide Level 30.5 MEQ/L 29.6 MEQ/L Anion Gap 6 MEQ/L Blood Urea Nitrogen 5 MG/DL 6 MG/DL Creatinine 0.49 MG/DL 0.54 MG/DL Estimat Glomerular Filtration 179 ML/MIN 160 ML/MIN Rate Random Glucose 105 MG/DL 168 MG/DL Calcium Level 7.9 MG/DL 7.3 MG/DL Phosphorus Level 1.1 MG/DL 0.9 MG/DL Magnesium Level 2.4 MG/DL Test 12/15/16 19:50 Ammonia LESS THAN 10 MCMOL/L Total Creatine Kinase 162 U/L Creatine Kinase MB 1.5 NG/ML Troponin I 0.19 NG/ML Imaging Studies Last 24 hours Impressions Neck Magnetic Resonance Angiography 12/15/16 0000 Signed Impressions: Service Date/Time: Thursday, December 15, 2016 16:00 - CONCLUSION: Normal examination. Azael Young MD Head Magnetic Resonance Angiography 12/15/16 0000 Signed Impressions: Service Date/Time: Thursday, December 15, 2016 16:00 - CONCLUSION: Negative for major branch vessel occlusion.. Matt Moran MD FACR Chest X-Ray 12/15/16 0000 Signed Impressions: Service Date/Time: Thursday, December 15, 2016 06:54 - CONCLUSION: 1. Mild pulmonary vascular congestion. 2. Small bilateral pleural effusions. 3. Moderate cardiomegaly. 4. Multiple tubes and lines are in good positions. Pascual Lindsey MD Brain MRI 12/15/16 0000 Signed Impressions: Service Date/Time: Thursday, December 15, 2016 16:00 - CONCLUSION: 1. Scattered areas of restricted diffusion in the basal ganglia bilaterally and in the left occipital region. 2. Marked central and cortical atrophy. 3. Moderate periventricular white matter changes. Matt Moran MD FACR Administered Medications Medications (Trade) Dose Ordered Sig/Sahara Route PRN Reason Start Time Stop Time Status Last Admin Dose Admin Sodium Chloride (NS Flush) 2 ml UNSCH PRN IV FLUSH FLUSH AFTER USING IV ACCESS 12/09/16 17:15 12/09/16 19:00 Sodium Chloride (NS Flush) 2 ml BID IV FLUSH 12/09/16 21:00 12/15/16 21:24 Acetaminophen (Tylenol) 650 mg Q6H PRN PO PAIN SCALE 1 TO 2 12/09/16 17:15 12/15/16 17:57 Morphine Sulfate (Morphine Inj) 4 mg Q3H PRN IV Pain 6-10;if unable to take PO 12/09/16 17:15 12/09/16 21:57 Pantoprazole Sodium 40 mg 40 mg Q24H IV PUSH 12/09/16 18:00 12/15/16 17:03 Norepinephrine Bitartrate (Levophed-Dextrose Drip) 250 ml @ 0 mls/hr TITRATE IV 12/10/16 06:00 12/15/16 20:45 Chlorhexidine Gluconate 3 pack 3 pack Taper DAILY@04 TOP 12/11/16 04:00 12/07/17 03:59 12/15/16 04:07 Cefepime HCl 2000 mg/Sodium Chloride 100 ml @ 200 mls/hr Q12H IV 12/10/16 07:00 12/15/16 17:03 Metronidazole 100 ml @ 100 mls/hr Q6H IV 12/10/16 07:00 12/15/16 17:04 Potassium Chloride (KCl 40 Meq Premix Inj) 100 ml @ 25 mls/hr UNSCH PRN IV ELECTROLYTE REPLACEMENT 12/10/16 08:45 12/15/16 12:14 Potassium Bicarb/ Potassium Chloride 50 meq 50 meq UNSCH PRN PO ELECTROLYTE REPLACEMENT 12/10/16 08:45 12/12/16 15:52 Magnesium Sulfate 2 gm/Sodium Chloride 104 ml @ 52 mls/hr UNSCH PRN IV ELECTROLYTE REPLACEMENT 12/10/16 08:45 12/14/16 10:19 Sodium Phosphate/ Sodium Chloride (Sodium Phosphate Inj/NS 250 ml Inj) 260 ml @ 43.333 mls/ hr UNSCH PRN IV ELECTROLYTE REPLACEMENT 12/10/16 08:45 12/14/16 09:44 Potassium Phosphate (K-Phos) 2,000 mg UNSCH PRN PO ELECTROLYTE REPLACEMENT 12/10/16 08:45 12/15/16 23:01 Hydrocortisone Sodium Succinate (SoluCORTEF INJ) 50 mg Q6HR IV PUSH 12/11/16 12:00 12/15/16 23:01 Mupirocin (Bactroban Nasal 2% Oint) 1 applic BID NASAL 12/11/16 21:00 12/15/16 21:23 Docusate Sodium (Colace Liq) 100 mg BID OG-TUBE 12/11/16 23:32 12/13/16 08:20 Insulin Aspart (NovoLOG SUPPLEMENTAL SCALE) 1 Q6HR SQ 12/12/16 12:15 12/15/16 23:11 Lactulose (Lactulose Liq) 30 ml QID PO 12/13/16 13:00 12/13/16 17:17 Bumetanide (Bumex Inj) 1 mg BID@09,18 IV PUSH 12/14/16 11:00 12/16/16 17:59 12/15/16 17:02 Potassium Bicarb/ Potassium Chloride 25 meq 25 meq Q12HR PO 12/14/16 10:45 12/15/16 10:01 Thiamine HCl/ Sodium Chloride (Thiamine Inj/NS Inj) 101 ml @ 101 mls/hr Q24H IV 12/14/16 17:00 12/15/16 17:12 Fosphenytoin Sodium (Cerebyx Inj) 130 mgpe Q12HR IV 12/15/16 09:00 12/15/16 21:24 Objective Remarks GENERAL: critically ill SKIN: Warm and dry. NECK: Supple, trachea midline. No JVD or lymphadenopathy. LYMPHATIC: No adenopathy. CARDIOVASCULAR: Regular rate and rhythm without murmurs. RESPIRATORY: Breath sounds equal bilaterally. No accessory muscle use. GASTROINTESTINAL: Abdomen soft, non-tender, nondistended. EXTREMITIES: No cyanosis, or edema. Assessment/Plan Problem List: (1) Acute respiratory failure Status: Resolved (2) UTI (urinary tract infection) Status: Resolved (3) TBI (traumatic brain injury) Status: Acute (4) Myotonic dystrophy, type 1 Status: Chronic (5) Septic encephalopathy Status: Acute Assessment 51-year-old male who has myotonic dystrophy. He is bedridden, has a history of gastroesophageal liver disease, fatty liver and a pancreatic mass with biliary obstruction who had a biliary stent placement. He now presents to the hospital with abdominal pain, nausea and jaundice. He became septic and had a seizure and was hypotensive. He is currently on vasopressors. He is intubated. The patient developed acute thrombocytopenia. 1. Acute thrombocytopenia 2/2 to DIC/sepsis. --plst count improved today - d-dimer elevated and fibrinogen low - Check daily fibrinogen and coags - Transfuse cryoprecipitate to keep fibrinogen > 150 - No evidence of MAHA or HIT 2. Seizures and respiratory failure, currently intubated. Management per critical care. DVT prophylaxis with Fondapabinaux Dipesh Luz MD December 15, 2016 23:36
[2016-12-16] VITALS (19 sets, daily range): BP systolic 103–114; BP diastolic 52–58; PULSE 48–67; RESP 15–16; TEMP 97.7–98.5; O2SAT 95–99
[2016-12-16] MEDS: metroNIDAZOLE 500 MG INJ 100 ML IV SCH ×4 (00:19→18:17)
[2016-12-16] MEDS: NOREPINEPHRINE 4 MG/D5W 250 ML IV SCH ×2 (02:51→11:35)
[2016-12-16] MEDS ORDERED: CALCIUM CHLORIDE INJ 1 GM in SODIUM CHLORIDE 0.9% INJ 100 ML IV ONE (03:00)
[2016-12-16] MEDS: ACETAMINOPHEN 325 MG TAB PO PRN (03:18)
[2016-12-16] MEDS: CHLORHEXIDINE GLUCONATE 2 % 1 PACK (2 CLOTHS) TOP SCH (03:19)
[2016-12-16 05:34] LABS: AUTOMATED NEUTROPHIL # 13.9 TH/MM3 (1.8-7.7); BASOPHIL % 0.1 % (0.0-2.0); LYMPH % 13.6 % (9.0-44.0); LYMPHOCYTE # 2.6 TH/MM3 (1.0-4.8); MEAN CORPUSCULAR HEMOGLOBIN 28.7 PG (27.0-34.0); MEAN CORPUSCULAR HGB CONC 32.6 % (32.0-36.0); MONO % 13.2 % (0.0-8.0); NEUT % 73.1 % (16.0-70.0); PLATELET COUNT 204 TH/MM3 (150-450); RED BLOOD COUNT 4.44 MIL/MM3 (4.50-5.90); RED CELL DISTRIBUTION WIDTH 14.8 % (11.6-17.2)
[2016-12-16 05:37] LABS: HEMO FLAGS AUTO DIFF
[2016-12-16 05:38] LABS: APTT (PATIENT) 30.1 SEC (24.3-30.1); INTERNATIONAL NORMALIZED RATIO 1.4 RATIO; PROTHROMBIN TIME - PATIENT 15.9 SEC (9.8-11.6)
[2016-12-16 05:48] LABS: POTASSIUM 3.7 MEQ/L (3.5-5.1)
[2016-12-16] MEDS: INSULIN ASPART SUPPLEMENTAL SCALE SQ SCH ×4 (06:00→18:00)
--- NOTE | 2016-12-16 06:12 | RADRPT ---
EXAM DATE/TIME: 12/16/2016 04:54 [facility] COMPARISON: CHEST SINGLE AP, December 15, 2016, 6:54. INDICATIONS : Respiratory disease. MEDICAL HISTORY : Cardiovascular disease. Hepatitis B. SURGICAL HISTORY : Cholecystectomy. ENCOUNTER: Subsequent ACUITY: 4 - 6 days PAIN SCORE: Non-responsive. LOCATION: Bilateral chest FINDINGS: A single portable frontal view of the chest shows unchanged bilateral pleural effusions with associat ed consolidation. The heart is mildly enlarged. Tip of endotracheal tube 5 cm from the jade. Nasoga stric tube coiled in the stomach. Left-sided dialysis catheter. CONCLUSION: 1. Unchanged bilateral pleural effusions with associated atelectasis versus infiltrates. Philip Ralph Jr., MD on December 16, 2016 at 6:10 Board Certified Radiologist. This report was verified electronically.
[2016-12-16] MEDS: HYDROCORTISONE SOD SUCCINATE 100 MG VIAL IV PUSH SCH ×3 (06:43→17:34)
[2016-12-16] MEDS: CEFEPIME INJ 2,000 MG in SODIUM CHLORIDE 0.9% INJ 100 ML IV SCH ×2 (06:44→18:17)
[2016-12-16] MEDS: ICU - SODIUM PHOSPHATE 30 MMOL/NS 250 ML IV PRN ×2 (06:56)
[2016-12-16 06:58] LABS: ALKALINE PHOSPHATASE 176 U/L (45-117); ALT (GPT) 260 U/L (12-78); ANION GAP 6 MEQ/L (5-15); AST (GOT) 48 U/L (15-37); BICARBONATE 33.3 MEQ/L (21.0-32.0); BLOOD UREA NITROGEN 6 MG/DL (7-18); CHLORIDE 106 MEQ/L (98-107); GLOMERULAR FILTRATION RATE 171 ML/MIN (>89); MAGNESIUM 2.2 MG/DL (1.5-2.5); POTASSIUM 3.7 MEQ/L (3.5-5.1); SODIUM (NA) 145 MEQ/L (136-145); TOTAL BILIRUBIN ADULT 3.2 MG/DL (0.2-1.0)
[2016-12-16 07:14] LABS: BANDS 1 % (0-6); NEUTROPHIL # MANUAL DIFF 12.2 TH/MM3 (1.8-7.7); POLYS (SEG NEUTROPHILS) 63 % (16-70); WBC DIFF SAMPLE 100
[2016-12-16 07:15] LABS: PLATELET ESTIMATE SMEAR NORMAL (NORMAL); PLATELET MORPHOLOGY NORMAL (NORMAL); SCAN/DIFF FINAL DIFF MANUAL
[2016-12-16 07:16] LABS: STOMATOCYTES 1+ (NORMAL)
--- NOTE | 2016-12-16 07:41 | HHI.CCPN ---
Subjective Remarks/Hospital Course 51 y/o man had stent removed yesterday following insertion for benign pancreatic mass. Now hypotensive and acts septic. 12/11: Biliary drain placed 12/10 for drainage of GB and common duct due because of distal CD obstruction from pancreatic mass. Seizure this morning. 12/12: Remains septic and requiring vasopressor support. Hyponatremia new, likely free water excess. 12/13: Remains on 10 mics of Levophed, vasopressin 0.04 international units, dobutamine 2.5 g per KG per min. Remains on propofol but moves extremities. Sodium 125, potassium 2.7. GI not planning any other interventions at this time. Biliary drain with 160 mL in 24 hours 12/14: Levophed had been weaned off. Remains on vasopressin 0.04, dobutamine 2.5 g per KG per minute. Urine output excellent. Potassium phosphorus remains low. Tolerating CPAP but lethargic. Plt count 77 today 12/15: Remains on Levophed at 6 mcg/min. Lethargic but follows commands. Plan is for Rendezvous Procedure/ERCP with IR and GI ? possible today. labs are pending at this time 12/16: remains on CPAP, remains in shock on 6 mcg/min of Levophed. [facility] Procedure/ERCP with IR and GI plan for today. Sodium is 145 was low at 1.6 bilirubin decreasing. UO 4.5 L in 24 hours. Objective Vital Signs Date Time Temp Pulse Resp B/P Pulse Ox O2 Delivery O2 Flow Rate FiO2 12/16/16 04:18 15 12/16/16 04:10 98 40 12/15/16 22:00 53 12/15/16 20:00 98.1 116/58 12/15/16 19:00 Mechanical Ventilator Intake and Output 12/15/16 12/15/16 12/16/16 08:00 16:00 00:00 Intake Total 1089 ml 1795 ml 1152 ml Output Total 1375 ml 1900 ml 2605 ml Balance -286 ml -105 ml -1453 ml Result Diagram: 12/16/16 0510 12/16/16 05 Objective Remarks Gen: Ill-appearing. Lethargic not on any sedation Neck: Supple, orally intubated. Lungs: Clear, good shanthi air entry. No wheezes. Heart: NL S1S2, tachycardia, no JVD. on Levophed 6 mcg/min Abdomen: No involuntary guarding, BS present. R biliary drain with minimal drainage Extremities: warm, well perfused. Neuro: Off all sedation. lethargic,weakly follows commands. Moves all extremities. A/P Assessment and Plan ASSESSMENT: Septic/circulatory shock Cholangitis S/P PTHC Obstructive jaundice secondary to pancreatic head mass (previous w/u negative for malignancy). Hypoxemic Respiratory Failure Metabolic Acidosis Metabolic encephalopathy Tonic-clonic seizure, new Hyponatremia, hypokalemia and hypophosphatemia History of Myotonic dystrophy PLAN: NEURO: -Off all sedation for 72 hours. EEG report pending. -Continue Cerebyx. Dilantin level 13.4 today -IV Ativan when necessary for seizures. Correct hyponatremia due to seizures Keep >140 -Neurology Dr. Manuel -Keep Phos normalized given history of myotonic dystrophy RESP: -Continue PSV mode of ventilation -DuoNeb every 6 hours when necessary -SBT with parameters, possible extubation after repeat ERCP today CVS: -Levophed at 6 mcg/min -Continue IV Bumex and IV albumin GI: -Obstructive jaundice and possible cholangitis -S/P PTHC on (12/10/16) by IR -Plan is for [facility] Procedure/ERCP with IR and GI today : -IV Bumex, albumin as above ID -Septic shock, most likely cholangitis -Continue broad-spectrum antibiotics cefepime and Flagyl -All cultures negative to date Endo: -Hyponatremia and hypokalemia, hypophosphatemia -Electrolyte replacement per protocol HEME: -Thrombocytopenia most likely from sepsis, 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 Started on fondaparinux for DVT prophylaxis DVT/GI prophylaxis -Start Fondaparinux 2.5 mg sq daily -IV Protonix Overall impression: Shock persists,most likely septic. He remains critically ill Critical Care 30 mins Denise Blandon MD December 16, 2016 07:41
[2016-12-16] MEDS: MUPIROCIN 2% OINT 1 APPLIC/GM SYR NASAL SCH ×2 (08:25→20:17)
[2016-12-16] MEDS: DOCUSATE SODIUM 100 MG/10 ML UDC OG-TUBE SCH ×2 (08:25→20:17)
[2016-12-16] MEDS: BUMETANIDE INJ 1 MG/4 ML VIAL IV PUSH SCH (08:25)
[2016-12-16] MEDS: POTASSIUM CHLORIDE 25 MEQ EFFERVESCENT TAB PO SCH ×2 (08:25→20:19)
[2016-12-16] MEDS: FOSPHENYTOIN SODIUM 100 MG PE/2 ML VIAL IV SCH ×2 (08:26→20:18)
[2016-12-16] MEDS: LACTULOSE SYRUP 20 GM/30 ML CUP PO SCH ×4 (08:26→20:17)
[2016-12-16] MEDS: SODIUM CHLORIDE 0.9% FLUSH 10 ML FLUSH IV FLUSH SCH ×2 (08:26→20:20)
--- NOTE | 2016-12-16 09:27 | HHI.PR ---
Review/Management Diagnosis/Plan: (1) Acute embolic stroke Plan: mri brain reviewed bilateral bg, rt frontal and left occipital tiny infarcts mra brain/carotids nml recs check echo aspirin 325mg qd when feasible septic emboli? syeda? check after echo will d/w ccm (2) Encephalopathy, metabolic Plan: sz- likely 2/2 metabolic/electrolyte changes/embolic strokes corrected dil >20 (3) Myotonic dystrophy, type 1 Plan: genetic (4) Aspiration pneumonia (5) Biliary sepsis Subjective Subjective Comments No acute events reported Active Medications Current Medications Medications (Trade) Dose Ordered Sig/Sahara Route Start Time Stop Time Status Last Admin (NS Flush) 2 ml UNSCH PRN IV FLUSH 12/09/16 17:15 12/09/16 19:00 (NS Flush) 2 ml BID IV FLUSH 12/09/16 21:00 12/15/16 21:24 (Tylenol) 650 mg Q4H PRN PO 12/09/16 17:15 (Senokot) 17.2 mg Q12H PRN PO 12/09/16 17:15 (Tylenol) 650 mg Q6H PRN PO 12/09/16 17:15 12/16/16 03:18 (Morphine Inj) 2 mg Q3H PRN IV 12/09/16 17:15 (Morphine Inj) 4 mg Q3H PRN IV 12/09/16 17:15 12/09/16 21:57 (Narcan Inj) 0.4 mg UNSCH PRN IV 12/09/16 17:15 Pantoprazole Sodium 40 mg 40 mg Q24H IV PUSH 12/09/16 18:00 12/15/16 17:03 (Levophed-Dextrose Drip) 250 ml @ 0 mls/hr TITRATE IV 12/10/16 06:00 12/16/16 02:51 (Zofran Inj) 4 mg Q6H PRN IV 12/10/16 06:30 Miscellaneous Information 1 Q361D XX 12/10/16 06:30 (Chlorhexidine 2% Cloth) Taper DAILY@04 TOP 12/11/16 04:00 12/07/17 03:59 12/16/16 03:19 Chlorhexidine Gluconate 3 pack 3 pack UNSCH PRN TOP 12/10/16 06:30 Cefepime HCl 2000 mg/Sodium Chloride 100 ml @ 200 mls/hr Q12H IV 12/10/16 07:00 12/16/16 06:44 (Flagyl 500 Mg Inj) 100 ml @ 100 mls/hr Q6H IV 12/10/16 07:00 12/16/16 06:44 Miscellaneous Information D/C ICU ELECTROLYTE ORDERS... UNSCH PRN .XX 12/10/16 08:45 Miscellaneous Information ICU - CALL ORDERING PHYSIC... UNSCH PRN .XX 12/10/16 08:45 (KCl 40 Meq Premix Inj) 100 ml @ 25 mls/hr UNSCH PRN IV 12/10/16 08:45 12/15/16 12:14 Potassium Bicarb/ Potassium Chloride 50 meq 50 meq UNSCH PRN PO 12/10/16 08:45 12/12/16 15:52 Potassium Chloride 100 ml @ 50 mls/hr UNSCH PRN IV 12/10/16 08:45 Magnesium Sulfate 4 gm/Sodium Chloride 108 ml @ 54 mls/hr UNSCH PRN IV 12/10/16 08:45 (Magnesium Sulfate Inj/NS Inj) 104 ml @ 52 mls/hr UNSCH PRN IV 12/10/16 08:45 12/14/16 10:19 Magnesium Oxide 800 mg 800 mg UNSCH PRN PO 12/10/16 08:45 (Sodium Phosphate Inj/NS 250 ml Inj) 260 ml @ 43.333 mls/ hr UNSCH PRN IV 12/10/16 08:45 12/16/16 06:56 (K-Phos) 2,000 mg UNSCH PRN PO 12/10/16 08:45 12/15/16 23:01 (Brethine Inj) 1 mg UNSCH PRN SQ 12/11/16 10:30 (SoluCORTEF INJ) 50 mg Q6HR IV PUSH 12/11/16 12:00 12/16/16 06:43 (Bactroban Nasal 2% Oint) 1 applic BID NASAL 12/11/16 21:00 12/16/16 08:25 (Colace Liq) 100 mg BID OG-TUBE 12/11/16 23:32 12/13/16 08:20 (D50w (Vial) Inj) 25 ml UNSCH PRN IV PUSH 12/12/16 12:15 (Glucagon Inj) 1 mg UNSCH PRN OTHER 12/12/16 12:15 (NovoLOG SUPPLEMENTAL SCALE) 1 Q6HR SQ 12/12/16 12:15 12/15/16 23:11 (Lactulose Liq) 30 ml QID PO 12/13/16 13:00 12/13/16 17:17 (Bumex Inj) 1 mg BID@09,18 IV PUSH 12/14/16 11:00 12/16/16 17:59 12/16/16 08:25 Potassium Bicarb/ Potassium Chloride 25 meq 25 meq Q12HR PO 12/14/16 10:45 12/16/16 08:25 (Thiamine Inj/NS Inj) 101 ml @ 101 mls/hr Q24H IV 12/14/16 17:00 12/15/16 17:12 (Cerebyx Inj) 130 mgpe Q12HR IV 12/15/16 09:00 12/16/16 08:26 Allergies Allergies Coded Allergies *MDRO Multi-Drug Resistant Organism (Verified Adverse Reaction, Unknown, ) Review of Systems All other ROS: Unable to obtain Exam I&O / VS 12/15/16 12/15/16 12/16/16 15:00 23:00 07:00 Intake Total 1795 ml 1152 ml 697 ml Output Total 1900 ml 2605 ml 530 ml Balance -105 ml -1453 ml 167 ml Intake IV Total 1525 ml 835 ml 548 ml Tube Feeding 70 ml 242 ml 79 ml Tube Irrigant 200 ml 60 ml 70 ml Other 15 ml Output Urine Total 1900 ml 2575 ml 500 ml Drainage Total 0 ml 30 ml 30 ml # Bowel Movements 4 0 0 Vital Signs Date Time Temp Pulse Resp B/P Pulse Ox O2 Delivery O2 Flow Rate FiO2 12/16/16 08:00 98.1 48 15 110/52 97 12/16/16 08:00 40 12/16/16 08:00 57 12/16/16 07:38 97 40 12/16/16 07:00 96 Mechanical Ventilator 40 12/16/16 06:00 61 12/16/16 04:18 15 12/16/16 04:10 98 40 12/16/16 04:00 40 12/16/16 04:00 48 12/16/16 04:00 98.4 48 15 113/55 97 12/16/16 02:00 50 12/16/16 01:02 97 40 12/16/16 00:00 97.7 51 15 103/55 97 12/16/16 00:00 40 12/16/16 00:00 51 12/15/16 22:00 53 12/15/16 20:01 100 40 12/15/16 20:00 98.1 53 16 116/58 96 12/15/16 20:00 40 12/15/16 20:00 53 12/15/16 19:00 95 Mechanical Ventilator 40 12/15/16 18:00 56 12/15/16 16:46 100 100 12/15/16 16:46 100 40 12/15/16 16:00 40 12/15/16 16:00 40 12/15/16 16:00 97.5 57 17 106/50 97 12/15/16 16:00 56 12/15/16 14:00 60 12/15/16 12:00 97.9 60 17 106/50 97 12/15/16 12:00 60 12/15/16 12:00 40 12/15/16 11:26 96 40 12/15/16 10:00 94 Respiratory: Non-labored respirations Cardiology: Normal rate Exam Comments intubated, more alert able to follow commands, temporal wasting, ou 3-2mm, blinks, working with P.T. severe weakness generalized in 4 ext, mild distal wasting Objective Micro and Labs Laboratory Tests Test 12/15/16 12/15/16 12/16/16 17:20 19:50 05:10 Sodium Level 149 145 Potassium Level 4.4 3.7 Chloride Level 114 106 Carbon Dioxide Level 29.6 33.3 Blood Urea Nitrogen 6 6 Creatinine 0.54 0.51 Estimat Glomerular Filtration 160 171 Rate Random Glucose 168 198 Calcium Level 7.3 8.6 Phosphorus Level 0.9 1.6 Ammonia LESS THAN 10 Total Creatine Kinase 162 91 Creatine Kinase MB 1.5 Troponin I 0.19 0.16 White Blood Count 19.0 Red Blood Count 4.44 Hemoglobin 12.7 Hematocrit 39.0 Mean Corpuscular Volume 88.0 Mean Corpuscular Hemoglobin 28.7 Mean Corpuscular Hemoglobin 32.6 Concent Red Cell Distribution Width 14.8 Platelet Count 204 Mean Platelet Volume 8.9 Neutrophils (%) (Auto) 73.1 Lymphocytes (%) (Auto) 13.6 Monocytes (%) (Auto) 13.2 Eosinophils (%) (Auto) 0.0 Basophils (%) (Auto) 0.1 Neutrophils # (Auto) 13.9 Lymphocytes # (Auto) 2.6 Monocytes # (Auto) 2.5 Eosinophils # (Auto) 0.0 Basophils # (Auto) 0.0 CBC Comment AUTO DIFF Differential Total Cells 100 Counted Neutrophils % (Manual) 63 Band Neutrophils % 1 Lymphocytes % 20 Monocytes % 16 Neutrophils # (Manual) 12.2 Differential Comment FINAL DIFF MANUAL Platelet Estimate NORMAL Platelet Morphology Comment NORMAL Stomatocytes 1+ Prothrombin Time 15.9 Prothromb Time International 1.4 Ratio Activated Partial 30.1 Thromboplast Time Fibrinogen 179 Anion Gap 6 Magnesium Level 2.2 Total Bilirubin 3.2 Aspartate Amino Transf 48 (AST/SGOT) Alanine Aminotransferase 260 (ALT/SGPT) Alkaline Phosphatase 176 Total Protein 5.5 Albumin 2.0 Phenytoin (Dilantin) Level 13.4 Problem Qualifiers (1) Aspiration pneumonia: Chris Manuel MD December 16, 2016 09:27
[2016-12-16] MEDS: ASPIRIN 325 MG TAB PO SCH (09:45)
--- NOTE | 2016-12-16 14:08 | EKG ---
Date Performed: 12/16/2016 Time Performed: 11:39:11 PTAGE: 51 years EKG: SINUS BRADYCARDIA LEFT BUNDLE BRANCH BLOCK ABNORMAL ECG COMPARED TO PRIOR ELECTROCARDIOGRAM , LEFT bundle branch block is present. PREVIOUS TRACING : 12/16/2016 04.56 DOCTOR: Eber Oliver Interpretating Date/Time 12/16/2016 14:06:24
--- NOTE | 2016-12-16 14:12 | EC ---
Study Study Date:12/16/2016 STUDY CONCLUSIONS SUMMARY - Left ventricle: The cavity size was normal. Wall thickness was normal. Systolic function was moderately reduced. The estimated ejection fraction was in the range of 35% to 40%. Wall motion was normal; there were no regional wall motion abnormalities. - Pulmonary arteries: PA peak pressure: 45mm Hg (S). If LV function is below 40, please consider prescribing an ACEI or ARB or document rationale for non-use. PROCEDURE DATA STUDY STATUS: Elective. Procedure: Transthoracic echocardiography. Image quality was good. Scanning was performed from the parasternal, apical, and subcostal acoustic windows. Study completion: The patient tolerated the procedure well. Transthoracic echocardiography. M-mode, complete 2D, complete spectral Doppler, and color Doppler. Patient status: Inpatient. CARDIAC ANATOMY LEFT VENTRICLE: The cavity size was normal. Wall thickness was normal. Systolic function was moderately reduced. The estimated ejection fraction was in the range of 35% to 40%. Wall motion was normal; there were no regional wall motion abnormalities. AORTIC VALVE: Trileaflet; mildly thickened leaflets. Doppler: Transvalvular velocity was within the normal range. There was no stenosis. No regurgitation. AORTA: Aortic root: The aortic root was normal in size. MITRAL VALVE: Mildly thickened leaflets, . Doppler: Transvalvular velocity was within the normal range. There was no evidence for stenosis. No regurgitation. Valve area by pressure half-time: 3.86cm^2. Mean gradient: 1mm Hg (D). LEFT ATRIUM: The atrium was normal in size. RIGHT VENTRICLE: The cavity size was normal. Wall thickness was normal. PULMONIC VALVE: Doppler: Transvalvular velocity was within the normal range. There was no evidence for stenosis. No regurgitation. TRICUSPID VALVE: Structurally normal valve. Doppler: Transvalvular velocity was within the normal range. No regurgitation. PULMONARY ARTERY: The main pulmonary artery was normal-sized. Systolic pressure was within the normal range. RIGHT ATRIUM: The atrium was normal in size. PERICARDIUM: There was no pericardial effusion. SYSTEMIC VEINS: Inferior vena cava: The vessel was normal in size. BASIC MEASUREMENTS ADULT Normal Left ventricle LV internal dimension, ED, chordal level, *54.1 mm 43-52 PLAX LV internal dimension, ES, chordal level, *47.1 mm 23-38 PLAX Fractional shortening, chordal level, PLAX *13 % >29 LV posterior wall thickness, ED 6.98 mm IVS/LVPW ratio, ED 1.22 <1.3 Ventricular septum Septal thickness, ED 8.52 mm Aortic valve Leaflet separation 21 mm 15-26 Left atrium Anterior-posterior dimension 37 mm Right ventricle RV internal dimension, ED, PLAX 19 mm 19-38 BASIC MEASUREMENTS ADULT Normal Aortic valve Leaflet separation 21 mm 15-26 Aorta Root diameter, ED 33 mm 20-37 DOPPLER MEASUREMENTS ADULT Normal Main pulmonary artery Pressure, S *45 mm Hg =30 Aortic valve VTI, S 28.9 cm Mitral valve Peak E-wave velocity 56.3 cm/s Peak A-wave velocity 48.9 cm/s Mean velocity, D 48.2 cm/s Pressure half-time 57 ms Mean gradient, D 1 mm Hg Peak E/A ratio 1.2 Valve area, pressure half-time 3.86 cm^2 Maximal regurgitant velocity 301 cm/s Tricuspid valve Regurgitant peak velocity 189 cm/s Peak RV-RA gradient, S 14 mm Hg Maximal regurgitant velocity 189 cm/s Systemic veins Estimated CVP 20 mm Hg Right ventricle RV pressure, S *45 mm Hg <30 LEGEND: Mean values are shown as u=mean value. Asterisk (*) lund values outside specified normal range. Prepared and signed by Titus Hines [id number]
[2016-12-16] MEDS ORDERED: IOHEXOL 350 MG/ML 100 ML BTL (for RAD DIAG) OTHER ONE (15:50)
--- NOTE | 2016-12-16 16:03 | EKG ---
Date Performed: 12/15/2016 Time Performed: 19:19:09 PTAGE: 51 years EKG: SINUS BRADYCARDIA PROLONGED QT INTERVAL MARKED LEFT AXIS DEVIATION VOLTAGE CRITERIA FOR LVH ST DEVIATION AND MARKED T-WAVE ABNORMALITY, CONSIDER ANTERIOR ISCHEMIA ABNORMAL ECG PREVIOUS TRACING : 12/09/2016 15.30 Since previous tracing, no significant change noted DOCTOR: Titus Hines Interpretating Date/Time 12/16/2016 16:23:06
--- NOTE | 2016-12-16 16:04 | EKG ---
Date Performed: 12/15/2016 Time Performed: 21:17:10 PTAGE: 51 years EKG: SINUS BRADYCARDIA LEFT ANTERIOR FASCICULAR BLOCK PROLONGED QT INTERVAL VOLTAGE CRITERIA FOR LVH POSSIBLE ANTERIOR MYOCARDIAL INFARCTION , OF INDETERMINATE AGE MODERATE T-WAVE ABNORMALITY, CONS IDER LATERAL ISCHEMIA ABNORMAL ECG CONSIDER ANTEROLATERAL ISCHEMIA PREVIOUS TRACING : 12/15/2016 19.19 DOCTOR: Titus Hines Interpretating Date/Time 12/16/2016 16:23:34
--- NOTE | 2016-12-16 16:06 | EKG ---
Date Performed: 12/16/2016 Time Performed: 04:56:28 PTAGE: 51 years EKG: Sinus bradycardia Prolonged QT interval Left anterior fascicular block Left ventricular hyp ertrophy Extensive ST-T changes may be due to hypertrophy and/or ischemia Consider anterolateral isch emia. Abnormal ECG PREVIOUS TRACING : 12/15/2016 21.17 DOCTOR: Titus Hines Interpretating Date/Time 12/16/2016 16:05:34
--- NOTE | 2016-12-16 16:35 | PD.PROCEDR ---
GI Procedure REFERRING PHYSICIAN Dr. Spann PROCEDURE PERFORMED ERCP with biliary dilation and brushing and metal stent placement INDICATION FOR PROCEDURE Biliary stricture and jaundice PROCEDURE: The procedure, risks and benefits were discussed with Mr. Jones and informed consent was obtained. Anesthesia sedated him with Diprivan. He was placed in the left lateral decubitus position. ERCP: Patient was placed in a prone position. The Pentax videoscope was introduced through the oropharynx and advanced to the second portion of the duodenum where the ampula was identified. FINDINGS: The ampulla it was noted that the patient had an internal/external drain protruding through the ampulla we were able to obtain easy cannulation of the common bile duct and we were able to advance a wire once that was done and our position was secured the external drain was pulled by the radiologist we were unable to obtain a complete cholangiogram due to the fact that there was seepage of contrast and we were not able to get enough pressure to fill the bile duct at this point we were able to identify a distal CBD stricture it was about 5 cm in length it was smooth this was dilated with Soehendra dilators sizes 7 and then 9 then it was brushed and then a 10 Persian 80 mm fully covered metal stent was deployed positioning was optimal and the patient tolerated procedure well ESTIMATED BLOOD LOSS: None SPECIMENS REMOVED: None COMPLICATIONS: None IMPRESSION: Distal CBD stricture probably benign PLAN: Await biopsies Continue with current supportive care Monitor labs Rafiq Kerr MD December 16, 2016 16:35
--- NOTE | 2016-12-16 16:51 | RADRPT ---
EXAM DATE/TIME: 12/16/2016 16:02 [facility] COMPARISON: No previous studies available for comparison. INDICATIONS : ERCP. Stent placement. FLUORO TIME: 4.12 minutes IMAGE COUNT: 2 CONTRAST: Instilled by Ordering Physician MEDICAL HISTORY : Myotonic dystrophy,Hepatic steatosis,Heparin-induced thrombocytopenia,Pancreatic mass with obstructiv e jaundice,GERD SURGICAL HISTORY : Cholecystectomy. Pancreatic stent. ENCOUNTER: Initial ACUITY: 1 day PAIN SCORE: Non-responsive. LOCATION: abdomen. FINDINGS: An ERCP was performed by the ordering physician. The images demonstrate placement of a biliary stent. On the post stent images areas a focal area of n arrowing in the distal stent. CONCLUSION: ERCP as above. Chuck Erwin MD on December 16, 2016 at 16:48 Board Certified Radiologist. This report was verified electronically.
[2016-12-16] MEDS: THIAMINE INJ 100 MG in SODIUM CHLORIDE 0.9% INJ 100 ML IV SCH (16:56)
[2016-12-16] MEDS: PANTOPRAZOLE SODIUM 40 MG VIAL IV PUSH SCH (17:34)
[2016-12-16] MEDS: MORPHINE SULFATE 4 MG/ML INJ IV PRN (20:16)
--- NOTE | 2016-12-16 22:46 | PD.ONC.PN ---
Subjective Subjective Remarks still in respiratory distress. o pressors no bleeding PLt count stable MRI shows embolic stroke, ASA started. Objective Data Date Time Temp Pulse Resp B/P Pulse Ox O2 Delivery O2 Flow Rate FiO2 12/16/16 22:04 97 40 12/16/16 20:21 12 12/16/16 19:10 96 40 12/16/16 18:37 99 40 12/16/16 18:00 62 12/16/16 14:00 51 12/16/16 13:55 95 40 12/16/16 12:00 59 12/16/16 12:00 40 12/16/16 12:00 98.1 62 16 114/58 95 12/16/16 10:28 95 40 12/16/16 10:00 63 12/16/16 08:00 98.1 48 15 110/52 97 12/16/16 08:00 40 12/16/16 08:00 57 12/16/16 07:38 97 40 12/16/16 07:00 96 Mechanical Ventilator 40 12/16/16 06:00 61 12/16/16 04:18 15 12/16/16 04:10 98 40 12/16/16 04:00 40 12/16/16 04:00 48 12/16/16 04:00 98.4 48 15 113/55 97 12/16/16 02:00 50 12/16/16 01:02 97 40 12/16/16 00:00 97.7 51 15 103/55 97 12/16/16 00:00 40 12/16/16 00:00 51 12/16/16 12/16/16 12/16/16 07:00 15:00 23:00 Intake Total 697 ml 816 ml Output Total 530 ml 2580 ml Balance 167 ml -1764 ml Result Diagram: 12/16/16 0510 12/16/16 0510 Laboratory Results Laboratory Tests Test 12/16/16 12/16/16 05:10 08:40 White Blood Count 19.0 TH/MM3 Red Blood Count 4.44 MIL/MM3 Hemoglobin 12.7 GM/DL Hematocrit 39.0 % Mean Corpuscular Volume 88.0 FL Mean Corpuscular Hemoglobin 28.7 PG Mean Corpuscular Hemoglobin 32.6 % Concent Red Cell Distribution Width 14.8 % Platelet Count 204 TH/MM3 Mean Platelet Volume 8.9 FL Neutrophils (%) (Auto) 73.1 % Lymphocytes (%) (Auto) 13.6 % Monocytes (%) (Auto) 13.2 % Eosinophils (%) (Auto) 0.0 % Basophils (%) (Auto) 0.1 % Neutrophils # (Auto) 13.9 TH/MM3 Lymphocytes # (Auto) 2.6 TH/MM3 Monocytes # (Auto) 2.5 TH/MM3 Eosinophils # (Auto) 0.0 TH/MM3 Basophils # (Auto) 0.0 TH/MM3 CBC Comment AUTO DIFF Differential Total Cells 100 Counted Neutrophils % (Manual) 63 % Band Neutrophils % 1 % Lymphocytes % 20 % Monocytes % 16 % Neutrophils # (Manual) 12.2 TH/MM3 Differential Comment FINAL DIFF MANUAL Platelet Estimate NORMAL Platelet Morphology Comment NORMAL Stomatocytes 1+ Prothrombin Time 15.9 SEC Prothromb Time International 1.4 RATIO Ratio Activated Partial 30.1 SEC Thromboplast Time Fibrinogen 179 mg/dL Sodium Level 145 MEQ/L Potassium Level 3.7 MEQ/L Chloride Level 106 MEQ/L Carbon Dioxide Level 33.3 MEQ/L Anion Gap 6 MEQ/L Blood Urea Nitrogen 6 MG/DL Creatinine 0.51 MG/DL Estimat Glomerular Filtration 171 ML/MIN Rate Random Glucose 198 MG/DL Calcium Level 8.6 MG/DL Phosphorus Level 1.6 MG/DL Magnesium Level 2.2 MG/DL Total Bilirubin 3.2 MG/DL Aspartate Amino Transf 48 U/L (AST/SGOT) Alanine Aminotransferase 260 U/L (ALT/SGPT) Alkaline Phosphatase 176 U/L Total Creatine Kinase 91 U/L 84 U/L Troponin I 0.16 NG/ML 0.16 NG/ML Total Protein 5.5 GM/DL Albumin 2.0 GM/DL Phenytoin (Dilantin) Level 13.4 MCG/ML Imaging Studies Last 24 hours Impressions Chest X-Ray 12/16/16 0600 Signed Impressions: Service Date/Time: December 04:54 - CONCLUSION: 1. Unchanged bilateral pleural effusions with associated atelectasis versus infiltrates. Philip Ralph Jr., MD GI Procedure 12/16/16 0000 Signed Impressions: Service Date/Time: December 16:02 - CONCLUSION: ERCP as above. Chuck Erwin MD Administered Medications Medications (Trade) Dose Ordered Sig/[place] Route PRN Reason Start Time Stop Time Status Last Admin Dose Admin Sodium Chloride (NS Flush) 2 ml UNSCH PRN IV FLUSH FLUSH AFTER USING IV ACCESS 12/09/16 17:15 12/09/16 19:00 Sodium Chloride (NS Flush) 2 ml BID IV FLUSH 12/09/16 21:00 12/16/16 20:20 Acetaminophen (Tylenol) 650 mg Q6H PRN PO PAIN SCALE 1 TO 2 12/09/16 17:15 12/16/16 03:18 Morphine Sulfate (Morphine Inj) 4 mg Q3H PRN IV Pain 6-10;if unable to take PO 12/09/16 17:15 12/16/16 20:16 Pantoprazole Sodium 40 mg 40 mg Q24H IV PUSH 12/09/16 18:00 12/16/16 17:34 Norepinephrine Bitartrate (Levophed-Dextrose Drip) 250 ml @ 0 mls/hr TITRATE IV 12/10/16 06:00 12/16/16 11:35 Chlorhexidine Gluconate Taper DAILY@04 TOP 12/11/16 04:00 12/07/17 03:59 12/16/16 03:19 Cefepime HCl 2000 mg/Sodium Chloride 100 ml @ 200 mls/hr Q12H IV 12/10/16 07:00 12/16/16 18:17 Metronidazole 100 ml @ 100 mls/hr Q6H IV 12/10/16 07:00 12/16/16 18:17 Potassium Chloride (KCl 40 Meq Premix Inj) 100 ml @ 25 mls/hr UNSCH PRN IV ELECTROLYTE REPLACEMENT 12/10/16 08:45 12/15/16 12:14 Potassium Bicarb/ Potassium Chloride 50 meq 50 meq UNSCH PRN PO ELECTROLYTE REPLACEMENT 12/10/16 08:45 12/12/16 15:52 Magnesium Sulfate 2 gm/Sodium Chloride 104 ml @ 52 mls/hr UNSCH PRN IV ELECTROLYTE REPLACEMENT 12/10/16 08:45 12/14/16 10:19 Sodium Phosphate/ Sodium Chloride (Sodium Phosphate Inj/NS 250 ml Inj) 260 ml @ 43.333 mls/ hr UNSCH PRN IV ELECTROLYTE REPLACEMENT 12/10/16 08:45 12/16/16 06:56 Potassium Phosphate (K-Phos) 2,000 mg UNSCH PRN PO ELECTROLYTE REPLACEMENT 12/10/16 08:45 12/15/16 23:01 Hydrocortisone Sodium Succinate (SoluCORTEF INJ) 50 mg Q6HR IV PUSH 12/11/16 12:00 12/16/16 17:34 Mupirocin (Bactroban Nasal 2% Oint) 1 applic BID NASAL 12/11/16 21:00 12/16/16 20:17 Docusate Sodium (Colace Liq) 100 mg BID OG-TUBE 12/11/16 23:32 12/16/16 20:17 Insulin Aspart (NovoLOG SUPPLEMENTAL SCALE) 1 Q6HR SQ 12/12/16 12:15 12/15/16 23:11 Lactulose (Lactulose Liq) 30 ml QID PO 12/13/16 13:00 12/16/16 20:17 Potassium Bicarb/ Potassium Chloride 25 meq 25 meq Q12HR PO 12/14/16 10:45 12/16/16 20:19 Thiamine HCl/ Sodium Chloride (Thiamine Inj/NS Inj) 101 ml @ 101 mls/hr Q24H IV 12/14/16 17:00 12/16/16 16:56 Fosphenytoin Sodium (Cerebyx Inj) 100 mgpe Q12HR IV 12/16/16 21:00 12/16/16 20:18 Objective Remarks GENERAL: critically ill SKIN: Warm and dry. CARDIOVASCULAR: Regular rate and rhythm without murmurs. RESPIRATORY: Breath sounds equal bilaterally. No accessory muscle use. GASTROINTESTINAL: Abdomen soft, non-tender, nondistended. EXTREMITIES: No cyanosis, or edema. peripheral wasting Assessment/Plan Problem List: (1) Acute respiratory failure Status: Resolved (2) UTI (urinary tract infection) Status: Resolved (3) TBI (traumatic brain injury) Status: Acute (4) Myotonic dystrophy, type 1 Status: Chronic (5) Septic encephalopathy Status: Acute Assessment 51-year-old male who has myotonic dystrophy. He is bedridden, has a history of gastroesophageal liver disease, fatty liver and a pancreatic mass with biliary obstruction who had a biliary stent placement. He now presents to the hospital with abdominal pain, nausea and jaundice. He became septic and had a seizure and was hypotensive. He is currently on vasopressors. He is intubated. The patient developed acute thrombocytopenia. 1. Acute thrombocytopenia 2/2 to DIC/sepsis. --plst count stable. - d-dimer elevated and fibrinogen low - Check daily fibrinogen and coags - Transfuse cryoprecipitate to keep fibrinogen > 150 - No evidence of MAHA or HIT 2. Seizures and respiratory failure, currently intubated. Management per critical care. 3. Embolic stroke: ASA started Neurology seeing patient DVT prophylaxis with Fondapabinaux d/w Dipesh Anguiano MD December 16, 2016 22:46
[2016-12-17] VITALS (18 sets, daily range): BP systolic 95–136; BP diastolic 50–62; PULSE 48–76; RESP 12–16; TEMP 97–98.2; O2SAT 94–100
[2016-12-17] MEDS: HYDROCORTISONE SOD SUCCINATE 100 MG VIAL IV PUSH SCH ×4 (00:04→17:23)
[2016-12-17] MEDS: metroNIDAZOLE 500 MG INJ 100 ML IV SCH ×4 (00:04→17:26)
[2016-12-17] MEDS: MORPHINE SULFATE 4 MG/ML INJ IV PRN ×4 (00:31→20:13)
[2016-12-17] MEDS: CHLORHEXIDINE GLUCONATE 2 % 1 PACK (2 CLOTHS) TOP SCH (03:21)
[2016-12-17 04:56] LABS: AUTOMATED NEUTROPHIL # 16.5 TH/MM3 (1.8-7.7); HEMATOCRIT 36.3 % (39.0-51.0); HEMO FLAGS DIFF FINAL; LYMPHOCYTE # 1.7 TH/MM3 (1.0-4.8); MEAN CELL VOLUME 86.2 FL (80.0-100.0); MEAN CORPUSCULAR HEMOGLOBIN 29.5 PG (27.0-34.0); MEAN CORPUSCULAR HGB CONC 34.2 % (32.0-36.0); MONO % 5.5 % (0.0-8.0); NEUT % 85.5 % (16.0-70.0); PLATELET COUNT 164 TH/MM3 (150-450); RED BLOOD COUNT 4.21 MIL/MM3 (4.50-5.90); RED CELL DISTRIBUTION WIDTH 14.5 % (11.6-17.2); WHITE BLOOD COUNT 19.3 TH/MM3 (4.0-11.0)
[2016-12-17 05:17] LABS: ALT (GPT) 187 U/L (12-78); ANION GAP 6 MEQ/L (5-15); AST (GOT) 43 U/L (15-37); BICARBONATE 34.5 MEQ/L (21.0-32.0); BLOOD UREA NITROGEN 10 MG/DL (7-18); CHLORIDE 105 MEQ/L (98-107); GLOMERULAR FILTRATION RATE 193 ML/MIN (>89); POTASSIUM 3.2 MEQ/L (3.5-5.1); SODIUM (NA) 145 MEQ/L (136-145)
[2016-12-17 05:20] LABS: ALKALINE PHOSPHATASE 157 U/L (45-117)
[2016-12-17] MEDS: INSULIN ASPART SUPPLEMENTAL SCALE SQ SCH ×4 (06:00→18:00)
--- NOTE | 2016-12-17 06:03 | RADRPT ---
EXAM DATE/TIME: 12/17/2016 04:23 [facility] COMPARISON: CHEST SINGLE AP, December 16, 2016, 4:54. INDICATIONS : Evaluate for respiratory diseases. MEDICAL HISTORY : Cardiovascular disease. Hepatitis B. SURGICAL HISTORY : Cholecystectomy. ENCOUNTER: Subsequent ACUITY: 1 week PAIN SCORE: Non-responsive. LOCATION: chest FINDINGS: The support devices remain in place. There is no pneumothorax. There continue to be bibasilar pulmona ry infiltrates with small effusions. No significant change compared to the prior study. CONCLUSION: No significant interval change. Luis Alberto Escamilla MD on December 17, 2016 at 6:01 Board Certified Radiologist. This report was verified electronically.
[2016-12-17] MEDS: CEFEPIME INJ 2,000 MG in SODIUM CHLORIDE 0.9% INJ 100 ML IV SCH ×2 (06:54→17:24)
[2016-12-17] MEDS: MUPIROCIN 2% OINT 1 APPLIC/GM SYR NASAL SCH ×2 (08:15→20:15)
[2016-12-17] MEDS: POTASSIUM CHLORIDE 25 MEQ EFFERVESCENT TAB PO SCH ×2 (08:15→20:15)
[2016-12-17] MEDS: FOSPHENYTOIN SODIUM 100 MG PE/2 ML VIAL IV SCH ×2 (08:15→20:14)
[2016-12-17] MEDS: DOCUSATE SODIUM 100 MG/10 ML UDC OG-TUBE SCH ×2 (08:16→20:12)
[2016-12-17] MEDS: LACTULOSE SYRUP 20 GM/30 ML CUP PO SCH ×4 (08:16→20:12)
[2016-12-17] MEDS: ASPIRIN 325 MG TAB PO SCH (08:16)
[2016-12-17] MEDS: SODIUM CHLORIDE 0.9% FLUSH 10 ML FLUSH IV FLUSH SCH ×2 (08:16→20:15)
--- NOTE | 2016-12-17 10:29 | HHI.CCPN ---
Subjective Remarks/Hospital Course 51 y/o man had stent removed yesterday following insertion for benign pancreatic mass. Now hypotensive and acts septic. 12/11: Biliary drain placed 12/10 for drainage of GB and common duct due because of distal CD obstruction from pancreatic mass. Seizure this morning. 12/12: Remains septic and requiring vasopressor support. Hyponatremia new, likely free water excess. 12/13: Remains on 10 mics of Levophed, vasopressin 0.04 international units, dobutamine 2.5 g per KG per min. Remains on propofol but moves extremities. Sodium 125, potassium 2.7. GI not planning any other interventions at this time. Biliary drain with 160 mL in 24 hours 12/14: Levophed had been weaned off. Remains on vasopressin 0.04, dobutamine 2.5 g per KG per minute. Urine output excellent. Potassium phosphorus remains low. Tolerating CPAP but lethargic. Plt count 77 today 12/15: Remains on Levophed at 6 mcg/min. Lethargic but follows commands. Plan is for [facility] Procedure/ERCP with IR and GI ? possible today. labs are pending at this time 12/16: remains on CPAP, remains in shock on 6 mcg/min of Levophed. [facility] Procedure/ERCP with IR and GI plan for today. Sodium is 145 was low at 1.6 bilirubin decreasing. UO 4.5 L in 24 hours. 12/17: s/p ERCP with biliary dilation and brushing and metal stent placement on by Dr. Kerr. Liver enzymes trending down. WBC 19.3. CXR improving infiltrates. Levophed remains at 6 mcg/min Objective Vital Signs Date Time Temp Pulse Resp B/P Pulse Ox O2 Delivery O2 Flow Rate FiO2 12/17/16 09:30 40 12/17/16 09:20 100 12/17/16 08:00 97.7 76 14 136/62 12/17/16 07:00 Mechanical Ventilator Intake and Output 12/16/16 12/16/16 12/17/16 08:00 16:00 00:00 Intake Total 697 ml 816 ml 480 ml Output Total 530 ml 2580 ml 480 ml Balance 167 ml -1764 ml 0 ml Result Diagram: 12/17/16 0435 12/17/16 0435 Objective Remarks Gen: Ill-appearing. Lethargic not on any sedation Neck: Supple, orally intubated. Lungs: Clear, good shanthi air entry. No wheezes. Heart: NL S1S2, no murmurs, no JVD. on Levophed 6 mcg/min Abdomen: No involuntary guarding, BS present. R biliary drain removed Extremities: warm, well perfused. Neuro: Off all sedation. lethargic,weakly follows commands. Moves all extremities. A/P Assessment and Plan ASSESSMENT: Septic/circulatory shock Cholangitis S/P PTHC, s/p ERCP and biliary stent Obstructive jaundice secondary to pancreatic head mass (previous w/u negative for malignancy). 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 EEG reports no sz. (TC sz witnessed) -Continue Cerebyx. Dilantin level 11.9 today -IV Ativan when necessary for seizures. Correct hyponatremia due to seizures Keep >140 -Neurology Dr. Manuel -Keep Phos normalized given history of myotonic dystrophy -MRI shows multiple embolic strokes. RESP: -Continue PSV mode of ventilation. Failing CPAP due to apnea -DuoNeb every 6 hours when necessary CVS: -Levophed at 6 mcg/min-wean to DC as tolerated -Continue IV Bumex and IV albumin -Urine output excellent with achieving negative balance. GI: -Obstructive jaundice and possible cholangitis -S/P PTHC on (12/10/16) by IR -s/p ERCP with biliary dilation and brushing and metal stent placement on by Dr. Kerr. -Liver enzymes continues to improve, bilirubin remains elevated at 4 : -IV Bumex, albumin as above -UO excellent ID -Septic shock, most likely biliary source/cholangitis -Continue broad-spectrum antibiotics cefepime and Flagyl -All cultures negative to date -Clinically slowly improving, even though white count remains at 19.3 (Patient is on stress dose steroid) Endo: -Hyponatremia and hypokalemia, hypophosphatemia -Electrolyte replacement per protocol HEME: -Thrombocytopenia most likely from sepsis, now resolved. 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 Started on fondaparinux for DVT prophylaxis DVT/GI prophylaxis -Fondaparinux 2.5 mg sq daily as recommended by heme -IV Protonix Overall impression: Shock persists,most likely septic. He remains critically ill. Failing CPAP [facility] Critical Care 30 mins Denise Blandon MD December 17, 2016 10:29
[2016-12-17] MEDS: ICU - POTASSIUM PHOSPHATE MONOBASIC 500 MG TAB PO PRN (14:27)
--- NOTE | 2016-12-17 16:14 | HHI.GIFU ---
Subjective Remarks Pt intubated and nonverbal but indicates that he is having some abdominal discomfort, diffuse. Per RN he has been having diarrhea. No nv, blood in stool. (Zaria Lee) Objective Vitals I&O Vital Signs Date Time Temp Pulse Resp B/P Pulse Ox O2 Delivery O2 Flow Rate FiO2 12/17/16 14:00 58 12/17/16 12:00 58 12/17/16 12:00 40 12/17/16 12:00 97.7 58 12 114/54 95 12/17/16 10:55 96 40 12/17/16 10:00 76 12/17/16 09:30 40 12/17/16 09:20 100 30 12/17/16 09:00 30 12/17/16 08:00 97.7 76 14 136/62 96 12/17/16 08:00 40 12/17/16 08:00 76 12/17/16 07:00 96 Mechanical Ventilator 40 12/17/16 06:00 67 12/17/16 04:03 96 40 12/17/16 04:00 98.0 70 12 115/52 12/17/16 04:00 67 12/17/16 04:00 40 12/17/16 03:28 12 12/17/16 02:00 67 12/17/16 01:02 94 40 12/17/16 00:00 40 12/17/16 00:00 67 12/17/16 00:00 98.2 68 16 95/60 12/17/16 00:00 40 12/16/16 22:04 97 40 12/16/16 22:00 67 12/16/16 20:00 40 12/16/16 20:00 67 12/16/16 20:00 98.5 67 16 113/55 12/16/16 19:10 96 40 12/16/16 19:00 96 Mechanical Ventilator 40 12/16/16 18:37 99 40 12/16/16 18:00 62 I/O 12/16/16 12/16/16 12/16/16 12/17/16 12/17/16 12/17/16 06:59 14:59 22:59 06:59 14:59 22:59 Intake Total 697 ml 816 ml 1034 ml 687 ml Output Total 530 ml 2580 ml 960 ml 1600 ml Balance 167 ml -1764 ml 74 ml -913 ml Intake IV Total 548 ml 816 ml 977 ml 507 ml Tube Feeding 79 ml 57 ml 120 ml Tube Irrigant 70 ml Other 60 ml Output Urine Total 500 ml 2550 ml 960 ml 1600 ml Drainage Total 30 ml 30 ml # Bowel Movements 0 1 2 Laboratory Laboratory Tests Test 12/17/16 12/17/16 12/17/16 04:35 11:03 12:13 White Blood Count 19.3 Red Blood Count 4.21 Hemoglobin 12.4 Hematocrit 36.3 Mean Corpuscular Volume 86.2 Mean Corpuscular Hemoglobin 29.5 Mean Corpuscular Hemoglobin 34.2 Concent Red Cell Distribution Width 14.5 Platelet Count 164 Mean Platelet Volume 8.4 Neutrophils (%) (Auto) 85.5 Lymphocytes (%) (Auto) 9.0 Monocytes (%) (Auto) 5.5 Eosinophils (%) (Auto) 0.0 Basophils (%) (Auto) 0.0 Neutrophils # (Auto) 16.5 Lymphocytes # (Auto) 1.7 Monocytes # (Auto) 1.1 Eosinophils # (Auto) 0.0 Basophils # (Auto) 0.0 CBC Comment DIFF FINAL Differential Comment Sodium Level 145 Potassium Level 3.2 Chloride Level 105 Carbon Dioxide Level 34.5 Anion Gap 6 Blood Urea Nitrogen 10 Creatinine 0.46 Estimat Glomerular Filtration 193 Rate Random Glucose 118 Calcium Level 7.9 Magnesium Level 2.0 Total Bilirubin 4.0 Aspartate Amino Transf 43 (AST/SGOT) Alanine Aminotransferase 187 (ALT/SGPT) Alkaline Phosphatase 157 Total Protein 5.2 Albumin 2.1 Phenytoin (Dilantin) Level 11.9 Lactic Acid Level 2.6 Phosphorus Level 1.6 Imaging Last Impressions Chest X-Ray 12/17/16 0600 Signed Impressions: Service Date/Time: Saturday, December 17, 2016 04:23 - CONCLUSION: No significant interval change. Luis Alberto Escamilla MD GI Procedure 12/16/16 0000 Signed Impressions: Service Date/Time: December 16:02 - CONCLUSION: ERCP as above. Chuck Erwin MD Neck Magnetic Resonance Angiography 12/15/16 0000 Signed Impressions: Service Date/Time: Thursday, December 15, 2016 16:00 - CONCLUSION: Normal examination. Azael Young MD Head Magnetic Resonance Angiography 12/15/16 Signed Impressions: Service Date/Time: Thursday, December 15, 2016 16:00 - CONCLUSION: Negative for major branch vessel occlusion.. Matt Moran MD FACR Brain MRI 12/15/16 0000 Signed Impressions: Service Date/Time: Thursday, December 15, 2016 16:00 - CONCLUSION: 1. Scattered areas of restricted diffusion in the basal ganglia bilaterally and in the left occipital region. 2. Marked central and cortical atrophy. 3. Moderate periventricular white matter changes. Matt Moran MD FACR Head CT 12/14/16 Signed Impressions: Service Date/Time: Thursday, December 15, 2016 04:43 - CONCLUSION: 1. No acute intracranial abnormality. 2. Small chronic lacunar infarction involving the right basal ganglia. Philip Ralph Jr., MD Cholangiopancreatography MRI 12/10/16 Signed Impressions: Service Date/Time: Saturday, December 10, 2016 12:44 - CONCLUSION: Pronounced biliary ductal dilatation with distal obstruction of the CBD by pancreatic mass which appears grossly stable. Barber Richardson MD Bile Duct Drainage 12/10/16 Signed Impressions: Service Date/Time: Saturday, December 10, 2016 15:33 - CONCLUSION: Uncomplicated internal/external biliary drain placement as above. Duy Moran MD Physical Exam HEENT: Normocephalic; atraumatic; + jaundice. CHEST: CTA. OETT to vent CARDIAC: RRR, on Levophed ABDOMEN: Soft, nondistended,no hepatosplenomegaly; bowel sounds are present in all four quadrants. Biliary drain patent EXTREMITIES: No clubbing, cyanosis, or edema. SKIN: Normal; ,+ jaundice. 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 (Zaria Lee [facility]) Assessment and Plan Plan ASSESSMENT: - Obstructive jaundice secondary to pancreatic head mass (previous w/u negative for malignancy). S/P ERCP with stent placement 12-16-16 --> distal CBD stricture , prob benign. S/P Unsuccessful ERCP (12/08/16)-----> biliary stent removed, failed ERCP attempt as outpatient. Pt developed pain and returned to hospital. S/P MRCP (12/10/16)---> Pronounced biliary ductal dilatation with distal obstruction of the CBD by pancreatic mass which appears grossly stable. S/P PTHC on (12/10/16). Biliary drain patent. WBC 19.3, although LFTs continue to slowly improve, T. Bili 4.0, AST 63, ALT 187, Alk Phosph 157. Flagyl, Cefepime. from around the drain and they were going to try to upsize this initially, but since the ultimate plan is for ERCP with stent placement this week, they will hold on this for now. D/W , Henrietta Jones. - Cholangitis secondary to above. WBC up today, but lfts continue to improve. S/P PTHC. Flagyl, Cefepime. - Pancreatic head mass. Found to have pancreatic head mass, measuring 4.63.8 cm with resulting intrahepatic and extrahepatic delivery obstruction with dilatation on MRCP. Tumor markers were unremarkable. He underwent ERCP with stent placement and biopsy (08/06/16) and this revealed ampullary stenosis, duodenal mass. Pathology of the duodenal mass revealed duodenal mucosa with Sheryl's gland hyperplasia and features suggesting peptic duodenitis. He was then admitted to [facility] for intensive rehabilitation. There was some concern that this could be malignant and therefore he was evaluated by oncology. The mass was not amenable to CT guided biopsy and therefore he was discharged with the plan to have EUS as outpatient. EUS with FNA (08/26/16)-----> inhomogeneous Pancrease with lobularity in the body and mild hypoechogenicity in the head, FNA of the head done, no distinct mass seen, CBD with stent in place, PD mildly dilated to 2.7 mm, no lymphadenopathy, no vascular infiltration. Benign cytology with ductal cells with reactive changes. - Severe abdomen pain, likely secondary to biliary obstruction and cholangitis vs post ERCP pancreatitis, Lipase normal. Seems to be much improved - Elevated LFTs, secondary to above. Improving. T. Bili 4.0, AST 63, ALT 187 , Alk Phosph 157. - Hepatic encephalopathy. Lactulose - Sepsis with lactic acidosis, Leukocytosis, hypotension, tachycardia, Abx with cefepime and flagyl. blood cx no growth negative. Urine cx negative. WBC did go up today to 19.7, although LFTs continue to improve. Down to just Levophed for vasopressors. - Respiratory failure. On vent per CCM. - Elevated troponin, per CCM - Multiple electrolyte abnormalities with hypokalemia, hypernatremia, hypocalcemia. per ccm - Anemia. 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 Abx - Cont. PPI - Monitor labs - Supportive care - Pt seen and examined by Dr. Kennedy and myself and this note is written on her behalf (Zaria Lee) Zaria Lee December 17, 2016 16:14 Sahri Kennedy MD December 17, 2016 18:07
[2016-12-17] MEDS: THIAMINE INJ 100 MG in SODIUM CHLORIDE 0.9% INJ 100 ML IV SCH (17:23)
[2016-12-17] MEDS: PANTOPRAZOLE SODIUM 40 MG VIAL IV PUSH SCH (17:25)
--- NOTE | 2016-12-17 18:18 | MB ---
cc: GAGAN GARDNER DATE OF CONSULTATION 12/17/16 REASON FOR CONSULTATION For evaluation of abnormal echocardiogram Doppler study. He started developing myotonic dystrophy symptoms in his 40s, mainly with muscle weakness. He had a workup in 2014 with a negative stress test June 2015 normal ejection fraction. At that time, he had a first-degree AV block on his EKG and first-degree AV block goes back to June 2015. He developed an apparent left bundle-branch block August 06, 2016. His last EKG performed on December 16 showed sinus bradycardia with first-degree AV block. His echo Doppler currently is showing an ejection fraction of 35-40%. This is a significant decline from the echo in June 2015 when his ejection fraction was 60-65%. The patient came in with common bile duct obstruction and has had a stent placed and has had sepsis. He has been on Levophed. The Levophed is down to 2 mcg which is a significant improvement. The patient is on the ventilator. Apparently, he can respond but not able to talk because of the ventilator. I obtained much of the history from his . These are the first manifestations he has had of heart involvement of this dystrophy. PAST MEDICAL HISTORY 1. Hyperlipidemia, 2. Fatty liver 3. Asthma, 4. Gastroesophageal reflux disease. PAST SURGICAL HISTORY 1. Cholecystectomy 2014 2. Pancreatic stent 3. Tonsillectomy 4. Feeding tube and tracheostomy which were removed in July 21 SOCIAL HISTORY Smoked less than a pack a day for about 20 years, does not smoke now. PHYSICAL EXAMINATION GENERAL: Currently intubated. VITAL SIGNS: Charted. HEENT: Exam unremarkable. NECK: No obvious JVD or bruits. CHEST: Clear anteriorly. CARDIAC: S1-S2, soft, regular rate and rhythm. I do not appreciate murmurs or gallops. ABDOMEN: Soft. EXTREMITIES: No peripheral edema. Pulses are intact. CARDIOLOGY STUDIES EKG shows sinus rhythm, left bundle-branch block. Echo shows ejection fraction of 35-40%. IMPRESSION AND PLAN The patient has myotonic dystrophy. This is frequently associated with conduction disturbances and can also be manifested as a cardiomyopathy. These are poor prognostic signs. At present, he is not a candidate for loading therapy with Entresto or an RAYSHAWN inhibitor because of sepsis and need for Levophed. Once his blood pressure is stable, would recommend the addition of an RAYSHAWN inhibitor to his regimen. He is bradycardic so would hold off on adding any beta-herminio. Patients like this are at high risk of needing a pacemaker but no signs of needing that currently. I will be following on a p.r.n. basis. Please feel free to let me know when he is hemodynamically more stable and I can help guide the addition of an RAYSHAWN inhibitor prior to discharge. I spoke to his in detail. Thank you for asking me to see him. MD QUYNH Fajardo/ /5:32 PM /6:03 PM
[2016-12-17 22:01] LABS: POTASSIUM 3.3 MEQ/L (3.5-5.1)
--- NOTE | 2016-12-17 22:50 | PD.ONC.PN ---
Subjective Subjective Remarks remains critically ill has respiratory failure had ERCP today f/u for thrombocytopenia/dic Objective Data Date Time Temp Pulse Resp B/P Pulse Ox O2 Delivery O2 Flow Rate FiO2 12/17/16 21:35 100 40 12/17/16 20:00 54 12/17/16 20:00 98.1 54 14 121/50 98 101/50 12/17/16 20:00 40 12/17/16 19:00 99 Mechanical Ventilator 40 12/17/16 18:00 58 12/17/16 16:58 99 40 12/17/16 16:00 48 12/17/16 16:00 40 12/17/16 16:00 97.0 48 14 114/52 94 12/17/16 14:00 58 12/17/16 12:00 58 12/17/16 12:00 40 12/17/16 12:00 97.7 58 12 114/54 95 12/17/16 10:55 96 40 12/17/16 10:00 76 12/17/16 09:30 40 12/17/16 09:20 100 30 12/17/16 09:00 30 12/17/16 08:00 97.7 76 14 136/62 96 12/17/16 08:00 40 12/17/16 08:00 76 12/17/16 07:00 96 Mechanical Ventilator 40 12/17/16 06:00 67 12/17/16 04:03 96 40 12/17/16 04:00 98.0 70 12 115/52 12/17/16 04:00 67 12/17/16 04:00 40 12/17/16 03:28 12 12/17/16 02:00 67 12/17/16 01:02 94 40 12/17/16 00:00 40 12/17/16 00:00 67 12/17/16 00:00 98.2 68 16 95/60 12/17/16 00:00 40 12/17/16 12/17/16 12/17/16 07:00 15:00 23:00 Intake Total 554 ml 687 ml Output Total 480 ml 1600 ml 0 ml Balance 74 ml -913 ml 0 ml Result Diagram: 12/17/16 0435 12/17/16 2123 Laboratory Results Laboratory Tests Test 12/17/16 12/17/16 12/17/16 12/17/16 04:35 11:03 12:13 21:23 White Blood Count 19.3 TH/MM3 Red Blood Count 4.21 MIL/MM3 Hemoglobin 12.4 GM/DL Hematocrit 36.3 % Mean Corpuscular Volume 86.2 FL Mean Corpuscular Hemoglobin 29.5 PG Mean Corpuscular Hemoglobin 34.2 % Concent Red Cell Distribution Width 14.5 % Platelet Count 164 TH/MM3 Mean Platelet Volume 8.4 FL Neutrophils (%) (Auto) 85.5 % Lymphocytes (%) (Auto) 9.0 % Monocytes (%) (Auto) 5.5 % Eosinophils (%) (Auto) 0.0 % Basophils (%) (Auto) 0.0 % Neutrophils # (Auto) 16.5 TH/MM3 Lymphocytes # (Auto) 1.7 TH/MM3 Monocytes # (Auto) 1.1 TH/MM3 Eosinophils # (Auto) 0.0 TH/MM3 Basophils # (Auto) 0.0 TH/MM3 CBC Comment DIFF FINAL Differential Comment Sodium Level 145 MEQ/L Potassium Level 3.2 MEQ/L 3.3 MEQ/L Chloride Level 105 MEQ/L Carbon Dioxide Level 34.5 MEQ/L Anion Gap 6 MEQ/L Blood Urea Nitrogen 10 MG/DL Creatinine 0.46 MG/DL Estimat Glomerular Filtration 193 ML/MIN Rate Random Glucose 118 MG/DL Calcium Level 7.9 MG/DL Magnesium Level 2.0 MG/DL Total Bilirubin 4.0 MG/DL Aspartate Amino Transf 43 U/L (AST/SGOT) Alanine Aminotransferase 187 U/L (ALT/SGPT) Alkaline Phosphatase 157 U/L Total Protein 5.2 GM/DL Albumin 2.1 GM/DL Phenytoin (Dilantin) Level 11.9 MCG/ML Lactic Acid Level 2.6 mmol/L Phosphorus Level 1.6 MG/DL 1.8 MG/DL Imaging Studies Last 24 hours Impressions Chest X-Ray 12/17/16 0600 Signed Impressions: Service Date/Time: Saturday, December 17, 2016 04:23 - CONCLUSION: No significant interval change. Luis Alberto Escamilla MD Administered Medications Medications (Trade) Dose Ordered Sig/[place] Route PRN Reason Start Time Stop Time Status Last Admin Dose Admin Sodium Chloride (NS Flush) 2 ml UNSCH PRN IV FLUSH FLUSH AFTER USING IV ACCESS 12/09/16 17:15 12/09/16 19:00 Sodium Chloride (NS Flush) 2 ml BID IV FLUSH 12/09/16 21:00 12/17/16 20:15 Acetaminophen (Tylenol) 650 mg Q6H PRN PO PAIN SCALE 1 TO 2 12/09/16 17:15 12/16/16 03:18 Morphine Sulfate (Morphine Inj) 4 mg Q3H PRN IV Pain 6-10;if unable to take PO 12/09/16 17:15 12/17/16 20:13 Pantoprazole Sodium 40 mg 40 mg Q24H IV PUSH 12/09/16 18:00 12/17/16 17:25 Norepinephrine Bitartrate (Levophed-Dextrose Drip) 250 ml @ 0 mls/hr TITRATE IV 12/10/16 06:00 12/16/16 11:35 Chlorhexidine Gluconate Taper DAILY@04 TOP 12/11/16 04:00 12/07/17 03:59 12/17/16 03:21 Cefepime HCl 2000 mg/Sodium Chloride 100 ml @ 200 mls/hr Q12H IV 12/10/16 07:00 12/17/16 17:24 Metronidazole 100 ml @ 100 mls/hr Q6H IV 12/10/16 07:00 12/17/16 17:26 Potassium Chloride (KCl 40 Meq Premix Inj) 100 ml @ 25 mls/hr UNSCH PRN IV ELECTROLYTE REPLACEMENT 12/10/16 08:45 12/15/16 12:14 Potassium Bicarb/ Potassium Chloride 50 meq 50 meq UNSCH PRN PO ELECTROLYTE REPLACEMENT 12/10/16 08:45 12/12/16 15:52 Magnesium Sulfate 2 gm/Sodium Chloride 104 ml @ 52 mls/hr UNSCH PRN IV ELECTROLYTE REPLACEMENT 12/10/16 08:45 12/14/16 10:19 Sodium Phosphate/ Sodium Chloride (Sodium Phosphate Inj/NS 250 ml Inj) 260 ml @ 43.333 mls/ hr UNSCH PRN IV ELECTROLYTE REPLACEMENT 12/10/16 08:45 12/16/16 06:56 Potassium Phosphate (K-Phos) 2,000 mg UNSCH PRN PO ELECTROLYTE REPLACEMENT 12/10/16 08:45 12/17/16 14:27 Hydrocortisone Sodium Succinate (SoluCORTEF INJ) 50 mg Q6HR IV PUSH 12/11/16 12:00 12/17/16 17:23 Mupirocin (Bactroban Nasal 2% Oint) 1 applic BID NASAL 12/11/16 21:00 12/17/16 20:15 Docusate Sodium (Colace Liq) 100 mg BID OG-TUBE 12/11/16 23:32 12/17/16 20:12 Insulin Aspart (NovoLOG SUPPLEMENTAL SCALE) 1 Q6HR SQ 12/12/16 12:15 12/17/16 12:00 Lactulose (Lactulose Liq) 30 ml QID PO 12/13/16 13:00 12/17/16 20:12 Potassium Bicarb/ Potassium Chloride 25 meq 25 meq Q12HR PO 12/14/16 10:45 12/17/16 20:15 Thiamine HCl/ Sodium Chloride (Thiamine Inj/NS Inj) 101 ml @ 101 mls/hr Q24H IV 12/14/16 17:00 12/17/16 17:23 Fosphenytoin Sodium (Cerebyx Inj) 100 mgpe Q12HR IV 12/16/16 21:00 12/17/16 20:14 Aspirin (Aspirin) 325 mg DAILY PO 12/16/16 09:45 12/17/16 08:16 Objective Remarks GENERAL: critically ill SKIN: Warm and dry. CARDIOVASCULAR: Regular rate and rhythm without murmurs. RESPIRATORY: ctab GASTROINTESTINAL: Abdomen soft, non-tender, nondistended. EXTREMITIES: No cyanosis, or edema. Assessment/Plan Problem List: (1) Acute respiratory failure Status: Resolved (2) UTI (urinary tract infection) Status: Resolved (3) TBI (traumatic brain injury) Status: Acute (4) Myotonic dystrophy, type 1 Status: Chronic (5) Septic encephalopathy Status: Acute Assessment 51-year-old male who has myotonic dystrophy. He is bedridden, has a history of gastroesophageal liver disease, fatty liver and a pancreatic mass with biliary obstruction who had a biliary stent placement. He now presents to the hospital with abdominal pain, nausea and jaundice. He became septic and had a seizure and was hypotensive. He is currently on vasopressors. He is intubated. The patient developed acute thrombocytopenia. 1. Acute thrombocytopenia 2/2 to DIC/sepsis. --plst count normalized - Check daily fibrinogen and coags - Transfuse cryoprecipitate to keep fibrinogen > 150 2. Seizures and respiratory failure, currently intubated. Management per critical care. 3. Embolic stroke: ASA started 4. Pancreatic mass: cytology pending DVT prophylaxis with Fondaparinux Dipesh Luz MD December 17, 2016 22:49
[2016-12-18] VITALS (18 sets, daily range): BP systolic 94–144; BP diastolic 47–66; PULSE 45–59; RESP 10–14; TEMP 97.8–98.5; O2SAT 99–100
[2016-12-18] MEDS: metroNIDAZOLE 500 MG INJ 100 ML IV SCH ×4 (00:23→19:00)
[2016-12-18] MEDS: HYDROCORTISONE SOD SUCCINATE 100 MG VIAL IV PUSH SCH ×5 (00:23→23:13)
[2016-12-18] MEDS: POTASSIUM CHLORIDE 25 MEQ EFFERVESCENT TAB PO PRN (02:18)
[2016-12-18] MEDS: ICU - POTASSIUM PHOSPHATE MONOBASIC 500 MG TAB PO PRN ×2 (02:19→10:17)
[2016-12-18] MEDS: CHLORHEXIDINE GLUCONATE 2 % 1 PACK (2 CLOTHS) TOP SCH (04:00)
--- NOTE | 2016-12-18 05:45 | RADRPT ---
EXAM DATE/TIME: 12/18/2016 04:29 [facility] COMPARISON: CHEST SINGLE AP, December 17, 2016, 4:23. INDICATIONS : Shortness of breath. MEDICAL HISTORY : Cardiovascular disease. Hepatitis B. SURGICAL HISTORY : Cholecystectomy. ENCOUNTER: Subsequent ACUITY: 1 week PAIN SCORE: Non-responsive. LOCATION: Bilateral chest FINDINGS: The support devices remain in place. There is no pneumothorax. There are bibasilar infiltrates which are about the same compared to the prior study. The heart size is stable. CONCLUSION: No significant interval change. Luis Alberto Escamilla MD on December 18, 2016 at 5:43 Board Certified Radiologist. This report was verified electronically.
[2016-12-18] MEDS: CEFEPIME INJ 2,000 MG in SODIUM CHLORIDE 0.9% INJ 100 ML IV SCH ×2 (06:04→20:26)
[2016-12-18 06:09] LABS: AUTOMATED NEUTROPHIL # 8.3 TH/MM3 (1.8-7.7); BASOPHIL % 0.4 % (0.0-2.0); HEMATOCRIT 34.3 % (39.0-51.0); HEMO FLAGS DIFF FINAL; LYMPHOCYTE # 1.8 TH/MM3 (1.0-4.8); MEAN CELL VOLUME 87.2 FL (80.0-100.0); MEAN CORPUSCULAR HEMOGLOBIN 29.1 PG (27.0-34.0); MEAN CORPUSCULAR HGB CONC 33.4 % (32.0-36.0); MONO % 7.8 % (0.0-8.0); NEUT % 75.8 % (16.0-70.0); PLATELET COUNT 128 TH/MM3 (150-450); RED BLOOD COUNT 3.93 MIL/MM3 (4.50-5.90); RED CELL DISTRIBUTION WIDTH 14.5 % (11.6-17.2)
[2016-12-18 06:18] LABS: INTERNATIONAL NORMALIZED RATIO 1.6 RATIO; PROTHROMBIN TIME - PATIENT 17.9 SEC (9.8-11.6)
[2016-12-18 06:59] LABS: ALT (GPT) 132 U/L (12-78); ANION GAP 6 MEQ/L (5-15); AST (GOT) 36 U/L (15-37); BICARBONATE 30.8 MEQ/L (21.0-32.0); BLOOD UREA NITROGEN 9 MG/DL (7-18); CHLORIDE 105 MEQ/L (98-107); GLOMERULAR FILTRATION RATE 220 ML/MIN (>89); MAGNESIUM 2.1 MG/DL (1.5-2.5); POTASSIUM 3.5 MEQ/L (3.5-5.1); SODIUM (NA) 142 MEQ/L (136-145)
[2016-12-18 07:00] LABS: ALKALINE PHOSPHATASE 142 U/L (45-117); TOTAL BILIRUBIN ADULT 3.5 MG/DL (0.2-1.0)
[2016-12-18] MEDS: INSULIN ASPART SUPPLEMENTAL SCALE SQ SCH ×5 (07:05→23:14)
[2016-12-18] MEDS: POTASSIUM CHLORIDE 25 MEQ EFFERVESCENT TAB PO SCH ×2 (08:47→21:00)
[2016-12-18] MEDS: MUPIROCIN 2% OINT 1 APPLIC/GM SYR NASAL SCH ×2 (08:47→20:25)
[2016-12-18] MEDS: FOSPHENYTOIN SODIUM 100 MG PE/2 ML VIAL IV SCH ×2 (08:47→20:25)
[2016-12-18] MEDS: LACTULOSE SYRUP 20 GM/30 ML CUP PO SCH ×4 (08:47→20:24)
[2016-12-18] MEDS: SODIUM CHLORIDE 0.9% FLUSH 10 ML FLUSH IV FLUSH SCH ×2 (08:47→20:27)
[2016-12-18] MEDS: DOCUSATE SODIUM 100 MG/10 ML UDC OG-TUBE SCH ×2 (08:47→20:24)
[2016-12-18] MEDS: ASPIRIN 325 MG TAB PO SCH (08:47)
--- NOTE | 2016-12-18 13:44 | EKG ---
Date Performed: 12/17/2016 Time Performed: 11:00:16 PTAGE: 51 years EKG: SINUS BRADYCARDIA LEFT BUNDLE BRANCH BLOCK Since previous tracing, no significant change no lucille ABNORMAL ECG PREVIOUS TRACING : 12/16/2016 11.39 DOCTOR: Susy Quick Interpretating Date/Time 12/18/2016 13:43:28
--- NOTE | 2016-12-18 13:44 | EKG ---
Date Performed: 12/18/2016 Time Performed: 08:53:06 PTAGE: 51 years EKG: SINUS BRADYCARDIA LEFT BUNDLE BRANCH BLOCK Since previous tracing, no significant change no lucille ABNORMAL ECG PREVIOUS TRACING : 12/17/2016 11.00 DOCTOR: Susy Quick Interpretating Date/Time 12/18/2016 13:43:46
--- NOTE | 2016-12-18 14:23 | HHI.CCPN ---
Subjective Remarks/Hospital Course 51 y/o man had stent removed yesterday following insertion for benign pancreatic mass. Now hypotensive and acts septic. 12/11: Biliary drain placed 12/10 for drainage of GB and common duct due because of distal CD obstruction from pancreatic mass. Seizure this morning. 12/12: Remains septic and requiring vasopressor support. Hyponatremia new, likely free water excess. 12/13: Remains on 10 mics of Levophed, vasopressin 0.04 international units, dobutamine 2.5 g per KG per min. Remains on propofol but moves extremities. Sodium 125, potassium 2.7. GI not planning any other interventions at this time. Biliary drain with 160 mL in 24 hours 12/14: Levophed had been weaned off. Remains on vasopressin 0.04, dobutamine 2.5 g per KG per minute. Urine output excellent. Potassium phosphorus remains low. Tolerating CPAP but lethargic. Plt count 77 today 12/15: Remains on Levophed at 6 mcg/min. Lethargic but follows commands. Plan is for [facility] Procedure/ERCP with IR and GI ? possible today. labs are pending at this time 12/16: remains on CPAP, remains in shock on 6 mcg/min of Levophed. [facility] Procedure/ERCP with IR and GI plan for today. Sodium is 145 was low at 1.6 bilirubin decreasing. UO 4.5 L in 24 hours. 12/17: s/p ERCP with biliary dilation and brushing and metal stent placement on by Dr. Kerr. Liver enzymes trending down. WBC 19.3. CXR improving infiltrates. Levophed remains at 6 mcg/min 12/18: Remains orally intubated on mechanical ventilation. On SIMV mode mechanical ventilation due to apneic episodes with C Pap trials. Objective Vital Signs Date Time Temp Pulse Resp B/P Pulse Ox O2 Delivery O2 Flow Rate FiO2 12/18/16 12:00 52 12/18/16 12:00 40 12/18/16 08:37 100 12/18/16 08:00 126/55 94/54 12/18/16 07:00 Mechanical Ventilator 12/18/16 04:00 98.5 14 Intake and Output 12/17/16 12/17/16 12/18/16 08:00 16:00 00:00 Intake Total 554 ml 687 ml 950 ml Output Total 480 ml 1600 ml 500.0 ml Balance 74 ml -913 ml 450.0 ml Result Diagram: 12/18/16 0549 12/18/16 0549 Imaging Last Impressions Chest X-Ray 12/18/16 0600 Signed Impressions: Service Date/Time: Sunday, December 18, 2016 04:29 - CONCLUSION: No significant interval change. Luis Alberto Escamilla MD GI Procedure 12/16/16 Signed Impressions: Service Date/Time: December 16:02 - CONCLUSION: ERCP as above. Cuhck Erwin MD Neck Magnetic Resonance Angiography 12/15/16 Signed Impressions: Service Date/Time: Thursday, December 15, 2016 16:00 - CONCLUSION: Normal examination. Azael Young MD Head Magnetic Resonance Angiography 12/15/16 Signed Impressions: Service Date/Time: Thursday, December 15, 2016 16:00 - CONCLUSION: Negative for major branch vessel occlusion.. Matt Moran MD FACR Brain MRI 12/15/16 Signed Impressions: Service Date/Time: Thursday, December 15, 2016 16:00 - CONCLUSION: 1. Scattered areas of restricted diffusion in the basal ganglia bilaterally and in the left occipital region. 2. Marked central and cortical atrophy. 3. Moderate periventricular white matter changes. Matt Moran MD FACR Head CT 12/14/16 Signed Impressions: Service Date/Time: Thursday, December 15, 2016 04:43 - CONCLUSION: 1. No acute intracranial abnormality. 2. Small chronic lacunar infarction involving the right basal ganglia. Philip Ralph Jr., MD Cholangiopancreatography MRI 12/10/16 Signed Impressions: Service Date/Time: Saturday, December 10, 2016 12:44 - CONCLUSION: Pronounced biliary ductal dilatation with distal obstruction of the CBD by pancreatic mass which appears grossly stable. Barber Richardson MD Bile Duct Drainage 12/10/16 Signed Impressions: Service Date/Time: Saturday, December 10, 2016 15:33 - CONCLUSION: Uncomplicated internal/external biliary drain placement as above. Duy Moran MD Objective Remarks Gen: Ill-appearing. Lethargic not on any sedation Neck: Supple, orally intubated. Lungs: Clear, good shanthi air entry. No wheezes. Heart: NL S1S2, no murmurs, no JVD. on Levophed 6 mcg/min Abdomen: No involuntary guarding, BS present. R biliary drain removed Extremities: warm, well perfused. Neuro: Off all sedation. lethargic,weakly follows commands. Moves all extremities. A/P Assessment and Plan ASSESSMENT: Septic/circulatory shock Cholangitis S/P PTHC, s/p ERCP and biliary stent Obstructive jaundice secondary to pancreatic head mass (previous w/u negative for malignancy). 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 EEG reports no sz. (TC sz witnessed) -Continue Cerebyx. Dilantin level 11.9 today -IV Ativan when necessary for seizures. Correct hyponatremia due to seizures Keep >140 -Neurology Dr. Manuel -Keep Phos normalized given history of myotonic dystrophy -MRI shows multiple embolic strokes. RESP: -Continue PSV mode of ventilation. Failing CPAP due to apnea -DuoNeb every 6 hours when necessary CVS: -Levophed GTT to keep map greater than 65 -Continue IV Bumex and IV albumin -Urine output excellent with achieving negative balance. GI: -Obstructive jaundice and possible cholangitis -S/P PTHC on (12/10/16) by IR -s/p ERCP with biliary dilation and brushing and metal stent placement on by Dr. Kerr. -Liver enzymes continues to improve, bilirubin remains elevated at 4 : -IV Bumex, albumin as above -UO excellent ID -Septic shock, most likely biliary source/cholangitis -Continue broad-spectrum antibiotics cefepime and Flagyl -All cultures negative to date -Clinically slowly improving, even though white count remains at 19.3 (Patient is on stress dose steroid) Endo: -Hyponatremia and hypokalemia, hypophosphatemia -Electrolyte replacement per protocol HEME: -Thrombocytopenia most likely from sepsis, now resolved. 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 Started on fondaparinux for DVT prophylaxis DVT/GI prophylaxis -Fondaparinux 2.5 mg sq daily as recommended by heme -IV Protonix Overall impression: Shock persists,most likely septic. He remains critically ill. Failing CPAP trials Critical Care 30 mins Mauricio Herrera MD December 18, 2016 14:22
[2016-12-18] MEDS: MORPHINE SULFATE 4 MG/ML INJ IV PRN ×2 (17:41→20:25)
[2016-12-18] MEDS: PANTOPRAZOLE SODIUM 40 MG VIAL IV PUSH SCH (17:42)
[2016-12-18] MEDS: THIAMINE INJ 100 MG in SODIUM CHLORIDE 0.9% INJ 100 ML IV SCH (17:43)
[2016-12-19] VITALS (18 sets, daily range): BP systolic 94–137; BP diastolic 46–64; PULSE 42–60; RESP 10–14; TEMP 96.6–98.1; O2SAT 98–100
[2016-12-19] MEDS: metroNIDAZOLE 500 MG INJ 100 ML IV SCH ×4 (01:35→17:39)
[2016-12-19] MEDS: MORPHINE SULFATE 4 MG/ML INJ IV PRN ×5 (01:36→22:00)
[2016-12-19] MEDS: CHLORHEXIDINE GLUCONATE 2 % 1 PACK (2 CLOTHS) TOP SCH (04:00)
[2016-12-19 04:13] LABS: AUTOMATED NEUTROPHIL # 7.8 TH/MM3 (1.8-7.7); BASOPHIL % 0.4 % (0.0-2.0); EOSINOPHIL % 0.2 % (0.0-4.0); HEMATOCRIT 35.3 % (39.0-51.0); HEMO FLAGS DIFF FINAL; LYMPH % 16.4 % (9.0-44.0); LYMPHOCYTE # 1.7 TH/MM3 (1.0-4.8); MEAN CELL VOLUME 86.5 FL (80.0-100.0); MEAN CORPUSCULAR HEMOGLOBIN 29.9 PG (27.0-34.0); MEAN CORPUSCULAR HGB CONC 34.5 % (32.0-36.0); MONO % 7.7 % (0.0-8.0); NEUT % 75.3 % (16.0-70.0); PLATELET COUNT 131 TH/MM3 (150-450); RED BLOOD COUNT 4.08 MIL/MM3 (4.50-5.90); RED CELL DISTRIBUTION WIDTH 14.5 % (11.6-17.2); WHITE BLOOD COUNT 10.4 TH/MM3 (4.0-11.0)
[2016-12-19 04:28] LABS: ALT (GPT) 122 U/L (12-78); ANION GAP 8 MEQ/L (5-15); AST (GOT) 37 U/L (15-37); BICARBONATE 30.3 MEQ/L (21.0-32.0); BLOOD UREA NITROGEN 7 MG/DL (7-18); CHLORIDE 105 MEQ/L (98-107); GLOMERULAR FILTRATION RATE 234 ML/MIN (>89); POTASSIUM 3.1 MEQ/L (3.5-5.1); SODIUM (NA) 143 MEQ/L (136-145)
[2016-12-19 04:30] LABS: ALKALINE PHOSPHATASE 174 U/L (45-117); TOTAL BILIRUBIN ADULT 3.2 MG/DL (0.2-1.0)
[2016-12-19] MEDS: INSULIN ASPART SUPPLEMENTAL SCALE SQ SCH ×3 (06:00→16:50)
[2016-12-19] MEDS: HYDROCORTISONE SOD SUCCINATE 100 MG VIAL IV PUSH SCH ×3 (06:05→16:42)
[2016-12-19] MEDS: CEFEPIME INJ 2,000 MG in SODIUM CHLORIDE 0.9% INJ 100 ML IV SCH ×2 (06:05→17:38)
[2016-12-19] MEDS: DOCUSATE SODIUM 100 MG/10 ML UDC OG-TUBE SCH ×2 (07:39→20:34)
[2016-12-19] MEDS: ASPIRIN 325 MG TAB PO SCH (07:53)
[2016-12-19] MEDS: MUPIROCIN 2% OINT 1 APPLIC/GM SYR NASAL SCH ×2 (07:53→20:34)
[2016-12-19] MEDS: LACTULOSE SYRUP 20 GM/30 ML CUP PO SCH ×4 (07:53→20:34)
[2016-12-19] MEDS: SODIUM CHLORIDE 0.9% FLUSH 10 ML FLUSH IV FLUSH SCH ×2 (07:53→20:36)
[2016-12-19] MEDS: FOSPHENYTOIN SODIUM 100 MG PE/2 ML VIAL IV SCH ×2 (07:53→20:36)
[2016-12-19] MEDS: ICU - POTASSIUM CHLORIDE/AQUEOUS SOLN 40 MEQ/100 ML IVPB IV PRN (07:54)
[2016-12-19] MEDS: POTASSIUM CHLORIDE 25 MEQ EFFERVESCENT TAB PO SCH ×2 (07:57→20:35)
--- NOTE | 2016-12-19 11:09 | HHI.CCPN ---
Subjective Remarks/Hospital Course 51 y/o man had stent removed yesterday following insertion for benign pancreatic mass. Now hypotensive and acts septic. 12/11: Biliary drain placed 12/10 for drainage of GB and common duct due because of distal CD obstruction from pancreatic mass. Seizure this morning. 12/12: Remains septic and requiring vasopressor support. Hyponatremia new, likely free water excess. 12/13: Remains on 10 mics of Levophed, vasopressin 0.04 international units, dobutamine 2.5 g per KG per min. Remains on propofol but moves extremities. Sodium 125, potassium 2.7. GI not planning any other interventions at this time. Biliary drain with 160 mL in 24 hours 12/14: Levophed had been weaned off. Remains on vasopressin 0.04, dobutamine 2.5 g per KG per minute. Urine output excellent. Potassium phosphorus remains low. Tolerating CPAP but lethargic. Plt count 77 today 12/15: Remains on Levophed at 6 mcg/min. Lethargic but follows commands. Plan is for [facility] Procedure/ERCP with IR and GI ? possible today. labs are pending at this time 12/16: remains on CPAP, remains in shock on 6 mcg/min of Levophed. [facility] Procedure/ERCP with IR and GI plan for today. Sodium is 145 was low at 1.6 bilirubin decreasing. UO 4.5 L in 24 hours. 12/17: s/p ERCP with biliary dilation and brushing and metal stent placement on by Dr. Kerr. Liver enzymes trending down. WBC 19.3. CXR improving infiltrates. Levophed remains at 6 mcg/min 12/18: Remains orally intubated on mechanical ventilation. On SIMV mode mechanical ventilation due to apneic episodes with C Pap trials. 12/19: Remains orally intubated on mechanical ventilation. On SIMV mode with rate of 6 pressure support +20 which was decreased to +12 Objective Vital Signs Date Time Temp Pulse Resp B/P Pulse Ox O2 Delivery O2 Flow Rate FiO2 12/19/16 10:05 100 40 12/19/16 10:00 46 12/19/16 08:00 137/62 12/19/16 08:00 97.9 11 12/19/16 07:00 Mechanical Ventilator Intake and Output 512/18/16 12/19/16 08:00 16:00 00:00 Intake Total 701 ml 778 ml 755 ml Output Total 450.0 ml 600.0 ml 800.0 ml Balance 251.0 ml 178.0 ml -45.0 ml Result Diagram: 12/19/1639912/19/16 0400 Imaging Last Impressions Chest X-Ray 12/18/16 0600 Signed Impressions: Service Date/Time: Sunday, December 18, 2016 04:29 - CONCLUSION: No significant interval change. Luis Alberto Escamilla MD GI Procedure 12/16/16 Signed Impressions: Service Date/Time: December 16:02 - CONCLUSION: ERCP as above. Chuck Erwin MD Neck Magnetic Resonance Angiography 12/15/16 Signed Impressions: Service Date/Time: Thursday, December 15, 2016 16:00 - CONCLUSION: Normal examination. Azael Young MD Head Magnetic Resonance Angiography 12/15/16 Signed Impressions: Service Date/Time: Thursday, December 15, 2016 16:00 - CONCLUSION: Negative for major branch vessel occlusion.. Matt Moran MD FACR Brain MRI 12/15/16 Signed Impressions: Service Date/Time: Thursday, December 15, 2016 16:00 - CONCLUSION: 1. Scattered areas of restricted diffusion in the basal ganglia bilaterally and in the left occipital region. 2. Marked central and cortical atrophy. 3. Moderate periventricular white matter changes. Matt Moran MD FACR Head CT 12/14/16 Signed Impressions: Service Date/Time: Thursday, December 15, 2016 04:43 - CONCLUSION: 1. No acute intracranial abnormality. 2. Small chronic lacunar infarction involving the right basal ganglia. Philip Ralph Jr., MD Cholangiopancreatography MRI 12/10/16 Signed Impressions: Service Date/Time: Saturday, December 10, 2016 12:44 - CONCLUSION: Pronounced biliary ductal dilatation with distal obstruction of the CBD by pancreatic mass which appears grossly stable. Barber Richardson MD Bile Duct Drainage 12/10/16 Signed Impressions: Service Date/Time: Saturday, December 10, 2016 15:33 - CONCLUSION: Uncomplicated internal/external biliary drain placement as above. Duy Moran MD Objective Remarks Gen: Ill-appearing. Lethargic not on any sedation Neck: Supple, orally intubated. Lungs: Clear, good shanthi air entry. No wheezes. Heart: NL S1S2, no murmurs, no JVD. on Levophed Abdomen: No involuntary guarding, BS present. R biliary drain removed Extremities: warm, well perfused. Neuro: Off all sedation, remains intubated awake, alert, follows commands. Moves all extremities. A/P Assessment and Plan ASSESSMENT: Septic/circulatory shock Cholangitis S/P PTHC, s/p ERCP and biliary stent Obstructive jaundice secondary to pancreatic head mass (previous w/u negative for malignancy). 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 EEG reports no sz. (TC sz witnessed) -Continue Cerebyx. Dilantin level 11.9 today -IV Ativan when necessary for seizures. Correct hyponatremia due to seizures Keep >140 -Neurology Dr. Manuel -Keep Phos normalized given history of myotonic dystrophy -MRI shows multiple embolic strokes. RESP: -Continue PSV mode of ventilation. Failing CPAP due to apnea -DuoNeb every 6 hours when necessary CVS: -Levophed GTT to keep map greater than 65 -Continue IV Bumex and IV albumin -Urine output excellent with achieving negative balance. GI: -Obstructive jaundice and possible cholangitis -S/P PTHC on (12/10/16) by IR -s/p ERCP with biliary dilation and brushing and metal stent placement on by Dr. Kerr. -Liver enzymes continues to improve, bilirubin remains elevated at 4 : -IV Bumex, albumin as above -UO excellent ID -Septic shock, most likely biliary source/cholangitis -Continue broad-spectrum antibiotics cefepime and Flagyl -All cultures negative to date -Clinically slowly improving, even though white count remains at 19.3 (Patient is on stress dose steroid) Endo: -Hyponatremia and hypokalemia, hypophosphatemia -Electrolyte replacement per protocol HEME: -Thrombocytopenia most likely from sepsis, now resolved. 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 Started on fondaparinux for DVT prophylaxis DVT/GI prophylaxis -Fondaparinux 2.5 mg sq daily as recommended by heme -IV Protonix Overall impression: Shock persists,most likely septic. He remains critically ill. SIMV mode for vent weaning. Critical Care 30 mins Mauricio Herrera MD December 19, 2016 11:09
[2016-12-19] MEDS: NOREPINEPHRINE 4 MG/D5W 250 ML IV SCH (12:03)
[2016-12-19] MEDS: THIAMINE INJ 100 MG in SODIUM CHLORIDE 0.9% INJ 100 ML IV SCH (15:23)
[2016-12-19] MEDS: PANTOPRAZOLE SODIUM 40 MG VIAL IV PUSH SCH (16:42)
[2016-12-20] VITALS (19 sets, daily range): BP systolic 104–133; BP diastolic 46–65; PULSE 48–70; RESP 12–17; TEMP 96.6–98.8; O2SAT 95–100
[2016-12-20] MEDS: HYDROCORTISONE SOD SUCCINATE 100 MG VIAL IV PUSH SCH ×4 (01:46→17:14)
[2016-12-20] MEDS: metroNIDAZOLE 500 MG INJ 100 ML IV SCH ×4 (01:46→17:14)
[2016-12-20] MEDS: MORPHINE SULFATE 4 MG/ML INJ IV PRN ×4 (01:47→10:01)
[2016-12-20] MEDS: CHLORHEXIDINE GLUCONATE 2 % 1 PACK (2 CLOTHS) TOP SCH (04:00)
[2016-12-20] MEDS: INSULIN ASPART SUPPLEMENTAL SCALE SQ SCH ×4 (06:00→18:00)
[2016-12-20 06:02] LABS: BICARBONATE 30.9 MEQ/L (21.0-32.0); POTASSIUM 3.7 MEQ/L (3.5-5.1)
[2016-12-20] MEDS: CEFEPIME INJ 2,000 MG in SODIUM CHLORIDE 0.9% INJ 100 ML IV SCH ×2 (06:30→17:15)
[2016-12-20] MEDS: LACTULOSE SYRUP 20 GM/30 ML CUP PO SCH ×4 (08:19→21:00)
[2016-12-20] MEDS: ASPIRIN 325 MG TAB PO SCH (08:19)
[2016-12-20] MEDS: MUPIROCIN 2% OINT 1 APPLIC/GM SYR NASAL SCH ×2 (08:19→22:10)
[2016-12-20] MEDS: SODIUM CHLORIDE 0.9% FLUSH 10 ML FLUSH IV FLUSH SCH ×2 (08:19→22:10)
[2016-12-20] MEDS: DOCUSATE SODIUM 100 MG/10 ML UDC OG-TUBE SCH ×2 (08:19→21:00)
[2016-12-20] MEDS: FOSPHENYTOIN SODIUM 100 MG PE/2 ML VIAL IV SCH ×2 (08:20→22:10)
[2016-12-20] MEDS: POTASSIUM CHLORIDE 25 MEQ EFFERVESCENT TAB PO SCH ×2 (08:23→22:10)
[2016-12-20] MEDS ORDERED: ALBUMIN HUMAN 25% 25 GM/100 ML BAGP IV ONE (08:45)
[2016-12-20] MEDS ORDERED: BUMETANIDE INJ 1 MG/4 ML VIAL IV PUSH ONE (08:45)
--- NOTE | 2016-12-20 08:51 | HHI.CCPN ---
Subjective Remarks/Hospital Course 51 y/o man had stent removed yesterday following insertion for benign pancreatic mass. Now hypotensive and acts septic. 12/11: Biliary drain placed 12/10 for drainage of GB and common duct due because of distal CD obstruction from pancreatic mass. Seizure this morning. 12/12: Remains septic and requiring vasopressor support. Hyponatremia new, likely free water excess. 12/13: Remains on 10 mics of Levophed, vasopressin 0.04 international units, dobutamine 2.5 g per KG per min. Remains on propofol but moves extremities. Sodium 125, potassium 2.7. GI not planning any other interventions at this time. Biliary drain with 160 mL in 24 hours 12/14: Levophed had been weaned off. Remains on vasopressin 0.04, dobutamine 2.5 g per KG per minute. Urine output excellent. Potassium phosphorus remains low. Tolerating CPAP but lethargic. Plt count 77 today 12/15: Remains on Levophed at 6 mcg/min. Lethargic but follows commands. Plan is for [facility] Procedure/ERCP with IR and GI ? possible today. labs are pending at this time 12/16: remains on CPAP, remains in shock on 6 mcg/min of Levophed. [facility] Procedure/ERCP with IR and GI plan for today. Sodium is 145 was low at 1.6 bilirubin decreasing. UO 4.5 L in 24 hours. 12/17: s/p ERCP with biliary dilation and brushing and metal stent placement on by Dr. Kerr. Liver enzymes trending down. WBC 19.3. CXR improving infiltrates. Levophed remains at 6 mcg/min 12/18: Remains orally intubated on mechanical ventilation. On SIMV mode mechanical ventilation due to apneic episodes with C Pap trials. 12/19: Remains orally intubated on mechanical ventilation. On SIMV mode with rate of 6 pressure support +20 which was decreased to +12 12/20; Tolerating IMV with RR 6, breathing 8 above vent. Remains on Levophed at 4 mcg/m. More awake, following commands. Routine chest x-ray showed right pneumothorax and free air under the diaphragm. Had PTC procedure last week, unclear whether air is related. D/ W GI. Get CT chest after R chest tube is placed. D/W Dr Francis and Dr. Lugo Objective Vital Signs Date Time Temp Pulse Resp B/P Pulse Ox O2 Delivery O2 Flow Rate FiO2 12/20/16 08:31 100 40 12/20/16 06:00 54 12/20/16 04:00 98.5 14 133/57 12/19/16 07:00 Mechanical Ventilator Intake and Output 12/19/16 12/19/16 12/20/16 08:00 16:00 00:00 Intake Total 415 ml 1056 ml 730 ml Output Total 950 ml 1100 ml 1200.0 ml Balance -535 ml -44 ml -470.0 ml Result Diagram: 12/19/16 0400 12/20/16 0510 Imaging Last Impressions Chest X-Ray 12/18/16 0600 Signed Impressions: Service Date/Time: Sunday, December 18, 2016 04:29 - CONCLUSION: No significant interval change. Luis Alberto Escamilla MD GI Procedure 12/16/16 0000 Signed Impressions: Service Date/Time: December 16:02 - CONCLUSION: ERCP as above. Chuck Erwin MD Neck Magnetic Resonance Angiography 12/15/16 0000 Signed Impressions: Service Date/Time: Thursday, December 15, 2016 16:00 - CONCLUSION: Normal examination. Azael Young MD Head Magnetic Resonance Angiography 12/15/16 0000 Signed Impressions: Service Date/Time: Thursday, December 15, 2016 16:00 - CONCLUSION: Negative for major branch vessel occlusion.. Matt Moran MD FACR Brain MRI 12/15/16 0000 Signed Impressions: Service Date/Time: Thursday, December 15, 2016 16:00 - CONCLUSION: 1. Scattered areas of restricted diffusion in the basal ganglia bilaterally and in the left occipital region. 2. Marked central and cortical atrophy. 3. Moderate periventricular white matter changes. Matt Moran MD FACR Head CT 12/14/16 0000 Signed Impressions: Service Date/Time: Thursday, December 15, 2016 04:43 - CONCLUSION: 1. No acute intracranial abnormality. 2. Small chronic lacunar infarction involving the right basal ganglia. Philip Ralph Jr., MD Cholangiopancreatography MRI 12/10/16 0000 Signed Impressions: Service Date/Time: Saturday, December 10, 2016 12:44 - CONCLUSION: Pronounced biliary ductal dilatation with distal obstruction of the CBD by pancreatic mass which appears grossly stable. Barber Richardson MD Bile Duct Drainage 12/10/16 0000 Signed Impressions: Service Date/Time: Saturday, December 10, 2016 15:33 - CONCLUSION: Uncomplicated internal/external biliary drain placement as above. Duy Moran MD Objective Remarks Gen: Ill-appearing. Lethargic not on any sedation Neck: Supple, orally intubated. Lungs: Clear, good shanthi air entry, slightly diminished on the right side. No wheezes. Heart: NL S1S2, no murmurs, no JVD. on Levophed Abdomen: Tympanic to percussion, No involuntary guarding, BS present. R biliary drain removed Extremities: warm, well perfused. Neuro: Off all sedation, remains intubated awake, alert, follows commands. Moves all extremities. Urinary Catheter: Yes Assessment to: Continue A/P Assessment and Plan ASSESSMENT: Septic/circulatory shock Right pneumothorax (? Intra-abdominal free air tracking up) Intra-abdominal free air ? procedure related vs ruptured viscus Cholangitis S/P PTHC, s/p ERCP and biliary stent Obstructive jaundice secondary to pancreatic head mass (previous w/u negative for malignancy). 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 EEG reports no sz. (TC sz witnessed) -Continue Cerebyx. Dilantin level 11.9 today -IV Ativan when necessary for seizures. Correct hyponatremia due to seizures Keep >140 -Neurology Dr. Manuel -Keep Phos normalized given history of myotonic dystrophy -MRI shows multiple embolic strokes. -Kress/Morphine PRN for pain -Start propofol to facilitate imaging studies and test of procedure RESP: -Placed right chest tube for right pneumothorax. And could be tracking up from intra-abdominal free air -Continue IMV/PSV mode of ventilation. No CPAP due to acute change -DuoNeb every 6 hours when necessary CVS: -Levophed to keep map greater than 65 -Off IV Bumex and IV albumin, give single dose today -Urine output excellent with achieving negative balance. GI: -Obstructive jaundice and possible cholangitis -S/P PTHC on (12/10/16) by IR -s/p ERCP with biliary dilation and brushing and metal stent placement on by Dr. Kerr. -Chest x-ray today 12/20/16 showing intra-abdominal free air-check CT abdomen and pelvis stat -D/W Dr. Francis and Dr Lugo -Liver enzymes continues to improve : -IV Bumex, albumin as above -UO excellent ID -Septic shock, most likely biliary source/cholangitis -Continue broad-spectrum antibiotics cefepime and Flagyl, Add vancomycin due to new finding of free air under the diaphragm -Repeat blood cultures -All cultures negative to date -Clinically slowly improving, WBC normalized Endo: -Hyponatremia and hypokalemia, hypophosphatemia -Electrolyte replacement per protocol HEME: -Thrombocytopenia most likely from sepsis, now resolved. 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 On fondaparinux for DVT prophylaxis DVT/GI prophylaxis -Fondaparinux 2.5 mg sq daily as recommended by heme -IV Protonix Overall impression: Shock persists,most likely septic. He remains critically ill , now with free intra-abdominal air in right-sided pneumothorax. Placed chest tube emergently, CT of the abdomen pelvis with oral contrast pending at this time Critical Care 80 mins Denise Blandon MD December 20, 2016 08:51
--- NOTE | 2016-12-20 09:26 | RADRPT ---
EXAM DATE/TIME: 12/20/2016 08:38 [facility] COMPARISON: CHEST SINGLE AP, December 18, 2016, 4:29. INDICATIONS : Respiratory disease. MEDICAL HISTORY : Cardiovascular disease. Hepatitis B. SURGICAL HISTORY : Cholecystectomy. ENCOUNTER: Subsequent ACUITY: 1 week PAIN SCORE: Non-responsive. LOCATION: Bilateral chest FINDINGS: A single view of the chest demonstrates free air under the right hemidiaphragm. Also, there is a new right-sided pneumothorax with 4 cm of separation in the right upper lung area. No mediastinal shift i s demonstrated. The endotracheal tube, left-sided central line and NG tube remain in place. The heart size is mildly enlarged and stable. There continues to be parenchymal consolidation in the left lowe r lung suggestive atelectasis. Findings were called immediately by telephone to the nurse on the floor taking care of this patient.. CONCLUSION: 1. There is a new moderate right pneumothorax with 4 cm of separation in the right upper lung. 2. There is new free air under the right hemidiaphragm. Luis Alberto Escamilla MD on December 20, 2016 at 9:14 Board Certified Radiologist. This report was verified electronically.
--- NOTE | 2016-12-20 10:05 | HHI.GIFU ---
Subjective Remarks Pt intubated on ventilator. Very restless. C/O abdominal pain. Seems to be diffuse. Nurse reports that he was lethargic earlier today, going for CT Scan this morning to follow up on abnormal new free air under the right hemidiaphragm. Objective Vitals I&O Vital Signs Date Time Temp Pulse Resp B/P Pulse Ox O2 Delivery O2 Flow Rate FiO2 12/20/16 08:31 100 40 12/20/16 08:15 40 12/20/16 06:00 54 12/20/16 04:00 49 12/20/16 04:00 40 12/20/16 04:00 98.5 49 14 133/57 95 12/20/16 03:22 95 40 12/20/16 02:00 51 12/20/16 00:00 52 12/20/16 00:00 98.4 52 17 104/46 97 12/20/16 00:00 40 12/19/16 23:48 98 40 12/19/16 22:00 52 12/19/16 20:26 100 40 12/19/16 20:00 122/54 12/19/16 20:00 50 12/19/16 20:00 98.1 42 10 122/54 99 Automatic Cuff 12/19/16 20:00 40 12/19/16 18:20 53 12/19/16 16:00 96.8 54 12 114/57 100 12/19/16 16:00 54 12/19/16 16:00 40 12/19/16 15:28 12 12/19/16 14:01 45 12/19/16 12:44 100 40 12/19/16 12:00 46 12/19/16 12:00 96.6 46 12 117/54 100 12/19/16 12:00 40 12/19/16 10:05 100 40 12/19/16 10:00 46 I/O 12/19/16 12/19/16 12/19/16 12/20/16 12/20/16 12/20/16 07:00 15:00 23:00 07:00 15:00 23:00 Intake Total 415 ml 1056 ml 730 ml 725 ml Output Total 950 ml 1100 ml 1100.0 ml 1000.0 ml Balance -535 ml -44 ml -370.0 ml -275.0 ml Intake IV Total 65 ml 538 ml 461 ml 323 ml Tube Feeding 250 ml 218 ml 149 ml 302 ml Other 100 ml 300 ml 120 ml 100 ml Output Urine Total 950 ml 1100 ml 1000 ml 700 ml Tube Feeding Residual Discard 0 ml 100.0 ml 300.0 ml # Bowel Movements 1 0 0 0 Laboratory Laboratory Tests Test 12/19/16 12/20/16 20:00 05:10 Potassium Level 3.6 3.7 Sodium Level 142 Chloride Level 105 Carbon Dioxide Level 30.9 Anion Gap 6 Blood Urea Nitrogen 8 Creatinine 0.47 Estimat Glomerular Filtration 188 Rate Random Glucose 155 Calcium Level 8.4 Phenytoin (Dilantin) Level 11.2 Imaging Last Impressions Chest X-Ray 12/20/16 0000 Signed Impressions: Service Date/Time: Tuesday, December 20, 2016 08:38 - CONCLUSION: 1. There is a new moderate right pneumothorax with 4 cm of separation in the right upper lung. 2. There is new free air under the right hemidiaphragm. Luis Alberto Escamilla MD GI Procedure 12/16/16 0000 Signed Impressions: Service Date/Time: December 16:02 - CONCLUSION: ERCP as above. Chuck Erwin MD Neck Magnetic Resonance Angiography 12/15/16 Signed Impressions: Service Date/Time: Thursday, December 15, 2016 16:00 - CONCLUSION: Normal examination. Azael Young MD Head Magnetic Resonance Angiography 12/15/16 Signed Impressions: Service Date/Time: Thursday, December 15, 2016 16:00 - CONCLUSION: Negative for major branch vessel occlusion.. Matt Moran MD FACR Brain MRI 12/15/16 Signed Impressions: Service Date/Time: Thursday, December 15, 2016 16:00 - CONCLUSION: 1. Scattered areas of restricted diffusion in the basal ganglia bilaterally and in the left occipital region. 2. Marked central and cortical atrophy. 3. Moderate periventricular white matter changes. Matt Moran MD FACR Head CT 12/14/16 Signed Impressions: Service Date/Time: Thursday, December 15, 2016 04:43 - CONCLUSION: 1. No acute intracranial abnormality. 2. Small chronic lacunar infarction involving the right basal ganglia. Philip Ralph Jr., MD Cholangiopancreatography MRI 12/10/16 Signed Impressions: Service Date/Time: Saturday, December 10, 2016 12:44 - CONCLUSION: Pronounced biliary ductal dilatation with distal obstruction of the CBD by pancreatic mass which appears grossly stable. Barber Richardson MD Bile Duct Drainage 12/10/16 0000 Signed Impressions: Service Date/Time: Saturday, December 10, 2016 15:33 - CONCLUSION: Uncomplicated internal/external biliary drain placement as above. Duy Moran MD Physical Exam HEENT: Normocephalic; atraumatic; + jaundice. CHEST: OETT to vent, diminished CARDIAC: RRR- 90, on Levophed ABDOMEN: Soft, nondistended,no hepatosplenomegaly; bowel sounds are present in all four quadrants EXTREMITIES: No clubbing, cyanosis, or edema. SKIN: Normal; ,+ jaundice. WREATH INSPECTOR: Restless Assessment and Plan Plan ASSESSMENT: - Obstructive jaundice secondary to pancreatic head mass (previous w/u negative for malignancy). S/P Unsuccessful ERCP (12/08/16)-----> biliary stent removed, failed ERCP attempt as outpatient. Pt developed pain and returned to hospital. S/P MRCP (12/10/16)---> Pronounced biliary ductal dilatation with distal obstruction of the CBD by pancreatic mass which appears grossly stable. S/P PTHC on (12/10/16). 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 No CBC/LFT for today. - Cholangitis secondary to above. S/P PTHC, S/P ERCP. WBC 10.4. Flagyl, Cefepime. - Abnormal CXR with new free air under the right hemidiaphragm. CXR (12/20/16)-- ---> There is a new moderate right pneumothroax with 4 cm of separation in the right upper lung, There is new free air under the right hemidiaphragm. Pt will be getting CT placed shortly and then will go for stat CT scan abdomen/pelvis. Stat CBC, CMP. HR was 96 when I was in room. He is extremely restless, diffuse abdominal tenderness - Pancreatic head mass. Found to have pancreatic head mass, measuring 4.63.8 cm with resulting intrahepatic and extrahepatic delivery obstruction with dilatation on MRCP. Tumor markers were unremarkable. He underwent ERCP with stent placement and biopsy (08/06/16) and this revealed ampullary stenosis, duodenal mass. Pathology of the duodenal mass revealed duodenal mucosa with Sheryl's gland hyperplasia and features suggesting peptic duodenitis. He was then admitted to [facility] for intensive rehabilitation. There was some concern that this could be malignant and therefore he was evaluated by oncology. The mass was not amenable to CT guided biopsy and therefore he was discharged with the plan to have EUS as outpatient. EUS with FNA (08/26/16)-----> inhomogeneous Pancrease with lobularity in the body and mild hypoechogenicity in the head, FNA of the head done, no distinct mass seen, CBD with stent in place, PD mildly dilated to 2.7 mm, no lymphadenopathy, no vascular infiltration. Benign cytology with ductal cells with reactive changes. - Severe abdomen pain, likely secondary to biliary obstruction and cholangitis vs post ERCP pancreatitis, Lipase normal. Seems to be much improved - Elevated LFTs, secondary to above. Yesterday's T. Bili 3.2, AST 37, ALT 122, Alk Phosph 174. - Hepatic encephalopathy. Lactulose - Sepsis with lactic acidosis, Leukocytosis, hypotension, tachycardia, Abx with cefepime and flagyl. - Respiratory failure/New right PTX. On vent per CCM. - Elevated troponin, per [facility] - Multiple electrolyte abnormalities with hypokalemia, hypernatremia, hypocalcemia. per [facility] - Anemia. Today's labs pending. - Seizures per CCM - Myotonic dystrophy, Anxiety, Hyperlipidemia, Asthma, Fatty liver disease, Hx HIT per primary PLAN: - NPO - Stat CT scan abdomen and pelvis after CT placed - Stat CBC, CMP - Cont. Abx - Cont. PPI - Monitor labs - Further recommendations to follow based on results of above - Pt seen and examined by Dr. Boss and myself and this note is written on his behalf Shira Rees December 20, 2016 10:04
[2016-12-20] MEDS ORDERED: DIATRIZOATE MEGLUM/DIATRIZOATE SOD 9 ML CUP PO ONE (10:15)
[2016-12-20] MEDS: PROPOFOL 1000 MG/100 ML INJ 100 ML IV SCH ×2 (10:27→12:21)
[2016-12-20 10:41] LABS: AUTOMATED NEUTROPHIL # 10.4 TH/MM3 (1.8-7.7); BASOPHIL % 0.1 % (0.0-2.0); EOSINOPHIL % 0.3 % (0.0-4.0); HEMATOCRIT 37.2 % (39.0-51.0); HEMO FLAGS DIFF FINAL; LYMPH % 9.2 % (9.0-44.0); LYMPHOCYTE # 1.1 TH/MM3 (1.0-4.8); MEAN CELL VOLUME 87.5 FL (80.0-100.0); MEAN CORPUSCULAR HEMOGLOBIN 29.1 PG (27.0-34.0); MEAN CORPUSCULAR HGB CONC 33.3 % (32.0-36.0); MONO % 6.4 % (0.0-8.0); PLATELET COUNT 126 TH/MM3 (150-450); RED BLOOD COUNT 4.26 MIL/MM3 (4.50-5.90); WHITE BLOOD COUNT 12.4 TH/MM3 (4.0-11.0)
[2016-12-20] MEDS ORDERED: MIDAZOLAM HCL 5 MG/ML VIAL (1 ML) ONE (10:55)
[2016-12-20 11:11] LABS: ALKALINE PHOSPHATASE 215 U/L (45-117); ALT (GPT) 103 U/L (12-78); ANION GAP 7 MEQ/L (5-15); AST (GOT) 41 U/L (15-37); BICARBONATE 32.5 MEQ/L (21.0-32.0); BLOOD UREA NITROGEN 9 MG/DL (7-18); CHLORIDE 102 MEQ/L (98-107); GLOMERULAR FILTRATION RATE 164 ML/MIN (>89); POTASSIUM 3.7 MEQ/L (3.5-5.1); SODIUM (NA) 141 MEQ/L (136-145); TOTAL BILIRUBIN ADULT 3.5 MG/DL (0.2-1.0)
[2016-12-20] MEDS ORDERED: MORPHINE SULFATE 4 MG/ML INJ IV PRN (11:15)
--- NOTE | 2016-12-20 12:15 | RADRPT ---
EXAM DATE/TIME: 12/20/2016 11:47 [facility] COMPARISON: CHEST SINGLE AP, December 20, 2016, 8:38. INDICATIONS : Post chest tube placement. MEDICAL HISTORY : Cardiovascular disease. Hepatitis B. SURGICAL HISTORY : None. ENCOUNTER: Initial ACUITY: 1 week PAIN SCORE: Non-responsive. LOCATION: Bilateral chest FINDINGS: Single view chest image is a small bore chest tube in Place at the right lung base. There is still co ntinued pneumothorax at the right lung base. The examination also demonstrates free intraperitoneal air. Stat CT imaging of the abdomen is pending . The There is consolidation in the medial aspect of the left lung base. The left lung is otherwise clear. The ET tube and dialysis catheter are in good position. The gastric tubes in good position. CONCLUSION: 1. Interval placement of a small bore chest tube on the right with near complete interval resolution of the patient's right-sided pneumothorax. There is still a small amount of pneumothorax which remain s. 2. Free intraperitoneal air. Stat CT of the abdomen is pending. Duy Moran MD on December 20, 2016 at 12:08 Board Certified Radiologist. This report was verified electronically.
[2016-12-20] MEDS: NOREPINEPHRINE 4 MG/D5W 250 ML IV SCH (12:21)
[2016-12-20] MEDS ORDERED: IOHEXOL 350 MG/ML 10 ML VIAL (for RAD DIAG) IV ONE (13:06)
--- NOTE | 2016-12-20 13:36 | RADRPT ---
EXAM DATE/TIME: 12/20/2016 13:00 [facility] COMPARISON: CHEST SINGLE AP, December 16, 2016, 4:54. CT ABDOMEN & PELVIS W CONTRAST, August 04, 2016, 23:04. INDICATIONS : Evaluate for free air IV CONTRAST: 93 cc Omnipaque 350 (iohexol) IV ORAL CONTRAST: Prescribed oral contrast ingested. RADIATION DOSE: 7.89 CTDIvol (mGy) MEDICAL HISTORY : Gastroesophageal reflux disease. SURGICAL HISTORY : Cholecystectomy. ENCOUNTER: Initial ACUITY: 2 days PAIN SCALE: Non-responsive LOCATION: abdomen TECHNIQUE: Volumetric scanning of the abdomen and pelvis was performed. Using automated exposure control and ad justment of the mA and/or kV according to patient size, radiation dose was kept as low as reasonably achievable to obtain optimal diagnostic quality images. FINDINGS: LOWER LUNGS: Bibasilar atelectasis. Status post placement of a right-sided chest tube. No definite pneumothorax. LIVER: Homogeneous density without lesion. There is no dilation of the biliary tree. No gallbladder, surgi jasmyne removed. There is a small amount of air and a few biliary ducts. There is an internal biliary s tent in place. The stent appears to be in good position. SPLEEN: Normal size without lesion. PANCREAS: Within normal limits. KIDNEYS: Normal in size and shape. There is no mass, stone or hydronephrosis. ADRENAL GLANDS: Within normal limits. VASCULAR: There is no aortic aneurysm. BOWEL/MESENTERY: There is a moderate amount of free air in the upper abdomen. Oral contrast is seen in the upper GI tr act. No extravasation of oral contrast is demonstrated. Bowel gas pattern is within normal limits. Th ere is stool in the colon. No definite or significant free fluid is seen. No loculated fluid is seen. ABDOMINAL WALL: Within normal limits. RETROPERITONEUM: There is no lymphadenopathy. BLADDER: There is a Potter catheter in urinary bladder. The bladder appears to be distended. REPRODUCTIVE: Within normal limits. INGUINAL: There is no lymphadenopathy or hernia. MUSCULOSKELETAL: Within normal limits for patient age. CONCLUSION: 1. There is a moderate amount of free air in the upper abdomen. Viscous perforation is the primary co nsideration. No definite extravasation of oral contrast is seen in the upper abdomen. This correlates with the recent chest x-ray demonstrating free intraperitoneal air. 2. Status post placement of a right-sided chest tube with resolution of the previously noted right pn eumothorax. 3. Bibasilar atelectasis. 4. There is a Potter catheter in urinary bladder. However, the urinary bladder appears to be distended . Luis Alberto Escamilla MD on December 20, 2016 at 13:27 Board Certified Radiologist. This report was verified electronically.
[2016-12-20] MEDS ORDERED: VANCOMYCIN INJ 1,251 MG in SODIUM CHLORID 0.9% 500 ML INJ 500 ML IV ONE (14:00)
[2016-12-20] MEDS ORDERED: Vancomycin Consult Pharmacy 1 EA OTHER SCH (14:00)
[2016-12-20] MEDS: VANCOMYCIN INJ 1,250 MG in SODIUM CHLOR 0.9% 250 ML INJ 250 ML IV SCH (15:27)
--- NOTE | 2016-12-20 16:01 | PD.PROCEDR ---
Procedure Note Procedure Procedure: Pigtail catheter placement site: Right pleural cavity Preop diagnosis: Right pneumothorax Postop diagnosis: Same Informed consent: Obtained from family and documented on chart. Anesthesia used: 1% lidocaine for local infiltration anesthesia Procedure: After sterile prepping and draping using 1% lidocaine for local infiltration anesthesia, introducer needle was used to enter right pleural cavity thru intercostal space at the level of the nipple in anterior axillary line. Pleural cavity was entered as evidenced by return of air bubbles. A guidewire was passed through needle without any resistance following which needle was removed. 10 Turkish pigtail catheter was advanced over the guidewire into the right pleural cavity following which guidewire and stiffener were removed. Pigtail catheter was connected to Pleur-evac VAC with a connector. Pigtail catheter was sutured in place as well as secured with stayfix. Postprocedure chest x-ray was ordered and was pending at the time of this dictation. It will be reviewed when available. Patient tolerated procedure well with no immediate complications noted. Mauricio Herrera MD December 20, 2016 16:00
[2016-12-20] MEDS: PANTOPRAZOLE SODIUM 40 MG VIAL IV PUSH SCH (17:15)
[2016-12-20] MEDS: THIAMINE INJ 100 MG in SODIUM CHLORIDE 0.9% INJ 100 ML IV SCH (17:16)
--- NOTE | 2016-12-20 22:04 | PD.ONC.PN ---
Subjective Subjective Remarks remains on vent critically ill no bleeding cytology pending from ERCP Objective Data Date Time Temp Pulse Resp B/P Pulse Ox O2 Delivery O2 Flow Rate FiO2 12/20/16 20:28 100 40 12/20/16 18:31 50 12/20/16 16:45 100 40 12/20/16 16:43 100 40 12/20/16 16:00 40 12/20/16 16:00 52 12/20/16 16:00 97.6 52 12 121/65 99 12/20/16 14:00 48 12/20/16 12:00 96.6 51 12 122/60 100 12/20/16 12:00 40 12/20/16 12:00 51 12/20/16 11:34 99 40 12/20/16 10:00 70 12/20/16 08:31 100 40 12/20/16 08:15 40 12/20/16 08:00 12/20/16 08:00 40 12/20/16 08:00 70 12/20/16 08:00 98.8 64 16 113/52 96 12/20/16 06:00 54 12/20/16 04:00 49 12/20/16 04:00 40 12/20/16 04:00 98.5 49 14 133/57 95 12/20/16 03:22 95 40 12/20/16 02:00 51 12/20/16 00:00 52 12/20/16 00:00 98.4 52 17 104/46 97 12/20/16 00:00 40 12/19/16 23:48 98 40 12/20/16 12/20/16 12/20/16 07:00 15:00 23:00 Intake Total 725 ml 443 ml Output Total 1000.0 ml 2320 ml Balance -275.0 ml -1877 ml Result Diagram: 12/20/16 1015 12/20/16 1015 Laboratory Results Laboratory Tests Test 12/20/16 12/20/16 05:10 10:15 Sodium Level 142 MEQ/L 141 MEQ/L Potassium Level 3.7 MEQ/L 3.7 MEQ/L Chloride Level 105 MEQ/L 102 MEQ/L Carbon Dioxide Level 30.9 MEQ/L 32.5 MEQ/L Anion Gap 6 MEQ/L 7 MEQ/L Blood Urea Nitrogen 8 MG/DL 9 MG/DL Creatinine 0.47 MG/DL 0.53 MG/DL Estimat Glomerular Filtration 188 ML/MIN 164 ML/MIN Rate Random Glucose 155 MG/DL 163 MG/DL Calcium Level 8.4 MG/DL 8.0 MG/DL Phenytoin (Dilantin) Level 11.2 MCG/ML White Blood Count 12.4 TH/MM3 Red Blood Count 4.26 MIL/MM3 Hemoglobin 12.4 GM/DL Hematocrit 37.2 % Mean Corpuscular Volume 87.5 FL Mean Corpuscular Hemoglobin 29.1 PG Mean Corpuscular Hemoglobin 33.3 % Concent Red Cell Distribution Width 15.0 % Platelet Count 126 TH/MM3 Mean Platelet Volume 8.6 FL Neutrophils (%) (Auto) 84.0 % Lymphocytes (%) (Auto) 9.2 % Monocytes (%) (Auto) 6.4 % Eosinophils (%) (Auto) 0.3 % Basophils (%) (Auto) 0.1 % Neutrophils # (Auto) 10.4 TH/MM3 Lymphocytes # (Auto) 1.1 TH/MM3 Monocytes # (Auto) 0.8 TH/MM3 Eosinophils # (Auto) 0.0 TH/MM3 Basophils # (Auto) 0.0 TH/MM3 CBC Comment DIFF FINAL Differential Comment Lactic Acid Level 2.7 mmol/L Total Bilirubin 3.5 MG/DL Aspartate Amino Transf 41 U/L (AST/SGOT) Alanine Aminotransferase 103 U/L (ALT/SGPT) Alkaline Phosphatase 215 U/L Total Protein 6.5 GM/DL Albumin 2.9 GM/DL Imaging Studies Last 24 hours Impressions Chest X-Ray 12/20/16 0000 Signed Impressions: Service Date/Time: Tuesday, December 20, 2016 11:47 - CONCLUSION: 1. Interval placement of a small bore chest tube on the right with near complete interval resolution of the patient's right-sided pneumothorax. There is still a small amount of pneumothorax which remains. 2. Free intraperitoneal air. Stat CT of the abdomen is pending. Duy Moran MD Chest X-Ray 12/20/16 0000 Signed Impressions: Service Date/Time: Tuesday, December 20, 2016 08:38 - CONCLUSION: 1. There is a new moderate right pneumothorax with 4 cm of separation in the right upper lung. 2. There is new free air under the right hemidiaphragm. Luis Alberto Escamilla MD Abdomen/Pelvis CT 12/20/16 0000 Signed Impressions: Service Date/Time: Tuesday, December 20, 2016 13:00 - CONCLUSION: 1. There is a moderate amount of free air in the upper abdomen. Viscous perforation is the primary consideration. No definite extravasation of oral contrast is seen in the upper abdomen. This correlates with the recent chest x-ray demonstrating free intraperitoneal air. 2. Status post placement of a right-sided chest tube with resolution of the previously noted right pneumothorax. 3. Bibasilar atelectasis. 4. There is a Potter catheter in urinary bladder. However, the urinary bladder appears to be distended. Luis Alberto Escamilla MD Administered Medications Medications (Trade) Dose Ordered Sig/Sahara Route PRN Reason Start Time Stop Time Status Last Admin Dose Admin Sodium Chloride (NS Flush) 2 ml UNSCH PRN IV FLUSH FLUSH AFTER USING IV ACCESS 12/09/16 17:15 12/09/16 19:00 Sodium Chloride (NS Flush) 2 ml BID IV FLUSH 12/09/16 21:00 12/20/16 08:19 Morphine Sulfate (Morphine Inj) 2 mg Q3H PRN IV Pain 3-5; if unable to take PO 12/09/16 17:15 12/20/16 10:01 Pantoprazole Sodium 40 mg 40 mg Q24H IV PUSH 12/09/16 18:00 12/20/16 17:15 Norepinephrine Bitartrate (Levophed-Dextrose Drip) 250 ml @ 0 mls/hr TITRATE IV 12/10/16 06:00 12/20/16 12:21 Chlorhexidine Gluconate Taper DAILY@04 TOP 12/11/16 04:00 12/07/17 03:59 12/19/16 04:00 Cefepime HCl 2000 mg/Sodium Chloride 100 ml @ 200 mls/hr Q12H IV 12/10/16 07:00 12/20/16 17:15 Metronidazole 100 ml @ 100 mls/hr Q6H IV 12/10/16 07:00 12/20/16 17:14 Potassium Chloride (KCl 40 Meq Premix Inj) 100 ml @ 25 mls/hr UNSCH PRN IV ELECTROLYTE REPLACEMENT 12/10/16 08:45 12/19/16 07:54 Potassium Bicarb/ Potassium Chloride 50 meq 50 meq UNSCH PRN PO ELECTROLYTE REPLACEMENT 12/10/16 08:45 12/18/16 02:18 Magnesium Sulfate 2 gm/Sodium Chloride 104 ml @ 52 mls/hr UNSCH PRN IV ELECTROLYTE REPLACEMENT 12/10/16 08:45 12/14/16 10:19 Sodium Phosphate/ Sodium Chloride (Sodium Phosphate Inj/NS 250 ml Inj) 260 ml @ 43.333 mls/ hr UNSCH PRN IV ELECTROLYTE REPLACEMENT 12/10/16 08:45 12/16/16 06:56 Potassium Phosphate (K-Phos) 2,000 mg UNSCH PRN PO ELECTROLYTE REPLACEMENT 12/10/16 08:45 12/18/16 10:17 Hydrocortisone Sodium Succinate (SoluCORTEF INJ) 50 mg Q6HR IV PUSH 12/11/16 12:00 12/20/16 17:14 Mupirocin (Bactroban Nasal 2% Oint) 1 applic BID NASAL 12/11/16 21:00 12/20/16 08:19 Docusate Sodium (Colace Liq) 100 mg BID OG-TUBE 12/11/16 23:32 12/20/16 08:19 Insulin Aspart (NovoLOG SUPPLEMENTAL SCALE) 1 Q6HR SQ 12/12/16 12:15 12/18/16 17:57 Lactulose (Lactulose Liq) 30 ml QID PO 12/13/16 13:00 12/20/16 17:14 Potassium Bicarb/ Potassium Chloride 25 meq 25 meq Q12HR PO 12/14/16 10:45 12/20/16 08:23 Thiamine HCl/ Sodium Chloride (Thiamine Inj/NS Inj) 101 ml @ 101 mls/hr Q24H IV 12/14/16 17:00 12/20/16 17:16 Fosphenytoin Sodium (Cerebyx Inj) 100 mgpe Q12HR IV 12/16/16 21:00 12/20/16 08:20 Aspirin 325 mg 325 mg DAILY PO 12/16/16 09:45 12/20/16 08:19 Propofol 100 ml @ 0 mls/hr TITRATE IV 12/20/16 10:15 12/20/16 12:21 Vancomycin HCl/ Sodium Chloride (Vancomycin Inj/ NS 250 ml Inj) 262.5 ml @ 250 mls/hr Q8H IV 12/20/16 15:00 12/20/16 15:27 Objective Remarks GENERAL: critically ill CARDIOVASCULAR: Regular rate and rhythm without murmurs. RESPIRATORY: on ventilator, ctab GASTROINTESTINAL: Abdomen soft, non-tender, nondistended. EXTREMITIES: No cyanosis, or edema. Assessment/Plan Problem List: (1) Acute respiratory failure Status: Resolved (2) UTI (urinary tract infection) Status: Resolved (3) TBI (traumatic brain injury) Status: Acute (4) Myotonic dystrophy, type 1 Status: Chronic (5) Septic encephalopathy Status: Acute Assessment 51-year-old male who has myotonic dystrophy. He is bedridden, has a history of gastroesophageal liver disease, fatty liver and a pancreatic mass with biliary obstruction who had a biliary stent placement. He now presents to the hospital with abdominal pain, nausea and jaundice. He became septic and had a seizure and was hypotensive. He is currently on vasopressors. He is intubated. The patient developed acute thrombocytopenia. 1. Acute thrombocytopenia 2/2 to DIC/sepsis. --plt count at baseline now 2. Seizures and respiratory failure, currently intubated. Management per critical care. 3. Embolic stroke: ASA started 4. Pancreatic mass: cytology pending DVT prophylaxis with Fondaparinux Dipesh Luz MD December 20, 2016 22:04
--- NOTE | 2016-12-20 22:19 | MB ---
cc: ADALBERTO LARA M.D. DATE OF CONSULTATION 12/20/2016 REASON FOR CONSULTATION Pneumoperitoneum. 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 Stent was removed on December 08 and they were unable to perform ERCP. The patient underwent MRCP 12/10 which demonstrated pronounced ductal dilatation. The patient underwent PTC on 12/10/2016. Liver function tests were trending downward. The patient had pancreatic head mass 4.6 x 3.8 cm and underwent an endoscopic ultrasound with fine-needle aspiration in August which demonstrated inhomogeneous pancreatic tissue. There is also benign cytology with ductal cells with reactive changes of the common duct. The patient was admitted with sepsis with lactic acidosis, hypotension and tachycardia and has been intubated. The patient had stent removed on 12/17 and began having symptoms concerning for sepsis. The patient has been on Levophed for the last week or longer. He had stent removal on 12/16 and was found to have free air on chest x-ray noted today. This was not present on 12/18. A chest tube was placed for pneumothorax but the patient was found to have pneumoperitoneum. CT of the abdomen and pelvis has been completed and this demonstrates a moderate amount of free air in the upper abdomen. Oral contrast was seen in the upper GI tract with no extravasation of oral contrast and no free fluid was seen. The patient has slightly elevated white blood cell count with WBC of 12.4. PHYSICAL EXAMINATION GENERAL: Physical exam reveals a male who is on the ventilator but is able to converse. VITAL SIGNS: BP 121/65 on 2 mics of Levophed, pulse 52, temperature 97.6, 99% saturation on 40% FIO2. HEENT: Sclerae anicteric. Pupils reactive. CHEST: Clear. There is a right-sided chest tube in place with serous pleural fluid. There is no air leak. ABDOMEN: Soft; the patient does report some discomfort with palpation. Abdomen is flat and nondistended. EXTREMITIES: Pulses are present. NEUROLOGIC: The patient has weakness throughout globally. This is not new. LABORATORY DATA Laboratory values are as noted above. Chemistries demonstrate bilirubin of 3.5 which was 3.2 yesterday. AST 41, ALT 103, alkaline phosphatase 215. ASSESSMENT I have spoken with Dr. Blandon and communicated with the patient; he does not appear to have an acute abdomen at this point. His abdomen was benign late this morning and remains benign this afternoon. The patient is being weaned tonight and will likely be on C-PAP this evening and probably extubated in the morning. At that point the patient will also be able to better verbalize his discomfort level. It is possible that the patient has pneumoperitoneum from his pneumothorax if the percutaneous transhepatic cholangiocatheter was placed including some of the diaphragm. I am very reluctant to explore the patient, as he has no oral contrast extravasation or free fluid. It is unlikely that he has a perforated viscus. Simple continued close followup is all that is indicated at this moment. I have discussed this with the patient and his and if he has any acute changes, I will be at the bedside to reevaluate the patient and determine if he needs to go for laparoscopy or laparotomy. The patient and his understand this. My nurse practitioner will see the patient early in the morning and I will see him later in the morning unless there are changes. Thank you Dr. Blandon for asking us to see this individual; we will follow him with you. MD ELLIOTT Antony/KK /7:31 PM /10:09 PM MTDD
[2016-12-21] VITALS (17 sets, daily range): BP systolic 63–139; BP diastolic 46–63; PULSE 43–61; RESP 12–23; TEMP 97.6–98.8; O2SAT 98–100
[2016-12-21] MEDS: VANCOMYCIN INJ 1,250 MG in SODIUM CHLOR 0.9% 250 ML INJ 250 ML IV SCH ×3 (00:02→15:20)
[2016-12-21] MEDS: metroNIDAZOLE 500 MG INJ 100 ML IV SCH ×5 (00:02→23:44)
[2016-12-21] MEDS: MORPHINE SULFATE 4 MG/ML INJ IV PRN ×4 (00:02→21:18)
[2016-12-21] MEDS: HYDROCORTISONE SOD SUCCINATE 100 MG VIAL IV PUSH SCH ×4 (00:02→21:16)
[2016-12-21] MEDS: ACETAMINOPHEN/HYDROcodone 325 MG/5 MG TAB PO PRN ×2 (00:27→05:38)
[2016-12-21] MEDS: PROPOFOL 1000 MG/100 ML INJ 100 ML IV SCH (00:38)
[2016-12-21] MEDS: CHLORHEXIDINE GLUCONATE 2 % 1 PACK (2 CLOTHS) TOP SCH (04:00)
[2016-12-21] MEDS: CEFEPIME INJ 2,000 MG in SODIUM CHLORIDE 0.9% INJ 100 ML IV SCH ×3 (05:37→17:25)
[2016-12-21] MEDS: INSULIN ASPART SUPPLEMENTAL SCALE SQ SCH ×5 (06:00→23:43)
[2016-12-21 06:47] LABS: GLOMERULAR FILTRATION RATE 214 ML/MIN (>89)
[2016-12-21 07:01] LABS: AUTOMATED NEUTROPHIL # 10.3 TH/MM3 (1.8-7.7); BASOPHIL % 0.2 % (0.0-2.0); EOSINOPHIL # 0.1 TH/MM3 (0-0.4); EOSINOPHIL % 0.4 % (0.0-4.0); HEMATOCRIT 36.7 % (39.0-51.0); HEMO FLAGS DIFF FINAL; LYMPH % 15.2 % (9.0-44.0); LYMPHOCYTE # 2.1 TH/MM3 (1.0-4.8); MEAN CELL VOLUME 87.1 FL (80.0-100.0); MEAN CORPUSCULAR HEMOGLOBIN 28.8 PG (27.0-34.0); MEAN CORPUSCULAR HGB CONC 33.1 % (32.0-36.0); MONO % 8.5 % (0.0-8.0); NEUT % 75.7 % (16.0-70.0); PLATELET COUNT 154 TH/MM3 (150-450); RED BLOOD COUNT 4.21 MIL/MM3 (4.50-5.90); RED CELL DISTRIBUTION WIDTH 14.6 % (11.6-17.2); WHITE BLOOD COUNT 13.6 TH/MM3 (4.0-11.0)
[2016-12-21 07:12] LABS: ALKALINE PHOSPHATASE 240 U/L (45-117); ALT (GPT) 88 U/L (12-78); AST (GOT) 38 U/L (15-37); BICARBONATE 31.6 MEQ/L (21.0-32.0); BLOOD UREA NITROGEN 8 MG/DL (7-18); MAGNESIUM 2.2 MG/DL (1.5-2.5); TOTAL BILIRUBIN ADULT 4.1 MG/DL (0.2-1.0)
--- NOTE | 2016-12-21 07:15 | RADRPT ---
EXAM DATE/TIME: 12/21/2016 06:35 [facility] COMPARISON: CHEST SINGLE AP, December 20, 2016, 11:47. CT ABDOMEN & PELVIS W CONTRAST, December 20, 2016, 13:00. INDICATIONS : Shortness of breath. MEDICAL HISTORY : Cardiovascular disease. Hepatitis B. SURGICAL HISTORY : None. ENCOUNTER: Subsequent ACUITY: 1 week PAIN SCORE: 0/10 LOCATION: Bilateral chest FINDINGS: There is free air in the upper abdomen underneath the hemidiaphragm. Chest tube is present on the rig ht side. Lines and tubes are present not significantly changed. Dense airspace consolidation in both lung bases are seen worse on the left. There may be a tiny right pneumothorax. CONCLUSION: Reduction in size of the free intraperitoneal air for technique since the prior examination and quest ionable tiny right pneumothorax. Dense airspace consolidation in both lung bases worse on the left. Kamala Bermudez MD on December 21, 2016 at 7:11 Board Certified Radiologist. This report was verified electronically.
--- NOTE | 2016-12-21 07:16 | RADRPT ---
EXAM DATE/TIME: 12/21/2016 06:39 [facility] COMPARISON: ABDOMEN DECUBITUS LEFT, December 21, 2016, 6:44. CHEST SINGLE AP, December 21, 2016, 6:35. INDICATIONS : Free air. MEDICAL HISTORY : Cardiovascular disease. Hepatitis B. SURGICAL HISTORY : None. ENCOUNTER: Subsequent ACUITY: 1 week PAIN SCORE: 0/10 LOCATION: Bilateral abdomen FINDINGS: There is free intraperitoneal air best seen on the decubitus examination and the patient's chest x-ra y. The bowel gas is nonspecific. Biliary stent is present. CONCLUSION: Free intraperitoneal air. Kamala Bermudez MD on December 21, 2016 at 7:14 Board Certified Radiologist. This report was verified electronically.
--- NOTE | 2016-12-21 07:17 | RADRPT ---
EXAM DATE/TIME: 12/21/2016 06:44 [facility] COMPARISON: ABDOMEN KUB ONLY, December 21, 2016, 6:39. CHEST SINGLE AP, December 21, 2016, 6:35. INDICATIONS : Free air. MEDICAL HISTORY : Cardiovascular disease. Hepatitis B. SURGICAL HISTORY : None. ENCOUNTER: Subsequent ACUITY: 1 week PAIN SCORE: 0/10 LOCATION: Bilateral chest FINDINGS: Left side down decubitus demonstrates free intraperitoneal air. CONCLUSION: Free intraperitoneal air. Kamala Bermudez MD on December 21, 2016 at 7:15 Board Certified Radiologist. This report was verified electronically.
[2016-12-21 07:34] LABS: ANION GAP 7 MEQ/L (5-15); CHLORIDE 104 MEQ/L (98-107); SODIUM (NA) 143 MEQ/L (136-145)
[2016-12-21 07:39] LABS: POTASSIUM 2.8 MEQ/L (3.5-5.1)
[2016-12-21] MEDS: ICU - POTASSIUM CHLORIDE/AQUEOUS SOLN 40 MEQ/100 ML IVPB IV PRN ×2 (07:52→10:12)
[2016-12-21] MEDS: FOSPHENYTOIN SODIUM 100 MG PE/2 ML VIAL IV SCH ×2 (07:52→21:16)
[2016-12-21] MEDS: MUPIROCIN 2% OINT 1 APPLIC/GM SYR NASAL SCH ×2 (07:53→21:16)
[2016-12-21] MEDS: SODIUM CHLORIDE 0.9% FLUSH 10 ML FLUSH IV FLUSH SCH ×2 (07:53→21:16)
[2016-12-21] MEDS: POTASSIUM CHLORIDE 25 MEQ EFFERVESCENT TAB PO SCH ×2 (07:54→21:16)
[2016-12-21] MEDS: DOCUSATE SODIUM 100 MG/10 ML UDC OG-TUBE SCH ×2 (07:54→21:00)
[2016-12-21] MEDS: LACTULOSE SYRUP 20 GM/30 ML CUP PO SCH ×4 (07:54→21:00)
[2016-12-21] MEDS: ASPIRIN 325 MG TAB PO SCH (07:54)
--- NOTE | 2016-12-21 07:54 | HHI.PR ---
Review/Management Diagnosis/Plan: (1) Acute embolic stroke Plan: mri brain reviewed bilateral bg, rt frontal and left occipital tiny infarcts mra brain/carotids nml recs neuro stable septic emboli? syeda? check after echo- seen by cardiology d/w spouse last week on phone will d/w ccm (2) Encephalopathy, metabolic Plan: sz- likely 2/2 metabolic/electrolyte changes/embolic strokes corrected dil >20 (3) Myotonic dystrophy, type 1 Plan: genetic (4) Aspiration pneumonia (5) Biliary sepsis Subjective Subjective Comments No acute events reported No headache No chest pain No dyspnea Active Medications Current Medications Medications (Trade) Dose Ordered Sig/Sahara Route Start Time Stop Time Status Last Admin (NS Flush) 2 ml UNSCH PRN IV FLUSH 12/09/16 17:15 12/09/16 19:00 (NS Flush) 2 ml BID IV FLUSH 12/09/16 21:00 12/20/16 22:10 (Tylenol) 650 mg Q4H PRN PO 12/09/16 17:15 (Senokot) 17.2 mg Q12H PRN PO 12/09/16 17:15 (Morphine Inj) 2 mg Q3H PRN IV 12/09/16 17:15 12/21/16 03:30 (Narcan Inj) 0.4 mg UNSCH PRN IV 12/09/16 17:15 Pantoprazole Sodium 40 mg 40 mg Q24H IV PUSH 12/09/16 18:00 12/20/16 17:15 (Levophed-Dextrose Drip) 250 ml @ 0 mls/hr TITRATE IV 12/10/16 06:00 12/20/16 12:21 (Zofran Inj) 4 mg Q6H PRN IV 12/10/16 06:30 Miscellaneous Information 1 Q361D XX 12/10/16 06:30 (Chlorhexidine 2% Cloth) Taper DAILY@04 TOP 12/11/16 04:00 12/07/17 03:59 12/19/16 04:00 Chlorhexidine Gluconate 3 pack 3 pack UNSCH PRN TOP 12/10/16 06:30 (Flagyl 500 Mg Inj) 100 ml @ 100 mls/hr Q6H IV 12/10/16 07:00 12/21/16 06:45 Miscellaneous Information D/C ICU ELECTROLYTE ORDERS... UNSCH PRN .XX 12/10/16 08:45 Miscellaneous Information ICU - CALL ORDERING PHYSIC... UNSCH PRN .XX 12/10/16 08:45 (KCl 40 Meq Premix Inj) 100 ml @ 25 mls/hr UNSCH PRN IV 12/10/16 08:45 12/19/16 07:54 Potassium Bicarb/ Potassium Chloride 50 meq 50 meq UNSCH PRN PO 12/10/16 08:45 12/18/16 02:18 Potassium Chloride 100 ml @ 50 mls/hr UNSCH PRN IV 12/10/16 08:45 Magnesium Sulfate 4 gm/Sodium Chloride 108 ml @ 54 mls/hr UNSCH PRN IV 12/10/16 08:45 (Magnesium Sulfate Inj/NS Inj) 104 ml @ 52 mls/hr UNSCH PRN IV 12/10/16 08:45 12/14/16 10:19 Magnesium Oxide 800 mg 800 mg UNSCH PRN PO 12/10/16 08:45 (Sodium Phosphate Inj/NS 250 ml Inj) 260 ml @ 43.333 mls/ hr UNSCH PRN IV 12/10/16 08:45 12/16/16 06:56 (K-Phos) 2,000 mg UNSCH PRN PO 12/10/16 08:45 12/18/16 10:17 (Brethine Inj) 1 mg UNSCH PRN SQ 12/11/16 10:30 (Bactroban Nasal 2% Oint) 1 applic BID NASAL 12/11/16 21:00 12/20/16 22:10 (Colace Liq) 100 mg BID OG-TUBE 12/11/16 23:32 12/20/16 08:19 (D50w (Vial) Inj) 25 ml UNSCH PRN IV PUSH 12/12/16 12:15 (Glucagon Inj) 1 mg UNSCH PRN OTHER 12/12/16 12:15 (NovoLOG SUPPLEMENTAL SCALE) 1 Q6HR SQ 12/12/16 12:15 12/18/16 17:57 (Lactulose Liq) 30 ml QID PO 12/13/16 13:00 12/20/16 17:14 Potassium Bicarb/ Potassium Chloride 25 meq 25 meq Q12HR PO 12/14/16 10:45 12/20/16 22:10 (Thiamine Inj/NS Inj) 101 ml @ 101 mls/hr Q24H IV 12/14/16 17:00 12/20/16 17:16 (Cerebyx Inj) 100 mgpe Q12HR IV 12/16/16 21:00 12/20/16 22:10 (Aspirin) 325 mg DAILY PO 12/16/16 09:45 12/20/16 08:19 (Morphine Inj) 2 mg Q3H PRN IV 12/20/16 11:15 Acetaminophen/ Hydrocodone Bitart 1 tab 1 tab Q6H PRN PO 12/20/16 08:45 12/21/16 05:38 Propofol 100 ml @ 0 mls/hr TITRATE IV 12/20/16 10:15 12/21/16 00:38 Pharmacy Profile Note 0 ml @ 0 mls/hr UNSCH OTHER 12/20/16 14:00 (Vancomycin Inj/ NS 250 ml Inj) 262.5 ml @ 250 mls/hr Q8H IV 12/20/16 15:00 12/21/16 00:02 Miscellaneous Information SPECIFIC LAB TO BE DRAWN:VANCOMYCIN TROUGH DATE TO... ONCE ONCE .XX 12/21/16 22:45 12/21/16 22:46 (Maxipime Inj/NS Inj) 100 ml @ 200 mls/hr Q8H IV 12/21/16 11:00 (SoluCORTEF INJ) 50 mg Q12HR IV PUSH 12/21/16 09:00 12/24/16 08:59 Allergies Allergies Coded Allergies *MDRO Multi-Drug Resistant Organism (Verified Adverse Reaction, Unknown, ) Review of Systems All other ROS: ROS reviewed as documented in chart Exam I&O / VS 12/20/16 12/20/16 12/21/16 15:00 23:00 07:00 Intake Total 443 ml 808 ml 630 ml Output Total 2320 ml 1720 ml 850 ml Balance -1877 ml -912 ml -220 ml Intake IV Total 103 ml 808 ml 570 ml Tube Feeding 40 ml 0 ml Other 300 ml 60 ml Output Urine Total 2200 ml 1600 ml 700 ml Gastric Drainage Total 100 ml 150 ml Chest Tube Drainage Total 120 ml 20 ml 0 ml # Bowel Movements 0 3 0 Vital Signs Date Time Temp Pulse Resp B/P Pulse Ox O2 Delivery O2 Flow Rate FiO2 12/21/16 06:00 56 12/21/16 04:01 99 40 12/21/16 04:00 43 12/21/16 04:00 40 12/21/16 04:00 98.1 43 12 139/56 100 12/21/16 02:00 57 12/21/16 01:25 99 40 12/21/16 00:00 57 12/21/16 00:00 98.8 57 14 111/52 100 12/21/16 00:00 40 12/20/16 23:41 97 40 12/20/16 22:00 55 12/20/16 20:28 100 40 12/20/16 20:00 40 12/20/16 20:00 50 12/20/16 20:00 98.0 50 12 112/54 100 12/20/16 20:00 50 112/54 12/20/16 18:31 50 12/20/16 16:45 100 40 12/20/16 16:43 100 40 12/20/16 16:00 40 12/20/16 16:00 52 12/20/16 16:00 97.6 52 12 121/65 99 12/20/16 14:00 48 12/20/16 12:00 96.6 51 12 122/60 100 12/20/16 12:00 40 12/20/16 12:00 51 12/20/16 11:34 99 40 12/20/16 10:00 70 12/20/16 08:31 100 40 12/20/16 08:15 40 12/20/16 08:00 12/20/16 08:00 40 12/20/16 08:00 70 12/20/16 08:00 98.8 64 16 113/52 96 Respiratory: Non-labored respirations Cardiology: Normal rate Exam Comments intubated, alert able to follow commands, temporal wasting, ou 3-2mm, blinks, some tracking difficulty to left, lift all 4 ext to gravity, rt 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 shrinker weaker , difficulty with finger flexion, mild distal wasting Objective Micro and Labs Laboratory Tests Test 12/20/16 12/21/16 12/21/16 10:15 05:45 06:30 White Blood Count 12.4 13.6 Red Blood Count 4.26 4.21 Hemoglobin 12.4 12.1 Hematocrit 37.2 36.7 Mean Corpuscular Volume 87.5 87.1 Mean Corpuscular Hemoglobin 29.1 28.8 Mean Corpuscular Hemoglobin 33.3 33.1 Concent Red Cell Distribution Width 15.0 14.6 Platelet Count 126 154 Mean Platelet Volume 8.6 8.5 Neutrophils (%) (Auto) 84.0 75.7 Lymphocytes (%) (Auto) 9.2 15.2 Monocytes (%) (Auto) 6.4 8.5 Eosinophils (%) (Auto) 0.3 0.4 Basophils (%) (Auto) 0.1 0.2 Neutrophils # (Auto) 10.4 10.3 Lymphocytes # (Auto) 1.1 2.1 Monocytes # (Auto) 0.8 1.2 Eosinophils # (Auto) 0.0 0.1 Basophils # (Auto) 0.0 0.0 CBC Comment DIFF FINAL DIFF FINAL Differential Comment Sodium Level 141 143 Potassium Level 3.7 2.8 Chloride Level 102 104 Carbon Dioxide Level 32.5 31.6 Anion Gap 7 7 Blood Urea Nitrogen 9 8 Creatinine 0.53 0.42 Estimat Glomerular Filtration 164 214 Rate Random Glucose 163 118 Lactic Acid Level 2.7 Calcium Level 8.0 7.9 Total Bilirubin 3.5 4.1 Aspartate Amino Transf 41 38 (AST/SGOT) Alanine Aminotransferase 103 88 (ALT/SGPT) Alkaline Phosphatase 215 240 Total Protein 6.5 6.1 Albumin 2.9 2.4 Phosphorus Level 1.7 Magnesium Level 2.2 Problem Qualifiers (1) Aspiration pneumonia: Chris Manule MD December 21, 2016 07:54
[2016-12-21] MEDS: ICU - SODIUM PHOSPHATE 30 MMOL/NS 250 ML IV PRN ×2 (08:18)
[2016-12-21] MEDS ORDERED: BUMETANIDE INJ 1 MG/4 ML VIAL IV PUSH ONE (09:30)
--- NOTE | 2016-12-21 09:43 | HHI.CCPN ---
Subjective Remarks/Hospital Course 51 y/o man had stent removed yesterday following insertion for benign pancreatic mass. Now hypotensive and acts septic. 12/11: Biliary drain placed 12/10 for drainage of GB and common duct due because of distal CD obstruction from pancreatic mass. Seizure this morning. 12/12: Remains septic and requiring vasopressor support. Hyponatremia new, likely free water excess. 12/13: Remains on 10 mics of Levophed, vasopressin 0.04 international units, dobutamine 2.5 g per KG per min. Remains on propofol but moves extremities. Sodium 125, potassium 2.7. GI not planning any other interventions at this time. Biliary drain with 160 mL in 24 hours 12/14: Levophed had been weaned off. Remains on vasopressin 0.04, dobutamine 2.5 g per KG per minute. Urine output excellent. Potassium phosphorus remains low. Tolerating CPAP but lethargic. Plt count 77 today 12/15: Remains on Levophed at 6 mcg/min. Lethargic but follows commands. Plan is for Rendezvous Procedure/ERCP with IR and GI ? possible today. labs are pending at this time 12/16: remains on CPAP, remains in shock on 6 mcg/min of Levophed. Rendezvous Procedure/ERCP with IR and GI plan for today. Sodium is 145 was low at 1.6 bilirubin decreasing. UO 4.5 L in 24 hours. 12/17: s/p ERCP with biliary dilation and brushing and metal stent placement on by Dr. Kerr. Liver enzymes trending down. WBC 19.3. CXR improving infiltrates. Levophed remains at 6 mcg/min 12/18: Remains orally intubated on mechanical ventilation. On SIMV mode mechanical ventilation due to apneic episodes with C Pap trials. 12/19: Remains orally intubated on mechanical ventilation. On SIMV mode with rate of 6 pressure support +20 which was decreased to +12 12/20; Tolerating IMV with RR 6, breathing 8 above vent. Remains on Levophed at 4 mcg/m. More awake, following commands. Routine chest x-ray showed right pneumothorax and free air under the diaphragm. Had PTC procedure last week, unclear whether air is related. D/ W GI. Get CT chest after R chest tube is placed. D/W Dr Francis and Dr. Lugo 12/21: Reduced air under the diaphragm. Slightly increased white count but likely acid is normal. Clinical exam not consistent with perforated viscus- abdominal exam benign. Discussed with Dr. Lugo yesterday and he agrees. Possibly air was introduced from PTC procedure. Levophed requirement reducing, now at 2 mcg per min. R pneumothorax almost resolved Objective Vital Signs Date Time Temp Pulse Resp B/P Pulse Ox O2 Delivery O2 Flow Rate FiO2 12/21/16 08:17 100 40 12/21/16 08:00 46 12/21/16 04:00 98.1 12 139/56 12/19/16 07:00 Mechanical Ventilator Intake and Output 12/20/16 12/20/16 12/20/16 07:59 15:59 23:59 Intake Total 725 ml 443 ml 808 ml Output Total 1000.0 ml 2320 ml 1720 ml Balance -275.0 ml -1877 ml -912 ml Result Diagram: 12/21/16 0630 12/21/16 0545 Imaging Last Impressions Chest X-Ray 12/18/16 0600 Signed Impressions: Service Date/Time: Sunday, December 18, 2016 04:29 - CONCLUSION: No significant interval change. Luis Alberto Escamilla MD GI Procedure 12/16/16 0000 Signed Impressions: Service Date/Time: December 16:02 - CONCLUSION: ERCP as above. Chuck Erwin MD Neck Magnetic Resonance Angiography 12/15/16 0000 Signed Impressions: Service Date/Time: Thursday, December 15, 2016 16:00 - CONCLUSION: Normal examination. Azael Young MD Head Magnetic Resonance Angiography 12/15/16 0000 Signed Impressions: Service Date/Time: Thursday, December 15, 2016 16:00 - CONCLUSION: Negative for major branch vessel occlusion.. Matt Moran MD FACR Brain MRI 12/15/16 0000 Signed Impressions: Service Date/Time: Thursday, December 15, 2016 16:00 - CONCLUSION: 1. Scattered areas of restricted diffusion in the basal ganglia bilaterally and in the left occipital region. 2. Marked central and cortical atrophy. 3. Moderate periventricular white matter changes. Matt Moran MD FACR Head CT 12/14/16 0000 Signed Impressions: Service Date/Time: Thursday, December 15, 2016 04:43 - CONCLUSION: 1. No acute intracranial abnormality. 2. Small chronic lacunar infarction involving the right basal ganglia. Philip Ralph Jr., MD Cholangiopancreatography MRI 12/10/16 0000 Signed Impressions: Service Date/Time: Saturday, December 10, 2016 12:44 - CONCLUSION: Pronounced biliary ductal dilatation with distal obstruction of the CBD by pancreatic mass which appears grossly stable. Barber Richardson MD Bile Duct Drainage 12/10/16 0000 Signed Impressions: Service Date/Time: Saturday, December 10, 2016 15:33 - CONCLUSION: Uncomplicated internal/external biliary drain placement as above. Duy Moran MD Objective Remarks Gen: Ill-appearing. Awake and alert slightly lethargic Neck: Supple, orally intubated. Lungs: Clear, good shanthi air entry, slightly diminished on the right side. No wheezes. Right chest tube with no endoleak Heart: NL S1S2, no murmurs, no JVD. on Levophed 2 mcg per min Abdomen: Tympanic to percussion, No involuntary guarding, BS present. R biliary drain removed Extremities: warm, well perfused. Neuro: Off all sedation, remains intubated awake, alert, follows commands. Moves all extremities. A/P Assessment and Plan ASSESSMENT: Septic/circulatory shock Right pneumothorax (? Intra-abdominal free air tracking up) Intra-abdominal free air ? PTC procedure related vs less likely ruptured viscus Cholangitis S/P PTHC, s/p ERCP and biliary stent Obstructive jaundice secondary to pancreatic head mass (previous w/u negative for malignancy). 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 EEG reports no sz. (TC sz witnessed) -Continue Cerebyx. Dilantin level 11.2 12/20 -IV Ativan when necessary for seizures. Correct hyponatremia due to seizures Keep >140, 143 today -Neurology Dr. Manuel -Keep Phos normalized given history of myotonic dystrophy -MRI shows multiple embolic strokes. Continue full dose aspirin -Regent/Morphine PRN for pain RESP: -Placed right chest tube for right pneumothorax. This could be air tracking up from intra-abdominal free air. ?Diaphragmatic injury during PTC procedure -Continue IMV/PSV mode of ventilation. Start CPAP for possible extubation -DuoNeb every 6 hours when necessary CVS: -Levophed to keep map greater than 65-now on 2 mcg per min -Off IV Bumex and IV albumin, given single dose 12/20. Repeat 1 mg IV x1 today with KCL replacement -Urine output excellent with achieving negative balance. GI: -Chest x-ray 12/20/16 showed intra-abdominal free air. CT abdomen and pelvis -no contrast leakage -Clinically it appears that intra-abdominal free air is procedure related. No evidence of viscus perforation -Dr Lugo and Dr Francis following -Obstructive jaundice and possible cholangitis -S/P PTHC on (12/10/16) by IR -s/p ERCP with biliary dilation and brushing and metal stent placement on by Dr. Kerr. -D/W Dr. Francis and Dr Lugo -Liver enzymes continued to improve, slight worsening last 24 hours : -IV Bumex, albumin repeat dose today -UO excellent ID -Septic shock, most likely biliary source/cholangitis -Continue broad-spectrum antibiotics cefepime and Flagyl, Added vancomycin due to new finding of free air under the diaphragm -Repeat blood cultures -All cultures negative to date -Clinically slowly improving Endo: -Hyponatremia and hypokalemia, hypophosphatemia -Electrolyte replacement per protocol HEME: -Thrombocytopenia most likely from sepsis, now resolved. 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 On fondaparinux for DVT prophylaxis DVT/GI prophylaxis -Fondaparinux 2.5 mg sq daily as recommended by heme -IV Protonix Overall impression: Shock persists,most likely septic. He remains critically ill , now with free intra-abdominal air in right-sided pneumothorax. s/p right chest tube emergently Critical Care 52mins Denise Blandon MD December 21, 2016 09:43
[2016-12-21] MEDS ORDERED: ALBUMIN HUMAN 25% 12.5 GM/50 ML BAGP IV ONE (10:00)
[2016-12-21] MEDS ORDERED: POTASSIUM CHLOR 40 MEQ PREMIX 100 ML IV SCH (10:00)
--- NOTE | 2016-12-21 10:50 | HHI.PR ---
Subjective Subjective Notes Intubated; on CPAP trial Awake--asking yes and no questions appropriately Objective Vitals/I&O Vital Signs Date Time Temp Pulse Resp B/P Pulse Ox O2 Delivery O2 Flow Rate FiO2 12/21/16 09:00 51 120/47 12/21/16 08:17 100 40 12/21/16 08:00 98.4 19 12/19/16 07:00 Mechanical Ventilator Labs Laboratory Tests Test 12/21/16 12/21/16 12/21/16 05:45 06:30 08:45 Sodium Level 143 Potassium Level 2.8 Chloride Level 104 Carbon Dioxide Level 31.6 Anion Gap 7 Blood Urea Nitrogen 8 Creatinine 0.42 Estimat Glomerular Filtration 214 Rate Random Glucose 118 Calcium Level 7.9 Phosphorus Level 1.7 Magnesium Level 2.2 Total Bilirubin 4.1 Aspartate Amino Transf 38 (AST/SGOT) Alanine Aminotransferase 88 (ALT/SGPT) Alkaline Phosphatase 240 Total Protein 6.1 Albumin 2.4 White Blood Count 13.6 Red Blood Count 4.21 Hemoglobin 12.1 Hematocrit 36.7 Mean Corpuscular Volume 87.1 Mean Corpuscular Hemoglobin 28.8 Mean Corpuscular Hemoglobin 33.1 Concent Red Cell Distribution Width 14.6 Platelet Count 154 Mean Platelet Volume 8.5 Neutrophils (%) (Auto) 75.7 Lymphocytes (%) (Auto) 15.2 Monocytes (%) (Auto) 8.5 Eosinophils (%) (Auto) 0.4 Basophils (%) (Auto) 0.2 Neutrophils # (Auto) 10.3 Lymphocytes # (Auto) 2.1 Monocytes # (Auto) 1.2 Eosinophils # (Auto) 0.1 Basophils # (Auto) 0.0 CBC Comment DIFF FINAL Differential Comment Lactic Acid Level 1.0 Date/Time Procedure Status Source Growth 12/21/16 09:20 Aerobic Blood Culture Received Blood Peripheral Pending 12/21/16 09:20 Anaerobic Blood Culture Received Blood Peripheral Pending Cardiovascular: Regular Lungs: Clear Abdomen: Non-distended, Non-tender Extremities: No edema A/P Assessment and Plan 51 year old male with a PMHx of myotonic dystrophy and ERCP with stent placement ; Free air found on XR -Abdominal exam remains benign -[facility] planning for extubation today -CT reviewed shows no extravasation of contrast -KUB reviewed today -Patient remains hemodynamically stable -Continue non operative management -We will continue to monitor Attending Note - Dr. Lugo Extubated; no pain to palpation of abdomen Less air on KUB today As above The exam, history, and the medical decision-making described in the above note were completed with the assistance of the mid-level provider. I reviewed and agree with the findings presented. I attest that I had a [id number] encounter with the patient on the same day, and personally performed and documented my assessment and findings in the medical record. Kristi Mckeon December 21, 2016 10:50 Zeke Lugo MD December 21, 2016 12:46
[2016-12-21] MEDS: ALTEPLASE RECOMBINANT 2 MG VIAL INTRACATH PRN ×2 (11:15→12:55)
[2016-12-21] MEDS ORDERED: PHARMACY ORDERED LAB ONE ×2 (14:45→22:45)
[2016-12-21] MEDS: THIAMINE INJ 100 MG in SODIUM CHLORIDE 0.9% INJ 100 ML IV SCH (16:51)
--- NOTE | 2016-12-21 17:01 | HHI.GIFU ---
Subjective Remarks Resting in bed. No n/v. C/O abdominal pain, states no change. Abdomen soft. Objective Vitals I&O Vital Signs Date Time Temp Pulse Resp B/P Pulse Ox O2 Delivery O2 Flow Rate FiO2 12/21/16 16:00 54 12/21/16 14:00 55 12/21/16 12:00 61 12/21/16 12:00 97.6 61 16 104/46 100 12/21/16 10:00 54 12/21/16 09:00 51 120/47 12/21/16 08:17 100 40 12/21/16 08:00 40 12/21/16 08:00 46 12/21/16 08:00 98.4 46 19 133/54 100 12/21/16 06:00 56 12/21/16 04:01 99 40 12/21/16 04:00 43 12/21/16 04:00 40 12/21/16 04:00 98.1 43 12 139/56 100 12/21/16 02:00 57 12/21/16 01:25 99 40 12/21/16 00:00 57 12/21/16 00:00 98.8 57 14 111/52 100 12/21/16 00:00 40 12/20/16 23:41 97 40 12/20/16 22:00 55 12/20/16 20:28 100 40 12/20/16 20:00 40 12/20/16 20:00 50 12/20/16 20:00 98.0 50 12 112/54 100 12/20/16 20:00 50 112/54 12/20/16 18:31 50 I/O 12/20/16 12/20/16 12/20/16 12/21/16 12/21/16 12/21/16 07:00 15:00 23:00 07:00 15:00 23:00 Intake Total 725 ml 443 ml 808 ml 630 ml 1253 ml Output Total 1000.0 ml 2320 ml 1720 ml 850 ml 1710 ml Balance -275.0 ml -1877 ml -912 ml -220 ml -457 ml Intake IV Total 323 ml 103 ml 808 ml 570 ml 1253 ml Tube Feeding 302 ml 40 ml 0 ml Other 100 ml 300 ml 60 ml Output Urine Total 700 ml 2200 ml 1600 ml 700 ml 1700 ml Gastric Drainage Total 100 ml 150 ml 10 ml Tube Feeding Residual Discard 300.0 ml Chest Tube Drainage Total 120 ml 20 ml 0 ml 0 ml # Bowel Movements 0 0 3 0 0 Laboratory Laboratory Tests Test 12/21/16 12/21/16 12/21/16 12/21/16 05:45 06:30 08:45 15:00 Sodium Level 143 Potassium Level 2.8 Chloride Level 104 Carbon Dioxide Level 31.6 Anion Gap 7 Blood Urea Nitrogen 8 Creatinine 0.42 Estimat Glomerular Filtration 214 Rate Random Glucose 118 Calcium Level 7.9 Phosphorus Level 1.7 Magnesium Level 2.2 Total Bilirubin 4.1 Aspartate Amino Transf 38 (AST/SGOT) Alanine Aminotransferase 88 (ALT/SGPT) Alkaline Phosphatase 240 Total Protein 6.1 Albumin 2.4 White Blood Count 13.6 Red Blood Count 4.21 Hemoglobin 12.1 Hematocrit 36.7 Mean Corpuscular Volume 87.1 Mean Corpuscular Hemoglobin 28.8 Mean Corpuscular Hemoglobin 33.1 Concent Red Cell Distribution Width 14.6 Platelet Count 154 Mean Platelet Volume 8.5 Neutrophils (%) (Auto) 75.7 Lymphocytes (%) (Auto) 15.2 Monocytes (%) (Auto) 8.5 Eosinophils (%) (Auto) 0.4 Basophils (%) (Auto) 0.2 Neutrophils # (Auto) 10.3 Lymphocytes # (Auto) 2.1 Monocytes # (Auto) 1.2 Eosinophils # (Auto) 0.1 Basophils # (Auto) 0.0 CBC Comment DIFF FINAL Differential Comment Lactic Acid Level 1.0 Vancomycin Level Trough 27.9 Date/Time Procedure Status Source Growth 12/21/16 09:20 Aerobic Blood Culture Received Blood Peripheral Pending 12/21/16 09:20 Anaerobic Blood Culture Received Blood Peripheral Pending Imaging Last Impressions Abdomen X-Ray 12/21/16 0628 Signed Impressions: Service Date/Time: Wednesday, December 21, 2016 06:44 - CONCLUSION: Free intraperitoneal air. Kamala Bermudez MD Chest X-Ray 12/21/16 0000 Signed Impressions: Service Date/Time: Wednesday, December 21, 2016 06:35 - CONCLUSION: Reduction in size of the free intraperitoneal air for technique since the prior examination and questionable tiny right pneumothorax. Dense airspace consolidation in both lung bases worse on the left. Kamala Bermudez MD Abdomen/Pelvis CT 12/20/16 Signed Impressions: Service Date/Time: Tuesday, December 20, 2016 13:00 - CONCLUSION: 1. There is a moderate amount of free air in the upper abdomen. Viscous perforation is the primary consideration. No definite extravasation of oral contrast is seen in the upper abdomen. This correlates with the recent chest x-ray demonstrating free intraperitoneal air. 2. Status post placement of a right-sided chest tube with resolution of the previously noted right pneumothorax. 3. Bibasilar atelectasis. 4. There is a Potter catheter in urinary bladder. However, the urinary bladder appears to be distended. Luis Alberto Escamilla MD GI Procedure 12/16/16 Signed Impressions: Service Date/Time: December 16:02 - CONCLUSION: ERCP as above. Chuck Erwin MD Neck Magnetic Resonance Angiography 12/15/16 Signed Impressions: Service Date/Time: Thursday, December 15, 2016 16:00 - CONCLUSION: Normal examination. Azael Young MD Head Magnetic Resonance Angiography 12/15/16 Signed Impressions: Service Date/Time: Thursday, December 15, 2016 16:00 - CONCLUSION: Negative for major branch vessel occlusion.. Matt Moran MD FACR Brain MRI 12/15/16 Signed Impressions: Service Date/Time: Thursday, December 15, 2016 16:00 - CONCLUSION: 1. Scattered areas of restricted diffusion in the basal ganglia bilaterally and in the left occipital region. 2. Marked central and cortical atrophy. 3. Moderate periventricular white matter changes. Matt Moran MD FACR Head CT 12/14/16 Signed Impressions: Service Date/Time: Thursday, December 15, 2016 04:43 - CONCLUSION: 1. No acute intracranial abnormality. 2. Small chronic lacunar infarction involving the right basal ganglia. Philip Ralph Jr., MD Cholangiopancreatography MRI 12/10/16 Signed Impressions: Service Date/Time: Saturday, December 10, 2016 12:44 - CONCLUSION: Pronounced biliary ductal dilatation with distal obstruction of the CBD by pancreatic mass which appears grossly stable. Barber Richardson MD Bile Duct Drainage 12/10/16 Signed Impressions: Service Date/Time: Saturday, December 10, 2016 15:33 - CONCLUSION: Uncomplicated internal/external biliary drain placement as above. Duy Moran MD Physical Exam HEENT: Normocephalic; atraumatic; + jaundice. CHEST: CTA, diminished CARDIAC: RRR ABDOMEN: Soft, nondistended, mild-mod epigastric tenderness, no hepatosplenomegaly; bowel sounds are present in all four quadrants EXTREMITIES: No clubbing, cyanosis, or edema. SKIN: Normal; ,+ jaundice. INSURANCE VERIFICATION REPRESENTATIVE: Restless Assessment and Plan Plan ASSESSMENT: - Obstructive jaundice secondary to pancreatic head mass (previous w/u negative for malignancy). S/P Unsuccessful ERCP (12/08/16)-----> biliary stent removed, failed ERCP attempt as outpatient. Pt developed pain and returned to hospital. S/P MRCP (12/10/16)---> Pronounced biliary ductal dilatation with distal obstruction of the CBD by pancreatic mass which appears grossly stable. S/P PTHC on (12/10/16). 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 WBC 13.6. Bilirubin slightly higher. T. Bili 4.1, AST 38, ALT 88, Alk Phosph 240. - Cholangitis secondary to above. S/P PTHC, S/P ERCP. Flagyl, Cefepime. Vanco - Abnormal CXR with new free air under the right hemidiaphragm. CXR (12/20/16)-- ---> There is a new moderate right pneumothroax with 4 cm of separation in the right upper lung, There is new free air under the right hemidiaphragm. Pt will be getting CT placed shortly and then will go for stat CT scan abdomen/pelvis. Abdomen X-Ray (12/21/16)----> Free intraperitoneal air. GS following, Nonoperative management. Abx. - Pancreatic head mass. Found to have pancreatic head mass, measuring 4.63.8 cm with resulting intrahepatic and extrahepatic delivery obstruction with dilatation on MRCP. Tumor markers were unremarkable. He underwent ERCP with stent placement and biopsy (08/06/16) and this revealed ampullary stenosis, duodenal mass. Pathology of the duodenal mass revealed duodenal mucosa with Sheryl's gland hyperplasia and features suggesting peptic duodenitis. He was then admitted to [facility] for intensive rehabilitation. There was some concern that this could be malignant and therefore he was evaluated by oncology. The mass was not amenable to CT guided biopsy and therefore he was discharged with the plan to have EUS as outpatient. EUS with FNA (08/26/16)-----> inhomogeneous Pancrease with lobularity in the body and mild hypoechogenicity in the head, FNA of the head done, no distinct mass seen, CBD with stent in place, PD mildly dilated to 2.7 mm, no lymphadenopathy, no vascular infiltration. Benign cytology with ductal cells with reactive changes. - Elevated LFTs, secondary to above. Slight increase in bilirubin today. - Hepatic encephalopathy. Lactulose - Respiratory failure/New right PTX. S/P Extubation. - Elevated troponin, per CCM - Multiple electrolyte abnormalities with hypokalemia, hypernatremia, hypocalcemia. per ccm - Anemia. Stable. - Seizures per CCM - Myotonic dystrophy, Anxiety, Hyperlipidemia, Asthma, Fatty liver disease, Hx HIT per primary PLAN: - NPO - Cont. Abx - Cont. PPI - Monitor labs - Further recommendations to follow based on results of above - Pt seen and examined by Dr. Boss and myself and this note is written on his behalf Shira Rees December 21, 2016 17:01
[2016-12-21] MEDS: PANTOPRAZOLE SODIUM 40 MG VIAL IV PUSH SCH (17:24)
[2016-12-21] MEDS: DEXTROSE 50% IN WATER 50 ML VIAL(D50) IV PUSH PRN ×2 (18:50→19:15)
[2016-12-21] MEDS: ICU - POTASSIUM CHLORIDE/AQUEOUS SOLN 20 MEQ/100 ML IVPB IV PRN ×2 (18:57→21:17)
[2016-12-22] VITALS (18 sets, daily range): BP systolic 81–113; BP diastolic 48–64; PULSE 52–99; RESP 21–40; TEMP 97.6–98.3; O2SAT 82–100
[2016-12-22] MEDS: CEFEPIME INJ 2,000 MG in SODIUM CHLORIDE 0.9% INJ 100 ML IV SCH ×3 (02:51→20:32)
[2016-12-22] MEDS: MORPHINE SULFATE 4 MG/ML INJ IV PRN ×4 (02:52→20:34)
[2016-12-22] MEDS: CHLORHEXIDINE GLUCONATE 2 % 1 PACK (2 CLOTHS) TOP SCH (03:27)
--- NOTE | 2016-12-22 05:41 | RADRPT ---
EXAM DATE/TIME: 12/22/2016 04:50 [facility] COMPARISON: CHEST SINGLE AP, December 21, 2016, 6:35. INDICATIONS : Shortness of breath. MEDICAL HISTORY : Gastroesophageal reflux disease. Cardiovascular disease. Hepatitis B SURGICAL HISTORY : Cholecystectomy. ENCOUNTER: Subsequent ACUITY: 1 week PAIN SCORE: Non-responsive. LOCATION: Bilateral chest FINDINGS: Air AP semierect portable view the chest was obtained and demonstrated the patient is now extubated. The nasogastric tube remains and is with the tip now projected over the distal esophagus. The small b ore right-sided chest tube remains in place and is projected over the lung base. There is no visualiz ed pneumothorax. The left internal jugular central venous line remains in place. There is free air ag ain noted under the right hemidiaphragm. Heart size is enlarged. Hazy opacity is present at the lung bases left greater than right with multiple air bronchograms on the left and obscuration of the hemid iaphragm. The left costophrenic angle remains blunted consistent with effusion. CONCLUSION: 1. Free air is again noted. 2. Abnormal opacity at the lung bases left greater than right consistent with infiltrate and effusion . 3. Interval extubation. 4. Right-sided chest tube remains in place with no pneumothorax. Zeke Khanna MD on December 22, 2016 at 5:37 Board Certified Radiologist. This report was verified electronically.
[2016-12-22] MEDS: metroNIDAZOLE 500 MG INJ 100 ML IV SCH ×3 (05:50→20:32)
[2016-12-22] MEDS: INSULIN ASPART SUPPLEMENTAL SCALE SQ SCH ×3 (06:00→17:49)
[2016-12-22 06:08] LABS: AUTOMATED NEUTROPHIL # 9.3 TH/MM3 (1.8-7.7); BASOPHIL # 0.1 TH/MM3 (0-0.2); BASOPHIL % 0.5 % (0.0-2.0); EOSINOPHIL # 0.1 TH/MM3 (0-0.4); HEMATOCRIT 33.2 % (39.0-51.0); HEMO FLAGS DIFF FINAL; LYMPH % 18.5 % (9.0-44.0); LYMPHOCYTE # 2.4 TH/MM3 (1.0-4.8); MEAN CORPUSCULAR HEMOGLOBIN 29.1 PG (27.0-34.0); MEAN CORPUSCULAR HGB CONC 33.1 % (32.0-36.0); MONO % 8.9 % (0.0-8.0); NEUT % 71.1 % (16.0-70.0); PLATELET COUNT 126 TH/MM3 (150-450); RED BLOOD COUNT 3.77 MIL/MM3 (4.50-5.90); RED CELL DISTRIBUTION WIDTH 15.2 % (11.6-17.2); WHITE BLOOD COUNT 13.1 TH/MM3 (4.0-11.0)
--- NOTE | 2016-12-22 07:22 | HHI.CCPN ---
Subjective Remarks/Hospital Course 51 y/o man had stent removed yesterday following insertion for benign pancreatic mass. Now hypotensive and acts septic. 12/11: Biliary drain placed 12/10 for drainage of GB and common duct due because of distal CD obstruction from pancreatic mass. Seizure this morning. 12/12: Remains septic and requiring vasopressor support. Hyponatremia new, likely free water excess. 12/13: Remains on 10 mics of Levophed, vasopressin 0.04 international units, dobutamine 2.5 g per KG per min. Remains on propofol but moves extremities. Sodium 125, potassium 2.7. GI not planning any other interventions at this time. Biliary drain with 160 mL in 24 hours 12/14: Levophed had been weaned off. Remains on vasopressin 0.04, dobutamine 2.5 g per KG per minute. Urine output excellent. Potassium phosphorus remains low. Tolerating CPAP but lethargic. Plt count 77 today 12/15: Remains on Levophed at 6 mcg/min. Lethargic but follows commands. Plan is for [facility] Procedure/ERCP with IR and GI ? possible today. labs are pending at this time 12/16: remains on CPAP, remains in shock on 6 mcg/min of Levophed. [facility]vous Procedure/ERCP with IR and GI plan for today. Sodium is 145 was low at 1.6 bilirubin decreasing. UO 4.5 L in 24 hours. 12/17: s/p ERCP with biliary dilation and brushing and metal stent placement on by Dr. Kerr. Liver enzymes trending down. WBC 19.3. CXR improving infiltrates. Levophed remains at 6 mcg/min 12/18: Remains orally intubated on mechanical ventilation. On SIMV mode mechanical ventilation due to apneic episodes with C Pap trials. 12/19: Remains orally intubated on mechanical ventilation. On SIMV mode with rate of 6 pressure support +20 which was decreased to +12 12/20; Tolerating IMV with RR 6, breathing 8 above vent. Remains on Levophed at 4 mcg/m. More awake, following commands. Routine chest x-ray showed right pneumothorax and free air under the diaphragm. Had PTC procedure last week, unclear whether air is related. D/ W GI. Get CT chest after R chest tube is placed. D/W Dr Francis and Dr. Lugo 12/21: Reduced air under the diaphragm. Slightly increased white count but likely acid is normal. Clinical exam not consistent with perforated viscus- abdominal exam benign. Discussed with Dr. Lugo yesterday and he agrees. Possibly air was introduced from PTC procedure. Levophed requirement reducing, now at 2 mcg per min. R pneumothorax almost resolved 12/22: off vasopressors this morning. awake. CT with minimal serous output. no air leak. endorses only mild abdominal pain, primarily LUQ. Objective Vital Signs Date Time Temp Pulse Resp B/P Pulse Ox O2 Delivery O2 Flow Rate FiO2 12/22/16 06:00 52 12/22/16 04:00 98.3 24 88/53 100 12/21/16 20:00 Nasal Cannula 4.00 12/21/16 08:17 40 Intake and Output 12/21/16 12/21/16 12/22/16 08:00 16:00 00:00 Intake Total 630 ml 1253 ml 681 ml Output Total 850 ml 1710 ml 766 ml Balance -220 ml -457 ml -85 ml Result Diagram: 12/22/16 0540 12/22/16 0006 Imaging Last 24 hours Impressions Chest X-Ray 12/22/16 0600 Signed Impressions: Service Date/Time: Thursday, December 22, 2016 04:50 - CONCLUSION: 1. Free air is again noted. 2. Abnormal opacity at the lung bases left greater than right consistent with infiltrate and effusion. 3. Interval extubation. 4. Right- sided chest tube remains in place with no pneumothorax. Zeke Khanna MD Objective Remarks Gen: Ill-appearing. Awake and alert slightly lethargic Neck: Supple, trachea midline. Lungs: Clear, good shanthi air entry, Right chest tube with no air leak, site clean and dry, dressing intact, minimal serous output. Heart: normal rate, regular rhythm. sinus by tele. Abdomen: Tympanic to percussion, No involuntary guarding,mild TTP LUQ. Extremities: warm, well perfused. Neuro: awake, RASS -1. follows commands. A/P Assessment and Plan ASSESSMENT: Septic/circulatory shock - resolving. Right pneumothorax (?Intra-abdominal free air tracking up) Intra-abdominal free air ? PTC procedure related vs less likely ruptured viscus Cholangitis S/P PTHC, s/p ERCP and biliary stent- resolved Obstructive jaundice secondary to pancreatic head mass (previous w/u negative for malignancy). - resolving. Hypoxemic Respiratory Failure- resolving. Metabolic encephalopathy- resolving. 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 Cardiomyopathy with EF 35-40% History of Myotonic dystrophy PLAN: NEURO: -Off all sedation for several day. EEG reports no sz. (TC sz witnessed) -Continue Cerebyx. Dilantin level 11.2 12/20 -IV Ativan when necessary for seizures. Correct hyponatremia due to seizures Keep >140 -Neurology Dr. Manuel -Keep Phos normalized given history of myotonic dystrophy -MRI shows multiple embolic strokes. Continue full dose aspirin -Ferguson/Morphine PRN for pain RESP: -place chest tube to water seal. 4h post seal CXR. -OOB to chair. - PT/OT consult - wean o2 for goal spo2 > 90%. DuoNeb every 6 hours when necessary CVS: -currently off vasopressors. -Bumex 1mg iv x 1 again today. goal -500 to 1L/24h. -Urine output excellent with achieving negative balance. GI: -Chest x-ray 12/20/16 showed intra-abdominal free air. CT abdomen and pelvis -no contrast leakage -Clinically it appears that intra-abdominal free air is procedure related. No evidence of viscus perforation -Dr Lugo and Dr Francis following -Obstructive jaundice and possible cholangitis -S/P PTHC on (12/10/16) by IR -s/p ERCP with biliary dilation and brushing and metal stent placement on by Dr. Kerr. -D/W Dr. Francis and Dr Lugo -Liver enzymes continued to improve, slight worsening last 24 hours : -IV Bumex today -UO excellent will consider d/c hobson later today. ID -Septic shock, resolving, most likely biliary source/cholangitis -Continue broad-spectrum antibiotics cefepime and Flagyl, Added vancomycin due to new finding of free air under the diaphragm -Repeat blood cultures NGTD. -All cultures negative to date -Clinically slowly improving - would plan on 4 days abx from time of stent placement (12/20) or 7 days if wbc remains elevated at day 4. Will re-eval on 12/25. Endo: -Hyponatremia and hypokalemia, hypophosphatemia -Electrolyte replacement per protocol SSI HEME: -Thrombocytopenia most likely from sepsis, now resolved. 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 On fondaparinux for DVT prophylaxis DVT/GI prophylaxis -Fondaparinux 2.5 mg sq daily as recommended by heme -IV Protonix Overall impression: Shock slowly resolving. very slow improvements. needs aggressive physical therapy. if he continues to improve, could leave ICU late today or tomorrow, though his improvements have been very slow so far. Justin Harris MD December 22, 2016 07:22
[2016-12-22 07:35] LABS: ALKALINE PHOSPHATASE 206 U/L (45-117); ALT (GPT) 69 U/L (12-78); ANION GAP 4 MEQ/L (5-15); AST (GOT) 38 U/L (15-37); BICARBONATE 32.7 MEQ/L (21.0-32.0); BLOOD UREA NITROGEN 9 MG/DL (7-18); CHLORIDE 109 MEQ/L (98-107); GLOMERULAR FILTRATION RATE 256 ML/MIN (>89); MAGNESIUM 2.2 MG/DL (1.5-2.5); SODIUM (NA) 146 MEQ/L (136-145); TOTAL BILIRUBIN ADULT 3.7 MG/DL (0.2-1.0)
--- NOTE | 2016-12-22 08:05 | HHI.PR ---
Review/Management Diagnosis/Plan: (1) Acute embolic stroke Plan: mri brain reviewed bilateral bg, rt frontal and left occipital tiny infarcts mra brain/carotids nml recs neuro stable-doing well on aspirin dilantin level pending septic emboli? syeda? check after echo- seen by cardiology d/w spouse last week on phone (2) Encephalopathy, metabolic Plan: sz- likely 2/2 metabolic/electrolyte changes/embolic strokes corrected dil >20 (3) Myotonic dystrophy, type 1 Plan: genetic (4) Aspiration pneumonia (5) Biliary sepsis Subjective Subjective Comments No acute events reported No headache No chest pain No dyspnea Active Medications Current Medications Medications (Trade) Dose Ordered Sig/[place] Route Start Time Stop Time Status Last Admin (NS Flush) 2 ml UNSCH PRN IV FLUSH 12/09/16 17:15 12/09/16 19:00 (NS Flush) 2 ml BID IV FLUSH 12/09/16 21:00 12/21/16 21:16 (Tylenol) 650 mg Q4H PRN PO 12/09/16 17:15 (Senokot) 17.2 mg Q12H PRN PO 12/09/16 17:15 (Morphine Inj) 2 mg Q3H PRN IV 12/09/16 17:15 12/22/16 02:52 (Narcan Inj) 0.4 mg UNSCH PRN IV 12/09/16 17:15 Pantoprazole Sodium 40 mg 40 mg Q24H IV PUSH 12/09/16 18:00 12/21/16 17:24 (Levophed-Dextrose Drip) 250 ml @ 0 mls/hr TITRATE IV 12/10/16 06:00 12/20/16 12:21 (Zofran Inj) 4 mg Q6H PRN IV 12/10/16 06:30 Miscellaneous Information 1 Q361D XX 12/10/16 06:30 (Chlorhexidine 2% Cloth) Taper DAILY@04 TOP 12/11/16 04:00 12/07/17 03:59 12/19/16 04:00 Chlorhexidine Gluconate 3 pack 3 pack UNSCH PRN TOP 12/10/16 06:30 (Flagyl 500 Mg Inj) 100 ml @ 100 mls/hr Q6H IV 12/10/16 07:00 12/22/16 05:50 Miscellaneous Information D/C ICU ELECTROLYTE ORDERS... UNSCH PRN .XX 12/10/16 08:45 Miscellaneous Information ICU - CALL ORDERING PHYSIC... UNSCH PRN .XX 12/10/16 08:45 (KCl 40 Meq Premix Inj) 100 ml @ 25 mls/hr UNSCH PRN IV 12/10/16 08:45 12/21/16 10:12 Potassium Bicarb/ Potassium Chloride 50 meq 50 meq UNSCH PRN PO 12/10/16 08:45 12/18/16 02:18 Potassium Chloride 100 ml @ 50 mls/hr UNSCH PRN IV 12/10/16 08:45 12/21/16 21:17 Magnesium Sulfate 4 gm/Sodium Chloride 108 ml @ 54 mls/hr UNSCH PRN IV 12/10/16 08:45 (Magnesium Sulfate Inj/NS Inj) 104 ml @ 52 mls/hr UNSCH PRN IV 12/10/16 08:45 12/14/16 10:19 Magnesium Oxide 800 mg 800 mg UNSCH PRN PO 12/10/16 08:45 (Sodium Phosphate Inj/NS 250 ml Inj) 260 ml @ 43.333 mls/ hr UNSCH PRN IV 12/10/16 08:45 12/21/16 08:18 (K-Phos) 2,000 mg UNSCH PRN PO 12/10/16 08:45 12/18/16 10:17 (Bactroban Nasal 2% Oint) 1 applic BID NASAL 12/11/16 21:00 12/21/16 21:16 (Colace Liq) 100 mg BID OG-TUBE 12/11/16 23:32 12/20/16 08:19 (D50w (Vial) Inj) 25 ml UNSCH PRN IV PUSH 12/12/16 12:15 12/21/16 19:15 (Glucagon Inj) 1 mg UNSCH PRN OTHER 12/12/16 12:15 (NovoLOG SUPPLEMENTAL SCALE) 1 Q6HR SQ 12/12/16 12:15 12/18/16 17:57 (Lactulose Liq) 30 ml QID PO 12/13/16 13:00 12/20/16 17:14 Potassium Bicarb/ Potassium Chloride 25 meq 25 meq Q12HR PO 12/14/16 10:45 5/16/17 21:16 (Thiamine Inj/NS Inj) 101 ml @ 101 mls/hr Q24H IV 12/14/16 17:00 12/21/16 16:51 (Cerebyx Inj) 100 mgpe Q12HR IV 12/16/16 21:00 12/21/16 21:16 (Aspirin) 325 mg DAILY PO 12/16/16 09:45 12/20/16 08:19 (Morphine Inj) 2 mg Q3H PRN IV 12/20/16 11:15 Acetaminophen/ Hydrocodone Bitart 1 tab 1 tab Q6H PRN PO 12/20/16 08:45 12/21/16 05:38 Pharmacy Profile Note 0 ml @ 0 mls/hr UNSCH OTHER 12/20/16 14:00 Vancomycin HCl 1250 mg/Sodium Chloride 262.5 ml @ 250 mls/hr Q8H IV 12/20/16 15:00 Hold 12/21/16 15:20 (Maxipime Inj/NS Inj) 100 ml @ 200 mls/hr Q8H IV 12/21/16 11:00 12/22/16 02:51 (SoluCORTEF INJ) 50 mg Q12HR IV PUSH 12/21/16 09:00 12/24/16 08:59 12/21/16 21:16 (Cathflo Activase Inj) 2 mg Q6H PRN INTRACATH 12/21/16 11:00 12/21/16 12:55 Allergies Allergies Coded Allergies *MDRO Multi-Drug Resistant Organism (Verified Adverse Reaction, Unknown, ) Review of Systems All other ROS: ROS reviewed as documented in chart Exam I&O / VS 12/21/16 12/21/16 12/22/16 15:00 23:00 07:00 Intake Total 1253 ml 681 ml 542 ml Output Total 1710 ml 766 ml 308 ml Balance -457 ml -85 ml 234 ml Intake IV Total 1253 ml 681 ml 542 ml Output Urine Total 1700 ml 700 ml 250 ml Gastric Drainage Total 10 ml 50 ml 50 ml Chest Tube Drainage Total 0 ml 16 ml 8 ml # Bowel Movements 0 0 0 Vital Signs Date Time Temp Pulse Resp B/P Pulse Ox O2 Delivery O2 Flow Rate FiO2 12/22/16 06:00 52 12/22/16 04:00 55 12/22/16 04:00 98.3 55 24 88/53 100 5/17/17 02:00 64 12/22/16 00:00 58 12/22/16 00:00 97.6 58 21 81/48 100 12/21/16 22:00 60 12/21/16 20:00 60 12/21/16 20:00 97.6 60 23 89/55 100 12/21/16 20:00 98 Nasal Cannula 4.00 12/21/16 18:30 53 12/21/16 18:27 100 Nasal Cannula 3.00 12/21/16 16:00 97.6 57 20 111/63 100 Arterial Line 12/21/16 16:00 54 12/21/16 14:00 55 12/21/16 12:00 61 12/21/16 12:00 97.6 61 16 104/46 100 12/21/16 10:00 54 12/21/16 09:00 51 120/47 12/21/16 08:17 100 40 Respiratory: Non-labored respirations Cardiology: Normal rate Exam Comments extubated, ox 2-3, not to exact date, pres Trump, follows, temporal wasting, ou 3-2mm, blinks, some tracking difficulty to left, lift legs to gravity, unable to raise either ue to gravity but good underwear hemmer, rt hand extrusion bender weaker, difficulty with finger flexion, distal wasting Objective Micro and Labs Laboratory Tests Test 12/21/16 12/21/16 12/21/16 12/22/16 08:45 15:00 17:00 00:06 Lactic Acid Level 1.0 Vancomycin Level Trough 27.9 Potassium Level 3.2 4.3 Test 12/22/16 12/22/16 05:40 06:45 White Blood Count 13.1 Red Blood Count 3.77 Hemoglobin 11.0 Hematocrit 33.2 Mean Corpuscular Volume 88.0 Mean Corpuscular Hemoglobin 29.1 Mean Corpuscular Hemoglobin 33.1 Concent Red Cell Distribution Width 15.2 Platelet Count 126 Mean Platelet Volume 8.7 Neutrophils (%) (Auto) 71.1 Lymphocytes (%) (Auto) 18.5 Monocytes (%) (Auto) 8.9 Eosinophils (%) (Auto) 1.0 Basophils (%) (Auto) 0.5 Neutrophils # (Auto) 9.3 Lymphocytes # (Auto) 2.4 Monocytes # (Auto) 1.2 Eosinophils # (Auto) 0.1 Basophils # (Auto) 0.1 CBC Comment DIFF FINAL Differential Comment Sodium Level 146 Potassium Level 4.0 Chloride Level 109 Carbon Dioxide Level 32.7 Anion Gap 4 Blood Urea Nitrogen 9 Creatinine 0.36 Estimat Glomerular Filtration 256 Rate Random Glucose 84 Calcium Level 8.1 Magnesium Level 2.2 Total Bilirubin 3.7 Aspartate Amino Transf 38 (AST/SGOT) Alanine Aminotransferase 69 (ALT/SGPT) Alkaline Phosphatase 206 Total Protein 5.8 Albumin 2.4 Random Vancomycin Level 22.7 Date/Time Procedure Status Source Growth 12/21/16 09:20 Aerobic Blood Culture Received Blood Peripheral Pending 12/21/16 09:20 Anaerobic Blood Culture Received Blood Peripheral Pending Problem Qualifiers (1) Aspiration pneumonia: Chris Manuel MD December 22, 2016 08:05
[2016-12-22] MEDS: RESP: ALBUTEROL 2.5 MG/IPRATROPIUM 0.5 MG NEB (PRN) INH (08:17)
[2016-12-22 08:59] LABS: BLOOD GAS BASE EXCESS 6.3 mmol/L (-2-2); BLOOD GAS CARBOXYHEMOGLOBIN 1.2 % (0-4); BLOOD GAS HCO3 31 mmol/L (22-26); BLOOD GAS METHEMOGLOBIN 0.8 % (0-2); BLOOD GAS O2 HGB SATURATION 85 % (90-100); BLOOD GAS OXYGEN CONTENT 14.8 Vol % (12.0-20.0); BLOOD GAS PCO2 52 mmHg (38-42); BLOOD GAS PO2 52 mmHg (61-120); BLOOD GAS TOTAL HGB 12.4 G/DL (12.0-16.0); TEMP CORR TO 98.6
[2016-12-22 09:00] LABS: CRITICAL VALUE YES; DRAW SITE RT RADIAL; FIO2 60 %; NUMBER OF ARTERIAL PUNCTURES 1; OXYGEN DEVICE BIPAP; STAT NO; ULNAR PULSE PRESENT
[2016-12-22] MEDS: MUPIROCIN 2% OINT 1 APPLIC/GM SYR NASAL SCH ×2 (09:00→20:33)
--- NOTE | 2016-12-22 09:49 | RADRPT ---
EXAM DATE/TIME: 12/22/2016 08:51 [facility] COMPARISON: CT ABDOMEN & PELVIS W CONTRAST, December 20, 2016, 13:00. ABDOMEN DECUBITUS LEFT, December 21, 2016, 6:44. CH EST SINGLE AP, December 22, 2016, 4:50. INDICATIONS : Patient is short of breath. MEDICAL HISTORY : Cardiovascular disease. Hepatitis B. SURGICAL HISTORY : Cholecystectomy. ENCOUNTER: Subsequent ACUITY: 1 week PAIN SCORE: 0/10 LOCATION: Bilateral chest FINDINGS: The examination demonstrates a small bore chest tube at the right lung base. There is no pneumothorax . There is consolidation of the left lower lobe with air bronchograms suggesting left basilar pneumonia . There is a sizable amount of free intraperitoneal air beneath the right hemidiaphragm. The patient's dialysis catheter and gastric tube are in good position. CONCLUSION: 1. Worsening consolidation of the left lower lobe. 2. No pneumothorax identified on the right. Chest tube remains in good position. 3. Central venous catheter and gastric tube in satisfactory position. 4. There is a large amount of free intraperitoneal air which has been assessed by both decubitus imag ing and CT imaging. Duy Moran MD on December 22, 2016 at 9:44 Board Certified Radiologist. This report was verified electronically.
[2016-12-22] MEDS: LACTULOSE SYRUP 20 GM/30 ML CUP PO SCH ×4 (09:59→21:00)
[2016-12-22] MEDS: FOSPHENYTOIN SODIUM 100 MG PE/2 ML VIAL IV SCH ×2 (09:59→20:35)
[2016-12-22] MEDS: DOCUSATE SODIUM 100 MG/10 ML UDC OG-TUBE SCH ×2 (09:59→20:33)
[2016-12-22] MEDS: ASPIRIN 325 MG TAB PO SCH (10:01)
[2016-12-22] MEDS: SODIUM CHLORIDE 0.9% FLUSH 10 ML FLUSH IV FLUSH SCH ×2 (10:01→22:19)
[2016-12-22] MEDS: HYDROCORTISONE SOD SUCCINATE 100 MG VIAL IV PUSH SCH ×2 (10:01→21:00)
[2016-12-22] MEDS: POTASSIUM CHLORIDE 25 MEQ EFFERVESCENT TAB PO SCH ×2 (10:03→20:33)
[2016-12-22] MEDS: VANCOMYCIN INJ 1,250 MG in SODIUM CHLOR 0.9% 250 ML INJ 250 ML IV SCH (12:04)
[2016-12-22] MEDS: DEXTROSE 50% IN WATER 50 ML VIAL(D50) IV PUSH PRN (12:40)
--- NOTE | 2016-12-22 15:35 | HHI.GIFU ---
Subjective Remarks Resting in bed. Mildly labored breathing on partial rebreather mask. Nurse reports that he was on BiPap earlier today. No n/v. Abdomen soft. NGT to suction. Objective Vitals I&O Vital Signs Date Time Temp Pulse Resp B/P Pulse Ox O2 Delivery O2 Flow Rate FiO2 12/22/16 10:51 95 Non-Rebreather 15.00 12/22/16 08:20 92 BiPAP 50 12/22/16 06:00 52 12/22/16 04:00 55 12/22/16 04:00 98.3 55 24 88/53 100 12/22/16 02:00 64 12/22/16 00:00 58 12/22/16 00:00 97.6 58 21 81/48 100 12/21/16 22:00 60 12/21/16 20:00 60 12/21/16 20:00 97.6 60 23 89/55 100 12/21/16 20:00 98 Nasal Cannula 4.00 12/21/16 18:30 53 12/21/16 18:27 100 Nasal Cannula 3.00 12/21/16 16:00 97.6 57 20 111/63 100 Arterial Line 12/21/16 16:00 54 I/O 12/21/16 12/21/16 12/21/16 12/22/16 12/22/16 12/22/16 07:00 15:00 23:00 07:00 15:00 23:00 Intake Total 630 ml 1253 ml 681 ml 542 ml Output Total 850 ml 1710 ml 766 ml 308 ml Balance -220 ml -457 ml -85 ml 234 ml Intake IV Total 570 ml 1253 ml 681 ml 542 ml Other 60 ml Output Urine Total 700 ml 1700 ml 700 ml 250 ml Gastric Drainage Total 150 ml 10 ml 50 ml 50 ml Chest Tube Drainage Total 0 ml 0 ml 16 ml 8 ml # Bowel Movements 0 0 0 0 Laboratory Laboratory Tests Test 12/21/16 12/22/16 12/22/16 12/22/16 17:00 00:06 05:40 06:45 Potassium Level 3.2 4.3 4.0 White Blood Count 13.1 Red Blood Count 3.77 Hemoglobin 11.0 Hematocrit 33.2 Mean Corpuscular Volume 88.0 Mean Corpuscular Hemoglobin 29.1 Mean Corpuscular Hemoglobin 33.1 Concent Red Cell Distribution Width 15.2 Platelet Count 126 Mean Platelet Volume 8.7 Neutrophils (%) (Auto) 71.1 Lymphocytes (%) (Auto) 18.5 Monocytes (%) (Auto) 8.9 Eosinophils (%) (Auto) 1.0 Basophils (%) (Auto) 0.5 Neutrophils # (Auto) 9.3 Lymphocytes # (Auto) 2.4 Monocytes # (Auto) 1.2 Eosinophils # (Auto) 0.1 Basophils # (Auto) 0.1 CBC Comment DIFF FINAL Differential Comment Sodium Level 146 Chloride Level 109 Carbon Dioxide Level 32.7 Anion Gap 4 Blood Urea Nitrogen 9 Creatinine 0.36 Estimat Glomerular Filtration 256 Rate Random Glucose 84 Calcium Level 8.1 Magnesium Level 2.2 Total Bilirubin 3.7 Aspartate Amino Transf 38 (AST/SGOT) Alanine Aminotransferase 69 (ALT/SGPT) Alkaline Phosphatase 206 Total Protein 5.8 Albumin 2.4 Random Vancomycin Level 22.7 Test 12/22/16 08:45 Blood Gas Puncture Site RT RADIAL Blood Gas Patient Temperature 98.6 Blood Gas HCO3 31 Blood Gas Base Excess 6.3 Blood Gas Oxygen Saturation 85 Arterial Blood pH 7.39 Arterial Blood Partial 52 Pressure CO2 Arterial Blood Partial 52 Pressure O2 Arterial Blood Oxygen Content 14.8 Arterial Blood 1.2 Carboxyhemoglobin Arterial Blood Methemoglobin 0.8 Blood Gas Hemoglobin 12.4 Oxygen Delivery Device BIPAP Blood Gas Ventilator Setting 05/12/60 Blood Gas Inspired Oxygen 60 Date/Time Procedure Status Source Growth 12/21/16 09:20 Aerobic Blood Culture - Preliminary Resulted Blood Peripheral NO GROWTH IN 1 DAY 12/21/16 09:20 Anaerobic Blood Culture - Preliminary Resulted Blood Peripheral NO GROWTH IN 1 DAY Imaging Last Impressions Chest X-Ray 12/22/16 0600 Signed Impressions: Service Date/Time: Thursday, December 22, 2016 04:50 - CONCLUSION: 1. Free air is again noted. 2. Abnormal opacity at the lung bases left greater than right consistent with infiltrate and effusion. 3. Interval extubation. 4. Right- sided chest tube remains in place with no pneumothorax. Zeke Khanna MD Abdomen X-Ray 12/21/16 0628 Signed Impressions: Service Date/Time: Wednesday, December 21, 2016 06:44 - CONCLUSION: Free intraperitoneal air. Kamala Bermudez MD Abdomen/Pelvis CT 5/15/17 0000 Signed Impressions: Service Date/Time: Tuesday, December 20, 2016 13:00 - CONCLUSION: 1. There is a moderate amount of free air in the upper abdomen. Viscous perforation is the primary consideration. No definite extravasation of oral contrast is seen in the upper abdomen. This correlates with the recent chest x-ray demonstrating free intraperitoneal air. 2. Status post placement of a right-sided chest tube with resolution of the previously noted right pneumothorax. 3. Bibasilar atelectasis. 4. There is a Potter catheter in urinary bladder. However, the urinary bladder appears to be distended. Luis Alberto Escamilla MD GI Procedure 12/16/16 Signed Impressions: Service Date/Time: December 16:02 - CONCLUSION: ERCP as above. Chuck Erwin MD Neck Magnetic Resonance Angiography 12/15/16 Signed Impressions: Service Date/Time: Thursday, December 15, 2016 16:00 - CONCLUSION: Normal examination. Azael Young MD Head Magnetic Resonance Angiography 12/15/16 Signed Impressions: Service Date/Time: Thursday, December 15, 2016 16:00 - CONCLUSION: Negative for major branch vessel occlusion.. Matt Moran MD FACR Brain MRI 12/15/16 Signed Impressions: Service Date/Time: Thursday, December 15, 2016 16:00 - CONCLUSION: 1. Scattered areas of restricted diffusion in the basal ganglia bilaterally and in the left occipital region. 2. Marked central and cortical atrophy. 3. Moderate periventricular white matter changes. Matt Moran MD FACR Head CT 12/14/16 Signed Impressions: Service Date/Time: Thursday, December 15, 2016 04:43 - CONCLUSION: 1. No acute intracranial abnormality. 2. Small chronic lacunar infarction involving the right basal ganglia. Philip Ralph Jr., MD Cholangiopancreatography MRI 12/10/16 Signed Impressions: Service Date/Time: Saturday, December 10, 2016 12:44 - CONCLUSION: Pronounced biliary ductal dilatation with distal obstruction of the CBD by pancreatic mass which appears grossly stable. Barber Richardson MD Bile Duct Drainage 12/10/16 Signed Impressions: Service Date/Time: Saturday, December 10, 2016 15:33 - CONCLUSION: Uncomplicated internal/external biliary drain placement as above. Duy Moran MD Physical Exam HEENT: Normocephalic; atraumatic; + jaundice. CHEST: CTA, diminished. Mildly labored breathing, on partial rebreather mask. Right sided chest tube. CARDIAC: RRR ABDOMEN: Soft, nondistended, mild epigastric tenderness, no hepatosplenomegaly ; bowel sounds are present in all four quadrants EXTREMITIES: No clubbing, cyanosis, or edema. SKIN: Normal; ,+ jaundice. ATMOSPHERIC CHEMIST: Restless Assessment and Plan Plan ASSESSMENT: - Obstructive jaundice secondary to pancreatic head mass (previous w/u negative for malignancy). S/P Unsuccessful ERCP (12/08/16)-----> biliary stent removed, failed ERCP attempt as outpatient. Pt developed pain and returned to hospital. S/P MRCP (12/10/16)---> Pronounced biliary ductal dilatation with distal obstruction of the CBD by pancreatic mass which appears grossly stable. S/P PTHC on (12/10/16). 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 WBC 13.1. T. Bili 3.7, AST 38, ALT 69, Alk Phosph 206. - Cholangitis secondary to above. S/P PTHC, S/P ERCP. Flagyl, Cefepime. Vanco - Abnormal CXR with new free air under the right hemidiaphragm. CXR (12/20/16)-- ---> There is a new moderate right pneumothroax with 4 cm of separation in the right upper lung, There is new free air under the right hemidiaphragm. Pt will be getting CT placed shortly and then will go for stat CT scan abdomen/pelvis. Abdomen X-Ray (12/21/16)----> Free intraperitoneal air. GS following, Nonoperative management. Abx. - Pancreatic head mass. Found to have pancreatic head mass, measuring 4.63.8 cm with resulting intrahepatic and extrahepatic delivery obstruction with dilatation on MRCP. Tumor markers were unremarkable. He underwent ERCP with stent placement and biopsy (08/06/16) and this revealed ampullary stenosis, duodenal mass. Pathology of the duodenal mass revealed duodenal mucosa with Sheryl's gland hyperplasia and features suggesting peptic duodenitis. He was then admitted to [facility] for intensive rehabilitation. There was some concern that this could be malignant and therefore he was evaluated by oncology. The mass was not amenable to CT guided biopsy and therefore he was discharged with the plan to have EUS as outpatient. EUS with FNA (08/26/16)-----> inhomogeneous Pancrease with lobularity in the body and mild hypoechogenicity in the head, FNA of the head done, no distinct mass seen, CBD with stent in place, PD mildly dilated to 2.7 mm, no lymphadenopathy, no vascular infiltration. Benign cytology with ductal cells with reactive changes. - Elevated LFTs, secondary to above. T. Bili 3.7, AST 38, ALT 69, Alk Phosph 206. - Hepatic encephalopathy. Lactulose - Respiratory failure/New right PTX. S/P Extubation. Mildly labored breathing today, was on bipap earlier, now on partial rebreather - Elevated troponin, per CCM - Multiple electrolyte abnormalities with hypokalemia, hypernatremia, hypocalcemia. per ccm - Anemia. Stable. - Seizures per CCM - Myotonic dystrophy, Anxiety, Hyperlipidemia, Asthma, Fatty liver disease, Hx HIT per primary PLAN: - Diet per GS - Cont. Abx - Cont. PPI - Monitor labs - Further recommendations to follow based on results of above - Pt seen and examined by Dr. Gonzalez and myself and this note is written on his behalf Shira Rees December 22, 2016 15:35
--- NOTE | 2016-12-22 17:19 | HHI.PR ---
Subjective Subjective Notes Patient seen around 0730--- Patient sats in the high 80s---respiratory placing BiPAP Objective Vitals/I&O Vital Signs Date Time Temp Pulse Resp B/P Pulse Ox O2 Delivery O2 Flow Rate FiO2 12/22/16 17:01 94 Venturi Mask 6.00 50 12/22/16 16:00 70 12/22/16 16:00 98.1 22 101/59 Labs Laboratory Tests Test 12/22/16 12/22/16 12/22/16 12/22/16 00:06 05:40 06:45 08:45 Potassium Level 4.3 4.0 White Blood Count 13.1 Red Blood Count 3.77 Hemoglobin 11.0 Hematocrit 33.2 Mean Corpuscular Volume 88.0 Mean Corpuscular Hemoglobin 29.1 Mean Corpuscular Hemoglobin 33.1 Concent Red Cell Distribution Width 15.2 Platelet Count 126 Mean Platelet Volume 8.7 Neutrophils (%) (Auto) 71.1 Lymphocytes (%) (Auto) 18.5 Monocytes (%) (Auto) 8.9 Eosinophils (%) (Auto) 1.0 Basophils (%) (Auto) 0.5 Neutrophils # (Auto) 9.3 Lymphocytes # (Auto) 2.4 Monocytes # (Auto) 1.2 Eosinophils # (Auto) 0.1 Basophils # (Auto) 0.1 CBC Comment DIFF FINAL Differential Comment Sodium Level 146 Chloride Level 109 Carbon Dioxide Level 32.7 Anion Gap 4 Blood Urea Nitrogen 9 Creatinine 0.36 Estimat Glomerular Filtration 256 Rate Random Glucose 84 Calcium Level 8.1 Magnesium Level 2.2 Total Bilirubin 3.7 Aspartate Amino Transf 38 (AST/SGOT) Alanine Aminotransferase 69 (ALT/SGPT) Alkaline Phosphatase 206 Total Protein 5.8 Albumin 2.4 Random Vancomycin Level 22.7 Blood Gas Puncture Site RT RADIAL Blood Gas Patient Temperature 98.6 Blood Gas HCO3 31 Blood Gas Base Excess 6.3 Blood Gas Oxygen Saturation 85 Arterial Blood pH 7.39 Arterial Blood Partial 52 Pressure CO2 Arterial Blood Partial 52 Pressure O2 Arterial Blood Oxygen Content 14.8 Arterial Blood 1.2 Carboxyhemoglobin Arterial Blood Methemoglobin 0.8 Blood Gas Hemoglobin 12.4 Oxygen Delivery Device BIPAP Blood Gas Ventilator Setting 05/12/60 Blood Gas Inspired Oxygen 60 Date/Time Procedure Status Source Growth 12/21/16 09:20 Aerobic Blood Culture - Preliminary Resulted Blood Peripheral NO GROWTH IN 1 DAY 12/21/16 09:20 Anaerobic Blood Culture - Preliminary Resulted Blood Peripheral NO GROWTH IN 1 DAY Cardiovascular: Regular Lungs: Upper airway course sound Abdomen: Other (mild RLQ tenderness with palpation; abdomen soft ) Extremities: No edema A/P Assessment and Plan 51 year old male with a 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 Harris of respiratory distress----CT placed back to suction -Continue to monitor abdominal exam -CT reviewed shows no extravasation of contrast -Patient remains hemodynamically stable -Continue non operative management -We will continue to monitor Attending Note - Dr. Lugo Abdomen remains benign WBC's slightly elevated Continue present management. The exam, history, and the medical decision-making described in the above note were completed with the assistance of the mid-level provider. I reviewed and agree with the findings presented. I attest that I had a [id number] encounter with the patient on the same day, and personally performed and documented my assessment and findings in the medical record. Kristi Mckeon December 22, 2016 17:19 Zeke Lugo MD December 23, 2016 21:31
[2016-12-22] MEDS: PANTOPRAZOLE SODIUM 40 MG VIAL IV PUSH SCH (17:49)
[2016-12-22] MEDS: THIAMINE INJ 100 MG in SODIUM CHLORIDE 0.9% INJ 100 ML IV SCH (17:49)
[2016-12-22] MEDS: DEXT 5%-NACL 0.45% 1000 ML INJ 1,000 ML IV SCH (21:00)
[2016-12-23] VITALS (17 sets, daily range): BP systolic 90–117; BP diastolic 55–67; PULSE 82–109; RESP 19–28; TEMP 97.4–98.3; O2SAT 88–100
[2016-12-23] MEDS: MORPHINE SULFATE 4 MG/ML INJ IV PRN ×4 (00:05→23:44)
[2016-12-23] MEDS: VANCOMYCIN INJ 1,250 MG in SODIUM CHLOR 0.9% 250 ML INJ 250 ML IV SCH ×2 (00:29→11:14)
[2016-12-23] MEDS: metroNIDAZOLE 500 MG INJ 100 ML IV SCH ×4 (01:16→18:20)
[2016-12-23] MEDS: CEFEPIME INJ 2,000 MG in SODIUM CHLORIDE 0.9% INJ 100 ML IV SCH ×3 (03:00→18:21)
[2016-12-23 03:52] LABS: IGG SUBCLASSES 4 218.5 mg/dL (4-86)
[2016-12-23 03:59] LABS: HEMATOCRIT 37.3 % (39.0-51.0); MEAN CELL VOLUME 88.8 FL (80.0-100.0); MEAN CORPUSCULAR HEMOGLOBIN 29.5 PG (27.0-34.0); MEAN CORPUSCULAR HGB CONC 33.2 % (32.0-36.0); PLATELET COUNT 138 TH/MM3 (150-450); RED CELL DISTRIBUTION WIDTH 15.5 % (11.6-17.2); REVIEW FLAG FINAL; WHITE BLOOD COUNT 18.6 TH/MM3 (4.0-11.0)
[2016-12-23] MEDS: CHLORHEXIDINE GLUCONATE 2 % 1 PACK (2 CLOTHS) TOP SCH (04:00)
[2016-12-23 04:26] LABS: BICARBONATE 32.3 MEQ/L (21.0-32.0); POTASSIUM 3.7 MEQ/L (3.5-5.1)
[2016-12-23] MEDS: INSULIN ASPART SUPPLEMENTAL SCALE SQ SCH ×4 (06:00→18:00)
--- NOTE | 2016-12-23 06:18 | RADRPT ---
EXAM DATE/TIME: 12/23/2016 05:27 [facility] COMPARISON: CHEST SINGLE AP, December 22, 2016, 4:50. ABDOMEN DECUBITUS LEFT, December 21, 2016, 6:44. ABDOMEN KUB ONLY, December 21, 2016, 6:39. CHEST SINGLE AP, December 21, 2016, 6:35. CHEST SINGLE AP, December 20, 2016, 11:47. NATALIYA ST SINGLE AP, December 22, 2016, 8:51. INDICATIONS : Short of breath. Free air.. MEDICAL HISTORY : Cardiovascular disease. Hepatitis B. SURGICAL HISTORY : None. ENCOUNTER: Subsequent ACUITY: 2 weeks PAIN SCORE: Non-responsive. LOCATION: Bilateral chest FINDINGS: A single AP semierect view of the chest was obtained and now demonstrates complete opacification of t he left hemithorax. The previously noted aeration in the left upper lung is no longer visualized. The re is free air again noted under the right hemidiaphragm. The heart shadow is no longer distinctly vi sualized. A nasogastric tube is again seen coursing through the esophagus and into the stomach. A rig ht internal jugular central venous line remains in place. The bony thorax remains intact. The small b ore right-sided chest tube remains in place. CONCLUSION: 1. Free air again noted under left hemidiaphragm. 2. Worsening opacification of left lung which is now completely opacified. 3. No pneumothorax. The small bore right-sided chest tube remains in place. Zeke Khanna MD on December 23, 2016 at 6:11 Board Certified Radiologist. This report was verified electronically.
[2016-12-23] MEDS: SODIUM CHLORIDE 0.9% FLUSH 10 ML FLUSH IV FLUSH SCH ×2 (07:56→20:33)
[2016-12-23] MEDS: DOCUSATE SODIUM 100 MG/10 ML UDC OG-TUBE SCH ×2 (07:56→19:52)
[2016-12-23] MEDS: LACTULOSE SYRUP 20 GM/30 ML CUP PO SCH ×4 (07:56→20:33)
[2016-12-23] MEDS: ASPIRIN 325 MG TAB PO SCH (08:21)
[2016-12-23] MEDS: HYDROCORTISONE SOD SUCCINATE 100 MG VIAL IV PUSH SCH ×2 (08:21→19:53)
[2016-12-23] MEDS: MUPIROCIN 2% OINT 1 APPLIC/GM SYR NASAL SCH ×2 (08:21→19:54)
[2016-12-23] MEDS: POTASSIUM CHLORIDE 25 MEQ EFFERVESCENT TAB PO SCH ×2 (08:21→19:53)
[2016-12-23] MEDS: FOSPHENYTOIN SODIUM 100 MG PE/2 ML VIAL IV SCH ×2 (08:22→19:54)
[2016-12-23] MEDS: RESP: ALBUTEROL 2.5 MG/IPRATROPIUM 0.5 MG NEB (PRN) INH ×4 (08:23→19:37)
[2016-12-23] MEDS ORDERED: KETAMINE HCL 500 MG/5 ML VIAL IV PRN (10:30)
[2016-12-23] MEDS: DEXT 5%-NACL 0.45% 1000 ML INJ 1,000 ML IV SCH ×2 (10:49→23:40)
[2016-12-23] MEDS ORDERED: LIDOCAINE HCL 2% 100 MG/5 ML SYRINGE IV PUSH ONE (11:00)
[2016-12-23] MEDS ORDERED: RESP: LIDOCAINE HCL 4% PF 5 ML NEB NEB ONE (11:00)
[2016-12-23] MEDS ORDERED: MIDAZOLAM HCL 5 MG/ML VIAL (1 ML) IV PUSH ONE (11:00)
[2016-12-23] MEDS ORDERED: ROCURONIUM INJ 50 MG/5 ML VIAL ONE ×2 (11:16→11:17)
[2016-12-23] MEDS ORDERED: PHARMACY ORDERED LAB ONE (11:45)
--- NOTE | 2016-12-23 12:11 | HHI.CCPN ---
Subjective Remarks/Hospital Course 51 y/o man had stent removed yesterday following insertion for benign pancreatic mass. Now hypotensive and acts septic. 12/11: Biliary drain placed 12/10 for drainage of GB and common duct due because of distal CD obstruction from pancreatic mass. Seizure this morning. 12/12: Remains septic and requiring vasopressor support. Hyponatremia new, likely free water excess. 12/13: Remains on 10 mics of Levophed, vasopressin 0.04 international units, dobutamine 2.5 g per KG per min. Remains on propofol but moves extremities. Sodium 125, potassium 2.7. GI not planning any other interventions at this time. Biliary drain with 160 mL in 24 hours 12/14: Levophed had been weaned off. Remains on vasopressin 0.04, dobutamine 2.5 g per KG per minute. Urine output excellent. Potassium phosphorus remains low. Tolerating CPAP but lethargic. Plt count 77 today 12/15: Remains on Levophed at 6 mcg/min. Lethargic but follows commands. Plan is for Rendezvous Procedure/ERCP with IR and GI ? possible today. labs are pending at this time 12/16: remains on CPAP, remains in shock on 6 mcg/min of Levophed. Rendezvous Procedure/ERCP with IR and GI plan for today. Sodium is 145 was low at 1.6 bilirubin decreasing. UO 4.5 L in 24 hours. 12/17: s/p ERCP with biliary dilation and brushing and metal stent placement on by Dr. Kerr. Liver enzymes trending down. WBC 19.3. CXR improving infiltrates. Levophed remains at 6 mcg/min 12/18: Remains orally intubated on mechanical ventilation. On SIMV mode mechanical ventilation due to apneic episodes with C Pap trials. 12/19: Remains orally intubated on mechanical ventilation. On SIMV mode with rate of 6 pressure support +20 which was decreased to +12 12/20; Tolerating IMV with RR 6, breathing 8 above vent. Remains on Levophed at 4 mcg/m. More awake, following commands. Routine chest x-ray showed right pneumothorax and free air under the diaphragm. Had PTC procedure last week, unclear whether air is related. D/ W GI. Get CT chest after R chest tube is placed. D/W Dr Francis and Dr. Lugo 12/21: Reduced air under the diaphragm. Slightly increased white count but likely acid is normal. Clinical exam not consistent with perforated viscus- abdominal exam benign. Discussed with Dr. Lugo yesterday and he agrees. Possibly air was introduced from PTC procedure. Levophed requirement reducing, now at 2 mcg per min. R pneumothorax almost resolved 12/22: off vasopressors this morning. awake. CT with minimal serous output. no air leak. endorses only mild abdominal pain, primarily LUQ. 12/23: very hypoxic this morning. difficult to clear his secretions. his cxr shows a complete opacification of the left lung. I performed bedside critical care lung ultrasound which did not show an effusion, did show lung sliding with evidence of atelectatic collapse. I also had a long conversation with his and medical decision maker. she feels strongly that we should avoid intubation at all cost, and I agree that a second mechanical ventilation has the potential for chronic respiratory failure and life-long vent dependence. Objective Vital Signs Date Time Temp Pulse Resp B/P Pulse Ox O2 Delivery O2 Flow Rate FiO2 12/23/16 10:00 100 12/23/16 08:23 92 Non-Rebreather 15.00 12/23/16 08:00 98.3 19 117/63 12/22/16 22:38 100 Intake and Output 12/22/16 12/22/16 12/23/16 08:00 16:00 00:00 Intake Total 542 ml 691 ml 308 ml Output Total 308 ml 520 ml 575 ml Balance 234 ml 171 ml -267 ml Result Diagram: 12/23/16 0345 12/23/16 0345 Imaging Last 24 hours Impressions Chest X-Ray 12/22/16 0600 Signed Impressions: Service Date/Time: Thursday, December 22, 2016 04:50 - CONCLUSION: 1. Free air is again noted. 2. Abnormal opacity at the lung bases left greater than right consistent with infiltrate and effusion. 3. Interval extubation. 4. Right- sided chest tube remains in place with no pneumothorax. Zeke Khanna MD Objective Remarks Gen: Ill-appearing. in severe respiratory distress this morning. awake, but lethargic. Neck: Supple, trachea midline. Lungs: nonrebreather in place with spo2 86%. decreased and near-absent breath sounds on the left. coarse rales on the right. tachypneic and labored. using accessory muscles. Right chest tube with no air leak, site clean and dry, dressing intact, minimal serous output, to suction. Heart: tachycardic rate, regular rhythm. sinus by tele. Abdomen: Tympanic to percussion, No involuntary guarding,mild TTP LUQ. Extremities: warm, well perfused. Neuro: awake, RASS -1. follows commands. 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 Likely his acute disease processes have left him deconditioned and weak, and combined with his chronic myotonic dystrophy make it difficult for him to swallow and clear his secretions. After discussion with his , we will pursue spontaneously breathing bronchoscopy and will attempt to avoid intubation if possible. I did have a long talk with the where I consented her that he already met criteria for intubation, and if he did not rapidly improve with bronchoscopy or continued to further decline, we would pursue intubation and mechanical ventilation. she expressed understanding of this. He remains very critically ill at this time, and if we do not do something to change the course of his respiratory status, he will decompensate. 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 -Continue Cerebyx. Dilantin level 11.2 12/20 -IV Ativan when necessary for seizures. Correct hyponatremia due to seizures Keep >140 -Neurology Dr. Manuel -Keep Phos normalized given history of myotonic dystrophy -MRI shows multiple embolic strokes. Continue full dose aspirin -Calvin/Morphine PRN for pain RESP: Right pneumothorax (?Intra-abdominal free air tracking up) Acute Hypoxic Respiratory Failure Complete Opacification of Left lung field with atelectatic collapse History of Myotonic dystrophy -place chest tube to water seal. 4h post seal CXR. -OOB to chair. - PT/OT consult - wean o2 for goal spo2 > 90%. DuoNeb every 6 hours when necessary - bronch today, attempt to avoid intubation. - aggressive pulmonary toilet - oob to chair. CVS: Septic/circulatory shock - resolving. Cardiomyopathy with EF 35-40% -currently off vasopressors. -Bumex 1mg iv x 1 again today. goal -500 to 1L/24h. -Urine output excellent with achieving negative balance. GI: Hyponatremia, hypokalemia and hypophosphatemia Metabolic alkalosis- secondary to intravascular volume contraction Intra-abdominal free air ? PTC procedure related vs less likely ruptured viscus Cholangitis S/P PTHC, s/p ERCP and biliary stent- resolved Obstructive jaundice secondary to pancreatic head mass (previous w/u negative for malignancy). - resolving. History of prior dysphagia. -Chest x-ray 12/20/16 showed intra-abdominal free air. CT abdomen and pelvis -no contrast leakage -Clinically it appears that intra-abdominal free air is procedure related. No evidence of viscus perforation -Dr Lugo and Dr Francis following -Obstructive jaundice and possible cholangitis -S/P PTHC on (12/10/16) by IR -s/p ERCP with biliary dilation and brushing and metal stent placement on by Dr. Kerr. -D/W Dr. Francis and Dr Lugo - will need swallow eval prior to advancing diet, patient is significantly weak and has a long history of dysphagia. : -IV Bumex today -UO excellent needs to keep Potter today. ID -Septic shock, resolving, most likely biliary source/cholangitis -Continue broad-spectrum antibiotics cefepime and Flagyl, Added vancomycin due to new finding of free air under the diaphragm -Repeat blood cultures NGTD. -All cultures negative to date -Clinically slowly improving - would plan on 4 days abx from time of stent placement (12/20) or 7 days if wbc remains elevated at day 4. Will re-eval on 12/25. Endo: Hyperglycemia of Critical Illness SSI HEME: -Thrombocytopenia most likely from sepsis, now resolved. 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 On fondaparinux for DVT prophylaxis DVT/GI prophylaxis -Fondaparinux 2.5 mg sq daily as recommended by heme -IV Protonix Overall impression: Worsening respiratory status. GI issues slowly resolving. needs aggressive PT. very tenuous pulmonary mechanics. critically ill today. high likelyhood of worsening decompensation. This patient remains critically ill with one or more organ systems which are or may become a threat to life. I have spent in excess of 46 minutes discontinuously in the care and management of this patient. This time is exclusive of procedures, and includes, but is not limited to, evaluation of the patient, review of the medical record, discussions with family, consultants, nursing staff, or respiratory therapy, and documentation in the medical record. Justin Harris MD December 23, 2016 12:11
--- NOTE | 2016-12-23 12:16 | PD.PROCEDR ---
Procedure Note Procedure Procedure: Therapeutic Fiberoptic Bronchoscopy Diagnosis: Myotonic dystrophy with chronic respiratory insufficiency Indications: This is a 51-year-old male with history of myotonic dystrophy and acutely presented the hospital with septic shock and cholangitis. Despite aggressive pulmonary toilet, his secretions have worsened and his pulmonary status is decompensated to the point that he is now on a nonrebreather with SPO2 of 85%. His chest x-ray this morning demonstrates complete white out and opacification of the left lung field with mediastinal shift to the right. I've discussed these findings with the patient's and medical decision maker. She wouldn't like to avoid a second intubation with mechanical ventilation if possible. I agree that intubation with mechanical ventilation would significantly risk this patient's mortality or the possibility that he is permanently vent dependent. We will plan on spontaneously breathing fiberoptic bronchoscopy with the understanding that if the patient decompensates or does not improve significantly we will proceed with intubation at that time. Consent: Consent was Obtained from the , including the above discussion and she expressed understanding of the risk of intubation, mechanical ventilation, hypoxia, respiratory failure, . Anesthesia: Versed 1 mg IV, ketamine 40 mg IV Description of the Procedure: The patient was positioned in the upright and supine position. He was sedated with Versed and ketamine. A bite block was inserted. The patient was placed on high flow nasal cannula at 15 L a minute and a nonrebreather mask. The fiberoptic bronchoscopy was inserted via the left nare. The trachea, right and left mainstem bronchi, and sub-segmental bronchi were evaluated. The endobronchial anatomy was normal. Findings: Copious secretions which were thick and tenacious primarily in the left mainstem bronchus completely occluding airflow to all subsegmental bronchi on the left. Scant amount of white secretions on the right. These secretions were aggressively suctioned until all subsegmental bronchi were visible and free of secretions on the left. BAL samples: Samples were not sent. The patient tolerated the procedure well with no hemodynamic instability. The patient's initial SPO2 was 85% on a nonrebreather and high flow oxygen. At the conclusion of procedure, the patient's SPO2 is 99%. The patient was placed on a small trial of noninvasive positive pressure ventilation to recruit atelectatic area of the lungs and will be weaned down to nasal cannula after this. There were no immediate complications noted. A chest x-ray has been ordered. I personally performed the procedure. Justin Harris MD December 23, 2016 12:16
[2016-12-23] MEDS ORDERED: BUMETANIDE INJ 1 MG/4 ML VIAL IV PUSH ONE (12:30)
--- NOTE | 2016-12-23 12:56 | RADRPT ---
EXAM DATE/TIME: 12/23/2016 12:37 [facility] COMPARISON: CHEST SINGLE AP, December 23, 2016, 5:27. INDICATIONS : Post bronchoscopy. MEDICAL HISTORY : Cardiovascular disease. Hepatitis B. SURGICAL HISTORY : None. ENCOUNTER: Initial ACUITY: 2 weeks PAIN SCORE: Non-responsive. LOCATION: Bilateral chest FINDINGS: The cardiac silhouette is enlarged in transverse diameter. There is left lower lobe atelectasis versu s pneumonia. Support lines and tubes are in satisfactory position. A right chest tube is in place. Th ere is no evidence of pneumothorax. Pneumoperitoneum is again identified beneath the right hemidiaphr agm. CONCLUSION: 1. There is no evidence of pneumothorax. Adryan Nicholas MD on December 23, 2016 at 12:54 Board Certified Radiologist. This report was verified electronically.
--- NOTE | 2016-12-23 15:54 | HHI.GIFU ---
Subjective Remarks Pt resting in bed, being shaved by RN. at bedside. On partial rebreather. Objective Vitals I&O Vital Signs Date Time Temp Pulse Resp B/P Pulse Ox O2 Delivery O2 Flow Rate FiO2 12/23/16 14:00 101 12/23/16 12:48 91 Nasal Cannula 6.00 12/23/16 12:47 92 Nasal Cannula 6.00 12/23/16 12:00 98.3 88 26 105/65 100 12/23/16 12:00 88 12/23/16 11:45 99 100 12/23/16 11:40 100 Bi-Pap 100 12/23/16 11:10 88 15.00 12/23/16 10:00 100 12/23/16 08:23 92 Non-Rebreather 15.00 12/23/16 08:00 91 12/23/16 08:00 98.3 91 19 117/63 92 12/23/16 07:15 30 12/23/16 07:00 93 Non-Rebreather 8.00 12/23/16 06:00 90 12/23/16 04:00 98.2 89 24 113/63 95 12/23/16 04:00 89 12/23/16 02:00 92 12/23/16 00:00 93 12/23/16 00:00 98.0 88 28 111/67 93 12/22/16 22:38 88 Non-Rebreather 15.00 100 12/22/16 22:00 92 12/22/16 21:35 82 100 12/22/16 20:59 86 70 12/22/16 20:00 98.0 99 40 113/64 84 12/22/16 20:00 69 12/22/16 18:00 69 12/22/16 17:01 94 Venturi Mask 6.00 50 12/22/16 16:00 70 12/22/16 16:00 98.1 70 22 101/59 100 I/O 12/22/16 12/22/16 12/22/16 12/23/16 12/23/16 12/23/16 07:00 15:00 23:00 07:00 15:00 23:00 Intake Total 542 ml 691 ml 308 ml 811 ml 750 ml Output Total 308 ml 520 ml 575 ml 850 ml 900 ml Balance 234 ml 171 ml -267 ml -39 ml -150 ml Intake IV Total 542 ml 691 ml 308 ml 811 ml 750 ml Output Urine Total 250 ml 450 ml 550 ml 850 ml 750 ml Gastric Drainage Total 50 ml 50 ml 0 ml 0 ml 100 ml Chest Tube Drainage Total 8 ml 20 ml 25 ml 0 ml 50 ml # Bowel Movements 0 3 2 1 Laboratory Laboratory Tests Test 12/23/16 12/23/16 03:45 11:10 White Blood Count 18.6 Red Blood Count 4.20 Hemoglobin 12.4 Hematocrit 37.3 Mean Corpuscular Volume 88.8 Mean Corpuscular Hemoglobin 29.5 Mean Corpuscular Hemoglobin 33.2 Concent Red Cell Distribution Width 15.5 Platelet Count 138 Mean Platelet Volume 8.6 Sodium Level 142 Potassium Level 3.7 Chloride Level 106 Carbon Dioxide Level 32.3 Anion Gap 4 Blood Urea Nitrogen 7 Creatinine 0.42 Estimat Glomerular Filtration 214 Rate Random Glucose 126 Calcium Level 8.5 Phenytoin (Dilantin) Level 10.4 Vancomycin Level Trough 23.9 Date/Time Procedure Status Source Growth 12/21/16 09:20 Aerobic Blood Culture - Preliminary Resulted Blood Peripheral NO GROWTH IN 2 DAYS 12/21/16 09:20 Anaerobic Blood Culture - Preliminary Resulted Blood Peripheral NO GROWTH IN 2 DAYS Imaging Last Impressions Chest X-Ray 12/23/16 0600 Signed Impressions: Service Date/Time: December 05:27 - CONCLUSION: 1. Free air again noted under left hemidiaphragm. 2. Worsening opacification of left lung which is now completely opacified. 3. No pneumothorax. The small bore right-sided chest tube remains in place. Zeke Khanna MD Abdomen X-Ray 12/21/16 0628 Signed Impressions: Service Date/Time: Wednesday, December 21, 2016 06:44 - CONCLUSION: Free intraperitoneal air. Kamala Bermudez MD Abdomen/Pelvis CT 12/20/16 0000 Signed Impressions: Service Date/Time: Tuesday, December 20, 2016 13:00 - CONCLUSION: 1. There is a moderate amount of free air in the upper abdomen. Viscous perforation is the primary consideration. No definite extravasation of oral contrast is seen in the upper abdomen. This correlates with the recent chest x-ray demonstrating free intraperitoneal air. 2. Status post placement of a right-sided chest tube with resolution of the previously noted right pneumothorax. 3. Bibasilar atelectasis. 4. There is a Potter catheter in urinary bladder. However, the urinary bladder appears to be distended. Luis Alberto Escamilla MD GI Procedure 12/16/16 Signed Impressions: Service Date/Time: December 16:02 - CONCLUSION: ERCP as above. Chuck Erwin MD Neck Magnetic Resonance Angiography 12/15/16 Signed Impressions: Service Date/Time: Thursday, December 15, 2016 16:00 - CONCLUSION: Normal examination. Azael Young MD Head Magnetic Resonance Angiography 12/15/16 Signed Impressions: Service Date/Time: Thursday, December 15, 2016 16:00 - CONCLUSION: Negative for major branch vessel occlusion.. Matt Moran MD FACR Brain MRI 12/15/16 Signed Impressions: Service Date/Time: Thursday, December 15, 2016 16:00 - CONCLUSION: 1. Scattered areas of restricted diffusion in the basal ganglia bilaterally and in the left occipital region. 2. Marked central and cortical atrophy. 3. Moderate periventricular white matter changes. Matt Moran MD FACR Head CT 12/14/16 Signed Impressions: Service Date/Time: Thursday, December 15, 2016 04:43 - CONCLUSION: 1. No acute intracranial abnormality. 2. Small chronic lacunar infarction involving the right basal ganglia. Philip Ralph Jr., MD Cholangiopancreatography MRI 12/10/16 Signed Impressions: Service Date/Time: Saturday, December 10, 2016 12:44 - CONCLUSION: Pronounced biliary ductal dilatation with distal obstruction of the CBD by pancreatic mass which appears grossly stable. Barber Richardson MD Bile Duct Drainage 12/10/16 Signed Impressions: Service Date/Time: Saturday, December 10, 2016 15:33 - CONCLUSION: Uncomplicated internal/external biliary drain placement as above. Duy Moran MD Physical Exam HEENT: Normocephalic; atraumatic; + jaundice. CHEST: CTA, coarse. somewhat labored breathing, on partial rebreather mask. Right sided chest tube. CARDIAC: tachy ABDOMEN: Soft, nondistended, mild epigastric tenderness, no hepatosplenomegaly ; bowel sounds are present in all four quadrants EXTREMITIES: No clubbing, cyanosis, or edema. SKIN: Normal; ,+ jaundice. ADULT EDUCATOR: Restless Assessment and Plan Plan ASSESSMENT: - Obstructive jaundice secondary to pancreatic head mass (previous w/u negative for malignancy). S/P Unsuccessful ERCP (12/08/16)-----> biliary stent removed, failed ERCP attempt as outpatient. Pt developed pain and returned to hospital. S/P MRCP (12/10/16)---> Pronounced biliary ductal dilatation with distal obstruction of the CBD by pancreatic mass which appears grossly stable. S/P PTHC on (12/10/16). 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 WBC 13.1. T. Bili 3.7, AST 38, ALT 69, Alk Phosph 206. - Cholangitis secondary to above. S/P PTHC, S/P ERCP. Flagyl, Cefepime. Vanco - Abnormal CXR with new free air under the right hemidiaphragm. CXR (12/20/16)-- ---> There is a new moderate right pneumothroax with 4 cm of separation in the right upper lung, There is new free air under the right hemidiaphragm. Pt will be getting CT placed shortly and then will go for stat CT scan abdomen/pelvis. Abdomen X-Ray (12/21/16)----> Free intraperitoneal air. GS following, Nonoperative management. Abx. - Pancreatic head mass. Found to have pancreatic head mass, measuring 4.63.8 cm with resulting intrahepatic and extrahepatic delivery obstruction with dilatation on MRCP. Tumor markers were unremarkable. He underwent ERCP with stent placement and biopsy (08/06/16) and this revealed ampullary stenosis, duodenal mass. Pathology of the duodenal mass revealed duodenal mucosa with Sheryl's gland hyperplasia and features suggesting peptic duodenitis. He was then admitted to [facility] for intensive rehabilitation. There was some concern that this could be malignant and therefore he was evaluated by oncology. The mass was not amenable to CT guided biopsy and therefore he was discharged with the plan to have EUS as outpatient. EUS with FNA (08/26/16)-----> inhomogeneous Pancrease with lobularity in the body and mild hypoechogenicity in the head, FNA of the head done, no distinct mass seen, CBD with stent in place, PD mildly dilated to 2.7 mm, no lymphadenopathy, no vascular infiltration. Benign cytology with ductal cells with reactive changes. - Elevated LFTs, secondary to above. T. Bili 3.7, AST 38, ALT 69, Alk Phosph 206. - Hepatic encephalopathy. Lactulose - Respiratory failure/New right PTX. S/P Extubation. Mildly labored breathing today, was on bipap earlier, now on partial rebreather - Elevated troponin, per CCM - Multiple electrolyte abnormalities with hypokalemia, hypernatremia, hypocalcemia. per ccm - Anemia. Stable. - Seizures per CCM - Myotonic dystrophy, Anxiety, Hyperlipidemia, Asthma, Fatty liver disease, Hx HIT per primary PLAN: - Diet per GS - Cont. Abx - Cont. PPI - Monitor labs - GI will s/o . Please reconsult as needed - Pt seen and examined by Dr. Gonzalez and myself and this note is written on his behalf Zaria Lee December 23, 2016 15:54
--- NOTE | 2016-12-23 15:59 | HHI.PR ---
Subjective Subjective Notes Patient seen around 1000 Dr. Harris at bedside preparing for bedside bronchoscopy for increased secretions Upper GI on hold for now until respiratory status improved RN Kirsten at bedside Objective Vitals/I&O Vital Signs Date Time Temp Pulse Resp B/P Pulse Ox O2 Delivery O2 Flow Rate FiO2 12/23/16 14:00 101 12/23/16 12:48 91 Nasal Cannula 6.00 12/23/16 12:00 98.3 26 105/65 12/23/16 11:45 100 Labs Laboratory Tests Test 12/23/16 12/23/16 03:45 11:10 White Blood Count 18.6 Red Blood Count 4.20 Hemoglobin 12.4 Hematocrit 37.3 Mean Corpuscular Volume 88.8 Mean Corpuscular Hemoglobin 29.5 Mean Corpuscular Hemoglobin 33.2 Concent Red Cell Distribution Width 15.5 Platelet Count 138 Mean Platelet Volume 8.6 Sodium Level 142 Potassium Level 3.7 Chloride Level 106 Carbon Dioxide Level 32.3 Anion Gap 4 Blood Urea Nitrogen 7 Creatinine 0.42 Estimat Glomerular Filtration 214 Rate Random Glucose 126 Calcium Level 8.5 Phenytoin (Dilantin) Level 10.4 Vancomycin Level Trough 23.9 Date/Time Procedure Status Source Growth 12/21/16 09:20 Aerobic Blood Culture - Preliminary Resulted Blood Peripheral NO GROWTH IN 2 DAYS 12/21/16 09:20 Anaerobic Blood Culture - Preliminary Resulted Blood Peripheral NO GROWTH IN 2 DAYS Cardiovascular: Regular Lungs: Upper airway course sound Abdomen: Other (abdomen soft; flat; minimal tenderness to palpation ) Extremities: No edema A/P Assessment and Plan 51 year old male with a PMHx of myotonic dystrophy and ERCP with stent placement ; Free air found on XR -Dr. Harris preparing to do bronchoscopy -Continue to monitor abdominal exam -Upper GI on hold for now -Remain NPO -Patient remains hemodynamically stable -Continue non operative management -We will continue to monitor Attending Note - Dr. Lugo Respiratory status improved after bronchoscopy Will have pt. undergo UGI tomorrow; if no leak, will consider removing NG and allow pt. to have PO's The exam, history, and the medical decision-making described in the above note were completed with the assistance of the mid-level provider. I reviewed and agree with the findings presented. I attest that I had a [id number] encounter with the patient on the same day, and personally performed and documented my assessment and findings in the medical record. Kristi Mckeon December 23, 2016 15:59 Zeke Lugo MD December 23, 2016 21:30
[2016-12-23] MEDS: THIAMINE INJ 100 MG in SODIUM CHLORIDE 0.9% INJ 100 ML IV SCH (18:20)
[2016-12-23] MEDS: PANTOPRAZOLE SODIUM 40 MG VIAL IV PUSH SCH (18:20)
--- NOTE | 2016-12-23 19:59 | HHI.PR ---
Review/Management Diagnosis/Plan: (1) Acute embolic stroke Plan: mri brain reviewed bilateral bg, rt frontal and left occipital tiny infarcts mra brain/carotids nml recs dyspneic- bronch by ccm d/w rn septic emboli? syeda? check after echo- seen by cardiology (2) Encephalopathy, metabolic Plan: sz- likely 2/2 metabolic/electrolyte changes/embolic strokes corrected dil >20 (3) Myotonic dystrophy, type 1 Plan: genetic (4) Aspiration pneumonia (5) Biliary sepsis Subjective Subjective Comments hypoxic Active Medications Current Medications Medications (Trade) Dose Ordered Sig/[place] Route Start Time Stop Time Status Last Admin (NS Flush) 2 ml UNSCH PRN IV FLUSH 12/09/16 17:15 12/09/16 19:00 (NS Flush) 2 ml BID IV FLUSH 12/09/16 21:00 12/22/16 22:19 (Tylenol) 650 mg Q4H PRN PO 12/09/16 17:15 (Senokot) 17.2 mg Q12H PRN PO 12/09/16 17:15 (Morphine Inj) 2 mg Q3H PRN IV 12/09/16 17:15 12/23/16 07:03 (Narcan Inj) 0.4 mg UNSCH PRN IV 12/09/16 17:15 Pantoprazole Sodium 40 mg 40 mg Q24H IV PUSH 12/09/16 18:00 12/23/16 18:20 (Levophed-Dextrose Drip) 250 ml @ 0 mls/hr TITRATE IV 12/10/16 06:00 12/20/16 12:21 (Zofran Inj) 4 mg Q6H PRN IV 12/10/16 06:30 Miscellaneous Information 1 Q361D XX 12/10/16 06:30 (Chlorhexidine 2% Cloth) Taper DAILY@04 TOP 12/11/16 04:00 12/07/17 03:59 12/23/16 04:00 Chlorhexidine Gluconate 3 pack 3 pack UNSCH PRN TOP 12/10/16 06:30 (Flagyl 500 Mg Inj) 100 ml @ 100 mls/hr Q6H IV 12/10/16 07:00 12/23/16 18:20 Miscellaneous Information D/C ICU ELECTROLYTE ORDERS... UNSCH PRN .XX 12/10/16 08:45 Miscellaneous Information ICU - CALL ORDERING PHYSIC... UNSCH PRN .XX 12/10/16 08:45 (KCl 40 Meq Premix Inj) 100 ml @ 25 mls/hr UNSCH PRN IV 12/10/16 08:45 12/21/16 10:12 Potassium Bicarb/ Potassium Chloride 50 meq 50 meq UNSCH PRN PO 12/10/16 08:45 12/18/16 02:18 Potassium Chloride 100 ml @ 50 mls/hr UNSCH PRN IV 12/10/16 08:45 12/21/16 21:17 Magnesium Sulfate 4 gm/Sodium Chloride 108 ml @ 54 mls/hr UNSCH PRN IV 12/10/16 08:45 (Magnesium Sulfate Inj/NS Inj) 104 ml @ 52 mls/hr UNSCH PRN IV 12/10/16 08:45 12/14/16 10:19 Magnesium Oxide 800 mg 800 mg UNSCH PRN PO 12/10/16 08:45 (Sodium Phosphate Inj/NS 250 ml Inj) 260 ml @ 43.333 mls/ hr UNSCH PRN IV 12/10/16 08:45 12/21/16 08:18 (K-Phos) 2,000 mg UNSCH PRN PO 12/10/16 08:45 12/18/16 10:17 (Bactroban Nasal 2% Oint) 1 applic BID NASAL 12/11/16 21:00 12/23/16 08:21 (Colace Liq) 100 mg BID OG-TUBE 12/11/16 23:32 12/22/16 20:33 (D50w (Vial) Inj) 25 ml UNSCH PRN IV PUSH 12/12/16 12:15 12/22/16 12:40 (Glucagon Inj) 1 mg UNSCH PRN OTHER 12/12/16 12:15 (NovoLOG SUPPLEMENTAL SCALE) 1 Q6HR SQ 12/12/16 12:15 12/18/16 17:57 (Lactulose Liq) 30 ml QID PO 12/13/16 13:00 12/22/16 21:00 Potassium Bicarb/ Potassium Chloride 25 meq 25 meq Q12HR PO 12/14/16 10:45 12/23/16 08:21 (Thiamine Inj/NS Inj) 101 ml @ 101 mls/hr Q24H IV 12/14/16 17:00 12/23/16 18:20 (Cerebyx Inj) 100 mgpe Q12HR IV 12/16/16 21:00 12/23/16 08:22 (Aspirin) 325 mg DAILY PO 12/16/16 09:45 12/23/16 08:21 (Morphine Inj) 2 mg Q3H PRN IV 12/20/16 11:15 Acetaminophen/ Hydrocodone Bitart 1 tab 1 tab Q6H PRN PO 12/20/16 08:45 12/21/16 05:38 Pharmacy Profile Note 0 ml @ 0 mls/hr UNSCH OTHER 12/20/16 14:00 (Maxipime Inj/NS Inj) 100 ml @ 200 mls/hr Q8H IV 12/21/16 11:00 12/23/16 18:21 (SoluCORTEF INJ) 50 mg Q12HR IV PUSH 12/21/16 09:00 12/24/16 08:59 12/23/16 08:21 Alteplase, Recombinant 2 mg 2 mg Q6H PRN INTRACATH 12/21/16 11:00 12/21/16 12:55 Dextrose/Sodium Chloride 1,000 ml @ 75 mls/hr [id number] IV 12/22/16 21:00 12/23/16 10:49 (Vancomycin Inj/ NS 250 ml Inj) 262.5 ml @ 250 mls/hr Q18H IV 12/24/16 06:00 Miscellaneous Information SPECIFIC LAB TO BE DRAWN:VANCOMYCIN TROUGH DATE TO... ONCE ONCE .XX 12/26/16 11:45 12/26/16 11:46 Allergies Allergies Coded Allergies *MDRO Multi-Drug Resistant Organism (Verified Adverse Reaction, Unknown, ) Review of Systems All other ROS: ROS reviewed as documented in chart Exam I&O / VS 12/22/16 12/22/16 12/23/16 15:00 23:00 07:00 Intake Total 691 ml 308 ml 811 ml Output Total 520 ml 575 ml 850 ml Balance 171 ml -267 ml -39 ml Intake IV Total 691 ml 308 ml 811 ml Output Urine Total 450 ml 550 ml 850 ml Gastric Drainage Total 50 ml 0 ml 0 ml Chest Tube Drainage Total 20 ml 25 ml 0 ml # Bowel Movements 3 2 Vital Signs Date Time Temp Pulse Resp B/P Pulse Ox O2 Delivery O2 Flow Rate FiO2 12/23/16 19:37 94 Venturi Mask 50 12/23/16 18:00 89 12/23/16 17:30 98 Venturi Mask 50 12/23/16 16:00 83 12/23/16 16:00 97.5 83 24 100/62 99 12/23/16 14:00 101 12/23/16 12:48 91 Nasal Cannula 6.00 12/23/16 12:47 92 Nasal Cannula 6.00 12/23/16 12:00 98.3 88 26 105/65 100 12/23/16 12:00 88 12/23/16 11:45 99 100 12/23/16 11:40 100 Bi-Pap 100 12/23/16 11:10 88 15.00 12/23/16 10:00 100 12/23/16 08:23 92 Non-Rebreather 15.00 12/23/16 08:00 91 12/23/16 08:00 98.3 91 19 117/63 92 12/23/16 07:15 30 12/23/16 07:00 93 Non-Rebreather 8.00 12/23/16 06:00 90 12/23/16 04:00 98.2 89 24 113/63 95 12/23/16 04:00 89 12/23/16 02:00 92 12/23/16 00:00 93 12/23/16 00:00 98.0 88 28 111/67 93 12/22/16 22:38 88 Non-Rebreather 15.00 100 12/22/16 22:00 92 12/22/16 21:35 82 100 12/22/16 20:59 86 70 12/22/16 20:00 98.0 99 40 113/64 84 12/22/16 20:00 69 Cardiology: Normal rate Exam Comments alert, ox 2-3, not to exact date, on non-rebreather, mildly dyspneic, follows, temporal wasting, ou 3-2mm, blinks, some tracking difficulty to left, lift legs to gravity, unable to raise either ue to gravity but good group captain, 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 printing 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, difficulty with finger flexion, distal wasting Objective Micro and Labs Laboratory Tests Test 12/23/16 12/23/16 03:45 11:10 White Blood Count 18.6 Red Blood Count 4.20 Hemoglobin 12.4 Hematocrit 37.3 Mean Corpuscular Volume 88.8 Mean Corpuscular Hemoglobin 29.5 Mean Corpuscular Hemoglobin 33.2 Concent Red Cell Distribution Width 15.5 Platelet Count 138 Mean Platelet Volume 8.6 Sodium Level 142 Potassium Level 3.7 Chloride Level 106 Carbon Dioxide Level 32.3 Anion Gap 4 Blood Urea Nitrogen 7 Creatinine 0.42 Estimat Glomerular Filtration 214 Rate Random Glucose 126 Calcium Level 8.5 Phenytoin (Dilantin) Level 10.4 Vancomycin Level Trough 23.9 Date/Time Procedure Status Source Growth 12/21/16 09:20 Aerobic Blood Culture - Preliminary Resulted Blood Peripheral NO GROWTH IN 2 DAYS 12/21/16 09:20 Anaerobic Blood Culture - Preliminary Resulted Blood Peripheral NO GROWTH IN 2 DAYS Problem Qualifiers (1) Aspiration pneumonia: Chris Manuel MD December 23, 2016 19:59
[2016-12-23 23:53] LABS: MITOCHONDRIAL ABS LESS THAN 20.0 U (())
[2016-12-24] VITALS (18 sets, daily range): BP systolic 93–136; BP diastolic 54–76; PULSE 80–100; RESP 12–26; TEMP 97–98.9; O2SAT 90–100
[2016-12-24] MEDS: metroNIDAZOLE 500 MG INJ 100 ML IV SCH ×4 (00:06→18:10)
[2016-12-24] MEDS: CEFEPIME INJ 2,000 MG in SODIUM CHLORIDE 0.9% INJ 100 ML IV SCH ×3 (03:30→18:10)
[2016-12-24] MEDS: MORPHINE SULFATE 4 MG/ML INJ IV PRN (03:38)
[2016-12-24] MEDS: CHLORHEXIDINE GLUCONATE 2 % 1 PACK (2 CLOTHS) TOP SCH (04:00)
[2016-12-24 04:35] LABS: HEMATOCRIT 38.2 % (39.0-51.0); MEAN CELL VOLUME 88.3 FL (80.0-100.0); MEAN CORPUSCULAR HEMOGLOBIN 29.9 PG (27.0-34.0); MEAN CORPUSCULAR HGB CONC 33.8 % (32.0-36.0); PLATELET COUNT 146 TH/MM3 (150-450); RED BLOOD COUNT 4.33 MIL/MM3 (4.50-5.90); RED CELL DISTRIBUTION WIDTH 15.5 % (11.6-17.2); REVIEW FLAG FINAL; WHITE BLOOD COUNT 16.7 TH/MM3 (4.0-11.0)
[2016-12-24 04:42] LABS: BICARBONATE 30.6 MEQ/L (21.0-32.0); POTASSIUM 3.2 MEQ/L (3.5-5.1)
[2016-12-24] MEDS: VANCOMYCIN INJ 1,250 MG in SODIUM CHLOR 0.9% 250 ML INJ 250 ML IV SCH (05:35)
[2016-12-24] MEDS: INSULIN ASPART SUPPLEMENTAL SCALE SQ SCH ×4 (06:00→17:45)
[2016-12-24] MEDS: ICU - POTASSIUM CHLORIDE/AQUEOUS SOLN 40 MEQ/100 ML IVPB IV PRN ×2 (06:26→10:11)
--- NOTE | 2016-12-24 07:00 | RADRPT ---
EXAM DATE/TIME: 12/24/2016 06:23 [facility] COMPARISON: CHEST SINGLE AP, December 23, 2016, 12:37. INDICATIONS : Short of breath, evaluate atelectasis MEDICAL HISTORY : Hepatitis B. obstructive jaundice SURGICAL HISTORY : bronchoscopy ENCOUNTER: Subsequent ACUITY: 2 weeks PAIN SCORE: Non-responsive. LOCATION: Bilateral chest FINDINGS: Left IJ line is present with tip overlapping the expected region of the SVC. NG tube is present with tip in the stomach. Chest tube is present on the right side. No definite pneumothorax is seen for juan manuel hnique. Left lung base consolidation is present with patchy parenchymal infiltrates bilaterally not s ignificantly changed. Previously seen pneumoperitoneum is not clearly visualized. Slight degree of pu lmonary edema is also suspected. CONCLUSION: Parenchymal changes have not changed and no definite pneumothorax is seen. Kamala Bermudez MD on December 24, 2016 at 6:56 Board Certified Radiologist. This report was verified electronically.
[2016-12-24] MEDS: DOCUSATE SODIUM 100 MG/10 ML UDC OG-TUBE SCH ×2 (09:00→20:44)
[2016-12-24] MEDS: LACTULOSE SYRUP 20 GM/30 ML CUP PO SCH ×4 (09:00→20:44)
[2016-12-24] MEDS: SODIUM CHLORIDE 0.9% FLUSH 10 ML FLUSH IV FLUSH SCH ×2 (09:00→21:13)
[2016-12-24 09:36] LABS: BLOOD GAS BASE EXCESS 4.3 mmol/L (-2-2); BLOOD GAS CARBOXYHEMOGLOBIN 1.4 % (0-4); BLOOD GAS HCO3 28 mmol/L (22-26); BLOOD GAS METHEMOGLOBIN 0.8 % (0-2); BLOOD GAS O2 HGB SATURATION 76 % (90-100); BLOOD GAS OXYGEN CONTENT 15.9 Vol % (12.0-20.0); BLOOD GAS PCO2 41 mmHg (38-42); BLOOD GAS PO2 40 mmHg (61-120); BLOOD GAS TOTAL HGB 14.9 G/DL (12.0-16.0); CRITICAL VALUE YES; OXYGEN DEVICE BiPAP; TEMP CORR TO 98.6
[2016-12-24 09:37] LABS: DRAW SITE LT RADIAL; FIO2 100 %; NUMBER OF ARTERIAL PUNCTURES 1; STAT YES; ULNAR PULSE PRESENT; VENT SETTINGS IPAP12EPAP5
[2016-12-24] MEDS ORDERED: PROPOFOL 500 MG/50 ML INJ 50 ML ONE (09:41)
[2016-12-24] MEDS ORDERED: ROCURONIUM INJ 50 MG/5 ML VIAL ONE (09:42)
[2016-12-24] MEDS: ASPIRIN 325 MG TAB PO SCH (10:10)
[2016-12-24] MEDS: FOSPHENYTOIN SODIUM 100 MG PE/2 ML VIAL IV SCH ×2 (10:10→20:46)
[2016-12-24] MEDS: MUPIROCIN 2% OINT 1 APPLIC/GM SYR NASAL SCH ×2 (10:10→20:45)
[2016-12-24] MEDS: NOREPINEPHRINE 4 MG/D5W 250 ML IV SCH (10:13)
[2016-12-24] MEDS ORDERED: SODIUM CHLORID 0.9% 500 ML INJ 500 ML IV ONE (10:15)
[2016-12-24] MEDS: POTASSIUM CHLORIDE 25 MEQ EFFERVESCENT TAB PO SCH ×2 (10:15→20:44)
--- NOTE | 2016-12-24 10:29 | HHI.CCPN ---
Subjective Remarks/Hospital Course 51 y/o man had stent removed yesterday following insertion for benign pancreatic mass. Now hypotensive and acts septic. 12/11: Biliary drain placed 12/10 for drainage of GB and common duct due because of distal CD obstruction from pancreatic mass. Seizure this morning. 12/12: Remains septic and requiring vasopressor support. Hyponatremia new, likely free water excess. 12/13: Remains on 10 mics of Levophed, vasopressin 0.04 international units, dobutamine 2.5 g per KG per min. Remains on propofol but moves extremities. Sodium 125, potassium 2.7. GI not planning any other interventions at this time. Biliary drain with 160 mL in 24 hours 12/14: Levophed had been weaned off. Remains on vasopressin 0.04, dobutamine 2.5 g per KG per minute. Urine output excellent. Potassium phosphorus remains low. Tolerating CPAP but lethargic. Plt count 77 today 12/15: Remains on Levophed at 6 mcg/min. Lethargic but follows commands. Plan is for Rendezvous Procedure/ERCP with IR and GI ? possible today. labs are pending at this time 12/16: remains on CPAP, remains in shock on 6 mcg/min of Levophed. Rendezvous Procedure/ERCP with IR and GI plan for today. Sodium is 145 was low at 1.6 bilirubin decreasing. UO 4.5 L in 24 hours. 12/17: s/p ERCP with biliary dilation and brushing and metal stent placement on by Dr. Kerr. Liver enzymes trending down. WBC 19.3. CXR improving infiltrates. Levophed remains at 6 mcg/min 12/18: Remains orally intubated on mechanical ventilation. On SIMV mode mechanical ventilation due to apneic episodes with C Pap trials. 12/19: Remains orally intubated on mechanical ventilation. On SIMV mode with rate of 6 pressure support +20 which was decreased to +12 12/20; Tolerating IMV with RR 6, breathing 8 above vent. Remains on Levophed at 4 mcg/m. More awake, following commands. Routine chest x-ray showed right pneumothorax and free air under the diaphragm. Had PTC procedure last week, unclear whether air is related. D/ W GI. Get CT chest after R chest tube is placed. D/W Dr Francis and Dr. Lugo 12/21: Reduced air under the diaphragm. Slightly increased white count but likely acid is normal. Clinical exam not consistent with perforated viscus- abdominal exam benign. Discussed with Dr. Lugo yesterday and he agrees. Possibly air was introduced from PTC procedure. Levophed requirement reducing, now at 2 mcg per min. R pneumothorax almost resolved 12/22: off vasopressors this morning. awake. CT with minimal serous output. no air leak. endorses only mild abdominal pain, primarily LUQ. 12/23: very hypoxic this morning. difficult to clear his secretions. his cxr shows a complete opacification of the left lung. I performed bedside critical care lung ultrasound which did not show an effusion, did show lung sliding with evidence of atelectatic collapse. I also had a long conversation with his and medical decision maker. she feels strongly that we should avoid intubation at all cost, and I agree that a second mechanical ventilation has the potential for chronic respiratory failure and life-long vent dependence. 12/24: initial significant improvements in CXR and oxygenation after bronch yesterday. was on ventimask however, overnight, persistent inability to clear secretions. became more hypoxic, placed on BiPAP. This morning, chest xray with recurrent consolidation in LLL, and spo2 75% on 100% BiPAP. I had a long conversation with his discussion the options, and I feel at this point, the safest way to be aggressive is intubation and mechanical ventilation. She was concerned that he may never come of the vent, as I am also concerned, but at this point he is failing conservative measures. We proceeded with intubation (see separate procedure note for details). Objective Vital Signs Date Time Temp Pulse Resp B/P Pulse Ox O2 Delivery O2 Flow Rate FiO2 12/24/16 08:00 98.4 100 26 121/76 90 12/24/16 07:48 Venturi Mask 6.00 50 Intake and Output 12/23/16 12/23/16 12/24/16 08:00 16:00 00:00 Intake Total 811 ml 750 ml 608 ml Output Total 850 ml 900 ml 2030 ml Balance -39 ml -150 ml -1422 ml Result Diagram: 12/24/16 0345 12/24/16 0345 Other Results Laboratory Tests Test 12/24/16 09:20 Blood Gas Puncture Site LT RADIAL Blood Gas Patient Temperature 98.6 Blood Gas HCO3 28 mmol/L (22-26) Blood Gas Base Excess 4.3 mmol/L (-2-2) Blood Gas Oxygen Saturation 76 % (90-100) Arterial Blood pH 7.45 (7.380-7.420) Arterial Blood Partial 41 mmHg (38-42) Pressure CO2 Arterial Blood Partial 40 mmHg Pressure O2 (61-120) Arterial Blood Oxygen Content 15.9 Vol % (12.0-20.0) Arterial Blood 1.4 % (0-4) Carboxyhemoglobin Arterial Blood Methemoglobin 0.8 % (0-2) Blood Gas Hemoglobin 14.9 G/DL (12.0-16.0) Oxygen Delivery Device BiPAP Blood Gas Ventilator Setting [id number] Blood Gas Inspired Oxygen 100 % Imaging Last 24 hours Impressions Chest X-Ray 12/22/16 0600 Signed Impressions: Service Date/Time: Thursday, December 22, 2016 04:50 - CONCLUSION: 1. Free air is again noted. 2. Abnormal opacity at the lung bases left greater than right consistent with infiltrate and effusion. 3. Interval extubation. 4. Right- sided chest tube remains in place with no pneumothorax. Zeke Khanna MD Objective Remarks Gen: Ill-appearing. in severe respiratory distress this morning on BiPAP. awake Neck: Supple, trachea midline. Lungs: BiPAP in place, 100% fio2, spo2 75 - 85%. weak cough. diminished breath sounds on left. coarse on right. tachypneic and labored. using accessory muscles. Right chest tube with no air leak, site clean and dry, dressing intact, minimal serous output, to suction. Heart: tachycardic rate, regular rhythm. sinus by tele. Abdomen: Tympanic to percussion, No involuntary guarding,mild TTP LUQ. Extremities: warm, well perfused. Neuro: awake, RASS -1. follows commands. 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 Despite maximal conservative measures, we have failed conservative therapy and proceed with intubation and mechanical ventilation. He is critically ill. May require repeat bronchoscopy. difficult to clear secretions, most likely from neuromuscular disease and deconditioning. 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 -Continue Cerebyx. Dilantin level 11.2 12/20 -IV Ativan when necessary for seizures. Correct hyponatremia due to seizures Keep >140 -Neurology Dr. Manuel -Keep Phos normalized given history of myotonic dystrophy -MRI shows multiple embolic strokes. Continue full dose aspirin -[place]/Morphine PRN for pain RESP: Right pneumothorax (?Intra-abdominal free air tracking up) Acute Hypoxic Respiratory Failure LLL consolidation History of Myotonic dystrophy -re-intubated 12/24. -cxr -LLL consolidation most likely from mucous plugging. no fever, wbc downtrending. unlikely to be pneumonia. -OOB to chair. intubation not a contra-indication to this. - we may need serial bronchs if he is unable to manage his secretions. - PT/OT consult - wean o2 for goal spo2 > 90%. DuoNeb every 6 hours when necessary - aggressive pulmonary toilet CVS: Septic/circulatory shock - resolved. Hypotension associated with sedation and intravascular volume depletion. Cardiomyopathy with EF 35-40% -back on Levophed, likely secondary to intravascular volume depletion and sedation/intubation. - 500cc NS bolus x 1. - hold further diuresis. GI: Hyponatremia, hypokalemia and hypophosphatemia Metabolic alkalosis- secondary to intravascular volume contraction Intra-abdominal free air ? PTC procedure related vs less likely ruptured viscus Cholangitis S/P PTHC, s/p ERCP and biliary stent- resolved Obstructive jaundice secondary to pancreatic head mass (previous w/u negative for malignancy). - resolving. History of prior dysphagia. -Chest x-ray 12/20/16 showed intra-abdominal free air. CT abdomen and pelvis -no contrast leakage -Clinically it appears that intra-abdominal free air is procedure related. No evidence of viscus perforation -Dr Lugo and Dr Francis following -Obstructive jaundice and possible cholangitis -S/P PTHC on (12/10/16) by IR -s/p ERCP with biliary dilation and brushing and metal stent placement on by Dr. Kerr. -D/W Dr. Francis and Dr Lugo - DHT tube. will discuss with gen surg restarting TF. : -hold on further diuresis. -keep hobson today while intubated. ID -s/p Septic shock from biliary source/cholangitis -Continue broad-spectrum antibiotics cefepime and Flagyl, Added vancomycin due to new finding of free air under the diaphragm -Repeat blood cultures NGTD. -All cultures negative to date -resend sputum culture today. - would plan on 4 days abx from time of stent placement (12/20) or 7 days if wbc remains elevated at day 4. Will keep at minimum additional 48h post-intubation. re-eval abx usage on 12/26. Endo: Hyperglycemia of Critical Illness SSI HEME: -Thrombocytopenia most likely from sepsis, now resolved. 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 On fondaparinux for DVT prophylaxis DVT/GI prophylaxis -Fondaparinux 2.5 mg sq daily as recommended by heme -IV Protonix Overall impression: Worsening respiratory status. GI issues slowly resolving. needs aggressive PT. critically ill with worsening pulmonary status requiring intubaiton. This patient remains critically ill with one or more organ systems which are or may become a threat to life. I have spent in excess of 40 minutes discontinuously in the care and management of this patient. This time is exclusive of procedures, and includes, but is not limited to, evaluation of the patient, review of the medical record, discussions with family, consultants, nursing staff, or respiratory therapy, and documentation in the medical record. Justin Harris MD December 24, 2016 10:29
--- NOTE | 2016-12-24 10:34 | PD.PROCEDR ---
Procedure Note Procedure Endotracheal Intubation Diagnosis: Myotonic dystrophy with resolving cholangitis Indications: Patient is a 51-year-old male who presented with cholangitis and septic shock and was intubated for acute hypoxic respiratory failure. He was recently extubated on 12/21 but has an inability to clear secretions due to his neuromuscular weakness. Yesterday we performed spontaneous breathing bronchoscopy which attempted to improve his pulmonary status, but he continued to decline. His SPO2 75% on BiPAP with 100% FiO2. His indication for intubation as acute hypoxic respiratory failure Consent: Verbal consent was given by both patient and his . Anesthesia: Propofol 150 mg IV. The risk-benefit ratio of rapid sequence intubation versus avoidance of paralytic in neuromuscular disease is in favor of avoiding paralytics. The patient has gastric access in place which was to suction. Airway assessment: Patient has a short-arm mental distance. Normal mouth opening. Normal neck flexion and extension. Oropharyngeal class II. The patient is a known prior difficult airway with best attempts using a GlideScope #3 blade. This will be used for the procedure. Description of the Procedure: The patient was positioned in the sniffing position. Pre-oxygenation was performed using a BiPAP 100% FiO2. Anesthesia was induced via rapid sequence. A GlideScope #3 was used for laryngoscopy and a Grade I view was obtained. A 8.0 cuffed endotracheal tube was inserted atraumatically through the vocal cords. Confirmation of correct endotracheal tube placement was made by equal and bilateral breath sounds and colorimetric CO2 detection. The endotracheal tube was secured at 24 cm at the teeth. There were no immediate complications noted. The patient remained hemodynamically stable throughout the procedure. A chest x-ray has been ordered. I personally performed the procedure. Justin Harris MD December 24, 2016 10:34
[2016-12-24] MEDS: DEXT 5%-NACL 0.45% 1000 ML INJ 1,000 ML IV SCH (10:35)
--- NOTE | 2016-12-24 10:52 | HHI.PR ---
Subjective Subjective Notes Recently intubated due to increased work of breathing and respiratory distress Objective Vitals/I&O Vital Signs Date Time Temp Pulse Resp B/P Pulse Ox O2 Delivery O2 Flow Rate FiO2 12/24/16 10:00 95 100 12/24/16 08:00 98.4 100 26 121/76 12/24/16 07:48 Venturi Mask 6.00 Labs Laboratory Tests Test 12/23/16 12/24/16 12/24/16 11:10 03:45 09:20 Vancomycin Level Trough 23.9 White Blood Count 16.7 Red Blood Count 4.33 Hemoglobin 12.9 Hematocrit 38.2 Mean Corpuscular Volume 88.3 Mean Corpuscular Hemoglobin 29.9 Mean Corpuscular Hemoglobin 33.8 Concent Red Cell Distribution Width 15.5 Platelet Count 146 Mean Platelet Volume 8.7 Sodium Level 141 Potassium Level 3.2 Chloride Level 103 Carbon Dioxide Level 30.6 Anion Gap 7 Blood Urea Nitrogen 7 Creatinine 0.43 Estimat Glomerular Filtration 209 Rate Random Glucose 118 Calcium Level 8.3 Blood Gas Puncture Site LT RADIAL Blood Gas Patient Temperature 98.6 Blood Gas HCO3 28 Blood Gas Base Excess 4.3 Blood Gas Oxygen Saturation 76 Arterial Blood pH 7.45 Arterial Blood Partial 41 Pressure CO2 Arterial Blood Partial 40 Pressure O2 Arterial Blood Oxygen Content 15.9 Arterial Blood 1.4 Carboxyhemoglobin Arterial Blood Methemoglobin 0.8 Blood Gas Hemoglobin 14.9 Oxygen Delivery Device BiPAP Blood Gas Ventilator Setting [id number] Blood Gas Inspired Oxygen 100 Date/Time Procedure Status Source Growth 12/21/16 09:20 Aerobic Blood Culture - Preliminary Resulted Blood Peripheral NO GROWTH IN 2 DAYS 12/21/16 09:20 Anaerobic Blood Culture - Preliminary Resulted Blood Peripheral NO GROWTH IN 2 DAYS Cardiovascular: Regular Lungs: Upper airway course sound Abdomen: Other (abdomen soft; no grimicing with palpation ) Extremities: No edema A/P Assessment and Plan 51 year old male with a PMHx of myotonic dystrophy and ERCP with stent placement ; Free air found on XR -Recently re-intubated -Continue to monitor abdominal exam -Plan for Upper GI today if respiratory status stable---talked with Dr. Harris -Remain NPO -Continue non operative management -We will continue to monitor Attending note - Dr. Lugo Abdomen remains benign; doubt any exploration will improve his status. The exam, history, and the medical decision-making described in the above note were completed with the assistance of the mid-level provider. I reviewed and agree with the findings presented. I attest that I had a [id number] encounter with the patient on the same day, and personally performed and documented my assessment and findings in the medical record. Kristi Mckeon December 24, 2016 10:51 Zeke Lugo MD December 24, 2016 20:17
[2016-12-24] MEDS: fentaNYL DRIP 250 ML IV SCH (11:11)
--- NOTE | 2016-12-24 11:13 | RADRPT ---
EXAM DATE/TIME: 12/24/2016 10:50 [facility] COMPARISON: CHEST SINGLE AP, December 24, 2016, 6:23. INDICATIONS : Post intubation MEDICAL HISTORY : Hepatitis B. Obstructive jaundice SURGICAL HISTORY : bronchoscopy ENCOUNTER: Subsequent ACUITY: 2 weeks PAIN SCORE: Non-responsive. LOCATION: Bilateral chest FINDINGS: The exam demonstrates a small bore tube in place at the right lung base. Right lung is clear. There is a central line in place via the left jugular vein. ET tubes in good position. There is compl ete opacification of the left lung. This is new when compared to previous study dated 12/24/16. CONCLUSION: 1. There is now complete opacification of the left hemithorax which is new when compared to previous study. 2. Right basilar chest tube, central line and ET tube appear in satisfactory position. The NG tube valdes s been pulled back. The tube is now in the distal esophagus. Duy Moran MD on December 24, 2016 at 11:09 Board Certified Radiologist. This report was verified electronically.
[2016-12-24] MEDS ORDERED: LIDOCAINE HCL 2% 100 MG/5 ML SYRINGE OTHER ONE (11:30)
[2016-12-24 14:01] LABS: BLOOD GAS BASE EXCESS 0.5 mmol/L (-2-2); BLOOD GAS CARBOXYHEMOGLOBIN 1.1 % (0-4); BLOOD GAS HCO3 23 mmol/L (22-26); BLOOD GAS METHEMOGLOBIN 0.8 % (0-2); BLOOD GAS O2 HGB SATURATION 98 % (90-100); BLOOD GAS OXYGEN CONTENT 19.8 Vol % (12.0-20.0); BLOOD GAS PCO2 27 mmHg (38-42); BLOOD GAS PO2 155 mmHg (61-120); BLOOD GAS TOTAL HGB 14.2 G/DL (12.0-16.0); CRITICAL VALUE YES; OXYGEN DEVICE VENTILATOR; TEMP CORR TO 98.6
[2016-12-24 14:02] LABS: DRAW SITE LT RADIAL; FIO2 80 %; NUMBER OF ARTERIAL PUNCTURES 1; STAT NO; ULNAR PULSE PRESENT
--- NOTE | 2016-12-24 15:24 | PD.PROCEDR ---
Procedure Note Procedure Procedure: Therapeutic Fiberoptic Bronchoscopy Diagnosis: Acute on chronic respiratory failure, myotonic dystrophy Indications: Recurrent mucus plugging with complete atelectatic collapse of the left lung and complete opacification of the left lung field. Consent: Written consent was obtained from his Anesthesia: Propofol IV Description of the Procedure: The patient was sedated and mechanically ventilated. The patient was placed on 100% FIO2 and a volume control mode of ventilation. The fiberoptic bronchoscopy was inserted via oral endotracheal tube. The trachea, right and left mainstem bronchi, and sub-segmental bronchi were evaluated. The endobronchial anatomy was normal. Findings: Copious amounts of thick white secretions in all subsegmental bronchi on the left. The right bronchus remains clear. The secretions on the left were aggressively suctioned until no more secretions were found. BAL samples: Left upper lobe, left lower lobe The patient tolerated the procedure well with no hemodynamic instability or hypoxia. There were no immediate complications noted. At the conclusion of the procedure, the patient was placed back on their pre-procedure ventilatory settings. There was minimal EBL. A chest x-ray has been ordered. I personally performed the procedure. Justin Harris MD December 24, 2016 15:24
[2016-12-24] MEDS: NOREPINEPHRINE-DEXTROSE DRIP 250 ML IV SCH (16:04)
--- NOTE | 2016-12-24 17:09 | PD.CONS ---
Consult Service Palliative Care . Consult Requested By Dr. Harris . Primary Care Physician Tl Yanez MD . Reason for Consultation a. To assist with evaluation and management of symptoms including: pain, dyspnea, anxiety b. To assist medical decision maker(s) with: better understanding of current medical conditions; weighing benefits/burdens of medical treatment options; making medical treatment decisions. . HPI History of Present Illness Mr. Jones is a 51-year-old male who presented to [facility] ED on 2016 for evaluation of epigastric pain. The patient has a history of pancreatic mass with obstructive symptoms and biliary stent placement. A biopsy of the mass was nonmalignant. Apparently the stent was removed on 2016; an ERCP was attempted afterwards but could not be completed. Patient subsequently developed epigastric pain, accompanied by nausea. Patient's past medical history also includes myotonic dystrophy, anxiety, hyperlipidemia, heparin-induced thrombocytopenia, asthma, GERD, fatty liver disease and a history of TBI (2013). Additional diagnostic findings while in the ED include: * Vital signs: Pulse 88, respirations 16, BP 135/74, oxygen saturation 98% on room air, oral temperature 97.9 * WBC: 10.2, hemoglobin 14.9, hematocrit 43.9, platelets 148, neutrophils 79.0% * Sodium: 143, potassium 3.9, chloride 105, carbon dioxide 31.9, glucose 99, calcium 9.5 * BUN: 7, creatinine 0.51, GFR 171 * Creatinine: 2.2 * Total bilirubin: 11.8, AST 223, ALT 272, alkaline phosphatase 404 * Total creatine kinase: 105 * Troponin: <0.02 * Total protein: 8.2, albumin 3.1 * Lipase: 304 * PT: 11.6, INR 1.0, APTT 28.0 * Blood culturesnegative * Urine culturesnegative * EKG reveals normal sinus rhythm with a rate 83. Left bundle-branch block. No significant changes compared to EKG performed August 06, 2016. The patient's case was discussed with his bean weigher, Dr. Kerr, who recommended patient be transferred to [facility] in [place]. MRCP revealed pronounced biliary ductal dilatation with distal obstruction of the CBD by pancreatic mass which appears grossly stable. Patient was intubated secondary to hypoxic respiratory failure; septic shock with hypertension. Receiving aggressive hydration; started on broad-spectrum antibiotics.Neurology is following patient with noted seizure activity on 12/11/16 thought to be secondary to electrolyte imbalance/sepsis. Hematology/oncology was consulted to to evaluate patient's thrombocytopenia. Patient was taken to IR on 12/10/16. For biliary drain placement with immediate return of bile; no injection performed to to biliary sepsis. On 12/16/2016, the patient was taken to the GI lab for ERCP with biliary dilatation and medical stent placement. A routine chest x-ray on 12/20/16 showed a right pneumothorax and free air under the diaphragm, unclear if this is related to recent PTC procedure. Dr. Herrera placed until catheter into the right pleural cavity secondary to pneumothorax. A subsequent CT of the abdomen/pelvis showed a moderate amount of free air in the upper abdomen, viscous perforation as the primary consideration, no definite extravasation of oral contrast is seen in the upper abdomen correlating with recent chest x-ray that demonstrated free intraperitoneal air; bibasilar atelectasis. Dr. Lugo was subsequently consulted to evaluate the patient for possible pneumoperitoneum. Patient extremely high risk for surgery per Dr. Lugo; it was unlikely that the patient had a perforated viscus per CT abdomen/pelvis. Patient was monitored closely, upper GI on 12/24/16 showed no leak. Cardiology was consulted for evaluation of abnormal echocardiogram. Patient had a negative stress test and normal ejection fraction in 2014 and a first-degree AV block on his EKG. Patient's most recent EKG on 12/16/16 showed sinus bradycardia with first-degree AV block; an echocardiogram showed ejection fraction of 35-40% which is a significant decline since June, when his EF was 60% to 65%. Per cardiology, showing first manifestations he has had heart involvement of his myotonic dystrophy. Cardiology following, making occasional recommendations. The patient was successfully extubated on 12/21/16; an ongoing difficulty clearing secretions due to his neuromuscular weakness. On 12/23/16 the patient' s pulmonary status continued to decline on nonrebreather, oxygen saturation in the mid 80s. Chest x-ray showed complete white out and opacification of the left lung field with mediastinal shift to the right. A bronchoscopy was performed to clear copious secretions and attempt to improve the patient's pulmonary status. However the patient's pulmonary status and to need to worsen ; oxygen saturation down to 75% on BiPAP with 100% FiO2. A bronchoscopy was again performed this morning for recurrent mucous plugging, complete atelectatic collapse of the left lung and complete opacification of the left lung field. Patient was subsequently reintubated. Palliative Care was consulted to assist with symptom management and to discuss with the family the benefits and burdens of her current illnesses and the options regarding future care. . Function/Cognitive Trajectory Pending family meeting on Tuesday12/27/2016 . Review of Systems ROS Limitations: Clinical Condition (currently sedated and intubated on mechanical ventilator), Intubated, Altered Mental Status (history of traumatic renal injury), Speech Impaired, Poor Historian Constitutional: COMPLAINS OF: Fatigue, Generalized weakness Respiratory: COMPLAINS OF: Sputum production, Shortness of breath, DENIES: Cough Gastrointestinal: COMPLAINS OF: Abdominal pain, Nausea, Difficulty Swallowing Musculoskeletal: COMPLAINS OF: Decreased range of motion Hematologic/Lymphatics: COMPLAINS OF: Bruising Neurologic: COMPLAINS OF: Localized weakness, Seizures Psychiatric: COMPLAINS OF: Anxiety, Confusion Past Family Social History Coded Allergies: *MDRO Multi-Drug Resistant Organism (Verified Adverse Reaction, Unknown, ) MRSA (sputum)-08/13/16 MRSA (sputum & blood) 07/2014 MRSA PCR Screen POSITIVE - 07/02/15 & 12/10/16 MRSA (eye culture) - 07/2015 Past Medical History Myotonic dystrophy Anxiety Hyperlipidemia Heparin-induced thrombocytopenia Pancreatic mass with obstructive jaundice Asthma GERD Fatty liver disease History of TBI in 2013 . Past Surgical History Cholecystectomy ERCP with stent placement Endoscopic ultrasound with FNA Tonsillectomy Feeding tube and tracheostomy which were removed in July 2014 Rotator cuff surgery. . Reported Medications No active prescriptions or reported medications. Patient tells me he takes no medications - he does have medication-related confusion though. . Current Medications Medications (Trade) Dose Ordered Sig/Sahara Route Start Time Stop Time Status Last Admin (NS Flush) 2 ml UNSCH PRN IV FLUSH 12/09/16 17:15 12/09/16 19:00 (NS Flush) 2 ml BID IV FLUSH 12/09/16 21:00 12/24/16 09:00 (Tylenol) 650 mg Q4H PRN PO 12/09/16 17:15 (Senokot) 17.2 mg Q12H PRN PO 12/09/16 17:15 (Morphine Inj) 2 mg Q3H PRN IV 12/09/16 17:15 12/24/16 03:38 (Narcan Inj) 0.4 mg UNSCH PRN IV 12/09/16 17:15 (Protonix Inj) 40 mg Q24H IV PUSH 12/09/16 18:00 12/23/16 18:20 (Zofran Inj) 4 mg Q6H PRN IV 12/10/16 06:30 Miscellaneous Information 1 Q361D XX 12/10/16 06:30 (Chlorhexidine 2% Cloth) Taper DAILY@04 TOP 12/11/16 04:00 12/07/17 03:59 12/24/16 04:00 Chlorhexidine Gluconate 3 pack 3 pack UNSCH PRN TOP 12/10/16 06:30 (Flagyl 500 Mg Inj) 100 ml @ 100 mls/hr Q6H IV 12/10/16 07:00 12/24/16 13:09 Miscellaneous Information D/C ICU ELECTROLYTE ORDERS... UNSCH PRN .XX 12/10/16 08:45 Miscellaneous Information ICU - CALL ORDERING PHYSIC... UNSCH PRN .XX 12/10/16 08:45 (KCl 40 Meq Premix Inj) 100 ml @ 25 mls/hr UNSCH PRN IV 12/10/16 08:45 12/24/16 10:11 Potassium Bicarb/ Potassium Chloride 50 meq 50 meq UNSCH PRN PO 12/10/16 08:45 12/18/16 02:18 Potassium Chloride 100 ml @ 50 mls/hr UNSCH PRN IV 12/10/16 08:45 12/21/16 21:17 Magnesium Sulfate 4 gm/Sodium Chloride 108 ml @ 54 mls/hr UNSCH PRN IV 12/10/16 08:45 (Magnesium Sulfate Inj/NS Inj) 104 ml @ 52 mls/hr UNSCH PRN IV 12/10/16 08:45 12/14/16 10:19 Magnesium Oxide 800 mg 800 mg UNSCH PRN PO 12/10/16 08:45 (Sodium Phosphate Inj/NS 250 ml Inj) 260 ml @ 43.333 mls/ hr UNSCH PRN IV 12/10/16 08:45 12/21/16 08:18 (K-Phos) 2,000 mg UNSCH PRN PO 12/10/16 08:45 12/18/16 10:17 (Bactroban Nasal 2% Oint) 1 applic BID NASAL 12/11/16 21:00 12/24/16 10:10 (Colace Liq) 100 mg BID OG-TUBE 12/11/16 23:32 12/23/16 19:52 (D50w (Vial) Inj) 25 ml UNSCH PRN IV PUSH 12/12/16 12:15 12/22/16 12:40 (Glucagon Inj) 1 mg UNSCH PRN OTHER 12/12/16 12:15 (NovoLOG SUPPLEMENTAL SCALE) 1 Q6HR SQ 12/12/16 12:15 12/18/16 17:57 (Lactulose Liq) 30 ml QID PO 12/13/16 13:00 12/23/16 20:33 Potassium Bicarb/ Potassium Chloride 25 meq 25 meq Q12HR PO 12/14/16 10:45 12/24/16 10:15 (Thiamine Inj/NS Inj) 101 ml @ 101 mls/hr Q24H IV 12/14/16 17:00 12/23/16 18:20 (Cerebyx Inj) 100 mgpe Q12HR IV 12/16/16 21:00 12/24/16 10:10 (Aspirin) 325 mg DAILY PO 12/16/16 09:45 12/24/16 10:10 (Morphine Inj) 2 mg Q3H PRN IV 12/20/16 11:15 Acetaminophen/ Hydrocodone Bitart 1 tab 1 tab Q6H PRN PO 12/20/16 08:45 12/21/16 05:38 Pharmacy Profile Note 0 ml @ 0 mls/hr UNSCH OTHER 12/20/16 14:00 (Maxipime Inj/NS Inj) 100 ml @ 200 mls/hr Q8H IV 12/21/16 11:00 12/24/16 10:11 Alteplase, Recombinant 2 mg 2 mg Q6H PRN INTRACATH 12/21/16 11:00 12/21/16 12:55 Dextrose/Sodium Chloride 1,000 ml @ 75 mls/hr [id number] IV 12/22/16 21:00 12/24/16 10:35 (Vancomycin Inj/ NS 250 ml Inj) 262.5 ml @ 250 mls/hr Q18H IV 12/24/16 06:00 12/24/16 05:35 Miscellaneous Information SPECIFIC LAB TO BE DRAWN:VANCOMYCIN TROUGH DATE TO... ONCE ONCE .XX 12/26/16 11:45 12/26/16 11:46 Fentanyl Citrate 250 ml @ 0 mls/hr TITRATE IV 12/24/16 10:15 12/24/16 11:11 (Levophed-Dextrose Drip) 250 ml @ 0 mls/hr TITRATE IV 12/24/16 10:15 (Peridex 0.12% Liq) 15 ml BID@08,20 MT 12/24/16 20:00 . Family History Father and mother had gallbladder is removed, denies any other family history of liver disease. Mother of heart disease Some family members are known to have myotonic dystrophy. . Substance Use Tobacco: Previous smoker, quit approximately 6 years ago per notes Alcohol: Occasional ETOH consumption Prescription med abuse: None known Illicits: None known . Psychosocial History Patient is originally from [facility]. He has one brother (Darius) who lives in [place]; they are not close per the patient's . His father also live in [place]. 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 He has been to his , Henrietta, for nearly 28 years. Together they have a 21 yo son (Zeke) and a 19-year-old daughter (Mabel), both currently lives at home. . Spiritual/Cultural Factors Jewish carmen . Documented care wishes: Patient's reports written advanced directives have been completed. . Today's verbally stated goals: Patient is unable to participate in clarification of medical treatment goals at this time due to his clinical condition, currently intubated and sedated on mechanical ventilator. . Family/friends goals: Pending further conversations with family members; goals will remain aggressive at this time. . Ethical and Legal Issues Per [place] statutes, in the absence of written advanced directives healthcare proxy decision-making falls to the patient's . Nursing states written advanced directives are available on patient's chart, awaiting fax. . Physical Exam Vital Signs Date Time Temp Pulse Resp B/P Pulse Ox O2 Delivery O2 Flow Rate FiO2 12/24/16 14:03 98 80 12/24/16 14:00 91 12/24/16 12:00 98.5 100 18 136/76 100 12/24/16 12:00 81 12/24/16 11:57 100 80 12/24/16 11:30 100 100 12/24/16 10:00 95 100 12/24/16 10:00 100 12/24/16 08:00 98.4 100 26 121/76 90 12/24/16 08:00 100 12/24/16 07:48 92 Venturi Mask 6.00 50 12/24/16 07:00 90 Venturi Mask 50 12/24/16 06:00 92 12/24/16 04:00 97.0 97 23 109/71 95 12/24/16 04:00 89 12/24/16 03:45 22 12/24/16 02:00 89 12/24/16 00:00 80 12/24/16 00:00 98.0 82 25 93/54 96 12/23/16 22:00 109 12/23/16 20:00 97.4 82 25 90/55 96 12/23/16 20:00 89 12/23/16 19:37 94 Venturi Mask 50 12/23/16 19:00 98 Venturi Mask 50 12/23/16 18:00 89 12/23/16 17:30 98 Venturi Mask 50 12/23/16 16:00 83 12/23/16 16:00 97.5 83 24 100/62 99 . 12/23/16 12/24/16 18:59 06:59 Intake Total 750 ml 1264 ml Output Total 900 ml 2855 ml Balance -150 ml -1591 ml Intake IV Total 750 ml 1264 ml Output Urine Total 750 ml 2650 ml Gastric Drainage Total 100 ml 205 ml Chest Tube Drainage Total 50 ml 0 ml # Bowel Movements 1 . . Exam CONSTITUTIONAL/GENERAL: This is an adequately nourished patient currently sedated and intubated on mechanical ventilator. TUBES/LINES/DRAINS: Left IJ CVL, Potter, ETT, NGT, Chest tube SKIN: No jaundice, rashes, or lesions. Ecchymoses on upper extremities. No wounds seen anteriorly. Skin temperature appropriate. Not diaphoretic. HEAD: Atraumatic. Normocephalic. EYES: Pupils equal and round and reactive. Extraocular motions intact. No scleral icterus. No injection or drainage. Fundi not examined. ENT: Orotracheally intubated; NGT to LIWS. Nose without bleeding or purulent drainage. NECK: Supple, nontender. No palpable thyroid enlargement or nodularity. CARDIOVASCULAR: Tachycardic. No gallops, or rubs. No JVD. Peripheral pulses symmetric. RESPIRATORY/CHEST: Currently intubated on mechanical ventilator; coarse air exchange. Right chest tube with no air leak, site clean and dry, dressing intact , minimal serous output, to suction. GASTROINTESTINAL: Abdomen soft, non-tender, nondistended. No guarding. Bowel sounds present. GENITOURINARY: Without palpable bladder distension. Potter catheter in place. MUSCULOSKELETAL: Extremities without clubbing, cyanosis, or edema. No mottling or clubbing. LYMPHATICS: No palpable cervical or supraclavicular adenopathy. NEUROLOGICAL: Currently sedated on fentanyl. PSYCHIATRIC: Unable to assess secondary to patient's clinical condition. . Diagnostic Tests Laboratory Laboratory Tests Test 12/21/16 12/22/16 12/22/16 12/22/16 17:00 00:06 05:40 06:45 Potassium Level 3.2 MEQ/L 4.3 MEQ/L 4.0 MEQ/L (3.5-5.1) (3.5-5.1) (3.5-5.1) White Blood Count 13.1 TH/MM3 (4.0-11.0) Red Blood Count 3.77 MIL/MM3 (4.50-5.90) Hemoglobin 11.0 GM/DL (13.0-17.0) Hematocrit 33.2 % (39.0-51.0) Mean Corpuscular Volume 88.0 FL (80.0-100.0) Mean Corpuscular Hemoglobin 29.1 PG (27.0-34.0) Mean Corpuscular Hemoglobin 33.1 % Concent (32.0-36.0) Red Cell Distribution Width 15.2 % (11.6-17.2) Platelet Count 126 TH/MM3 (150-450) Mean Platelet Volume 8.7 FL (7.0-11.0) Neutrophils (%) (Auto) 71.1 % (16.0-70.0) Lymphocytes (%) (Auto) 18.5 % (9.0-44.0) Monocytes (%) (Auto) 8.9 % (0.0-8.0) Eosinophils (%) (Auto) 1.0 % (0.0-4.0) Basophils (%) (Auto) 0.5 % (0.0-2.0) Neutrophils # (Auto) 9.3 TH/MM3 (1.8-7.7) Lymphocytes # (Auto) 2.4 TH/MM3 (1.0-4.8) Monocytes # (Auto) 1.2 TH/MM3 (0-0.9) Eosinophils # (Auto) 0.1 TH/MM3 (0-0.4) Basophils # (Auto) 0.1 TH/MM3 (0-0.2) CBC Comment DIFF FINAL Differential Comment Sodium Level 146 MEQ/L (136-145) Chloride Level 109 MEQ/L (98-107) Carbon Dioxide Level 32.7 MEQ/L (21.0-32.0) Anion Gap 4 MEQ/L (5-15) Blood Urea Nitrogen 9 MG/DL (7-18) Creatinine 0.36 MG/DL (0.60-1.30) Estimat Glomerular Filtration 256 ML/MIN Rate (>89) Random Glucose 84 MG/DL (74-106) Calcium Level 8.1 MG/DL (8.5-10.1) Magnesium Level 2.2 MG/DL (1.5-2.5) Total Bilirubin 3.7 MG/DL (0.2-1.0) Aspartate Amino Transf 38 U/L (15-37) (AST/SGOT) Alanine Aminotransferase 69 U/L (12-78) (ALT/SGPT) Alkaline Phosphatase 206 U/L (45-117) Total Protein 5.8 GM/DL (6.4-8.2) Albumin 2.4 GM/DL (3.4-5.0) Random Vancomycin Level 22.7 COMMENT Test 12/22/16 12/23/16 12/23/16 12/24/16 08:45 03:45 11:10 03:45 Blood Gas Puncture Site RT RADIAL Blood Gas Patient Temperature 98.6 Blood Gas HCO3 31 mmol/L (22-26) Blood Gas Base Excess 6.3 mmol/L (-2-2) Blood Gas Oxygen Saturation 85 % (90-100) Arterial Blood pH 7.39 (7.380-7.420) Arterial Blood Partial 52 mmHg (38-42) Pressure CO2 Arterial Blood Partial 52 mmHg Pressure O2 (61-120) Arterial Blood Oxygen Content 14.8 Vol % (12.0-20.0) Arterial Blood 1.2 % (0-4) Carboxyhemoglobin Arterial Blood Methemoglobin 0.8 % (0-2) Blood Gas Hemoglobin 12.4 G/DL (12.0-16.0) Oxygen Delivery Device BIPAP Blood Gas Ventilator Setting 05/12/60 Blood Gas Inspired Oxygen 60 % White Blood Count 18.6 TH/MM3 16.7 TH/MM3 (4.0-11.0) (4.0-11.0) Red Blood Count 4.20 MIL/MM3 4.33 MIL/MM3 (4.50-5.90) (4.50-5.90) Hemoglobin 12.4 GM/DL 12.9 GM/DL (13.0-17.0) (13.0-17.0) Hematocrit 37.3 % 38.2 % (39.0-51.0) (39.0-51.0) Mean Corpuscular Volume 88.8 FL 88.3 FL (80.0-100.0) (80.0-100.0) Mean Corpuscular Hemoglobin 29.5 PG 29.9 PG (27.0-34.0) (27.0-34.0) Mean Corpuscular Hemoglobin 33.2 % 33.8 % Concent (32.0-36.0) (32.0-36.0) Red Cell Distribution Width 15.5 % 15.5 % (11.6-17.2) (11.6-17.2) Platelet Count 138 TH/MM3 146 TH/MM3 (150-450) (150-450) Mean Platelet Volume 8.6 FL 8.7 FL (7.0-11.0) (7.0-11.0) Sodium Level 142 MEQ/L 141 MEQ/L (136-145) (136-145) Potassium Level 3.7 MEQ/L 3.2 MEQ/L (3.5-5.1) (3.5-5.1) Chloride Level 106 MEQ/L 103 MEQ/L (98-107) (98-107) Carbon Dioxide Level 32.3 MEQ/L 30.6 MEQ/L (21.0-32.0) (21.0-32.0) Anion Gap 4 MEQ/L (5-15) 7 MEQ/L (5-15) Blood Urea Nitrogen 7 MG/DL (7-18) 7 MG/DL (7-18) Creatinine 0.42 MG/DL 0.43 MG/DL (0.60-1.30) (0.60-1.30) Estimat Glomerular Filtration 214 ML/MIN 209 ML/MIN Rate (>89) (>89) Random Glucose 126 MG/DL 118 MG/DL (74-106) (74-106) Calcium Level 8.5 MG/DL 8.3 MG/DL (8.5-10.1) (8.5-10.1) Phenytoin (Dilantin) Level 10.4 MCG/ML (10.0-20.0) Vancomycin Level Trough 23.9 MCG/ML (5.0-10.0) Test 12/24/16 12/24/16 09:20 13:36 Blood Gas Puncture Site LT RADIAL LT RADIAL Blood Gas Patient Temperature 98.6 98.6 Blood Gas HCO3 28 mmol/L 23 mmol/L (22-26) (22-26) Blood Gas Base Excess 4.3 mmol/L 0.5 mmol/L (-2-2) (-2-2) Blood Gas Oxygen Saturation 76 % (90-100) 98 % (90-100) Arterial Blood pH 7.45 7.54 (7.380-7.420) (7.380-7.420) Arterial Blood Partial 41 mmHg (38-42) 27 mmHg (38-42) Pressure CO2 Arterial Blood Partial 40 mmHg 155 mmHg Pressure O2 (61-120) (61-120) Arterial Blood Oxygen Content 15.9 Vol % 19.8 Vol % (12.0-20.0) (12.0-20.0) Arterial Blood 1.4 % (0-4) 1.1 % (0-4) Carboxyhemoglobin Arterial Blood Methemoglobin 0.8 % (0-2) 0.8 % (0-2) Blood Gas Hemoglobin 14.9 G/DL 14.2 G/DL (12.0-16.0) (12.0-16.0) Oxygen Delivery Device BiPAP VENTILATOR Blood Gas Ventilator Setting [id number] Blood Gas Inspired Oxygen 100 % 80 % . Result Diagram: 12/24/16 0345 12/24/16 0345 Microbiology Microbiology Date/Time Procedure Status Source Growth 12/24/16 11:40 Gram Stain - Final Resulted Bronchial Washings Bronchial 12/24/16 11:40 Bronchial Culture Resulted Bronchial Washings Bronchial Pending 12/24/16 11:40 Gram Stain - Final Resulted Bronchial Washings Other 12/24/16 11:40 Bronchial Culture Resulted Bronchial Washings Other Pending . Imaging Last 72 hours Impressions Chest X-Ray 12/24/16 0000 Signed Impressions: Service Date/Time: Saturday, December 24, 2016 10:50 - CONCLUSION: 1. There is now complete opacification of the left hemithorax which is new when compared to previous study. 2. Right basilar chest tube, central line and ET tube appear in satisfactory position. The NG tube has been pulled back. The tube is now in the distal esophagus. Duy Moran MD Chest X-Ray 12/24/16 0000 Signed Impressions: Service Date/Time: Saturday, December 24, 2016 06:23 - CONCLUSION: Parenchymal changes have not changed and no definite pneumothorax is seen. Kamala Bermudez MD Chest X-Ray 12/23/16 0600 Signed Impressions: Service Date/Time: December 05:27 - CONCLUSION: 1. Free air again noted under left hemidiaphragm. 2. Worsening opacification of left lung which is now completely opacified. 3. No pneumothorax. The small bore right-sided chest tube remains in place. Zeke Khanna MD Chest X-Ray 12/23/16 0000 Signed Impressions: Service Date/Time: December 12:37 - CONCLUSION: 1. There is no evidence of pneumothorax. Adryan Nicholas MD Chest X-Ray 12/22/16 0600 Signed Impressions: Service Date/Time: Thursday, December 22, 2016 04:50 - CONCLUSION: 1. Free air is again noted. 2. Abnormal opacity at the lung bases left greater than right consistent with infiltrate and effusion. 3. Interval extubation. 4. Right- sided chest tube remains in place with no pneumothorax. Zeke Khanna MD Chest X-Ray 12/22/16 0000 Signed Impressions: Service Date/Time: Thursday, December 22, 2016 08:51 - CONCLUSION: 1. Worsening consolidation of the left lower lobe. 2. No pneumothorax identified on the right. Chest tube remains in good position. 3. Central venous catheter and gastric tube in satisfactory position. 4. There is a large amount of free intraperitoneal air which has been assessed by both decubitus imaging and CT imaging. Duy Moran MD . Procedures 12/10/2016: Left IJ central line placement; biliary drain placement 12/11/16: Intubation 12/16/2016: ERCP with stent placement 12/20/2016: Right sided detail catheter placement 12/21/2016: Extubated 12/23/2016: Bronchoscopy 12/24/2016: Bronchoscopy 12/24/2016: Reintubation . Patient/Family Conference Present at Family Conference: Met with patient's and best friend at patient's bedside and again privately and hallway. . Family Conference Location: Bedside, Hallway Issues Discussed: * Palliative care role, purpose, approach * Additional medical, psychosocial, and spiritual history * Patients general health, functional status, and cognitive changes in the months leading up to the current hospitalization * Patient/family understanding of the current medical problems * Patient/family understanding of prognosis * Patients goals of care as best understood from advance directives and/or conversations and/or values * Current medical treatment options and benefits/burdens of those options * Likely scenarios comparing ongoing aggressive care with a transition to comfort measures only * Questions answered to the best of my ability * Palliative care contact information provided . Assessment and Plan Disease Oriented Problem List: (1) Fatty liver disease, nonalcoholic (2) Respiratory insufficiency (3) Asthma (4) Myotonic dystrophy, type 1 (5) TBI (traumatic brain injury) (6) Acute respiratory failure (7) Cardiomyopathy (8) Metabolic encephalopathy (9) Tonic clonic seizures (10) Cholangitis (11) Pneumothorax (12) Septic shock Symptom Scale: (1) Anxiety (2) Dyspnea (3) Debility (4) Pain Pertinent Non-Medical Issues Psychosocial: Patient is originally from [facility]. He has one brother (Darius) who lives in [place]; they are not close per the patient's . His father also live in [place]. 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 He has been to his , Henrietta, for nearly 28 years. Together they have a 21 yo son (Zeke) and a 19-year-old daughter (Mabel), both currently lives at home. Spiritual: Pending family meeting Legal: Per [place] statutes, in the absence of written advanced directives healthcare proxy decision making would fall to the patient's . Written advanced directives are reportedly completed, palliative care awaiting copies of documents Ethical issues impacting care: No known ethical issues impacting care at this time. . Important Contacts Henrietta Jones, spouse: [phone] . Prognosis Patient is a 51 year old male, diagnosed with myotonic dystrophy approximately 10 years ago. Patient currently hospitalized with septic shock/cholangitis, experiencing complications related to recurrent respiratory failure, pancreatic mass with obstructive symptoms. Patient has had a significant decline in cardiac functioning since 2014, now showing manifestations of heart involvement. He currently remains intubated persistently poor respiratory status, unlikely the patient will be successfully extubated/ from mechanical ventilation. Overall prognosis is poor; Code Status: Full Code Plan * FULL CODE * Decision-making: Per [place] statutes, in the absence of written advanced directives healthcare proxy decision making would fall to the patient's . Written advanced directives are reportedly completed, palliative care awaiting copies of documents * Goals: Goals remain aggressive at this time.Palliative Care was consulted to assist with symptom management and to discuss with the family the benefits and burdens of his current illnesses and the options regarding future care. * Met with patient's at patient's bedside, palliative care will likely coordinate a family meeting sometime next week. * Palliative care contact information provided to the patient's . * Date of care will continue to follow this patient throughout his hospitalization to establish trust, assist with symptom management and clarification of medical treatment goals. . Thank you for the opportunity to participate in the care of Mr. Jones. . Attestation To help prompt me to consider important information that might be impacting today's encounter and assessment, information from prior notes written by myself or my colleagues may have been "brought forward" into today's note. My signature on this note, however, is an attestation that I personally performed the exam, history, and/or decision-making noted today, and, unless otherwise indicated, the interactions with patient, family, and staff as well as the review of records all occurred today. I also attest that the listed assessment and stated plan reflect my best clinical judgment today based on the combination of historical information, prior notes, and today's exam/ interactions. When time spent is documented, it refers only to time spent today by the signer, or if indicated, combined time spent today by collaborating physician/nurse practitioner. . Ary Pearce December 24, 2016 16:58
[2016-12-24] MEDS: PANTOPRAZOLE SODIUM 40 MG VIAL IV PUSH SCH (17:36)
[2016-12-24 17:40] LABS: POTASSIUM 3.9 MEQ/L (3.5-5.1)
[2016-12-24] MEDS: THIAMINE INJ 100 MG in SODIUM CHLORIDE 0.9% INJ 100 ML IV SCH (18:09)
[2016-12-24] MEDS: CHLORHEXIDINE 0.12% (ORAL KIT) 15 ML CUP MT SCH (20:44)
[2016-12-25] VITALS (20 sets, daily range): BP systolic 101–116; BP diastolic 63–70; PULSE 82–108; RESP 12–27; TEMP 95.5–99.5; O2SAT 99–100
[2016-12-25] MEDS: VANCOMYCIN INJ 1,250 MG in SODIUM CHLOR 0.9% 250 ML INJ 250 ML IV SCH ×2 (00:03→17:51)
[2016-12-25] MEDS: DEXT 5%-NACL 0.45% 1000 ML INJ 1,000 ML IV SCH ×2 (00:09→15:40)
[2016-12-25] MEDS: INSULIN ASPART SUPPLEMENTAL SCALE SQ SCH ×4 (00:29→18:00)
[2016-12-25] MEDS: metroNIDAZOLE 500 MG INJ 100 ML IV SCH ×4 (00:43→18:24)
[2016-12-25] MEDS: CEFEPIME INJ 2,000 MG in SODIUM CHLORIDE 0.9% INJ 100 ML IV SCH ×3 (02:49→18:22)
[2016-12-25] MEDS: CHLORHEXIDINE GLUCONATE 2 % 1 PACK (2 CLOTHS) TOP SCH (04:00)
[2016-12-25 05:24] LABS: HEMATOCRIT 37.1 % (39.0-51.0); MEAN CELL VOLUME 87.9 FL (80.0-100.0); PLATELET COUNT 175 TH/MM3 (150-450); RED BLOOD COUNT 4.22 MIL/MM3 (4.50-5.90); RED CELL DISTRIBUTION WIDTH 15.5 % (11.6-17.2); REVIEW FLAG FINAL; WHITE BLOOD COUNT 21.9 TH/MM3 (4.0-11.0)
[2016-12-25 05:34] LABS: BICARBONATE 23.4 MEQ/L (21.0-32.0)
[2016-12-25 05:50] LABS: POTASSIUM 4.1 MEQ/L (3.5-5.1)
--- NOTE | 2016-12-25 06:30 | RADRPT ---
EXAM DATE/TIME: 12/25/2016 05:39 [facility] COMPARISON: CHEST SINGLE AP, December 24, 2016, 10:50. INDICATIONS : Shortness of breath. MEDICAL HISTORY : Hepatitis B. Obstructive jaundice. SURGICAL HISTORY : Bronchoscopy. ENCOUNTER: Subsequent ACUITY: 2 weeks PAIN SCORE: Non-responsive. LOCATION: Bilateral chest FINDINGS: Endotracheal tube tip is in satisfactory position. Nasogastric tube tip is in the distal esophagus. L eft central line tip is in the superior vena cava. Previous atelectasis of the left lung has nearly c ompletely resolved except for some residual left basilar airspace disease. Small caliber right chest tube remains without pneumothorax. CONCLUSION: 1. Resolution of left lung atelectasis except for minimal left basilar airspace disease. Support appa ratus unchanged with nasogastric tube tip remaining in the distal esophagus. Chuck Erwin MD on December 25, 2016 at 6:25 Board Certified Radiologist. This report was verified electronically.
[2016-12-25] MEDS: NOREPINEPHRINE-DEXTROSE DRIP 250 ML IV SCH ×3 (07:24→20:50)
--- NOTE | 2016-12-25 07:42 | HHI.CCPN ---
Subjective Remarks/Hospital Course 51 y/o man had stent removed yesterday following insertion for benign pancreatic mass. Now hypotensive and acts septic. 12/11: Biliary drain placed 12/10 for drainage of GB and common duct due because of distal CD obstruction from pancreatic mass. Seizure this morning. 12/12: Remains septic and requiring vasopressor support. Hyponatremia new, likely free water excess. 12/13: Remains on 10 mics of Levophed, vasopressin 0.04 international units, dobutamine 2.5 g per KG per min. Remains on propofol but moves extremities. Sodium 125, potassium 2.7. GI not planning any other interventions at this time. Biliary drain with 160 mL in 24 hours 12/14: Levophed had been weaned off. Remains on vasopressin 0.04, dobutamine 2.5 g per KG per minute. Urine output excellent. Potassium phosphorus remains low. Tolerating CPAP but lethargic. Plt count 77 today 12/15: Remains on Levophed at 6 mcg/min. Lethargic but follows commands. Plan is for Rendezvous Procedure/ERCP with IR and GI ? possible today. labs are pending at this time 12/16: remains on CPAP, remains in shock on 6 mcg/min of Levophed. Rendezvous Procedure/ERCP with IR and GI plan for today. Sodium is 145 was low at 1.6 bilirubin decreasing. UO 4.5 L in 24 hours. 12/17: s/p ERCP with biliary dilation and brushing and metal stent placement on by Dr. Kerr. Liver enzymes trending down. WBC 19.3. CXR improving infiltrates. Levophed remains at 6 mcg/min 12/18: Remains orally intubated on mechanical ventilation. On SIMV mode mechanical ventilation due to apneic episodes with C Pap trials. 12/19: Remains orally intubated on mechanical ventilation. On SIMV mode with rate of 6 pressure support +20 which was decreased to +12 12/20; Tolerating IMV with RR 6, breathing 8 above vent. Remains on Levophed at 4 mcg/m. More awake, following commands. Routine chest x-ray showed right pneumothorax and free air under the diaphragm. Had PTC procedure last week, unclear whether air is related. D/ W GI. Get CT chest after R chest tube is placed. D/W Dr Francis and Dr. Lugo 12/21: Reduced air under the diaphragm. Slightly increased white count but likely acid is normal. Clinical exam not consistent with perforated viscus- abdominal exam benign. Discussed with Dr. Lugo yesterday and he agrees. Possibly air was introduced from PTC procedure. Levophed requirement reducing, now at 2 mcg per min. R pneumothorax almost resolved 12/22: off vasopressors this morning. awake. CT with minimal serous output. no air leak. endorses only mild abdominal pain, primarily LUQ. 12/23: very hypoxic this morning. difficult to clear his secretions. his cxr shows a complete opacification of the left lung. I performed bedside critical care lung ultrasound which did not show an effusion, did show lung sliding with evidence of atelectatic collapse. I also had a long conversation with his and medical decision maker. she feels strongly that we should avoid intubation at all cost, and I agree that a second mechanical ventilation has the potential for chronic respiratory failure and life-long vent dependence. 12/24: initial significant improvements in CXR and oxygenation after bronch yesterday. was on ventimask however, overnight, persistent inability to clear secretions. became more hypoxic, placed on BiPAP. This morning, chest xray with recurrent consolidation in LLL, and spo2 75% on 100% BiPAP. I had a long conversation with his discussion the options, and I feel at this point, the safest way to be aggressive is intubation and mechanical ventilation. She was concerned that he may never come of the vent, as I am also concerned, but at this point he is failing conservative measures. We proceeded with intubation (see separate procedure note for details). 12/25: intubated yesterday, complete white out of left lung field again. repeat bronchoscopy with significant thick white secretions. BALs sent, gram stain negative. wbc up to 21k this morning, but afebrile. does remain on levophed 15 mcg/min, but this may be sedation related combined with cardiomyopathy. end- organs appear perfused. cxr much improved today. Objective Vital Signs Date Time Temp Pulse Resp B/P Pulse Ox O2 Delivery O2 Flow Rate FiO2 12/25/16 07:25 99 40 12/25/16 06:00 93 12/25/16 04:00 95.5 12 12/25/16 00:00 101/70 12/24/16 19:00 Mechanical Ventilator 12/24/16 07:48 6.00 Intake and Output 12/24/16 12/24/16 12/25/16 08:00 16:00 00:00 Intake Total 656 ml 1779 ml 1422 ml Output Total 825 ml 1675 ml 250 ml Balance -169 ml 104 ml 1172 ml Result Diagram: 12/25/16 0500 12/25/16 0500 Other Results Laboratory Tests Test 12/24/16 12/24/16 09:20 13:36 Blood Gas Puncture Site LT RADIAL LT RADIAL Blood Gas Patient Temperature 98.6 98.6 Blood Gas HCO3 28 mmol/L 23 mmol/L (22-26) (22-26) Blood Gas Base Excess 4.3 mmol/L 0.5 mmol/L (-2-2) (-2-2) Blood Gas Oxygen Saturation 76 % (90-100) 98 % (90-100) Arterial Blood pH 7.45 7.54 (7.380-7.420) (7.380-7.420) Arterial Blood Partial 41 mmHg (38-42) 27 mmHg (38-42) Pressure CO2 Arterial Blood Partial 40 mmHg 155 mmHg Pressure O2 (61-120) (61-120) Arterial Blood Oxygen Content 15.9 Vol % 19.8 Vol % (12.0-20.0) (12.0-20.0) Arterial Blood 1.4 % (0-4) 1.1 % (0-4) Carboxyhemoglobin Arterial Blood Methemoglobin 0.8 % (0-2) 0.8 % (0-2) Blood Gas Hemoglobin 14.9 G/DL 14.2 G/DL (12.0-16.0) (12.0-16.0) Oxygen Delivery Device BiPAP VENTILATOR Blood Gas Ventilator Setting [id number] Blood Gas Inspired Oxygen 100 % 80 % Imaging Last 24 hours Impressions Chest X-Ray 12/22/16 0600 Signed Impressions: Service Date/Time: Thursday, December 22, 2016 04:50 - CONCLUSION: 1. Free air is again noted. 2. Abnormal opacity at the lung bases left greater than right consistent with infiltrate and effusion. 3. Interval extubation. 4. Right- sided chest tube remains in place with no pneumothorax. Zeke Khanna MD Objective Remarks Gen: Ill-appearing. intubated, sedated, critically ill. Neck: trachea midline. 8.0 ett. no jvd. Lungs: clear bilaterally. APRV 25/0 5/0.8 40%, MV 11 lpm. Right chest tube with no air leak, site clean and dry, dressing intact, minimal serous output, to suction. Heart: normal rate, regular rhythm. sinus by tele. Abdomen: Tympanic to percussion, nontender, nondistended. no guarding. Extremities: warm, well perfused. Neuro: intubated and sedated. RASS -3. does not follow commands. 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 Off pathway. his end-stage disease process may not be amenable to successful separation from mechanical ventilation. His vasopressor requirement may likely be secondary to a combination of autonomic dysfunction, cardiomyopathy, and sedation. He does have a leukocytosis, but has no other features of distributive shock, his end organs are perfused, he is afebrile without an overt source for infection. He remains critically ill. At the family's request , I have consulted palliative care to assist with ongoing goals of care discussion. 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 -Continue Cerebyx. Dilantin level 11.2 12/20 -IV Ativan when necessary for seizures. Correct hyponatremia due to seizures Keep >140 -Neurology Dr. Manuel -Keep Phos normalized given history of myotonic dystrophy -MRI shows multiple embolic strokes. Continue full dose aspirin -fentanyl drip for sedation/pain. goal RASS -1/0. RESP: Right pneumothorax (?Intra-abdominal free air tracking up) Acute Hypoxic Respiratory Failure LLL consolidation History of Myotonic dystrophy -re-intubated 12/24. -continue APRV mode of ventilation to prevent atelectatic collapse which has been a large problem. - chest tube to water seal, [id number] cxr. -LLL consolidation most likely from mucous plugging. no fever, wbc downtrending. unlikely to be pneumonia. -OOB to chair. intubation not a contra-indication to this. - we may need serial bronchs if he is unable to manage his secretions. - PT/OT consult - wean o2 for goal spo2 > 90%. DuoNeb every 6 hours when necessary - aggressive pulmonary toilet CVS: Septic/circulatory shock - resolved. Hypotension associated with sedation and intravascular volume depletion. Cardiomyopathy with EF 35-40% -back on Levophed, likely secondary to intravascular volume depletion and sedation/intubation. - 500cc 5% albumin x 1 - d5 LR @ 75cc/hr mivf - will start low-dose milrinone 0.375 mcg/kg/min to help with depressed function. - hold further diuresis. GI: Hyponatremia, hypokalemia and hypophosphatemia Metabolic alkalosis- secondary to intravascular volume contraction Intra-abdominal free air ? PTC procedure related vs less likely ruptured viscus Cholangitis S/P PTHC, s/p ERCP and biliary stent- resolved Obstructive jaundice secondary to pancreatic head mass (previous w/u negative for malignancy). - resolving. History of prior dysphagia. -Chest x-ray 12/20/16 showed intra-abdominal free air. CT abdomen and pelvis -no contrast leakage -Clinically it appears that intra-abdominal free air is procedure related. No evidence of viscus perforation -Dr Lugo and Dr Francis following -Obstructive jaundice and possible cholangitis -S/P PTHC on (12/10/16) by IR -s/p ERCP with biliary dilation and brushing and metal stent placement on by Dr. Kerr. -D/W Dr. Francis and Dr Lugo - upper GI series today. : -hold on further diuresis. -keep hobson today while intubated. ID -s/p Septic shock from biliary source/cholangitis -Continue broad-spectrum antibiotics cefepime and Flagyl, Added vancomycin due to new finding of free air under the diaphragm -Repeat blood cultures NGTD. -All cultures negative to date -12/24 BALs NGTD -re-send u/a - would plan on 4 days abx from time of stent placement (12/20) or 7 days if wbc remains elevated at day 4. Will keep at minimum additional 48h post-intubation. re-eval abx usage on 12/26. Endo: Hyperglycemia of Critical Illness SSI HEME: -Thrombocytopenia most likely from sepsis, now resolved. 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 On fondaparinux for DVT prophylaxis DVT/GI prophylaxis -Fondaparinux 2.5 mg sq daily as recommended by heme -IV Protonix Overall impression: Worsening respiratory status. GI issues slowly resolving. needs aggressive PT. critically ill with worsening pulmonary status requiring intubation. This patient remains critically ill with one or more organ systems which are or may become a threat to life. I have spent in excess of 34 minutes discontinuously in the care and management of this patient. This time is exclusive of procedures, and includes, but is not limited to, evaluation of the patient, review of the medical record, discussions with family, consultants, nursing staff, or respiratory therapy, and documentation in the medical record. Justin Harris MD December 25, 2016 07:42
[2016-12-25] MEDS ORDERED: ALBUMIN HUMAN 5% 25 GM/500 ML BOTTLE IV ONE (07:45)
[2016-12-25] MEDS: CHLORHEXIDINE 0.12% (ORAL KIT) 15 ML CUP MT SCH ×2 (08:38→20:00)
[2016-12-25] MEDS: ASPIRIN 325 MG TAB PO SCH (08:38)
[2016-12-25] MEDS: MUPIROCIN 2% OINT 1 APPLIC/GM SYR NASAL SCH ×2 (08:38→20:50)
[2016-12-25] MEDS: POTASSIUM CHLORIDE 25 MEQ EFFERVESCENT TAB PO SCH ×2 (08:38→20:50)
[2016-12-25] MEDS: FOSPHENYTOIN SODIUM 100 MG PE/2 ML VIAL IV SCH ×2 (08:39→20:49)
[2016-12-25] MEDS: LACTULOSE SYRUP 20 GM/30 ML CUP PO SCH ×5 (09:00→20:51)
[2016-12-25] MEDS: SODIUM CHLORIDE 0.9% FLUSH 10 ML FLUSH IV FLUSH SCH ×2 (09:00→20:50)
[2016-12-25] MEDS: DOCUSATE SODIUM 100 MG/10 ML UDC OG-TUBE SCH ×2 (09:00→20:51)
[2016-12-25] MEDS: MILRINONE INJ 20 MG in SODIUM CHLORIDE 0.9% INJ 80 ML IV SCH ×2 (09:04→18:46)
[2016-12-25] MEDS: DEXTROSE 5%-LACTATED RING INJ 1,000 ML IV SCH ×2 (09:18→21:05)
[2016-12-25] MEDS: fentaNYL DRIP 250 ML IV SCH (09:41)
[2016-12-25] MEDS ORDERED: DIATRIZOATE MEGLUM/DIATRIZOATE SOD 120 ML BTL (for RAD DIAG) NG ONE (11:15)
--- NOTE | 2016-12-25 13:02 | RADRPT ---
EXAM DATE/TIME: 12/25/2016 12:05 [facility] COMPARISON: CHEST SINGLE AP, December 25, 2016, 5:39. INDICATIONS : Shortness of breath. MEDICAL HISTORY : Hepatitis B. Obstructive jaundice. SURGICAL HISTORY : Bronchoscopy. ENCOUNTER: Subsequent ACUITY: 2 weeks PAIN SCORE: Non-responsive. LOCATION: Bilateral chest FINDINGS: Single AP view of the chest. Contrast seen in the stomach. Endotracheal tube and left IJ central veno us catheter unchanged. Right-sided chest tube unchanged. Nasogastric tube tip now in the stomach. Lef t lower lung opacity unchanged. No evidence of pneumothorax. CONCLUSION: No change in left lower lobe atelectasis versus consolidation. Nasogastric tube tip in the stomach. Palmer Calabrese MD on December 25, 2016 at 12:59 Board Certified Radiologist. This report was verified electronically.
--- NOTE | 2016-12-25 14:18 | RADRPT ---
EXAM DATE/TIME: 12/25/2016 11:17 [facility] COMPARISON: No previous studies available for comparison. INDICATIONS : Abdominal pain possible perforation. FLUORO TIME: 2.5 minutes IMAGE COUNT: 9 CONTRAST: 1. MD Lutz MEDICAL HISTORY : Hepatitis B. Obstructive jaundice. SURGICAL HISTORY : Bronchoscopy. ENCOUNTER: Initial ACUITY: 2 weeks PAIN SCORE: Non-responsive. LOCATION: Bilateral abdomen FINDINGS: Preliminary film shows nasogastric tube in place with the tip in the stomach. Stent is in place in th e right upper quadrant. 2 bottles Gastrografin were injected through nasogastric tube. Contrast fills the stomach. No evidence of leak. Gastric and duodenal configuration grossly within no rmal limits. No evidence of obstruction. Contrast is seen in the proximal to mid jejunum. CONCLUSION: No evidence of upper GI contrast leak. Palmer Calabrese MD on December 25, 2016 at 14:15 Board Certified Radiologist. This report was verified electronically.
--- NOTE | 2016-12-25 16:15 | HHI.PR ---
Subjective Subjective Notes Up in stretcher chair, at bedside. Pt disoriented, mildly agitated. Objective Vitals/I&O Vital Signs Date Time Temp Pulse Resp B/P Pulse Ox O2 Delivery O2 Flow Rate FiO2 12/25/16 15:33 100 40 12/25/16 14:00 87 12/25/16 12:00 98.0 14 12/25/16 07:00 Mechanical Ventilator 12/25/16 00:00 101/70 12/24/16 07:48 6.00 Labs Laboratory Tests Test 12/24/16 12/25/16 16:58 05:00 Sodium Level 140 139 Potassium Level 3.9 4.1 Chloride Level 105 106 Carbon Dioxide Level 27.0 23.4 Anion Gap 8 10 Blood Urea Nitrogen 8 11 Creatinine 0.60 0.79 Estimat Glomerular Filtration 142 103 Rate Random Glucose 175 178 Calcium Level 8.2 7.9 White Blood Count 21.9 Red Blood Count 4.22 Hemoglobin 12.2 Hematocrit 37.1 Mean Corpuscular Volume 87.9 Mean Corpuscular Hemoglobin 29.0 Mean Corpuscular Hemoglobin 33.0 Concent Red Cell Distribution Width 15.5 Platelet Count 175 Mean Platelet Volume 9.3 Phenytoin (Dilantin) Level 9.8 Date/Time Procedure Status Source Growth 12/24/16 11:40 Gram Stain - Final Resulted Bronchial Washings Other 12/24/16 11:40 Bronchial Culture - Preliminary Resulted Bronchial Washings Other NO GROWTH IN 24 HOURS. 12/21/16 09:20 Aerobic Blood Culture - Preliminary Resulted Blood Peripheral NO GROWTH IN 4 DAYS 12/21/16 09:20 Anaerobic Blood Culture - Preliminary Resulted Blood Peripheral NO GROWTH IN 4 DAYS Abdomen: Non-distended, Non-tender, Other (soft. ) A/P Assessment and Plan myotonic dystrophy. R chest tube. s/p ERCP and stent. Free air on CT, ? etiology. UGI yesterday showed no leak. No indication for operative exploration, indicates she will be talking top palliative care and her kids about what to do going forward. Adryan Ruby MD December 25, 2016 16:15
[2016-12-25 16:25] LABS: BACTERIA, URINE FEW /hpf; BLOOD, URINE MOD (NEG); GLUCOSE,URINE NEG (NEG); KETONE, URINE NEG (NEG); MUCUS URINE FEW /lpf (OCC); NITRITE,URINE NEG (NEG); SQUAMOUS EPITHELIAL CELL URINE <1 /hpf (0-5); URINE COLOR DARK-BROWN (YELLW/STRAW)
[2016-12-25 16:27] LABS: COMMENT (UR) CATH-CULTURE IND; CULTURE IF INDICATED CATH CULTURE IND
[2016-12-25] MEDS: THIAMINE INJ 100 MG in SODIUM CHLORIDE 0.9% INJ 100 ML IV SCH (17:51)
[2016-12-25] MEDS: PANTOPRAZOLE SODIUM 40 MG VIAL IV PUSH SCH (17:52)
[2016-12-25] MEDS: MELATONIN 5 MG TAB PO SCH (20:50)
[2016-12-25] MEDS ORDERED: OLANZapine ODT 5 MG TAB PO PRN (23:00)
[2016-12-26] VITALS (19 sets, daily range): BP systolic 101–128; BP diastolic 63–77; PULSE 75–96; RESP 18–26; TEMP 97.3–100.2; O2SAT 97–100
[2016-12-26] MEDS: metroNIDAZOLE 500 MG INJ 100 ML IV SCH ×4 (00:11→18:22)
--- NOTE | 2016-12-26 02:40 | RADRPT ---
EXAM DATE/TIME: 12/26/2016 02:07 [facility] COMPARISON: CHEST SINGLE AP, December 25, 2016, 12:05. INDICATIONS : Shortness of breath, possible pulmonary disease. MEDICAL HISTORY : Hepatitis B. Obstructive jaundice SURGICAL HISTORY : None. ENCOUNTER: Subsequent ACUITY: 2 weeks PAIN SCORE: Non-responsive. LOCATION: Bilateral chest FINDINGS: Endotracheal tube in satisfactory position. NG enters stomach. Left central line in superior vena cav a. Basilar airspace consolidation, left greater than right with small left effusion. Small caliber ri ght chest tube without significant pneumothorax. CONCLUSION: Endotracheal tube, left IJ line, right chest tube and nasogastric tube in satisfactory position. Smal l left effusion and basilar airspace disease similar to December 25 exam. Chuck Erwin MD on December 26, 2016 at 2:37 Board Certified Radiologist. This report was verified electronically.
[2016-12-26] MEDS: CEFEPIME INJ 2,000 MG in SODIUM CHLORIDE 0.9% INJ 100 ML IV SCH ×3 (02:55→18:22)
[2016-12-26] MEDS: CHLORHEXIDINE GLUCONATE 2 % 1 PACK (2 CLOTHS) TOP SCH (04:00)
[2016-12-26 04:21] LABS: HEMATOCRIT 31.3 % (39.0-51.0); MEAN CELL VOLUME 87.7 FL (80.0-100.0); MEAN CORPUSCULAR HEMOGLOBIN 30.4 PG (27.0-34.0); MEAN CORPUSCULAR HGB CONC 34.6 % (32.0-36.0); PLATELET COUNT 112 TH/MM3 (150-450); RED BLOOD COUNT 3.57 MIL/MM3 (4.50-5.90); REVIEW FLAG FINAL; WHITE BLOOD COUNT 12.8 TH/MM3 (4.0-11.0)
[2016-12-26 04:40] LABS: BICARBONATE 24.7 MEQ/L (21.0-32.0); POTASSIUM 3.6 MEQ/L (3.5-5.1)
[2016-12-26] MEDS: DEXT 5%-NACL 0.45% 1000 ML INJ 1,000 ML IV SCH ×2 (05:00→17:59)
[2016-12-26] MEDS: ICU - SODIUM PHOSPHATE 30 MMOL/NS 250 ML IV PRN ×4 (05:45→18:21)
[2016-12-26] MEDS: INSULIN ASPART SUPPLEMENTAL SCALE SQ SCH ×4 (06:00→17:55)
[2016-12-26] MEDS: NOREPINEPHRINE-DEXTROSE DRIP 250 ML IV SCH ×2 (06:10→15:38)
[2016-12-26] MEDS: fentaNYL DRIP 250 ML IV SCH (06:10)
[2016-12-26] MEDS: DOCUSATE SODIUM 100 MG/10 ML UDC OG-TUBE SCH ×2 (07:58→21:15)
[2016-12-26] MEDS: LACTULOSE SYRUP 20 GM/30 ML CUP PO SCH ×4 (07:58→21:17)
--- NOTE | 2016-12-26 08:00 | HHI.CCPN ---
Subjective Remarks/Hospital Course 51 y/o man had stent removed yesterday following insertion for benign pancreatic mass. Now hypotensive and acts septic. 12/11: Biliary drain placed 12/10 for drainage of GB and common duct due because of distal CD obstruction from pancreatic mass. Seizure this morning. 12/12: Remains septic and requiring vasopressor support. Hyponatremia new, likely free water excess. 12/13: Remains on 10 mics of Levophed, vasopressin 0.04 international units, dobutamine 2.5 g per KG per min. Remains on propofol but moves extremities. Sodium 125, potassium 2.7. GI not planning any other interventions at this time. Biliary drain with 160 mL in 24 hours 12/14: Levophed had been weaned off. Remains on vasopressin 0.04, dobutamine 2.5 g per KG per minute. Urine output excellent. Potassium phosphorus remains low. Tolerating CPAP but lethargic. Plt count 77 today 12/15: Remains on Levophed at 6 mcg/min. Lethargic but follows commands. Plan is for Rendezvous Procedure/ERCP with IR and GI ? possible today. labs are pending at this time 12/16: remains on CPAP, remains in shock on 6 mcg/min of Levophed. Rendezvous Procedure/ERCP with IR and GI plan for today. Sodium is 145 was low at 1.6 bilirubin decreasing. UO 4.5 L in 24 hours. 12/17: s/p ERCP with biliary dilation and brushing and metal stent placement on by Dr. Kerr. Liver enzymes trending down. WBC 19.3. CXR improving infiltrates. Levophed remains at 6 mcg/min 12/18: Remains orally intubated on mechanical ventilation. On SIMV mode mechanical ventilation due to apneic episodes with C Pap trials. 12/19: Remains orally intubated on mechanical ventilation. On SIMV mode with rate of 6 pressure support +20 which was decreased to +12 12/20; Tolerating IMV with RR 6, breathing 8 above vent. Remains on Levophed at 4 mcg/m. More awake, following commands. Routine chest x-ray showed right pneumothorax and free air under the diaphragm. Had PTC procedure last week, unclear whether air is related. D/ W GI. Get CT chest after R chest tube is placed. D/W Dr Francis and Dr. Lugo 12/21: Reduced air under the diaphragm. Slightly increased white count but likely acid is normal. Clinical exam not consistent with perforated viscus- abdominal exam benign. Discussed with Dr. Lugo yesterday and he agrees. Possibly air was introduced from PTC procedure. Levophed requirement reducing, now at 2 mcg per min. R pneumothorax almost resolved 12/22: off vasopressors this morning. awake. CT with minimal serous output. no air leak. endorses only mild abdominal pain, primarily LUQ. 12/23: very hypoxic this morning. difficult to clear his secretions. his cxr shows a complete opacification of the left lung. I performed bedside critical care lung ultrasound which did not show an effusion, did show lung sliding with evidence of atelectatic collapse. I also had a long conversation with his and medical decision maker. she feels strongly that we should avoid intubation at all cost, and I agree that a second mechanical ventilation has the potential for chronic respiratory failure and life-long vent dependence. 12/24: initial significant improvements in CXR and oxygenation after bronch yesterday. was on ventimask however, overnight, persistent inability to clear secretions. became more hypoxic, placed on BiPAP. This morning, chest xray with recurrent consolidation in LLL, and spo2 75% on 100% BiPAP. I had a long conversation with his discussion the options, and I feel at this point, the safest way to be aggressive is intubation and mechanical ventilation. She was concerned that he may never come of the vent, as I am also concerned, but at this point he is failing conservative measures. We proceeded with intubation (see separate procedure note for details). 12/25: intubated yesterday, complete white out of left lung field again. repeat bronchoscopy with significant thick white secretions. BALs sent, gram stain negative. wbc up to 21k this morning, but afebrile. does remain on levophed 15 mcg/min, but this may be sedation related combined with cardiomyopathy. end- organs appear perfused. cxr much improved today. 12/26: very confused yesterday. Levo down to 6 from 20 mcg/min. still on milrinone for cardiac support. phos severely low today, replacing. remains on bilevel with improved aeration in lungs. Objective Vital Signs Date Time Temp Pulse Resp B/P Pulse Ox O2 Delivery O2 Flow Rate FiO2 12/26/16 07:14 100 40 12/26/16 06:00 86 12/26/16 04:00 97.3 20 110/72 12/25/16 19:00 Mechanical Ventilator 12/24/16 07:48 6.00 Intake and Output 12/25/16 12/25/16 12/25/16 07:59 15:59 23:59 Intake Total 1171 ml 1261 ml 1506 ml Output Total 350 ml 1020 ml 435 ml Balance 821 ml 241 ml 1071 ml Result Diagram: 12/26/1640412/26/16 040 Imaging Last 24 hours Impressions Chest X-Ray 12/22/16 0600 Signed Impressions: Service Date/Time: Thursday, December 22, 2016 04:50 - CONCLUSION: 1. Free air is again noted. 2. Abnormal opacity at the lung bases left greater than right consistent with infiltrate and effusion. 3. Interval extubation. 4. Right- sided chest tube remains in place with no pneumothorax. Zeke Khanna MD Objective Remarks Gen: Ill-appearing. intubated, sedated, critically ill. Neck: trachea midline. 8.0 ett. no jvd. Lungs: clear bilaterally. APRV 25/0 5/0.8 40%, Right chest tube with no air leak, site clean and dry, dressing intact, minimal serous output, to water seal. Heart: normal rate, regular rhythm. sinus by tele. Abdomen: Tympanic to percussion, nontender, nondistended. no guarding. Extremities: warm, well perfused. Neuro: intubated and sedated. RASS -1. weakly follows commands. CAM +. 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 Off pathway. his end-stage disease process may not be amenable to successful separation from mechanical ventilation. His vasopressor requirement may likely be secondary to a combination of autonomic dysfunction, cardiomyopathy, and sedation. He does have a leukocytosis, but has no other features of distributive shock, his end organs are perfused, he is afebrile without an overt source for infection. He remains critically ill. At the family's request , I have consulted palliative care to assist with ongoing goals of care discussion. 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 -Continue Cerebyx. Dilantin level 11.2 12/20 -IV Ativan when necessary for seizures. Correct hyponatremia due to seizures Keep >140 -Neurology Dr. Manuel -Keep Phos normalized given history of myotonic dystrophy -MRI shows multiple embolic strokes. Continue full dose aspirin -fentanyl drip for sedation/pain. goal RASS -1/0. RESP: Right pneumothorax (?Intra-abdominal free air tracking up) Acute Hypoxic Respiratory Failure LLL consolidation History of Myotonic dystrophy -re-intubated 12/24. -continue APRV mode of ventilation to prevent atelectatic collapse which has been a large problem. - d/c chest tube today. -LLL consolidation most likely from mucous plugging. no fever, wbc downtrending. unlikely to be pneumonia. -OOB to chair. intubation not a contra-indication to this. - we may need serial bronchs if he is unable to manage his secretions. - PT/OT consult - wean o2 for goal spo2 > 90%. DuoNeb every 6 hours when necessary - aggressive pulmonary toilet CVS: Septic/circulatory shock - resolved. Hypotension associated with sedation and intravascular volume depletion. Cardiomyopathy with EF 35-40% -back on Levophed, likely secondary to intravascular volume depletion and sedation/intubation. - 500cc 5% albumin x 1 - d5 LR @ 75cc/hr mivf - continue low-dose milrinone 0.375 mcg/kg/min to help with depressed function. - hold further diuresis. GI: Hyponatremia, hypokalemia and hypophosphatemia Metabolic alkalosis- secondary to intravascular volume contraction Intra-abdominal free air ? PTC procedure related vs less likely ruptured viscus Cholangitis S/P PTHC, s/p ERCP and biliary stent- resolved Obstructive jaundice secondary to pancreatic head mass (previous w/u negative for malignancy). - resolving. History of prior dysphagia. Hypophosphatemia Acute protein calorie malnutrition- severe. -Chest x-ray 12/20/16 showed intra-abdominal free air. CT abdomen and pelvis -no contrast leakage -Clinically it appears that intra-abdominal free air is procedure related. No evidence of viscus perforation -Dr Lugo and Dr Francis following -Obstructive jaundice and possible cholangitis -S/P PTHC on (12/10/16) by IR -s/p ERCP with biliary dilation and brushing and metal stent placement on by Dr. Kerr. -D/W Dr. Francis and Dr Lugo - upper GI series 12/25 no obstruction - start TF. : -hold on further diuresis. -keep hobson today while intubated. ID -s/p Septic shock from biliary source/cholangitis -Continue broad-spectrum antibiotics cefepime and Flagyl, Added vancomycin due to new finding of free air under the diaphragm -Repeat blood cultures NGTD. -All cultures negative to date -12/24 BALs NGTD - urine culture 12/25 NGTD. - would plan on 4 days abx from time of stent placement (12/20) or 7 days if wbc remains elevated at day 4. Will keep at minimum additional 48h post-intubation. will keep abx today through palliative discussion tomorrow. Endo: Hyperglycemia of Critical Illness SSI HEME: -Thrombocytopenia most likely from sepsis, now resolved. 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 On fondaparinux for DVT prophylaxis DVT/GI prophylaxis -Fondaparinux 2.5 mg sq daily as recommended by heme -IV Protonix Overall impression: Persistently poor respiratory status. Unlikely to be able to separate from mechanical ventilation. GI issues slowly resolving. needs aggressive PT. critically ill with worsening pulmonary status requiring intubation. This patient remains critically ill with one or more organ systems which are or may become a threat to life. I have spent in excess of 31 minutes discontinuously in the care and management of this patient. This time is exclusive of procedures, and includes, but is not limited to, evaluation of the patient, review of the medical record, discussions with family, consultants, nursing staff, or respiratory therapy, and documentation in the medical record. Justin Harris MD December 26, 2016 08:00
[2016-12-26] MEDS: CHLORHEXIDINE 0.12% (ORAL KIT) 15 ML CUP MT SCH ×2 (08:11→20:24)
[2016-12-26] MEDS: ASPIRIN 325 MG TAB PO SCH (08:52)
[2016-12-26] MEDS: POTASSIUM CHLORIDE 25 MEQ EFFERVESCENT TAB PO SCH ×2 (08:52→21:16)
[2016-12-26] MEDS: FOSPHENYTOIN SODIUM 100 MG PE/2 ML VIAL IV SCH ×2 (08:52→21:15)
[2016-12-26] MEDS: SODIUM CHLORIDE 0.9% FLUSH 10 ML FLUSH IV FLUSH SCH ×2 (08:52→21:15)
[2016-12-26] MEDS: MUPIROCIN 2% OINT 1 APPLIC/GM SYR NASAL SCH ×2 (08:52→21:15)
[2016-12-26] MEDS: DEXTROSE 5%-LACTATED RING INJ 1,000 ML IV SCH (10:25)
[2016-12-26] MEDS: MILRINONE INJ 20 MG in SODIUM CHLORIDE 0.9% INJ 80 ML IV SCH ×2 (10:56→18:22)
[2016-12-26] MEDS ORDERED: PHARMACY ORDERED LAB ONE (11:45)
[2016-12-26] MEDS: VANCOMYCIN INJ 1,250 MG in SODIUM CHLOR 0.9% 250 ML INJ 250 ML IV SCH (11:50)
--- NOTE | 2016-12-26 13:29 | RADRPT ---
EXAM DATE/TIME: 12/26/2016 13:08 [facility] COMPARISON: CHEST SINGLE AP, December 26, 2016, 2:07. INDICATIONS : Chest tube removal. MEDICAL HISTORY : Hepatitis B. SURGICAL HISTORY : None. ENCOUNTER: Subsequent ACUITY: 3 weeks PAIN SCORE: Non-responsive. LOCATION: Bilateral chest FINDINGS: One right-sided chest tube has been removed. I do not see a pneumothorax. There is patchy parenchymal density at the left lung base. Left jugular line tip overlies the SVC. Endotracheal tube tip at the inferior margin of the clavicles. NG tube courses beneath the diaphragm. Heart size normal. Hyperinfl ation. Chest tube removal without evidence of pneumothorax. CONCLUSION: Improved aeration of the left lung base. Chest tube removal without pneumothorax. Darius Lai MD on December 26, 2016 at 13:27 Board Certified Radiologist. This report was verified electronically.
[2016-12-26] MEDS: THIAMINE INJ 100 MG in SODIUM CHLORIDE 0.9% INJ 100 ML IV SCH (16:27)
[2016-12-26 17:50] LABS: TOTAL BILIRUBIN ADULT 4.2 MG/DL (0.2-1.0)
[2016-12-26] MEDS: PANTOPRAZOLE SODIUM 40 MG VIAL IV PUSH SCH (17:55)
--- NOTE | 2016-12-26 20:17 | HHI.PR ---
Subjective Subjective Notes Still intubated Discussed trach and PEG; pt indicates he does NOT want these again. Objective Vitals/I&O Vital Signs Date Time Temp Pulse Resp B/P Pulse Ox O2 Delivery O2 Flow Rate FiO2 12/26/16 19:49 100 40 12/26/16 18:00 75 12/26/16 16:00 98.7 18 101/70 12/26/16 07:00 Mechanical Ventilator 12/24/16 07:48 6.00 Labs Laboratory Tests Test 12/26/16 12/26/16 12/26/16 04:05 11:50 16:45 White Blood Count 12.8 Red Blood Count 3.57 Hemoglobin 10.8 Hematocrit 31.3 Mean Corpuscular Volume 87.7 Mean Corpuscular Hemoglobin 30.4 Mean Corpuscular Hemoglobin 34.6 Concent Red Cell Distribution Width 16.0 Platelet Count 112 Mean Platelet Volume 8.8 Sodium Level 144 Potassium Level 3.6 Chloride Level 111 Carbon Dioxide Level 24.7 Anion Gap 8 Blood Urea Nitrogen 12 Creatinine 0.56 Estimat Glomerular Filtration 154 Rate Random Glucose 129 Calcium Level 8.0 Phosphorus Level 0.3 1.3 B-Type Natriuretic Peptide 111 Vancomycin Level Trough 18.7 Total Bilirubin 4.2 Direct Bilirubin 3.2 Indirect Bilirubin 1.0 Aspartate Amino Transf 23 (AST/SGOT) Alanine Aminotransferase 32 (ALT/SGPT) Alkaline Phosphatase 158 Total Protein 5.9 Albumin 2.1 Date/Time Procedure Status Source Growth 12/25/16 15:15 Urine Culture - Preliminary Resulted Urine Catheterized Urine NO GROWTH IN 24 HOURS. 12/24/16 11:40 Gram Stain - Final Complete Bronchial Washings Other 12/24/16 11:40 Bronchial Culture - Final Complete Bronchial Washings Other LIGHT GROWTH NORMAL RESPIRATORY GREGG Abdomen: Non-distended, Non-tender A/P Assessment and Plan 51 year old male with a PMHx of myotonic dystrophy and ERCP with stent placement ; Free air found on XR -Recently re-intubated -Upper GI showed no leaks -Continue non operative management - no surgical problem -Discussed with ; due to patient's wishes, will get palliative care to see patient tomorrow. -We will sign off and see as needed. Zeke Lugo MD December 26, 2016 20:17
[2016-12-26] MEDS: MELATONIN 5 MG TAB PO SCH (21:17)
[2016-12-27] VITALS (17 sets, daily range): BP systolic 86–128; BP diastolic 51–65; PULSE 76–101; RESP 10–28; TEMP 98.2–99; O2SAT 98–100
[2016-12-27] MEDS: DEXTROSE 5%-LACTATED RING INJ 1,000 ML IV SCH ×2 (00:43→13:05)
[2016-12-27] MEDS: metroNIDAZOLE 500 MG INJ 100 ML IV SCH ×4 (00:53→18:13)
[2016-12-27] MEDS: CEFEPIME INJ 2,000 MG in SODIUM CHLORIDE 0.9% INJ 100 ML IV SCH ×3 (03:14→18:13)
[2016-12-27] MEDS: CHLORHEXIDINE GLUCONATE 2 % 1 PACK (2 CLOTHS) TOP SCH (03:15)
[2016-12-27] MEDS: VANCOMYCIN INJ 1,250 MG in SODIUM CHLOR 0.9% 250 ML INJ 250 ML IV SCH (05:28)
[2016-12-27] MEDS: INSULIN ASPART SUPPLEMENTAL SCALE SQ SCH ×5 (06:00→23:59)
[2016-12-27 06:07] LABS: HEMATOCRIT 27.6 % (39.0-51.0); MEAN CORPUSCULAR HEMOGLOBIN 30.6 PG (27.0-34.0); MEAN CORPUSCULAR HGB CONC 35.1 % (32.0-36.0); PLATELET COUNT 88 TH/MM3 (150-450); RED BLOOD COUNT 3.17 MIL/MM3 (4.50-5.90); RED CELL DISTRIBUTION WIDTH 16.4 % (11.6-17.2); WHITE BLOOD COUNT 10.4 TH/MM3 (4.0-11.0)
[2016-12-27 06:20] LABS: REVIEW FLAG FINAL
[2016-12-27 06:39] LABS: BICARBONATE 21.9 MEQ/L (21.0-32.0); POTASSIUM 3.4 MEQ/L (3.5-5.1)
[2016-12-27] MEDS: ICU - POTASSIUM PHOSPHATE MONOBASIC 500 MG TAB PO PRN ×2 (06:56→12:16)
[2016-12-27] MEDS: POTASSIUM CHLORIDE 25 MEQ EFFERVESCENT TAB PO PRN (06:56)
[2016-12-27] MEDS: DEXT 5%-NACL 0.45% 1000 ML INJ 1,000 ML IV SCH (07:40)
[2016-12-27] MEDS: LACTULOSE SYRUP 20 GM/30 ML CUP PO SCH ×4 (09:00→21:00)
[2016-12-27] MEDS: DOCUSATE SODIUM 100 MG/10 ML UDC OG-TUBE SCH ×2 (09:00→21:00)
[2016-12-27] MEDS: FOSPHENYTOIN SODIUM 100 MG PE/2 ML VIAL IV SCH ×2 (09:02→21:18)
[2016-12-27] MEDS: ASPIRIN 325 MG TAB PO SCH (09:02)
[2016-12-27] MEDS: fentaNYL DRIP 250 ML IV SCH (09:02)
[2016-12-27] MEDS: POTASSIUM CHLORIDE 25 MEQ EFFERVESCENT TAB PO SCH ×2 (09:02→21:17)
[2016-12-27] MEDS: MUPIROCIN 2% OINT 1 APPLIC/GM SYR NASAL SCH ×2 (09:02→21:17)
[2016-12-27] MEDS: SODIUM CHLORIDE 0.9% FLUSH 10 ML FLUSH IV FLUSH SCH ×2 (09:03→21:18)
[2016-12-27] MEDS: CHLORHEXIDINE 0.12% (ORAL KIT) 15 ML CUP MT SCH ×2 (09:03→19:37)
--- NOTE | 2016-12-27 11:04 | HHI.CCPN ---
Subjective Remarks/Hospital Course 51 y/o man had stent removed yesterday following insertion for benign pancreatic mass. Now hypotensive and acts septic. 12/11: Biliary drain placed 12/10 for drainage of GB and common duct due because of distal CD obstruction from pancreatic mass. Seizure this morning. 12/12: Remains septic and requiring vasopressor support. Hyponatremia new, likely free water excess. 12/13: Remains on 10 mics of Levophed, vasopressin 0.04 international units, dobutamine 2.5 g per KG per min. Remains on propofol but moves extremities. Sodium 125, potassium 2.7. GI not planning any other interventions at this time. Biliary drain with 160 mL in 24 hours 12/14: Levophed had been weaned off. Remains on vasopressin 0.04, dobutamine 2.5 g per KG per minute. Urine output excellent. Potassium phosphorus remains low. Tolerating CPAP but lethargic. Plt count 77 today 12/15: Remains on Levophed at 6 mcg/min. Lethargic but follows commands. Plan is for Rendezvous Procedure/ERCP with IR and GI ? possible today. labs are pending at this time 12/16: remains on CPAP, remains in shock on 6 mcg/min of Levophed. Rendezvous Procedure/ERCP with IR and GI plan for today. Sodium is 145 was low at 1.6 bilirubin decreasing. UO 4.5 L in 24 hours. 12/17: s/p ERCP with biliary dilation and brushing and metal stent placement on by Dr. Kerr. Liver enzymes trending down. WBC 19.3. CXR improving infiltrates. Levophed remains at 6 mcg/min 12/18: Remains orally intubated on mechanical ventilation. On SIMV mode mechanical ventilation due to apneic episodes with C Pap trials. 12/19: Remains orally intubated on mechanical ventilation. On SIMV mode with rate of 6 pressure support +20 which was decreased to +12 12/20; Tolerating IMV with RR 6, breathing 8 above vent. Remains on Levophed at 4 mcg/m. More awake, following commands. Routine chest x-ray showed right pneumothorax and free air under the diaphragm. Had PTC procedure last week, unclear whether air is related. D/ W GI. Get CT chest after R chest tube is placed. D/W Dr Francis and Dr. Lugo 12/21: Reduced air under the diaphragm. Slightly increased white count but likely acid is normal. Clinical exam not consistent with perforated viscus- abdominal exam benign. Discussed with Dr. Lugo yesterday and he agrees. Possibly air was introduced from PTC procedure. Levophed requirement reducing, now at 2 mcg per min. R pneumothorax almost resolved 12/22: off vasopressors this morning. awake. CT with minimal serous output. no air leak. endorses only mild abdominal pain, primarily LUQ. 12/23: very hypoxic this morning. difficult to clear his secretions. his cxr shows a complete opacification of the left lung. I performed bedside critical care lung ultrasound which did not show an effusion, did show lung sliding with evidence of atelectatic collapse. I also had a long conversation with his and medical decision maker. she feels strongly that we should avoid intubation at all cost, and I agree that a second mechanical ventilation has the potential for chronic respiratory failure and life-long vent dependence. 12/24: initial significant improvements in CXR and oxygenation after bronch yesterday. was on ventimask however, overnight, persistent inability to clear secretions. became more hypoxic, placed on BiPAP. This morning, chest xray with recurrent consolidation in LLL, and spo2 75% on 100% BiPAP. I had a long conversation with his discussion the options, and I feel at this point, the safest way to be aggressive is intubation and mechanical ventilation. She was concerned that he may never come of the vent, as I am also concerned, but at this point he is failing conservative measures. We proceeded with intubation (see separate procedure note for details). 12/25: intubated yesterday, complete white out of left lung field again. repeat bronchoscopy with significant thick white secretions. BALs sent, gram stain negative. wbc up to 21k this morning, but afebrile. does remain on levophed 15 mcg/min, but this may be sedation related combined with cardiomyopathy. end- organs appear perfused. cxr much improved today. 12/26: very confused yesterday. Levo down to 6 from 20 mcg/min. still on milrinone for cardiac support. phos severely low today, replacing. remains on bilevel with improved aeration in lungs. 12/27: phos levels still persistently low. more awake and alert today. cultures NGTD. palliative care meeting planned for 11am. Objective Vital Signs Date Time Temp Pulse Resp B/P Pulse Ox O2 Delivery O2 Flow Rate FiO2 12/27/16 10:00 83 12/27/16 08:02 99 40 12/27/16 08:00 98.5 10 111/60 12/27/16 08:00 Mechanical Ventilator 12/24/16 07:48 6.00 Intake and Output 12/26/16 12/26/16 12/27/16 08:00 16:00 00:00 Intake Total 991 ml 1515 ml 1688 ml Output Total 300 ml 225 ml 350 ml Balance 691 ml 1290 ml 1338 ml Result Diagram: 12/27/16 0530 12/27/16 0530 Other Results Microbiology Date/Time Procedure Status Source Growth 12/24/16 11:40 Gram Stain - Final Complete Bronchial Washings Bronchial 12/24/16 11:40 Bronchial Culture - Final Complete Bronchial Washings Bronchial 12/24/16 11:40 Gram Stain - Final Complete Bronchial Washings Other 12/24/16 11:40 Bronchial Culture - Final Complete Bronchial Washings Other LIGHT GROWTH NORMAL RESPIRATORY GREGG Imaging Last 24 hours Impressions Chest X-Ray 12/22/16 0600 Signed Impressions: Service Date/Time: Thursday, December 22, 2016 04:50 - CONCLUSION: 1. Free air is again noted. 2. Abnormal opacity at the lung bases left greater than right consistent with infiltrate and effusion. 3. Interval extubation. 4. Right- sided chest tube remains in place with no pneumothorax. Zeke Khanna MD Objective Remarks Gen: Ill-appearing. intubated, sedated, critically ill. Neck: trachea midline. 8.0 ett. no jvd. Lungs: clear bilaterally. APRV 22/0 5/0.8 40%, dressing from right chest tube site clean, dry, intact (CT removed). Heart: normal rate, regular rhythm. sinus by tele. Abdomen: Tympanic to percussion, nontender, nondistended. no guarding. Extremities: warm, well perfused. Neuro: intubated. RASS 0. follows commands. CAM -. 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 Off pathway. his end-stage disease process may not be amenable to successful separation from mechanical ventilation. His vasopressor requirement may likely be secondary to a combination of autonomic dysfunction, cardiomyopathy, and sedation. He remains critically ill. At the family's request, I have consulted palliative care to assist with ongoing goals of care discussion. 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 -Continue Cerebyx. Dilantin level 11.2 12/20 -IV Ativan when necessary for seizures. Correct hyponatremia due to seizures Keep >140 -Neurology Dr. Manuel -Keep Phos normalized given history of myotonic dystrophy, still persistently low. will continue to aggressively replace. -MRI shows multiple embolic strokes. Continue full dose aspirin -fentanyl drip for sedation/pain. goal RASS -1/0. RESP: Right pneumothorax (?Intra-abdominal free air tracking up) Acute Hypoxic Respiratory Failure LLL consolidation History of Myotonic dystrophy -re-intubated 12/24. -continue APRV mode of ventilation to prevent atelectatic collapse which has been a large problem. - s/p chest tube (removed 12/26) -LLL consolidation most likely from mucous plugging. no fever, wbc downtrending. unlikely to be pneumonia. -OOB to chair. intubation not a contra-indication to this. - PT/OT consult - wean o2 for goal spo2 > 90%. DuoNeb every 6 hours when necessary - aggressive pulmonary toilet CVS: Septic/circulatory shock - resolved. Hypotension associated with sedation and intravascular volume depletion. Cardiomyopathy with EF 35-40% -weaning off levophed. - continue low-dose milrinone 0.375 mcg/kg/min to help with depressed function. will attempt to wean this to 0.25 mcg/kg/min today. - hold further diuresis. GI: Hyponatremia, hypokalemia and hypophosphatemia Metabolic alkalosis- secondary to intravascular volume contraction Intra-abdominal free air ? PTC procedure related vs less likely ruptured viscus Cholangitis S/P PTHC, s/p ERCP and biliary stent- resolved Obstructive jaundice secondary to pancreatic head mass (previous w/u negative for malignancy). - resolving. History of prior dysphagia. Hypophosphatemia Acute protein calorie malnutrition- severe. -Chest x-ray 12/20/16 showed intra-abdominal free air. CT abdomen and pelvis -no contrast leakage -Clinically it appears that intra-abdominal free air is procedure related. No evidence of viscus perforation -Dr Lugo and Dr Francis following -Obstructive jaundice and possible cholangitis -S/P PTHC on (12/10/16) by IR -s/p ERCP with biliary dilation and brushing and metal stent placement on by Dr. Kerr. -D/W Dr. Francis and Dr Lugo - upper GI series 12/25 no obstruction - continue TF. : -hold on further diuresis. -keep hobson today while intubated. ID -s/p Septic shock from biliary source/cholangitis -Continue broad-spectrum antibiotics cefepime and Flagyl, Added vancomycin due to new finding of free air under the diaphragm -Repeat blood cultures NGTD. -All cultures negative to date -12/24 BALs NGTD - urine culture 12/25 NGTD - has had full 7 day course of abx. will d/c abx today and re-culture for new fever. Endo: Hyperglycemia of Critical Illness SSI HEME: -Thrombocytopenia most likely from sepsis, now resolved. 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 On fondaparinux for DVT prophylaxis DVT/GI prophylaxis -Fondaparinux 2.5 mg sq daily as recommended by heme -IV Protonix Overall impression: Persistently poor respiratory status. Unlikely to be able to separate from mechanical ventilation. GI issues slowly resolving. needs aggressive PT. critically ill with worsening pulmonary status requiring intubation. This patient remains critically ill with one or more organ systems which are or may become a threat to life. I have spent in excess of 41 minutes discontinuously in the care and management of this patient. This time is exclusive of procedures, and includes, but is not limited to, evaluation of the patient, review of the medical record, discussions with family, consultants, nursing staff, or respiratory therapy, and documentation in the medical record. Justin Harris MD December 27, 2016 11:04 Justin Harris MD December 27, 2016 11:04 patient, review of the medical record, discussions with family, consultants, nursing staff, or respiratory therapy, and documentation in the medical record. Justin Harris MD December 27, 2016 11:04
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
[2016-12-27] MEDS: PANTOPRAZOLE SODIUM 40 MG VIAL IV PUSH SCH (16:55)
[2016-12-27] MEDS: NOREPINEPHRINE-DEXTROSE DRIP 250 ML IV SCH (16:56)
[2016-12-27] MEDS: MILRINONE INJ 20 MG in SODIUM CHLORIDE 0.9% INJ 80 ML IV SCH ×2 (16:56→19:36)
[2016-12-27] MEDS: THIAMINE INJ 100 MG in SODIUM CHLORIDE 0.9% INJ 100 ML IV SCH (16:56)
[2016-12-27] MEDS: ICU - SODIUM PHOSPHATE 30 MMOL/NS 250 ML IV PRN ×2 (17:26)
[2016-12-27] MEDS: MELATONIN 5 MG TAB PO SCH (21:17)
[2016-12-28] VITALS (17 sets, daily range): BP systolic 94–106; BP diastolic 53–67; PULSE 70–85; RESP 10–16; TEMP 98.2–98.8; O2SAT 98–100
[2016-12-28] MEDS: CHLORHEXIDINE GLUCONATE 2 % 1 PACK (2 CLOTHS) TOP SCH (04:00)
[2016-12-28 04:33] LABS: HEMATOCRIT 26.2 % (39.0-51.0); MEAN CELL VOLUME 88.1 FL (80.0-100.0); MEAN CORPUSCULAR HEMOGLOBIN 30.4 PG (27.0-34.0); MEAN CORPUSCULAR HGB CONC 34.6 % (32.0-36.0); PLATELET COUNT 92 TH/MM3 (150-450); RED BLOOD COUNT 2.97 MIL/MM3 (4.50-5.90); RED CELL DISTRIBUTION WIDTH 16.7 % (11.6-17.2); WHITE BLOOD COUNT 10.8 TH/MM3 (4.0-11.0)
[2016-12-28 04:49] LABS: REVIEW FLAG FINAL
[2016-12-28 04:55] LABS: BICARBONATE 25.5 MEQ/L (21.0-32.0)
[2016-12-28 05:12] LABS: CALCIUM-PROTEIN CORRECTED 8.1 MG/DL (8.5-10.1)
[2016-12-28] MEDS: INSULIN ASPART SUPPLEMENTAL SCALE SQ SCH ×4 (05:26→23:22)
[2016-12-28] MEDS: ICU - POTASSIUM PHOSPHATE MONOBASIC 500 MG TAB PO PRN (05:51)
[2016-12-28] MEDS ORDERED: FUROSEMIDE 20 MG/2 ML VIAL IV PUSH ONE (06:30)
--- NOTE | 2016-12-28 07:59 | HHI.PR ---
Review/Management Diagnosis/Plan: (1) Acute embolic stroke Plan: mri brain reviewed bilateral bg, rt frontal and left occipital tiny infarcts mra brain/carotids nml recs septic emboli? syeda when feasible (2) Respiratory insufficiency Plan: ccm following (3) Encephalopathy, metabolic Plan: sz- likely 2/2 metabolic/electrolyte changes/embolic strokes/hypotension/hypoxia /hypercapnia (4) Myotonic dystrophy, type 1 Plan: genetic (5) Aspiration pneumonia Subjective Subjective Comments No acute events reported Active Medications Current Medications Medications (Trade) Dose Ordered Sig/[place] Route Start Time Stop Time Status Last Admin (NS Flush) 2 ml UNSCH PRN IV FLUSH 12/09/16 17:15 12/09/16 19:00 (NS Flush) 2 ml BID IV FLUSH 12/09/16 21:00 12/27/16 21:18 (Tylenol) 650 mg Q4H PRN PO 12/09/16 17:15 (Senokot) 17.2 mg Q12H PRN PO 12/09/16 17:15 (Morphine Inj) 2 mg Q3H PRN IV 12/09/16 17:15 12/24/16 03:38 (Narcan Inj) 0.4 mg UNSCH PRN IV 12/09/16 17:15 (Protonix Inj) 40 mg Q24H IV PUSH 12/09/16 18:00 12/27/16 16:55 (Zofran Inj) 4 mg Q6H PRN IV 12/10/16 06:30 Miscellaneous Information 1 Q361D XX 12/10/16 06:30 (Chlorhexidine 2% Cloth) Taper DAILY@04 TOP 12/11/16 04:00 12/07/17 03:59 12/25/16 04:00 (Chlorhexidine 2% Cloth) 3 pack UNSCH PRN TOP 12/10/16 06:30 Miscellaneous Information D/C ICU ELECTROLYTE ORDERS... UNSCH PRN .XX 12/10/16 08:45 Miscellaneous Information ICU - CALL ORDERING PHYSIC... UNSCH PRN .XX 12/10/16 08:45 (KCl 40 Meq Premix Inj) 100 ml @ 25 mls/hr UNSCH PRN IV 12/10/16 08:45 12/24/16 10:11 Potassium Bicarb/ Potassium Chloride 50 meq 50 meq UNSCH PRN PO 12/10/16 08:45 12/27/16 06:56 Potassium Chloride 100 ml @ 50 mls/hr UNSCH PRN IV 12/10/16 08:45 12/21/16 21:17 Magnesium Sulfate 4 gm/Sodium Chloride 108 ml @ 54 mls/hr UNSCH PRN IV 12/10/16 08:45 (Magnesium Sulfate Inj/NS Inj) 104 ml @ 52 mls/hr UNSCH PRN IV 12/10/16 08:45 12/14/16 10:19 Magnesium Oxide 800 mg 800 mg UNSCH PRN PO 12/10/16 08:45 (Sodium Phosphate Inj/NS 250 ml Inj) 260 ml @ 43.333 mls/ hr UNSCH PRN IV 12/10/16 08:45 12/27/16 17:26 (K-Phos) 2,000 mg UNSCH PRN PO 12/10/16 08:45 12/28/16 05:51 (Bactroban Nasal 2% Oint) 1 applic BID NASAL 12/11/16 21:00 12/27/16 21:17 (Colace Liq) 100 mg BID OG-TUBE 12/11/16 23:32 12/26/16 21:15 (D50w (Vial) Inj) 25 ml UNSCH PRN IV PUSH 12/12/16 12:15 12/22/16 12:40 (Glucagon Inj) 1 mg UNSCH PRN OTHER 12/12/16 12:15 (NovoLOG SUPPLEMENTAL SCALE) 1 Q6HR SQ 12/12/16 12:15 12/25/16 06:03 (Lactulose Liq) 30 ml QID PO 12/13/16 13:00 12/26/16 21:17 Potassium Bicarb/ Potassium Chloride 25 meq 25 meq Q12HR PO 12/14/16 10:45 12/27/16 21:17 (Thiamine Inj/NS Inj) 101 ml @ 101 mls/hr Q24H IV 12/14/16 17:00 12/27/16 16:56 (Cerebyx Inj) 100 mgpe Q12HR IV 12/16/16 21:00 12/27/16 21:18 (Aspirin) 325 mg DAILY PO 12/16/16 09:45 12/27/16 09:02 (Morphine Inj) 2 mg Q3H PRN IV 12/20/16 11:15 (Wallace 5-325 Mg) 1 tab Q6H PRN PO 12/20/16 08:45 12/21/16 05:38 Alteplase, Recombinant 2 mg 2 mg Q6H PRN INTRACATH 12/21/16 11:00 12/21/16 12:55 Fentanyl Citrate 250 ml @ 0 mls/hr TITRATE IV 12/24/16 10:15 12/27/16 09:02 (Levophed-Dextrose Drip) 250 ml @ 0 mls/hr TITRATE IV 12/24/16 10:15 12/27/16 16:56 Chlorhexidine Gluconate 15 ml 15 ml BID@08,20 MT 12/24/16 20:00 12/27/16 19:37 (Primacor Inj/NS Inj) 100 ml @ 5 mls/hr Q20H IV 12/25/16 07:37 12/27/16 19:36 (Melatonin) 5 mg HS PO 12/25/16 21:00 12/27/16 21:17 (ZyPREXA ZYDIS ODT) 5 mg HS PRN PO 12/25/16 23:00 Allergies Allergies Coded Allergies *MDRO Multi-Drug Resistant Organism (Verified Adverse Reaction, Unknown, ) Review of Systems All other ROS: ROS reviewed as documented in chart Exam I&O / VS 12/27/16 12/27/16 12/28/16 15:00 23:00 07:00 Intake Total 1305 ml 1484 ml 846 ml Output Total 450 ml 400 ml 600.0 ml Balance 855 ml 1084 ml 246.0 ml Intake IV Total 880 ml 903 ml 325 ml Tube Feeding 365 ml 371 ml 381 ml Tube Irrigant 60 ml 210 ml 140 ml Output Urine Total 450 ml 400 ml 400 ml Tube Feeding Residual Discard 0 ml 200.0 ml # Bowel Movements 3 2 1 Vital Signs Date Time Temp Pulse Resp B/P Pulse Ox O2 Delivery O2 Flow Rate FiO2 12/28/16 07:37 99 40 12/28/16 06:00 82 12/28/16 05:00 100 40 12/28/16 04:00 80 12/28/16 04:00 98.3 80 10 98/64 99 12/28/16 02:00 81 12/28/16 01:40 99 40 12/28/16 00:00 85 12/28/16 00:00 98.3 85 10 98/53 100 12/27/16 22:00 84 12/27/16 20:03 100 40 12/27/16 20:00 82 12/27/16 20:00 98.4 82 14 99/59 100 12/27/16 19:00 100 Mechanical Ventilator 40 12/27/16 18:00 88 12/27/16 16:00 94 12/27/16 16:00 98.3 94 28 128/65 100 12/27/16 14:00 76 12/27/16 12:00 98.6 95 17 86/58 100 12/27/16 12:00 95 12/27/16 11:18 100 40 12/27/16 10:00 83 12/27/16 08:02 99 40 12/27/16 08:00 98.5 87 10 111/60 98 12/27/16 08:00 93 12/27/16 08:00 98 Mechanical Ventilator Cardiology: Normal rate Exam Comments alert, ox 1, intubated, follows inconsistently, temporal wasting, ou 3-2mm, blinks, some tracking difficulty to left, lift legs to gravity, unable to raise either ue to gravity but 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, rt hand napkin band wrapper weaker, difficulty with finger flexion, distal wasting Objective Micro and Labs Laboratory Tests Test 12/27/16 12/28/16 15:30 04:10 Potassium Level 4.0 4.0 Phosphorus Level 1.4 2.1 White Blood Count 10.8 Red Blood Count 2.97 Hemoglobin 9.0 Hematocrit 26.2 Mean Corpuscular Volume 88.1 Mean Corpuscular Hemoglobin 30.4 Mean Corpuscular Hemoglobin 34.6 Concent Red Cell Distribution Width 16.7 Platelet Count 92 Mean Platelet Volume 9.9 Sodium Level 148 Chloride Level 117 Carbon Dioxide Level 25.5 Anion Gap 6 Blood Urea Nitrogen 11 Creatinine 0.46 Estimat Glomerular Filtration 193 Rate Random Glucose 111 Calcium Level 7.2 Protein Corrected Calcium 8.1 Total Protein 5.5 Date/Time Procedure Status Source Growth 12/25/16 15:15 Urine Culture - Final Complete Urine Catheterized Urine NO GROWTH IN 48 HOURS. 12/24/16 11:40 Gram Stain - Final Complete Bronchial Washings Other 12/24/16 11:40 Bronchial Culture - Final Complete Bronchial Washings Other LIGHT GROWTH NORMAL RESPIRATORY GREGG Problem Qualifiers (1) Aspiration pneumonia: Chris Manuel MD December 28, 2016 07:58
[2016-12-28] MEDS: LACTULOSE SYRUP 20 GM/30 ML CUP PO SCH ×4 (09:00→20:23)
[2016-12-28] MEDS: DOCUSATE SODIUM 100 MG/10 ML UDC OG-TUBE SCH ×2 (09:00→20:23)
[2016-12-28] MEDS: POTASSIUM CHLORIDE 25 MEQ EFFERVESCENT TAB PO SCH ×2 (09:00→20:31)
[2016-12-28] MEDS: ICU - SODIUM PHOSPHATE 30 MMOL/NS 250 ML IV PRN ×2 (09:05)
[2016-12-28] MEDS: FOSPHENYTOIN SODIUM 100 MG PE/2 ML VIAL IV SCH ×2 (09:05→20:23)
[2016-12-28] MEDS: ASPIRIN 325 MG TAB PO SCH (09:05)
[2016-12-28] MEDS: MUPIROCIN 2% OINT 1 APPLIC/GM SYR NASAL SCH ×2 (09:06→20:23)
[2016-12-28] MEDS: CHLORHEXIDINE 0.12% (ORAL KIT) 15 ML CUP MT SCH ×2 (09:06→20:55)
[2016-12-28] MEDS: SODIUM CHLORIDE 0.9% FLUSH 10 ML FLUSH IV FLUSH SCH ×2 (09:06→20:57)
[2016-12-28] MEDS: ACETAMINOPHEN 325 MG TAB PO PRN (10:00)
[2016-12-28] MEDS: fentaNYL DRIP 250 ML IV SCH (12:17)
[2016-12-28] MEDS: MILRINONE INJ 20 MG in SODIUM CHLORIDE 0.9% INJ 80 ML IV SCH (12:18)
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
[2016-12-28] MEDS: THIAMINE INJ 100 MG in SODIUM CHLORIDE 0.9% INJ 100 ML IV SCH (17:33)
[2016-12-28] MEDS: PANTOPRAZOLE SODIUM 40 MG VIAL IV PUSH SCH (17:33)
--- NOTE | 2016-12-28 19:42 | HHI.CCPN ---
Subjective Remarks/Hospital Course 51 y/o man had stent removed yesterday following insertion for benign pancreatic mass. Now hypotensive and acts septic. 12/11: Biliary drain placed 12/10 for drainage of GB and common duct due because of distal CD obstruction from pancreatic mass. Seizure this morning. 12/12: Remains septic and requiring vasopressor support. Hyponatremia new, likely free water excess. 12/13: Remains on 10 mics of Levophed, vasopressin 0.04 international units, dobutamine 2.5 g per KG per min. Remains on propofol but moves extremities. Sodium 125, potassium 2.7. GI not planning any other interventions at this time. Biliary drain with 160 mL in 24 hours 12/14: Levophed had been weaned off. Remains on vasopressin 0.04, dobutamine 2.5 g per KG per minute. Urine output excellent. Potassium phosphorus remains low. Tolerating CPAP but lethargic. Plt count 77 today 12/15: Remains on Levophed at 6 mcg/min. Lethargic but follows commands. Plan is for Rendezvous Procedure/ERCP with IR and GI ? possible today. labs are pending at this time 12/16: remains on CPAP, remains in shock on 6 mcg/min of Levophed. Rendezvous Procedure/ERCP with IR and GI plan for today. Sodium is 145 was low at 1.6 bilirubin decreasing. UO 4.5 L in 24 hours. 12/17: s/p ERCP with biliary dilation and brushing and metal stent placement on by Dr. Kerr. Liver enzymes trending down. WBC 19.3. CXR improving infiltrates. Levophed remains at 6 mcg/min 12/18: Remains orally intubated on mechanical ventilation. On SIMV mode mechanical ventilation due to apneic episodes with C Pap trials. 12/19: Remains orally intubated on mechanical ventilation. On SIMV mode with rate of 6 pressure support +20 which was decreased to +12 12/20; Tolerating IMV with RR 6, breathing 8 above vent. Remains on Levophed at 4 mcg/m. More awake, following commands. Routine chest x-ray showed right pneumothorax and free air under the diaphragm. Had PTC procedure last week, unclear whether air is related. D/ W GI. Get CT chest after R chest tube is placed. D/W Dr Francis and Dr. Lugo 12/21: Reduced air under the diaphragm. Slightly increased white count but likely acid is normal. Clinical exam not consistent with perforated viscus- abdominal exam benign. Discussed with Dr. Lugo yesterday and he agrees. Possibly air was introduced from PTC procedure. Levophed requirement reducing, now at 2 mcg per min. R pneumothorax almost resolved 12/22: off vasopressors this morning. awake. CT with minimal serous output. no air leak. endorses only mild abdominal pain, primarily LUQ. 12/23: very hypoxic this morning. difficult to clear his secretions. his cxr shows a complete opacification of the left lung. I performed bedside critical care lung ultrasound which did not show an effusion, did show lung sliding with evidence of atelectatic collapse. I also had a long conversation with his and medical decision maker. she feels strongly that we should avoid intubation at all cost, and I agree that a second mechanical ventilation has the potential for chronic respiratory failure and life-long vent dependence. 12/24: initial significant improvements in CXR and oxygenation after bronch yesterday. was on ventimask however, overnight, persistent inability to clear secretions. became more hypoxic, placed on BiPAP. This morning, chest xray with recurrent consolidation in LLL, and spo2 75% on 100% BiPAP. I had a long conversation with his discussion the options, and I feel at this point, the safest way to be aggressive is intubation and mechanical ventilation. She was concerned that he may never come of the vent, as I am also concerned, but at this point he is failing conservative measures. We proceeded with intubation (see separate procedure note for details). 12/25: intubated yesterday, complete white out of left lung field again. repeat bronchoscopy with significant thick white secretions. BALs sent, gram stain negative. wbc up to 21k this morning, but afebrile. does remain on levophed 15 mcg/min, but this may be sedation related combined with cardiomyopathy. end- organs appear perfused. cxr much improved today. 12/26: very confused yesterday. Levo down to 6 from 20 mcg/min. still on milrinone for cardiac support. phos severely low today, replacing. remains on bilevel with improved aeration in lungs. 12/27: phos levels still persistently low. more awake and alert today. cultures NGTD. palliative care meeting planned for 11am. 12/28: phos levels still too low for safe extubation. aggressively replacing. very awake today. Objective Vital Signs Date Time Temp Pulse Resp B/P Pulse Ox O2 Delivery O2 Flow Rate FiO2 12/28/16 16:00 78 12/28/16 16:00 98.2 16 102/58 100 12/28/16 11:51 40 12/28/16 08:00 Mechanical Ventilator 12/24/16 07:48 6.00 Intake and Output 12/27/16 12/27/16 12/27/16 07:59 15:59 23:59 Intake Total 2852 ml 1305 ml 1484 ml Output Total 475 ml 450 ml 400 ml Balance 2377 ml 855 ml 1084 ml Result Diagram: 12/28/16 04112/28/16 041 Imaging Last 24 hours Impressions Chest X-Ray 12/22/16 0600 Signed Impressions: Service Date/Time: Thursday, December 22, 2016 04:50 - CONCLUSION: 1. Free air is again noted. 2. Abnormal opacity at the lung bases left greater than right consistent with infiltrate and effusion. 3. Interval extubation. 4. Right- sided chest tube remains in place with no pneumothorax. Zeke Khanna MD Objective Remarks Gen: Ill-appearing. intubated, sedated, critically ill. Neck: trachea midline. 8.0 ett. no jvd. Lungs: clear bilaterally. APRV 22/0 5/0.8 40%, dressing from right chest tube site clean, dry, intact (CT removed). Heart: normal rate, regular rhythm. sinus by tele. Abdomen: Tympanic to percussion, nontender, nondistended. no guarding. Extremities: warm, well perfused. Neuro: intubated. RASS 0. follows commands. CAM -. 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 Off pathway. his end-stage disease process may not be amenable to successful separation from mechanical ventilation. His vasopressor requirement may likely be secondary to a combination of autonomic dysfunction, cardiomyopathy, and sedation. He remains critically ill. At the family's request, I have consulted palliative care to assist with ongoing goals of care discussion. 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 -Continue Cerebyx. Dilantin level 11.2 12/20 -IV Ativan when necessary for seizures. Correct hyponatremia due to seizures Keep >140 -Neurology Dr. Manuel -Keep Phos normalized given history of myotonic dystrophy, still persistently low. will continue to aggressively replace. -MRI shows multiple embolic strokes. Continue full dose aspirin -fentanyl drip for sedation/pain. goal RASS -1/0. RESP: Right pneumothorax (?Intra-abdominal free air tracking up) Acute Hypoxic Respiratory Failure LLL consolidation History of Myotonic dystrophy -re-intubated 12/24. -continue APRV mode of ventilation to prevent atelectatic collapse which has been a large problem. - s/p chest tube (removed 12/26) -LLL consolidation most likely from mucous plugging. no fever, wbc downtrending. unlikely to be pneumonia. -OOB to chair. intubation not a contra-indication to this. - PT/OT consult - wean o2 for goal spo2 > 90%. DuoNeb every 6 hours when necessary - aggressive pulmonary toilet - will consider extubation if phos levels remain stable. CVS: Septic/circulatory shock - resolved. Hypotension associated with sedation and intravascular volume depletion. Cardiomyopathy with EF 35-40% -weaning off levophed. - continue low-dose milrinone 0.25 mcg/kg/min - hold further diuresis. GI: Hyponatremia, hypokalemia and hypophosphatemia Metabolic alkalosis- secondary to intravascular volume contraction Intra-abdominal free air ? PTC procedure related vs less likely ruptured viscus Cholangitis S/P PTHC, s/p ERCP and biliary stent- resolved Obstructive jaundice secondary to pancreatic head mass (previous w/u negative for malignancy). - resolving. History of prior dysphagia. Hypophosphatemia Acute protein calorie malnutrition- severe. -Chest x-ray 12/20/16 showed intra-abdominal free air. CT abdomen and pelvis -no contrast leakage -Clinically it appears that intra-abdominal free air is procedure related. No evidence of viscus perforation -Dr Lugo and Dr Francis following -Obstructive jaundice and possible cholangitis -S/P PTHC on (12/10/16) by IR -s/p ERCP with biliary dilation and brushing and metal stent placement on by Dr. Kerr. -D/W Dr. Francis and Dr Lugo - upper GI series 12/25 no obstruction - continue TF. : -hold on further diuresis. -keep hobson today while intubated. ID -s/p Septic shock from biliary source/cholangitis -Continue broad-spectrum antibiotics cefepime and Flagyl, Added vancomycin due to new finding of free air under the diaphragm -Repeat blood cultures NGTD. -All cultures negative to date -12/24 BALs NGTD - urine culture 12/25 NGTD - has had full 7 day course of abx. Endo: Hyperglycemia of Critical Illness SSI HEME: -Thrombocytopenia most likely from sepsis, now resolved. 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 On fondaparinux for DVT prophylaxis DVT/GI prophylaxis -Fondaparinux 2.5 mg sq daily as recommended by heme -IV Protonix Overall impression: Persistently poor respiratory status. Unlikely to be able to separate from mechanical ventilation. GI issues slowly resolving. needs aggressive PT. critically ill with worsening pulmonary status requiring intubation. Justin Harris MD December 28, 2016 19:42
[2016-12-28] MEDS ORDERED: POTASSIUM PHOSPHATE/SODIUM PHOSPHATE 250 MG TAB PO ONE (20:00)
[2016-12-28] MEDS: MELATONIN 5 MG TAB PO SCH (20:23)
[2016-12-28] MEDS: NOREPINEPHRINE-DEXTROSE DRIP 250 ML IV SCH (20:24)
[2016-12-29] VITALS (15 sets, daily range): BP systolic 102–134; BP diastolic 62–74; PULSE 61–81; RESP 15–45; TEMP 97.7–100.6; O2SAT 97–100
[2016-12-29] MEDS: CHLORHEXIDINE GLUCONATE 2 % 1 PACK (2 CLOTHS) TOP SCH (04:00)
[2016-12-29 05:08] LABS: MEAN CELL VOLUME 86.5 FL (80.0-100.0); MEAN CORPUSCULAR HGB CONC 34.6 % (32.0-36.0); PLATELET COUNT 112 TH/MM3 (150-450); RED CELL DISTRIBUTION WIDTH 16.3 % (11.6-17.2); REVIEW FLAG FINAL; WHITE BLOOD COUNT 11.8 TH/MM3 (4.0-11.0)
[2016-12-29 05:36] LABS: BICARBONATE 22.7 MEQ/L (21.0-32.0); POTASSIUM 3.8 MEQ/L (3.5-5.1)
[2016-12-29] MEDS: INSULIN ASPART SUPPLEMENTAL SCALE SQ SCH ×3 (06:00→18:00)
[2016-12-29] MEDS: SODIUM CHLORIDE 0.9% FLUSH 10 ML FLUSH IV FLUSH SCH (09:00)
[2016-12-29] MEDS ORDERED: CHOLECALCIFEROL (VIT D3) LIQ 400 UNITS/ML 50 ML BOTTLE PO SCH (09:00)
[2016-12-29] MEDS: ACETAMINOPHEN 325 MG TAB PO PRN (09:15)
[2016-12-29] MEDS: CHLORHEXIDINE 0.12% (ORAL KIT) 15 ML CUP MT SCH (09:15)
[2016-12-29] MEDS: POTASSIUM CHLORIDE 25 MEQ EFFERVESCENT TAB PO SCH (09:15)
[2016-12-29] MEDS: POTASSIUM PHOSPHATE/SODIUM PHOSPHATE 250 MG TAB PO SCH ×2 (09:16→15:51)
[2016-12-29] MEDS: FOSPHENYTOIN SODIUM 100 MG PE/2 ML VIAL IV SCH (09:17)
[2016-12-29] MEDS: DOCUSATE SODIUM 100 MG/10 ML UDC OG-TUBE SCH (09:18)
[2016-12-29] MEDS: LACTULOSE SYRUP 20 GM/30 ML CUP PO SCH ×3 (09:18→18:00)
[2016-12-29] MEDS: MUPIROCIN 2% OINT 1 APPLIC/GM SYR NASAL SCH (09:18)
[2016-12-29] MEDS: ASPIRIN 325 MG TAB PO SCH (09:19)
[2016-12-29] MEDS: MILRINONE INJ 20 MG in SODIUM CHLORIDE 0.9% INJ 80 ML IV SCH (09:44)
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
[2016-12-29] MEDS ORDERED: FUROSEMIDE 20 MG/2 ML VIAL IV PUSH SCH (11:56)
--- NOTE | 2016-12-29 11:59 | HHI.CCPN ---
Subjective Remarks/Hospital Course 51 y/o man had stent removed yesterday following insertion for benign pancreatic mass. Now hypotensive and acts septic. 12/11: Biliary drain placed 12/10 for drainage of GB and common duct due because of distal CD obstruction from pancreatic mass. Seizure this morning. 12/12: Remains septic and requiring vasopressor support. Hyponatremia new, likely free water excess. 12/13: Remains on 10 mics of Levophed, vasopressin 0.04 international units, dobutamine 2.5 g per KG per min. Remains on propofol but moves extremities. Sodium 125, potassium 2.7. GI not planning any other interventions at this time. Biliary drain with 160 mL in 24 hours 12/14: Levophed had been weaned off. Remains on vasopressin 0.04, dobutamine 2.5 g per KG per minute. Urine output excellent. Potassium phosphorus remains low. Tolerating CPAP but lethargic. Plt count 77 today 12/15: Remains on Levophed at 6 mcg/min. Lethargic but follows commands. Plan is for Rendezvous Procedure/ERCP with IR and GI ? possible today. labs are pending at this time 12/16: remains on CPAP, remains in shock on 6 mcg/min of Levophed. Rendezvous Procedure/ERCP with IR and GI plan for today. Sodium is 145 was low at 1.6 bilirubin decreasing. UO 4.5 L in 24 hours. 12/17: s/p ERCP with biliary dilation and brushing and metal stent placement on by Dr. Kerr. Liver enzymes trending down. WBC 19.3. CXR improving infiltrates. Levophed remains at 6 mcg/min 12/18: Remains orally intubated on mechanical ventilation. On SIMV mode mechanical ventilation due to apneic episodes with C Pap trials. 12/19: Remains orally intubated on mechanical ventilation. On SIMV mode with rate of 6 pressure support +20 which was decreased to +12 12/20; Tolerating IMV with RR 6, breathing 8 above vent. Remains on Levophed at 4 mcg/m. More awake, following commands. Routine chest x-ray showed right pneumothorax and free air under the diaphragm. Had PTC procedure last week, unclear whether air is related. D/ W GI. Get CT chest after R chest tube is placed. D/W Dr Francis and Dr. Lugo 12/21: Reduced air under the diaphragm. Slightly increased white count but likely acid is normal. Clinical exam not consistent with perforated viscus- abdominal exam benign. Discussed with Dr. Lugo yesterday and he agrees. Possibly air was introduced from PTC procedure. Levophed requirement reducing, now at 2 mcg per min. R pneumothorax almost resolved 12/22: off vasopressors this morning. awake. CT with minimal serous output. no air leak. endorses only mild abdominal pain, primarily LUQ. 12/23: very hypoxic this morning. difficult to clear his secretions. his cxr shows a complete opacification of the left lung. I performed bedside critical care lung ultrasound which did not show an effusion, did show lung sliding with evidence of atelectatic collapse. I also had a long conversation with his and medical decision maker. she feels strongly that we should avoid intubation at all cost, and I agree that a second mechanical ventilation has the potential for chronic respiratory failure and life-long vent dependence. 12/24: initial significant improvements in CXR and oxygenation after bronch yesterday. was on ventimask however, overnight, persistent inability to clear secretions. became more hypoxic, placed on BiPAP. This morning, chest xray with recurrent consolidation in LLL, and spo2 75% on 100% BiPAP. I had a long conversation with his discussion the options, and I feel at this point, the safest way to be aggressive is intubation and mechanical ventilation. She was concerned that he may never come of the vent, as I am also concerned, but at this point he is failing conservative measures. We proceeded with intubation (see separate procedure note for details). 12/25: intubated yesterday, complete white out of left lung field again. repeat bronchoscopy with significant thick white secretions. BALs sent, gram stain negative. wbc up to 21k this morning, but afebrile. does remain on levophed 15 mcg/min, but this may be sedation related combined with cardiomyopathy. end- organs appear perfused. cxr much improved today. 12/26: very confused yesterday. Levo down to 6 from 20 mcg/min. still on milrinone for cardiac support. phos severely low today, replacing. remains on bilevel with improved aeration in lungs. 12/27: phos levels still persistently low. more awake and alert today. cultures NGTD. palliative care meeting planned for 11am. 12/28: phos levels still too low for safe extubation. aggressively replacing. very awake today. 12/29: review of prior medical records, phos level ~1.5-2 chronically since at least 2013. still persists with aggressive replacement, but at this point, risk of persistent mechanical ventilation outweighs hypophosphatemia. will pursue SBT and extubation. as previously discussed, will not pursue re-intubation or tacheostomy if patient has persistent respiratory distress/failure. Objective Vital Signs Date Time Temp Pulse Resp B/P Pulse Ox O2 Delivery O2 Flow Rate FiO2 12/29/16 10:00 76 12/29/16 08:52 99 40 12/29/16 08:00 100.6 15 102/62 12/29/16 07:00 Mechanical Ventilator Intake and Output 12/28/16 12/28/16 12/29/16 08:00 16:00 00:00 Intake Total 846 ml 736 ml 690 ml Output Total 600.0 ml 1400 ml 600.0 ml Balance 246.0 ml -664 ml 90.0 ml Result Diagram: 12/29/16 0430 12/29/16 0430 Imaging Last 24 hours Impressions Chest X-Ray 12/22/16 0600 Signed Impressions: Service Date/Time: Thursday, December 22, 2016 04:50 - CONCLUSION: 1. Free air is again noted. 2. Abnormal opacity at the lung bases left greater than right consistent with infiltrate and effusion. 3. Interval extubation. 4. Right- sided chest tube remains in place with no pneumothorax. Zeke Khanna MD Objective Remarks Gen: chronically ill-appearing, sitting in bed, alert, oriented. Neck: trachea midline. 8.0 ett. no jvd. Lungs: clear bilaterally. APRV 22/0 5/0.8 40%, placed on cpap 40/5/5 on my exam. Heart: normal rate, regular rhythm. sinus by tele. Abdomen: Tympanic to percussion, nontender, nondistended. no guarding. Extremities: warm, well perfused. Neuro: intubated. RASS 0. follows commands. CAM -. 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 Off pathway. his end-stage disease process may not be amenable to successful separation from mechanical ventilation. We will pursue extubation today, DNR/DNI , and will medically optimize him, but if he fails, will not pursue re- intubation or tracheostomy. 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 -Continue Cerebyx. Dilantin level 11.2 12/20 -IV Ativan when necessary for seizures. Correct hyponatremia due to seizures Keep >140 -Neurology Dr. Manuel -Keep Phos normalized given history of myotonic dystrophy, will order scheduled phos replacements. -MRI shows multiple embolic strokes. Continue full dose aspirin -fentanyl drip for sedation/pain. goal RASS -1/0. RESP: Right pneumothorax (?Intra-abdominal free air tracking up) Acute Hypoxic Respiratory Failure LLL consolidation History of Myotonic dystrophy -re-intubated 12/24. -SBT and trial of extubation today. will not pursue re-intubation. - s/p chest tube (removed 12/26) -LLL consolidation most likely from mucous plugging. no fever, wbc downtrending. unlikely to be pneumonia. this is improving. -OOB to chair daily. - PT/OT consult - wean o2 for goal spo2 > 90%. DuoNeb every 6 hours when necessary - aggressive pulmonary toilet CVS: Septic/circulatory shock - resolved. Hypotension associated with sedation and intravascular volume depletion. Cardiomyopathy with EF 35-40% -weaning off levophed. - continue low-dose milrinone 0.25 mcg/kg/min will transition this off today. - restart daily lasix 20mg iv. GI: Hyponatremia, hypokalemia and hypophosphatemia Metabolic alkalosis- secondary to intravascular volume contraction Intra-abdominal free air ? PTC procedure related vs less likely ruptured viscus Cholangitis S/P PTHC, s/p ERCP and biliary stent- resolved Obstructive jaundice secondary to pancreatic head mass (previous w/u negative for malignancy). - resolving. History of prior dysphagia. Hypophosphatemia Acute protein calorie malnutrition- severe. -Chest x-ray 12/20/16 showed intra-abdominal free air. CT abdomen and pelvis -no contrast leakage -Clinically it appears that intra-abdominal free air is procedure related. No evidence of viscus perforation -Dr Lugo and Dr Francis following -Obstructive jaundice and possible cholangitis -S/P PTHC on (12/10/16) by IR -s/p ERCP with biliary dilation and brushing and metal stent placement on by Dr. Kerr. -D/W Dr. Francis and Dr Lugo - upper GI series 12/25 no obstruction - will need speech eval and DHT for tube feeds and ongoing nutrition. : -lasix as above. -keep hobson today ID -s/p Septic shock from biliary source/cholangitis -Repeat blood cultures NGTD. -All cultures negative to date -12/24 BALs NGTD - urine culture 12/25 NGTD - has had full 7 day course of abx. - culture for new fever. Endo: Hyperglycemia of Critical Illness SSI HEME: -Thrombocytopenia most likely from sepsis, now resolved. 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 On fondaparinux for DVT prophylaxis DVT/GI prophylaxis -Fondaparinux 2.5 mg sq daily as recommended by heme -IV Protonix Overall impression: Overall weak, likely will not successfully remain from mechanical ventilation. will plan for early identification of failure and early transition to comfort measures. Justin Harris MD December 29, 2016 11:59
[2016-12-29] MEDS ORDERED: HYDROmorphone HCL PF 1 MG/ML VIAL IV PUSH PRN (12:00)
[2016-12-29] MEDS ORDERED: ATROPINE SULFATE 1% OPHT SOLN 2 ML BTL SL PRN (12:00)
[2016-12-29] MEDS: PANTOPRAZOLE SODIUM 40 MG VIAL IV PUSH SCH (18:31)
[2016-12-29] MEDS: THIAMINE INJ 100 MG in SODIUM CHLORIDE 0.9% INJ 100 ML IV SCH (18:31)
--- NOTE | 2017-01-25 19:01 | HHI.DS ---
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 Patient has a history of pancreatic mass with obstructive symptoms and placement of biliary stent. Per patient biopsy of mass was done and patient was told it was noncancerous. Apparently, the biliary stent was removed yesterday by spice cleaner Dr. Medrano. An ERCP was attempted afterwards but could not be completed. The epigastric pain has been present since 12/08/2016 and is accompanied by nausea. LFTs are elevated with AST 223, ALT 272, and alkaline phosphatase 504. Initial lactic acid was 2.2 but repeat went down to 1.3. Total bilirubin is significantly elevated 11.8. Patient is seen in his hospital room and he recently received morphine 4 mg IV. He tells me the year is 1986. He denies having any abdominal pain and denies that this is the reason that he is in the hospital - no abdominal pain noted upon exam - he is quite jaundiced. He frequently falls asleep during visit and seems confused by why I'm visiting with him even though I explained my role and purpose. I spoke with his nurse after my visit and she indicates that the patient was alert and oriented and had insight into his medical conditions prior to receiving the morphine. I have asked her to let me know if his confusion does not resolve once the morphine wears off. History taken from medical record as a result of what is most likely medication-related confusion. Hospital Course 51 y/o man had stent removed yesterday following insertion for benign pancreatic mass. Now hypotensive and acts septic. 12/11: Biliary drain placed 12/10 for drainage of GB and common duct due because of distal CD obstruction from pancreatic mass. Seizure this morning. 12/12: Remains septic and requiring vasopressor support. Hyponatremia new, likely free water excess. 12/13: Remains on 10 mics of Levophed, vasopressin 0.04 international units, dobutamine 2.5 g per KG per min. Remains on propofol but moves extremities. Sodium 125, potassium 2.7. GI not planning any other interventions at this time. Biliary drain with 160 mL in 24 hours 12/14: Levophed had been weaned off. Remains on vasopressin 0.04, dobutamine 2.5 g per KG per minute. Urine output excellent. Potassium phosphorus remains low. Tolerating CPAP but lethargic. Plt count 77 today 12/15: Remains on Levophed at 6 mcg/min. Lethargic but follows commands. Plan is for Rendezvous Procedure/ERCP with IR and GI ? possible today. labs are pending at this time 12/16: remains on CPAP, remains in shock on 6 mcg/min of Levophed. Rendezvous Procedure/ERCP with IR and GI plan for today. Sodium is 145 was low at 1.6 bilirubin decreasing. UO 4.5 L in 24 hours. 12/17: s/p ERCP with biliary dilation and brushing and metal stent placement on by Dr. Kerr. Liver enzymes trending down. WBC 19.3. CXR improving infiltrates. Levophed remains at 6 mcg/min 12/18: Remains orally intubated on mechanical ventilation. On SIMV mode mechanical ventilation due to apneic episodes with C Pap trials. 12/19: Remains orally intubated on mechanical ventilation. On SIMV mode with rate of 6 pressure support +20 which was decreased to +12 12/20; Tolerating IMV with RR 6, breathing 8 above vent. Remains on Levophed at 4 mcg/m. More awake, following commands. Routine chest x-ray showed right pneumothorax and free air under the diaphragm. Had PTC procedure last week, unclear whether air is related. D/ W GI. Get CT chest after R chest tube is placed. D/W Dr Francis and Dr. Lugo 12/21: Reduced air under the diaphragm. Slightly increased white count but likely acid is normal. Clinical exam not consistent with perforated viscus- abdominal exam benign. Discussed with Dr. Lugo yesterday and he agrees. Possibly air was introduced from PTC procedure. Levophed requirement reducing, now at 2 mcg per min. R pneumothorax almost resolved 12/22: off vasopressors this morning. awake. CT with minimal serous output. no air leak. endorses only mild abdominal pain, primarily LUQ. 12/23: very hypoxic this morning. difficult to clear his secretions. his cxr shows a complete opacification of the left lung. I performed bedside critical care lung ultrasound which did not show an effusion, did show lung sliding with evidence of atelectatic collapse. I also had a long conversation with his and medical decision maker. she feels strongly that we should avoid intubation at all cost, and I agree that a second mechanical ventilation has the potential for chronic respiratory failure and life-long vent dependence. 12/24: initial significant improvements in CXR and oxygenation after bronch yesterday. was on ventimask however, overnight, persistent inability to clear secretions. became more hypoxic, placed on BiPAP. This morning, chest xray with recurrent consolidation in LLL, and spo2 75% on 100% BiPAP. I had a long conversation with his discussion the options, and I feel at this point, the safest way to be aggressive is intubation and mechanical ventilation. She was concerned that he may never come of the vent, as I am also concerned, but at this point he is failing conservative measures. We proceeded with intubation (see separate procedure note for details). 12/25: intubated yesterday, complete white out of left lung field again. repeat bronchoscopy with significant thick white secretions. BALs sent, gram stain negative. wbc up to 21k this morning, but afebrile. does remain on levophed 15 mcg/min, but this may be sedation related combined with cardiomyopathy. end- organs appear perfused. cxr much improved today. 12/26: very confused yesterday. Levo down to 6 from 20 mcg/min. still on milrinone for cardiac support. phos severely low today, replacing. remains on bilevel with improved aeration in lungs. 12/27: phos levels still persistently low. more awake and alert today. cultures NGTD. palliative care meeting planned for 11am. 12/28: phos levels still too low for safe extubation. aggressively replacing. very awake today. 12/29: review of prior medical records, phos level ~1.5-2 chronically since at least 2013. still persists with aggressive replacement, but at this point, risk of persistent mechanical ventilation outweighs hypophosphatemia. will pursue SBT and extubation. as previously discussed, will not pursue re-intubation or tacheostomy if patient has persistent respiratory distress/failure. Pt Condition on Discharge: Deteriorating Discharge Disposition: Hospice/Med Facility Discharge Instructions DIET: Follow Instructions for: Nothing By Mouth Activities you can perform: Continue Bedrest Justin Harris MD Jan 25, 2017 19:01
== END 2016-12-29 20:43 | disposition hospice, inpatient (51) | DRG 870 ==
LOC: PHED 15:29 → PHEDA 17:06 → N06A 20:45 → N03A 12-10 04:50
PROVIDERS: ADMIT Internal Medicine Critical Care Medicine; ATTEND Internal Medicine Critical Care Medicine
PROC: 0FPB8DZ Removal of Intraluminal Device from Hepatobiliary Duct, Via Natural or Artificial Opening Endoscopic (ICD-10-PCS; 2016-12-08)
PROC: 0DJ08ZZ Inspection of Upper Intestinal Tract, Via Natural or Artificial Opening Endoscopic (ICD-10-PCS; 2016-12-08)
PROC: 0F793DZ Dilation of Common Bile Duct with Intraluminal Device, Percutaneous Approach (ICD-10-PCS; principal; 2016-12-10)
PROC: 5A1955Z Respiratory Ventilation, Greater than 96 Consecutive Hours (ICD-10-PCS; 2016-12-10)
PROC: 02H633Z Insertion of Infusion Device into Right Atrium, Percutaneous Approach (ICD-10-PCS; 2016-12-10)
PROC: 0BH17EZ Insertion of Endotracheal Airway into Trachea, Via Natural or Artificial Opening (ICD-10-PCS; 2016-12-10)
PROC: BF101ZZ Fluoroscopy of Bile Ducts using Low Osmolar Contrast (ICD-10-PCS; 2016-12-10)
PROC: 0FPB8DZ Removal of Intraluminal Device from Hepatobiliary Duct, Via Natural or Artificial Opening Endoscopic (ICD-10-PCS; 2016-12-16)
PROC: 0F798DZ Dilation of Common Bile Duct with Intraluminal Device, Via Natural or Artificial Opening Endoscopic (ICD-10-PCS; 2016-12-16)
PROC: 0FB98ZX Excision of Common Bile Duct, Via Natural or Artificial Opening Endoscopic, Diagnostic (ICD-10-PCS; 2016-12-16)
PROC: 0W9930Z Drainage of Right Pleural Cavity with Drainage Device, Percutaneous Approach (ICD-10-PCS; 2016-12-20)
PROC: 0B978ZX Drainage of Left Main Bronchus, Via Natural or Artificial Opening Endoscopic, Diagnostic (ICD-10-PCS; 2016-12-23)
PROC: 0B9B8ZX Drainage of Left Lower Lobe Bronchus, Via Natural or Artificial Opening Endoscopic, Diagnostic (ICD-10-PCS; 2016-12-24)
PROC: 0B988ZX Drainage of Left Upper Lobe Bronchus, Via Natural or Artificial Opening Endoscopic, Diagnostic (ICD-10-PCS; 2016-12-24)
PROC: 0BH17EZ Insertion of Endotracheal Airway into Trachea, Via Natural or Artificial Opening (ICD-10-PCS; 2016-12-24)
PROC: 5A1955Z Respiratory Ventilation, Greater than 96 Consecutive Hours (ICD-10-PCS; 2016-12-24)
DX: A41.9 Sepsis, unspecified organism (principal); R65.21 Severe sepsis with septic shock; J96.21 Acute and chronic respiratory failure with hypoxia; I63.40 Cerebral infarction due to embolism of unspecified cerebral artery; D65 Disseminated intravascular coagulation [defibrination syndrome]; G93.41 Metabolic encephalopathy; J69.0 Pneumonitis due to inhalation of food and vomit; K83.0 Cholangitis; K83.1 Obstruction of bile duct; E43 Unspecified severe protein-calorie malnutrition; E87.0 Hyperosmolality and hypernatremia; T17.890A Other foreign object in other parts of respiratory tract causing asphyxiation, initial encounter; E87.2 Acidosis; G40.89 Other seizures; I42.9 Cardiomyopathy, unspecified; J93.9 Pneumothorax, unspecified; E87.1 Hypo-osmolality and hyponatremia; K31.5 Obstruction of duodenum; K72.90 Hepatic failure, unspecified without coma; G71.11 Myotonic muscular dystrophy; K21.9 Gastro-esophageal reflux disease without esophagitis; K76.0 Fatty (change of) liver, not elsewhere classified; R74.8 Abnormal levels of other serum enzymes; E78.5 Hyperlipidemia, unspecified; F41.9 Anxiety disorder, unspecified; K76.89 Other specified diseases of liver; E78.00 Pure hypercholesterolemia, unspecified; K75.9 Inflammatory liver disease, unspecified; I44.7 Left bundle-branch block, unspecified; D13.6 Benign neoplasm of pancreas; D64.9 Anemia, unspecified; E87.6 Hypokalemia; E83.51 Hypocalcemia; Z74.01 Bed confinement status; I44.0 Atrioventricular block, first degree; Z66 Do not resuscitate; R00.1 Bradycardia, unspecified; K66.8 Other specified disorders of peritoneum; Z51.5 Encounter for palliative care; E83.39 Other disorders of phosphorus metabolism; R73.9 Hyperglycemia, unspecified; E86.9 Volume depletion, unspecified; Z90.49 Acquired absence of other specified parts of digestive tract; Z86.14 Personal history of Methicillin resistant Staphylococcus aureus infection; Z87.820 Personal history of traumatic brain injury; Z87.891 Personal history of nicotine dependence; K83.8 Other specified diseases of biliary tract; K29.50 Unspecified chronic gastritis without bleeding
CPT/HCPCS: 31500; 31624; 32551; 36556; 36600; 36620; 47532; 47540; 70450; 70544; 70548; 70551; 71010; 74000; 74020; 74177; 74183; 74240; 74330; 76000; 76377; 76937; 80048; 80053; 80076; 80185; 80202; 81001; 82140; 82306; 82310; 82374; 82435; 82550; 82552; 82565; 82784; 82787; 82805; 82947; 82948; 83010; 83520; 83605; 83615; 83690; 83735; 83880; 84100; 84132; 84155; 84295; 84484; 84520; 85007; 85025; 85027; 85060; 85379; 85384; 85610; 85730; 86038; 86256; 87040; 87070; 87086; 87205; 87641; 88112; 93005; 93306; 94002; 94003; 94640; 94664; 95819; 96361; 96374; 96375; A9579; C1729; C1769; C1887; C2625; C9113; J0131; J0692; J1120; J1170; J1250; J1720; J1815; J1940; J2250; J2260; J2270; J2370; J2405; J2997; J3010; J3370; J3411; J3475; J3480; J7030; J7040; J7050; J7060; J7120; J7121; P9045; P9047; Q2009; Q9963; Q9967